=== PATIENT | female | born 1950 | race American Indian/Alaskan Native ===

== ENCOUNTER → 2016-12-03 | Outpatient (CLI) | payer OTHER ==
[~2016-12-03] MED LIST: ADVIN25/60 INH; ASPI81TA28 PO; ATOR-22 PO; ATR25 PO; DIVA250T PO; MELO15TA4 PO; MONT1TAB3 PO; NTRGSL/4 UT; PRED20TA PO; VNTHFA/IN INH
[2016-12-03 17:36] LABS: LYME DISEASE AB IGM NEG (NEG)
[2016-12-03 17:40] LABS: LYME DISEASE AB IGG NEG (NEG)
[2016-12-03 19:45] LABS: MAGNESIUM 2.1 mg/dl (1.8-2.4); THYROID STIMULATING HORMONE 2.53 uIu/ml (0.300-4.500)
== END | disposition home or self-care (01) ==
LOC: C.LABPBG 15:40
PROVIDERS: ATTEND Nurse Practitioner Family
DX: R25.1 Tremor, unspecified (principal)

== ENCOUNTER → 2017-03-21 | Outpatient (CLI) | payer OTHER | END | disposition home or self-care (01) | LOC: C.PAPS 08:01 | PROVIDERS: ATTEND Physician Assistant | DX: Z12.4 Encounter for screening for malignant neoplasm of cervix (principal) ==

== ENCOUNTER → 2017-03-21 | Outpatient (CLI) | payer OTHER ==
[2017-03-21 18:48] LABS: URINE APPEARANCE CLEAR (CLEAR); URINE BILIRUBIN NEG (NEG); URINE COLOR YELLOW; URINE EPITHELIAL CELL AUTO >30 /lpf (0-5); URINE NITRITE NEG (NEG); URINE PH 6.5 (4.5-7.5); URINE SPECIFIC GRAVITY 1.024 (1.000-1.030); UROBILINOGEN NEG (NEG)
[2017-03-21 18:50] LABS: MANUAL MICROSCOPIC REQUIRED? NO; REVIEW REQ? NO
== END | disposition home or self-care (01) ==
LOC: C.LABSPEC 17:35
PROVIDERS: ATTEND Physician Assistant
DX: R39.9 Unspecified symptoms and signs involving the genitourinary system (principal); N89.8 Other specified noninflammatory disorders of vagina

== ENCOUNTER → 2017-03-23 | Outpatient (CLI) | payer OTHER ==
[2017-03-31 15:39] LABS: O&P SOURCE OTHER-STOOL
== END | disposition home or self-care (01) ==
LOC: C.LABSPEC 11:09
PROVIDERS: ATTEND Family Medicine
DX: M54.5 Low back pain (principal); R19.7 Diarrhea, unspecified

== ENCOUNTER → 2017-04-11 | Outpatient (CLI) | payer OTHER ==
[2017-04-14 12:29] LABS: GLIADIN DEAMIDATED IgA AB 4 UNITS (<20); GLIADIN DEAMIDATED IgG AB 4 UNITS (<20); RETICULIN IgA AB Negative (Negative)
== END | disposition home or self-care (01) ==
LOC: C.LABPBG 14:28
PROVIDERS: ATTEND Family Medicine
DX: R19.7 Diarrhea, unspecified (principal)

== ENCOUNTER → 2017-05-23 | Outpatient (CLI) | payer OTHER ==
[2017-05-23 17:40] LABS: URINE APPEARANCE CLEAR (CLEAR); URINE BILIRUBIN NEG (NEG); URINE COLOR YELLOW; URINE EPITHELIAL CELL AUTO >30 /lpf (0-5); URINE NITRITE NEG (NEG); URINE PH 6.5 (4.5-7.5); URINE SPECIFIC GRAVITY 1.024 (1.000-1.030); UROBILINOGEN NEG (NEG)
[2017-05-23 18:00] LABS: MANUAL MICROSCOPIC REQUIRED? NO; REVIEW REQ? NO
== END | disposition home or self-care (01) ==
LOC: C.LABSPEC 12:08
PROVIDERS: ATTEND Family Medicine
DX: R39.9 Unspecified symptoms and signs involving the genitourinary system (principal)

== ENCOUNTER → 2017-06-27 | Outpatient (CLI) | payer OTHER ==
[2017-06-27 17:53] LABS: ALT/SGPT 20 U/L (12-78); BLOOD UREA NITROGEN 21 mg/dl (7-18); BUN/CREATININE RATIO 26.8 (10-20); CARBON DIOXIDE 26 mmol/L (21-32); CHLORIDE 109 mmol/L (98-107); CHOLESTEROL 195 mg/dl (0-200); CREATININE 0.79 mg/dl (0.60-1.20); GLUCOSE 99 mg/dl (70-99); POTASSIUM 4.2 mmol/L (3.5-5.1); SODIUM 141 mmol/L (136-145)
[2017-06-27 17:56] LABS: ALB/GLOB RATIO 0.9 (0.9-2); ALKALINE PHOSPHATASE 86 U/L (45-117); AST/SGOT 11 U/L (15-37); CHOLESTEROL/HDL RATIO 2.8; HDL CHOLESTEROL 70 mg/dl; LDL CHOLESTEROL CALCULATED 110 mg/dl; TRIGLYCERIDES 76 mg/dl (0-150); VERY LOW DENSITY LIPOPROT CALC 15 mg/dl
== END | disposition home or self-care (01) ==
LOC: C.LABPBG 12:16
PROVIDERS: ATTEND Family Medicine
DX: E78.5 Hyperlipidemia, unspecified (principal)

== ENCOUNTER → 2017-09-22 | Outpatient (CLI) | payer OTHER ==
[~2017-09-22] MED LIST changes: +MELO-83 PO; -MELO15TA4 PO
== END | disposition home or self-care (01) ==
LOC: C.LABSPEC 14:41
PROVIDERS: ATTEND Family Medicine
DX: R30.0 Dysuria (principal)

== ENCOUNTER → 2017-10-28 | Outpatient (CLI) | payer OTHER ==
[2017-10-28 17:28] LABS: BLOOD UREA NITROGEN 17 mg/dl (7-18); CARBON DIOXIDE 27 mmol/L (21-32); GLUCOSE 128 mg/dl (70-99); SODIUM 139 mmol/L (136-145)
[2017-10-29 08:04] LABS: HEMOGLOBIN A1C 6.3 % (4.5-5.6)
== END | disposition home or self-care (01) ==
LOC: C.LABPBG 13:46
PROVIDERS: ATTEND Family Medicine
DX: R73.9 Hyperglycemia, unspecified (principal)

== ENCOUNTER 2020-12-07 07:43 | Observation (INO) ==
--- NOTE | 2020-12-07 07:59 | Emergency Department Note ---
History of Present Illness General Chief complaint: Chest Pain Stated complaint: CHEST PAIN Time Seen by Provider: 12/07/20 07:48 Source: patient and EMS Mode of arrival: EMS Limitations: no limitations History of Present Illness This patient comes in complaining of chest pain that woke her up around 630. It feels like chest pressure 10 out of 10 it does radiate to her left arm she feels mildly short of breath and nauseated. She does have a cardiac history as well as a history of COPD. She is not had the Covid vaccine. No fever chills or cough. EMS did give her aspirin prior to arrival as well as sublingual nitro x2 which did not help her pain she tells me she also took 3 nitroglycerin at home prior to the arrival so she has had 5 nitroglycerin without any relief at this point. They did transmit her EKG prior to arrival and it did not show any ischemic changes to suggest acute STEMI. Given the fact that they did not have an IV in the ambulance and she had already had 5 nitroglycerin without relief I told him to hold off on further nitro. Home Medications Medication Instructions Recorded Confirmed Type blood sugar diagnostic #360 ea 01/04/19 11/04/20 Rx albuterol sulfate 2.5 mg INH Q4H PRN #90 ml 12/06/19 12/07/20 Rx albuterol sulfate 90 mcg/actuation 2 - 4 puff INHALATION Q6H PRN #18 12/06/19 12/07/20 Rx aerosol inhaler gm aspirin 81 mg tablet,delayed 81 mg PO QAM #30 tab 12/06/19 12/07/20 Rx release insulin lispro 100 unit/mL See Rx Instructions SUBCUT DAILY 12/06/19 12/07/20 Rx subcutaneous pen #15 ml [id number] 1 puffs INHALATION QDL 12/18/19 12/07/20 History [Trelegy Ellipta] ipratropium bromide 1.25 ml INH UD PRN 12/18/19 12/07/20 History meloxicam 15 mg PO QAM 12/18/19 12/07/20 History montelukast 10 mg PO QAM 12/18/19 12/07/20 History blood-glucose meter #1 ea 12/25/19 11/04/20 Rx Wheeled Walker #1 ea 01/11/20 11/04/20 Rx hydroxyzine pamoate 25 mg capsule 25 mg PO TID PRN #30 cap 01/30/20 12/07/20 Rx nebulizer accessories #1 ea 02/13/20 11/04/20 Rx blood sugar diagnostic #200 ea 03/10/20 11/04/20 Rx pen needle, diabetic 31 gauge x #100 ea 03/10/20 11/04/20 Rx 3/16" lancets 33 gauge #200 ea 03/11/20 11/04/20 Rx metformin 500 mg tablet 500 mg PO BID #180 tab 03/27/20 12/07/20 Rx epinephrine 0.3 mg/0.3 mL See Rx Instructions .ROUTE 11/04/20 12/07/20 Rx injection, auto-injector .COMPLEX PRN #2 ea Wheeled Walker 1 ea .ROUTE .COMPLEX #1 ea 11/07/20 Rx nitroglycerin 0.4 mg sublingual 0.4 mg SUBLINGUAL Q5M PRN #25 tab 12/04/2011/22 Rx tablet fluticasone propionate 1 spray INTRANASAL QAM 12/07/20 12/07/20 History rosuvastatin [Crestor] 10 mg PO QAM 12/07/20 12/07/20 History sertraline 100 mg PO QAM 12/07/20 12/07/20 History Allergies Allergy/AdvReac Type Severity Reaction Status Date / Time ibuprofen Allergy Unknown unknown Verified 12/07/20 08:21 Penicillins Allergy Unknown unknown Verified 12/07/20 08:21 phenytoin Allergy Unknown unknown Verified 12/07/20 08:21 aspirin Allergy Unknown Verified 12/07/20 08:21 bee venom protein (honey bee) Allergy Unknown Verified 12/07/20 08:21 Iodinated Contrast Media AdvReac Mild Vomiting Verified 12/07/20 08:21 [Iodinated Contrast- Oral and IV Dye] Past Med/Surg History Medical History (Updated 12/07/20 @ 13:29 by Abdulkadir Howe MD) Allergic rhinitis Anxiety and depression Asthma Atypical chest pain Cervical radiculopathy COPD (chronic obstructive pulmonary disease) History of recurrent UTI (urinary tract infection) Histrionic personality disorder Hyperlipidemia Impulse control disorder Irritable bowel syndrome Learning disability Lumbar disc disease Lumbar spinal stenosis Nonobstructive atherosclerosis of coronary artery Orthostatic tremor Seizure disorder Type 2 diabetes mellitus Urge incontinence of urine Vitamin D deficiency Surgical History Status post cardiac catheterization Status post cholecystectomy Status post dilation and curettage Status post tonsillectomy Status post tubal ligation Family History Father Myocardial infarction Cerebral aneurysm Coronary heart disease Diabetes Mother Lung cancer Brother H/O heart artery stent Other Family history non-contributory Denies family history of Ovarian cancer Prostate cancer Breast cancer Colorectal cancer Social History Smoking Status: Former smoker Tobacco Type: Cigarettes Age Started Using Tobacco: 18; Age Quit Using Tobacco: 20; packs per day: 2; Years Smoked: 1; Second Hand Exposure: Yes; Hx Alcohol Use: No Hx Substance Use: No Preferred Language: Portuguese Communication Ability: Effective Visual Impairment: Limited Hearing Ability: Normal Beef Killer Required: No Beliefs That Will Affect Care: None marital status: Current Living Situation: Alone Current Living Situation Comment: Live in apartment current occupational status: disabled How many Children do You have: 2 Feels Safe at Home: Yes Childhood Exposure to Second-Hand Smoke: No caffeine: No during the past year weight has: remained stable Dental Care, Regularly: No Physical Activity Frequency: Does not Exercise Seatbelt Use: always Sunscreen Use: No Review of Systems A total of 10 systems reviewed and were otherwise negative Physical Exam Vital Signs Vital Signs - 24 hr 12/07/20 07:49 12/07/20 08:09 12/07/20 08:39 Temperature 36.9 C Temperature Source Oral Pulse Rate 85 Pulse Rate [Right Finger] 95 H Respiratory Rate 20 20 Respiratory Effort / Characteristics Non-Labored Spontaneous Non-Labored Spontaneous Respiratory Depth Normal Normal Blood Pressure 140/87 Blood Pressure [Right Arm] 145/78 H Blood Pressure Mean 104 Blood Pressure Mean [Right Arm] 100 Blood Pressure Position Sitting Blood Pressure Position [Right Arm] Lying Pulse Oximetry 97 97 97 Oxygen Delivery Method Room Air Room Air Room Air Sepsis Recent Fever Within 48 Hours No Sepsis New/Unexplained Change in Mental Status N/A Sepsis Action Taken by Nursing No Action Required 12/07/20 10:00 Temperature Temperature Source Pulse Rate Pulse Rate [Right Finger] 80 Respiratory Rate 18 Respiratory Effort / Characteristics Non-Labored Respiratory Depth Normal Blood Pressure Blood Pressure [Right Arm] 153/88 H Blood Pressure Mean Blood Pressure Mean [Right Arm] 109 Blood Pressure Position Blood Pressure Position [Right Arm] Lying Pulse Oximetry 97 Oxygen Delivery Method Room Air Sepsis Recent Fever Within 48 Hours Sepsis New/Unexplained Change in Mental Status Sepsis Action Taken by Nursing General: Well developed well nourished not ill-appearing older female who appears in no acute distress, breathing comfortably on room air. Normal speech HEENT: Normal cephalic atraumatic. Pupils are equal round and reactive to light. Extraocular movements are intact. Oropharynx is pink with moist mucous membranes. No swelling of the mouth lips or tongue. Neck: Supple with a midline trachea. No meningeal signs or stiffness, no JVD or bruits. No Stridor. Chest: Clear to auscultation bilaterally. No wheezes or rhonchi. No increased work of breathing. Heart: Regular rate and rhythm without murmurs or gallops. Abdomen: Soft nontender, nondistended without rebound guarding or rigidity. Extremities: No cyanosis clubbing or edema. No calf tenderness or assymetry Spine/Back. Non tender to palpation. No CVA tenderness Skin: Good turgor without rashes. Neurologic exam: Cranial nerves two through 12 are intact. Motor and sensation are intact and symmetrical throughout. Course Administered Medications Discontinued Medications Morphine Sulfate (Morphine Sulfate 4 Mg/Ml 1 Ml Carp\\Vial) 4 mg IV NOW STA Stop: 12/07/20 08:33 Last Admin: 12/07/20 08:35 Dose: 4 mg Documented by: [id number] Morphine Sulfate (Morphine Sulfate 4 Mg/Ml 1 Ml Carp\\Vial) 4 mg IV NOW STA Stop: 12/07/20 09:09 Last Admin: 12/07/20 09:10 Dose: 4 mg Documented by: [id number] Ondansetron HCl (Ondansetron Inj 2 Mg/Ml 2 Ml Vial) 4 mg IV NOW STA Stop: 12/07/20 08:33 Last Admin: 12/07/20 08:35 Dose: 4 mg Documented by: [id number] Medical Decision Making Differential Diagnosis Acute coronary syndrome, arrhythmia, CHF, pneumothorax, COPD exacerbation, anxie ty, GERD, musculoskeletal, Covid, aortic pathology Medical Records Attestation: I reviewed the patient's medical records. Home Medications Current Medication List: was personally reviewed by me Laboratory Data Attestation: I reviewed the patient's lab results. Result diagrams: 12/07/20 08:15 12/07/20 08:15 Lab Results 12/07/20 12/07/20 12/07/20 Range/Units 08:15 08:15 08:15 WBC 11.20 H (4.8-10.8) K/uL RBC 4.44 (4.2-5.4) M/uL Hgb 12.7 (12.0-16.0) g/dL Hct 38.7 (37-47) % MCV 87.2 (80-100) fL MCH 28.6 (25-34) pg MCHC 32.8 (32-36) g/dL RDW Std Deviation 44.0 (36.4-46.3) fL RDW Coeff of Maegan 13.8 (11.5-14.5) % Plt Count 242 (130-400) K/uL MPV 10.3 (7.4-10.4) fL Immature Gran % (Auto) 0.2 % Neut % (Auto) 69.2 % Lymph % (Auto) 22.5 % [place] % (Auto) 7.0 % Eos % (Auto) 0.9 % Baso % (Auto) 0.2 % Neut # (Auto) 7.76 H (1.4-6.5) K/uL Lymph # (Auto) 2.52 (1.2-3.4) K/uL [place] # (Auto) 0.78 H (0.11-0.59) K/uL Eos # (Auto) 0.10 (0-0.5) K/uL Baso # (Auto) 0.02 (0-0.2) K/uL Immature Gran # (Auto) 0.02 (0.00-0.02) K/uL PT 9.6 (9.0-12.0) Seconds INR 0.9 (0.9-1.1) APTT 23.3 (21.0-31.0) Seconds PTT Ratio 0.9 Sodium 142 (136-145) mmol/L Potassium 4.1 (3.5-5.1) mmol/L Chloride 112 H (98-107) mmol/L Carbon Dioxide 26 (21-32) mmol/L Anion Gap 4.0 (3-11) BUN 20 H (7-18) mg/dl Creatinine 0.66 (0.6-1.2) mg/dl Est Cr Clr Drug Dosing 75.0 ml/min Est GFR ( Amer) 105.2 ml/min Est GFR (Non-Af Amer) 90.8 ml/min BUN/Creatinine Ratio 30.0 H (10-20) Glucose 99 (70-99) mg/dl Calcium 8.7 (8.5-10.1) mg/dl Total Bilirubin 0.3 (0.2-1) mg/dl AST 17 (15-37) U/L ALT 23 (12-78) U/L Alkaline Phosphatase 104 (45-117) U/L Troponin I < 0.015 (0-0.045) ng/ml C-Reactive Protein (0-0.29) mg/dl Total Protein 6.8 (6.4-8.2) gm/dl Albumin 3.0 L (3.4-5.0) gm/dl Globulin 3.8 (2.5-4.0) gm/dl Albumin/Globulin Ratio 0.8 L (0.9-2) Lipase 98 (73-393) U/L Procalcitonin (0-0.5) ng/ml COVID-19 Eval Order SARS-CoV-2 (PCR) (Negative) 12/07/20 12/07/20 12/07/20 Range/Units 08:15 08:15 08:40 WBC (4.8-10.8) K/uL RBC (4.2-5.4) M/uL Hgb (12.0-16.0) g/dL Hct (37-47) % MCV (80-100) fL MCH (25-34) pg MCHC (32-36) g/dL RDW Std Deviation (36.4-46.3) fL RDW Coeff of Maegan (11.5-14.5) % Plt Count (130-400) K/uL MPV (7.4-10.4) fL Immature Gran % (Auto) % Neut % (Auto) % Lymph % (Auto) % [place] % (Auto) % Eos % (Auto) % Baso % (Auto) % Neut # (Auto) (1.4-6.5) K/uL Lymph # (Auto) (1.2-3.4) K/uL [place] # (Auto) (0.11-0.59) K/uL Eos # (Auto) (0-0.5) K/uL Baso # (Auto) (0-0.2) K/uL Immature Gran # (Auto) (0.00-0.02) K/uL PT (9.0-12.0) Seconds INR (0.9-1.1) APTT (21.0-31.0) Seconds PTT Ratio Sodium (136-145) mmol/L Potassium (3.5-5.1) mmol/L Chloride (98-107) mmol/L Carbon Dioxide (21-32) mmol/L Anion Gap (3-11) BUN (7-18) mg/dl Creatinine (0.6-1.2) mg/dl Est Cr Clr Drug Dosing ml/min Est GFR ( Amer) ml/min Est GFR (Non-Af Amer) ml/min BUN/Creatinine Ratio (10-20) Glucose (70-99) mg/dl Calcium (8.5-10.1) mg/dl Total Bilirubin (0.2-1) mg/dl AST (15-37) U/L ALT (12-78) U/L Alkaline Phosphatase (45-117) U/L Troponin I (0-0.045) ng/ml C-Reactive Protein 0.38 H (0-0.29) mg/dl Total Protein (6.4-8.2) gm/dl Albumin (3.4-5.0) gm/dl Globulin (2.5-4.0) gm/dl Albumin/Globulin Ratio (0.9-2) Lipase (73-393) U/L Procalcitonin < 0.05 (0-0.5) ng/ml COVID-19 Eval Order Covid19 at [facility] SARS-CoV-2 (PCR) (Negative) 12/07/20 Range/Units 08:40 WBC (4.8-10.8) K/uL RBC (4.2-5.4) M/uL Hgb (12.0-16.0) g/dL Hct (37-47) % MCV (80-100) fL MCH (25-34) pg MCHC (32-36) g/dL RDW Std Deviation (36.4-46.3) fL RDW Coeff of Maegan (11.5-14.5) % Plt Count (130-400) K/uL MPV (7.4-10.4) fL Immature Gran % (Auto) % Neut % (Auto) % Lymph % (Auto) % [place] % (Auto) % Eos % (Auto) % Baso % (Auto) % Neut # (Auto) (1.4-6.5) K/uL Lymph # (Auto) (1.2-3.4) K/uL [place] # (Auto) (0.11-0.59) K/uL Eos # (Auto) (0-0.5) K/uL Baso # (Auto) (0-0.2) K/uL Immature Gran # (Auto) (0.00-0.02) K/uL PT (9.0-12.0) Seconds INR (0.9-1.1) APTT (21.0-31.0) Seconds PTT Ratio Sodium (136-145) mmol/L Potassium (3.5-5.1) mmol/L Chloride (98-107) mmol/L Carbon Dioxide (21-32) mmol/L Anion Gap (3-11) BUN (7-18) mg/dl Creatinine (0.6-1.2) mg/dl Est Cr Clr Drug Dosing ml/min Est GFR ( Amer) ml/min Est GFR (Non-Af Amer) ml/min BUN/Creatinine Ratio (10-20) Glucose (70-99) mg/dl Calcium (8.5-10.1) mg/dl Total Bilirubin (0.2-1) mg/dl AST (15-37) U/L ALT (12-78) U/L Alkaline Phosphatase (45-117) U/L Troponin I (0-0.045) ng/ml C-Reactive Protein (0-0.29) mg/dl Total Protein (6.4-8.2) gm/dl Albumin (3.4-5.0) gm/dl Globulin (2.5-4.0) gm/dl Albumin/Globulin Ratio (0.9-2) Lipase (73-393) U/L Procalcitonin (0-0.5) ng/ml COVID-19 Eval Order SARS-CoV-2 (PCR) NEGATIVE (Negative) Imaging Data Attestation: I personally reviewed and interpreted this imaging study as follows: My Impression: Chest x-rayno acute infiltrate, failure, pneumothorax. Questionable atelectasis versus infiltrate in the right base. Radiologist's Impression: Chest X-Ray 12/07/20 07:48 XR chest 1V portable CLINICAL HISTORY: Atypical chest pain COMPARISON STUDY: 12/18/2019 FINDINGS: The heart is normal in size. There is no failure. There are subtle right basilar opacities, atelectatic versus infectious/inflammatory. There are no septal pleural effusions.[ IMPRESSION: Subtle right basilar opacities, atelectatic versus infectious/inflammatory. Clinical and radiographic follow-up are recommended. ACT 112: Negative or not required by law. Electronically signed by: Mike Monzon M.D. 12/07/2020 8:03 AM ECG Data Attestation: I personally reviewed and interpreted this ECG as follows: Indication: + chest pain and + SOB/dyspnea Rate (beats per minute): 82 Rhythm: + normal sinus ECG Intervals/blocks: + Left anterior fascicular block, + Normal QRS, + Normal QT and + Normal [place] ECG [place]: + Normal ECG ST segments: + Nonspecific ST abnormalities ECG Findings: + Other (Poor baseline. Low voltage); no PACs and no PVCs Comparison ECG Date: from (12/18/19) Change: no significant change (Also there is no significant change compared to the EKG done on route by EMS) MDM Narrative This patient comes in as described above. EMS called and I did give ALS medical command prior to arrival. We were expecting her she was placed in room B9. I did review the prehospital EKG and there is nothing to suggest a STEMI. Upon arrival she was still having chest pain despite getting 5 nitroglycerin. Her EKG here was unchanged from prehospital. Her lungs were clear. IV access was established and blood work was obtained. She was placed on a cardiac nurse specialist in room B9. She does have a history of COPD however her lungs are clear. Given the likelihood that she will be admitted I did also order Covid testing. She did did receive morphine 4 mg IV and Zofran 4 mg IV. Her chest x-ray does not show any definite infiltrates there is likely some atelectasis in the right base she has no cough or shortness of breath to suggest pneumonia. White count is minimally elevated at 11. She has no significant anemia. EKG does not suggest ischemia. She has no significant electrolyte or metabolic abnormalities. She has nothing to suggest liver gallbladder or pancreas disease. Her troponin was not elevated. She did receive an additional 4 mg of morphine as she says the pain has not gotten much better. She does not appear to be in any distress however she does have significant cardiac risk factors and I do think needs to be admitted/observed for further inpatient treatment and evaluation. I did consult Dr. Whitten who will see in the ER for these measures. Covid testing was negative Continuous cardiac monitoring: Order was placed in the EMR for continuous cardiac nurse specialist, given her chief complaint of chest pain. She was noted to be in normal sinus rhythm with a pulse of 80. Impression & Plan Chest pain, COPD (chronic obstructive pulmonary disease), Type 2 diabetes mellitus, Hx of coronary artery disease, Lab test negative for COVID-19 virus Discharge Plan Visit Data Chief Complaint: Chest Pain Stated Complaint: CHEST PAIN ED Provider: Abdulkadir Howe Discharge Problem: Chest pain, COPD (chronic obstructive pulmonary disease), Type 2 diabetes mellitus, Hx of coronary artery disease, Lab test negative for COVID-19 virus Forms Stand Alone Forms: My [facility] Prescriptions Prescriptions: No Action (DME) OneTouch Ultra Blue Test Strip strip See Dose Instructions .ROUTE .MEDSUPPLY Qty: 360 RF: 1 (DME) blood-glucose meter [OneTouch Ultra2 Meter] Kit See Rx Instructions .ROUTE .MEDSUPPLY Qty: 1 RF: 0 (DME) Wheeled Walker Misc See Rx Instructions .ROUTE .MEDSUPPLY Qty: 1 RF: 0 hydroxyzine pamoate [Vistaril] 25 mg capsule 25 mg PO TID PRN (Reason: anxiety) Qty: 30 RF: 0 (DME) nebulizer accessories Misc See Rx Instructions .ROUTE .MEDSUPPLY Qty: 1 RF: 0 (DME) OneTouch Ultra Blue Test Strip Strip See Dose Instructions .ROUTE .MEDSUPPLY Qty: 200 RF: 1 (DME) pen needle, diabetic [BD Ultra-Fine Mini Pen Needle] 31 gauge x 3/16" needle See Dose Instructions .ROUTE .MEDSUPPLY Qty: 100 RF: 3 (DME) lancets [OneTouch Delica Plus Lancet] 33 gauge misc See Rx Instructions .ROUTE .MEDSUPPLY Qty: 200 RF: 0 metformin 500 mg tablet 500 mg PO BID Qty: 180 RF: 1 Wheeled Walker Misc 1 ea .ROUTE .COMPLEX Qty: 1 RF: 0 albuterol sulfate [Ventolin HFA] 90 mcg/actuation HFA aerosol inhaler 2 - 4 puff INHALATION Q6H PRN (Reason: Shortness Of Breath Or Wheezing) Qty: 18 RF: 0 albuterol sulfate 2.5 mg /3 mL (0.083 %) solution for nebulization 2.5 mg INH Q4H PRN (Reason: shortness of breath or wheezing) Qty: 90 RF: 2 aspirin 81 mg tablet,delayed release (DR/EC) 81 mg PO QAM Qty: 30 RF: 0 insulin lispro [Humalog KwikPen Insulin] 100 unit/mL insulin pen See Rx Instructions subcut DAILY Qty: 15 RF: 5 epinephrine 0.3 mg/0.3 mL auto-injector See Rx Instructions .ROUTE .COMPLEX PRN (Reason: anaphylaxis) Qty: 2 RF: 0 nitroglycerin 0.4 mg tablet, sublingual 0.4 mg sublingual Q5M PRN (Reason: Chest Pain) Qty: 25 RF: 3 meloxicam 15 mg tablet 15 mg PO QAM RF: 0 montelukast 10 mg tablet 10 mg PO QAM RF: 0 ipratropium bromide 0.02 % solution 1.25 ml INH UD PRN (Reason: shortness of breath or wheezing) RF: 0 Trelegy Ellipta 100-62.5-25 mcg blister with device 1 puffs inhalation QDL RF: 0 sertraline 100 mg tablet 100 mg PO QAM RF: 0 fluticasone propionate 50 mcg/actuation spray,suspension 1 spray intranasal QAM RF: 0 rosuvastatin [Crestor] 10 mg tablet 10 mg PO QAM RF: 0 Referrals Referrals: Gianna Dempsey DO [Primary Care Provider] - Discharge Problem: Chest pain Qualifiers: Chest pain type: precordial pain Qualified Code(s): R07.2 - Precordial pain COPD (chronic obstructive pulmonary disease) Qualifiers: COPD type: unspecified COPD Qualified Code(s): J44.9 - Chronic obstructive pulmonary disease, unspecified Type 2 diabetes mellitus Qualifiers: Diabetes mellitus group home insulin use: with emt intermediate use Diabetes mellitus complication status: without complication Qualified Code(s): E11.9 - Type 2 di abetes mellitus without complications
--- NOTE | 2020-12-07 08:05 | XRay Report ---
XR chest 1V portable CLINICAL HISTORY: Atypical chest pain COMPARISON STUDY: 12/18/2019 FINDINGS: The heart is normal in size. There is no failure. There are subtle right basilar opacities, atelectatic versus infectious/inflammatory. There are no septal pleural effusions.[ IMPRESSION: Subtle right basilar opacities, atelectatic versus infectious/inflammatory. Clinical and radiographic follow-up are recommended. ACT 112: Negative or not required by law. Electronically signed by: Mike Monzon M.D. 12/07/2020 8:03 AM
[2020-12-07 08:25] LABS: Basophils # (auto) 0.02 K/uL (0-0.2); Basophils % (auto) 0.2 %; Eosinophils % (auto) 0.9 %; Hematocrit (blood only) 38.7 % (37-47); Hemoglobin 12.7 g/dL (12.0-16.0); Immature Granulocytes # (auto) 0.02 K/uL (0.00-0.02); Immature Granulocytes % (auto) 0.2 %; Lymphocytes # (auto) 2.52 K/uL (1.2-3.4); Lymphocytes % (auto) 22.5 %; Mean Corpuscular Hemoglobin 28.6 pg (25-34); Mean Corpuscular Hgb Conc 32.8 g/dL (32-36); Mean Corpuscular Volume 87.2 fL (80-100); Mean Platelet Volume 10.3 fL (7.4-10.4); Monocytes # (auto) 0.78 K/uL (0.11-0.59); Neutrophils # (auto) 7.76 K/uL (1.4-6.5); Neutrophils % (auto) 69.2 %; Platelet Count 242 K/uL (130-400); RDW Coefficient of Variation 13.8 % (11.5-14.5); Red Blood Count 4.44 M/uL (4.2-5.4)
[2020-12-07] MEDS ORDERED: ONDANSETRON INJ 2 MG/ML 2 ML VIAL IV STA (08:32)
[2020-12-07] MEDS ORDERED: MoRPHine SULFATE 4 MG/ML 1 ML CARP\\VIAL IV STA ×2 (08:32→09:08)
[2020-12-07 08:35] LABS: INR 0.9 (0.9-1.1); Partial Thromboplastin Ratio 0.9; Partial Thromboplastin Time 23.3 Seconds (21.0-31.0); Prothrombin Time 9.6 Seconds (9.0-12.0)
[2020-12-07 08:40] LABS: Alanine Aminotransferase 23 U/L (12-78); Aspartate Aminotransferase 17 U/L (15-37); Blood Urea Nitrogen 20 mg/dl (7-18); Calcium 8.7 mg/dl (8.5-10.1); Carbon Dioxide 26 mmol/L (21-32); Chloride 112 mmol/L (98-107); Est GFR (African American) 105.2 ml/min; Est GFR (Non-African American) 90.8 ml/min; Glucose 99 mg/dl (70-99); Lipase 98 U/L (73-393); Potassium 4.1 mmol/L (3.5-5.1); Sodium 142 mmol/L (136-145)
[2020-12-07 08:45] LABS: Albumin Globulin Ratio 0.8 (0.9-2); Alkaline Phosphatase 104 U/L (45-117); Bilirubin,Total 0.3 mg/dl (0.2-1); Globulin 3.8 gm/dl (2.5-4.0); Total Protein 6.8 gm/dl (6.4-8.2); Troponin I < 0.015 ng/ml (0-0.045)
--- NOTE | 2020-12-07 10:07 | History & Physical Report ---
Date of Service December 07, 2020 Assessment & Plan (1) Atypical chest pain: 70 y/o F w/ hx of DM2, CAD, chronic atypical chest pain, MS, COPD who presents w/ constant sharp L chest pain w/ radiation to shoulder blade and down L arm since 5AM, w/ no relief from 5 nitros and ASA. - atypical features. sharp, constant, chestwall and L upper back TTP - follows cardiology regularly, most recently on 12/04/20. per cardiology note, has atypical chest pain syndrome, chronic chest pains not from her CAD - mild CAD in 2013 per cardiology note. full report unavailable - neg CTA chest, [facility] abd[facility] consider msk etiology - consult cardio - toradol prn and tylenol prn for pain. voltaren gel - BMP in AM (2) Dyspnea: - states SOB/MURPHY worse than normal - considered copd exac, but overall does not fit infectious picture - home COPD meds. albuterol as needed - deferred steroids, azithro at this time - no echo records in our system. hx of 10 lb weight gain noted. - patient does not seem clinically fluid overloaded on admission exam. can consider echo if suspecting CHF exacerbation at a later time (3) History of recurrent UTI (urinary tract infection): - 2 wks of dysuria, mild suprapubic discomfort, urinary frequency - check UA/culture - UA noted. will start empiric PO nitrofurantoin for uncomplicated UTI. BID x 5 days. (4) Type 2 diabetes mellitus: - on SSI at home - will provide SSI while hospitalized - check A1C - check BSGs ACHS (5) COPD (chronic obstructive pulmonary disease): - continue home meds (6) Hypertension: - not on antihypertensives at home - slightly elevated here (7) MVP (mitral valve prolapse): (8) Anxiety and depression: - states she takes a different medication than the SSRI listed in her chart - will need to obtain outside records as our records (primary care visit 10/2020) show sertraline - sertraline held FEN/GI: diabetic code: full, confirmed with patient ppx: lovenox 40 daily med surg/ w/ tele. History of Present Illness Primary Care Provider: DO Gail Ordonez Soraya is a 70 y/o woman w/ PMHx of Hx of CAD, COPD (no home O2), DM2, multiple sclerosis, MR, asthma, emphysema, copd, stroke (w/ mild residual L hemiparesis), seizure disorder (distant) who presents w/ constant sharp midchest pain that radiates to her left shoulder blade and down her left arm. 10/10 intensity. The symptoms woke her up from sleep at 5AM. Nothing makes better or worse. + pleuritic. +orthopneic. + mild jaw numbness. + numbness/tingling down L arm to fingers. + diaphoresis, since resolved. + SOB and MURPHY. + orthopneic. +pleuritic. + palpitations. Patient has had years of similar chest pains. She states that she had a bad episode 2 days ago that was worse than normal. Today's episode was also quite severe. She was evaluated at the end of September 2020 at [place] [facility] for similar complaints and had a negative CTA at the time. Her credit review officer is Dr. Cartagena, last saw in the office on 12/04. Per cardiology note, patient has atypical chest pain syndrome and minimal coronary artery disease (April 2014). She was thought to be stable from a cardiovascular standpoint. Patient separately has had urinary frequency and dysuria x 2 wks. + hx of UTIs. Patient took 3 nitros at home and received 2 additional nitros en-route + one full dose ASA w/o improvement of symptoms. S/p two doses of 4 mg IV morphine in ED w/o much relief. Vitals were stable in the field, satting well on room air and normotensive. Allergies Allergy/AdvReac Type Severity Reaction Status Date / Time ibuprofen Allergy Unknown unknown Verified 12/07/20 08:21 Penicillins Allergy Unknown unknown Verified 12/07/20 08:21 phenytoin Allergy Unknown unknown Verified 12/07/20 08:21 bee venom protein (honey bee) Allergy Unknown Verified 12/07/20 08:21 Iodinated Contrast Media AdvReac Mild Vomiting Verified 12/07/20 08:21 [Iodinated Contrast- Oral and IV Dye] Home Medications Medication Instructions Recorded Confirmed Type blood sugar diagnostic #360 ea 01/04/19 11/04/20 Rx albuterol sulfate 2.5 mg INH Q4H PRN #90 ml 12/06/19 12/07/20 Rx albuterol sulfate 90 mcg/actuation 2 - 4 puff INHALATION Q6H PRN #18 12/06/19 12/07/20 Rx aerosol inhaler gm aspirin 81 mg tablet,delayed 81 mg PO QAM #30 tab 12/06/19 12/07/20 Rx release insulin lispro 100 unit/mL See Rx Instructions SUBCUT DAILY 12/06/19 12/07/20 Rx subcutaneous pen #15 ml [id number] 1 puffs INHALATION QDL 12/18/19 12/07/20 History [Trelegy Ellipta] ipratropium bromide 1.25 ml INH UD PRN 12/18/19 12/07/20 History meloxicam 15 mg PO QAM 12/18/19 12/07/20 History montelukast 10 mg PO QAM 12/18/19 12/07/20 History blood-glucose meter #1 ea 12/25/19 11/04/20 Rx Joanne Sanches #1 ea 01/11/20 11/04/20 Rx hydroxyzine pamoate 25 mg capsule 25 mg PO TID PRN #30 cap 01/30/20 12/07/20 Rx nebulizer accessories #1 ea 02/13/20 11/04/20 Rx blood sugar diagnostic #200 ea 03/10/20 11/04/20 Rx pen needle, diabetic 31 gauge x #100 ea 03/10/20 11/04/20 Rx 3/16" lancets 33 gauge #200 ea 03/11/20 11/04/20 Rx metformin 500 mg tablet 500 mg PO BID #180 tab 03/27/20 12/07/20 Rx epinephrine 0.3 mg/0.3 mL See Rx Instructions .ROUTE 11/04/20 12/07/20 Rx injection, auto-injector .COMPLEX PRN #2 kieran Sanches 1 ea .ROUTE .COMPLEX #1 ea 11/07/20 Rx nitroglycerin 0.4 mg sublingual 0.4 mg SUBLINGUAL Q5M PRN #25 tab 12/04/20 12/07/20 Rx tablet fluticasone propionate 1 spray INTRANASAL QAM 12/07/20 12/07/20 History rosuvastatin [Crestor] 10 mg PO QAM 12/07/20 12/07/20 History sertraline 100 mg PO QAM 12/07/20 12/07/20 History Past Med/Surg History Medical History (Updated 12/07/20 @ 13:29 by Abdulkadir Howe MD) Allergic rhinitis Anxiety and depression Asthma Atypical chest pain Cervical radiculopathy COPD (chronic obstructive pulmonary disease) History of recurrent UTI (urinary tract infection) Histrionic personality disorder Hyperlipidemia Impulse control disorder Irritable bowel syndrome Learning disability Lumbar disc disease Lumbar spinal stenosis Nonobstructive atherosclerosis of coronary artery Orthostatic tremor Seizure disorder Type 2 diabetes mellitus Urge incontinence of urine Vitamin D deficiency Surgical History Status post cardiac catheterization Status post cholecystectomy Status post dilation and curettage Status post tonsillectomy Status post tubal ligation Family History Father Myocardial infarction Cerebral aneurysm Coronary heart disease Diabetes Mother Lung cancer Brother H/O heart artery stent Other Family history non-contributory Denies family history of Ovarian cancer Prostate cancer Breast cancer Colorectal cancer Social History Smoking Status: Former smoker Tobacco Type: Cigarettes Age Started Using Tobacco: 18; Age Quit Using Tobacco: 20; packs per day: 2; Years Smoked: 1; Second Hand Exposure: No; Do You Dip or Chew Tobacco: No; Tobacco Cessation Education Requested by Patient: No Hx Alcohol Use: No Hx Substance Use: No Preferred Language: Belgian Communication Ability: Effective Visual Impairment: Limited Hearing Ability: Normal Lifestyle Consultant Required: No Beliefs That Will Affect Care: None marital status: Current Living Situation: Alone Current Living Situation Comment: Live in apartment current occupational status: disabled How many Children do You have: 2 Feels Safe at Home: Yes Safety Concerns: Feels Safe At This Time Childhood Exposure to Second-Hand Smoke: No caffeine: No during the past year weight has: remained stable Dental Care, Regularly: No Physical Activity Frequency: Does not Exercise Seatbelt Use: always Sunscreen Use: No Assistive Devices: Walker Review of Systems Review of Systems: All systems reviewed & are unremarkable except as noted in HPI & below Gastrointestinal: no abdominal pain, no nausea and no vomiting + 10 lb wt gain in 1 month Integumentary: no rash Physical Exam Physical Exam: General: A&Ox4. Cooperative. Appears slightly uncomfortable HEENT: Atraumatic, normocephalic. EOMI. PERRL. Neck supple, no LAD. Lips appear moist. Pulm: Insp high pitched wheeze L lower. Otherwise CTAB w/ decreased air movement. No respiratory distress. Cardiac: RRR, -mrg. Radial pulses intact and symmetrical. 2+ bilat radial and DP pulses. No LE edema. Abdominal: Nontender, nondistended, soft. Musculoskeletal: Chest wall ttp mid chest and L chest (worse). TTP at L upper back, including spine and shoulder blade. Full ROM of shoulder. Neuro: Strength appears symmetrical bilateral, 4-5/5. Results & Data Results & Data ([facility]) Vital Signs (Past 12 Hours) Vital Signs Temp Pulse Pulse Resp BP BP Pulse Ox 12/07/20 08:39 95 H 20 145/78 H 97 12/07/20 08:09 97 12/07/20 07:49 36.9 C 85 20 140/87 97 Code Status & VTE Plan VTE Prophylaxis Plan VTE Prophylaxis will be ordered: Yes Supervising Physician Co-Signing Physician Notes I personally examined the patient and verified all barrera points of history and exam, discussed case, and agree with decision making with Dr Banda. Ongoing pain. Is asleep whenever I walk in the room, wakes up and then quickly frustratedly states that she asked for a pain shot and the nursing never came back. I asked her the status of her pain, she notes that it still ongoing and intense. Left side and radiates around to her back. Has not been 0 since it woke her at 5:00 this morning. When asked about how long it was going on before that, she goes back to the 1980s and tells me a story of when she apparently had a cardiac arrest, but it is not clear exactly how long her current symptom complex is been going on. Vitals noted, in general she is asleep on her stomach with her arms up by her head whenever I first walk in the room, she awakens easily and appears in no distress. HEENT normocephalic atraumatic mucous membranes moist. Breathing unlabored no accessory muscle use good effort. Musculoskeletal/osteopathic shows her left upper ribs probably 3-5 very tender at the costochondral margin, and somewhat tender going around to the thoracic articulation. Attempted balanced ligamentous tension with some improvement in tissue texture, patient tolerated well although it was very tender. Labs and diagnostics noted, troponins now negative x2 Chest paingiven her negative troponins despite hours, and hours of pain (possibly longer) and the sharp stabbing quality of it as well as its reproducible nature, I am highly suspicious that this is musculoskeletal, and it seems highly unlikely to be cardiac. We have asked cardiology to see her given her questionable but seemingly serious heart history. That said attempted trial of OMT, start lidocaine patches to treat what appears to be an element of costochondritis with this, Voltaren gel at the thoracic articulation of the ribs posteriorly, Toradol as needed. otherwise as above Resident Activity Tracking Resident Involvement: Resident Care Provided Care Provided: Adult Hospital Medicine
[2020-12-07] MEDS ORDERED: ACETAMINOPHEN 325 MG TAB PO PRN (14:12)
[2020-12-07] MEDS ORDERED: IPRATROPIUM BROMIDE NEB SOLN 0.02% 2.5 ML VIAL INH PRN (14:12)
[2020-12-07] MEDS ORDERED: ALBUTEROL HFA 8 GM INHALER INH PRN (14:12)
[2020-12-07] MEDS ORDERED: ALUMINUM/MAGNESIUM SUSP 30 ML UDC PO PRN (14:12)
[2020-12-07] MEDS ORDERED: ONDANSETRON INJ 2 MG/ML 2 ML VIAL IV PRN (14:12)
[2020-12-07] MEDS ORDERED: MAGNESIUM HYDROXIDE SUSP 30 ML UDC PO PRN (14:12)
[2020-12-07] MEDS ORDERED: ALBUTEROL 0.083% NEBU SOLN 3 ML VIAL INH PRN (14:12)
[2020-12-07] MEDS ORDERED: NITROGLYCERIN SL 0.4 MG/TAB TAB SL PRN (14:12)
[2020-12-07] MEDS ORDERED: hydrOXYzine HCl 25 MG TAB PO PRN (14:12)
[2020-12-07] MEDS ORDERED: MELOXICAM 7.5 MG TAB PO SCH (14:30)
[2020-12-07] MEDS ORDERED: CARBOHYDRATES FOR HYPOGLYCEMIA PO PRN (14:45)
[2020-12-07] MEDS ORDERED: GLUCOSE 10 TABS/TUBE PO PRN (14:45)
[2020-12-07] MEDS ORDERED: GLUCOSE 40% GEL 15 GM TUBE PO PRN (14:45)
[2020-12-07] MEDS ORDERED: DEXTROSE 50% 50 ML SYRINGE IV PRN (14:45)
[2020-12-07] MEDS ORDERED: GLUCAGON FOR INJ 1 MG VIAL IM PRN (14:45)
[2020-12-07] MEDS: FLUTICASONE PROPIONATE NA SPR 16 GM BTL NAE SCH (15:05)
[2020-12-07] MEDS: MONTELUKAST SODIUM 10 MG TABLET PO SCH (15:07)
[2020-12-07] MEDS: ROSUVASTATIN CALCIUM 10 MG TAB PO SCH (15:07)
[2020-12-07] MEDS: ENOXAPARIN INJ 40 MG/0.4 ML SYR SQ SCH (15:08)
[2020-12-07 15:42] LABS: Appearance Urine Cloudy (Clear); Bacteria Urine Automated Negative (Negative); Bilirubin Urine Negative (Negative); Blood Urine Negative (Negative); Color Urine Yellow; Epithelial Cell Urine Auto >30 /lpf (0-5); Glucose Urine UA Negative (Negative); Ketones Urine Negative (Negative); Leukocyte Esterase Urine 2+ (Negative); Nitrite Urine Negative (Negative); Protein Urine Negative (Negative); Specific Gravity Urine 1.028 (1.000-1.030); Urobilinogen Urine Negative (Negative); WBC Urine Automated >30 /hpf (0-5); pH Urine 5.5 (4.5-7.5)
[2020-12-07 16:06] LABS: Calcium Oxalate Crystals Urine Present (None Prsent); RBC Urine Automated 0-4 /hpf (0-4)
[2020-12-07] MEDS ORDERED: SODIUM CHLORIDE 0.9% 1000ML 500 ML IV ONE (16:21)
[2020-12-07] MEDS ORDERED: KETOROLAC TROMETHAMINE 15 MG/ML VIAL IV ONE (16:21)
[2020-12-07] MEDS: UMECLIDINIUM/VILANTEROL 62.5/25MCG 7 PUFFS/INHALER INH SCH (16:49)
[2020-12-07] MEDS: INSULIN ASPART 100 UNITS/ML 3 ML PEN SC SCH ×2 (16:50→20:27)
[2020-12-07] MEDS: FLUTICASONE FUROATE 100MCG 14 PUFFS/INHALER INH SCH (16:50)
[2020-12-07] MEDS: LIDOCAINE 5% 1 PATCH TD SCH (16:51)
[2020-12-07] MEDS: DICLOFENAC SOD 1% GEL 100 GM TUBE EXT SCH ×2 (16:52→20:44)
[2020-12-07] MEDS: metFORMIN HCL 500 MG TAB PO SCH (17:00)
--- NOTE | 2020-12-07 17:10 | Billing Data ---
Date of Service December 07, 2020 Coding Level of Care Code 11210 OBS Care - Level 3
--- NOTE | 2020-12-07 18:30 | Cardiology Consultation ---
Date of Consultation December 07, 2020 Assessment & Plan (1) Dyspnea: She reported an element of dyspnea at times. She is not appear to be short of breath currently. Her x-ray was normal in her lung examination is also normal. I do not believe this is reflective of any pulmonary vascular conge stion or heart failure. I do not believe she requires an echocardiogram currently. (2) Hx of coronary artery disease: She has reported history of cardiac disease although this is not well supported in her record. I suspect she has had some additional studies of which I am not aware. She should continue her rosuvastatin and daily aspirin (3) Atypical chest pain: I think we can confidently say that her current symptoms are not related to coronary insufficiency or cardiac ischemia. She said prolonged and severe symptoms without elevation in her biomarkers. Despite telling me that her symptoms are quite severe she was actually eating dinner in appeared quite comfortable at the time of my evaluation. There is some reproducible component to her symptoms. I would agree with the primary service and their attempts to provide symptomatic relief with topical analgesics, nonsteroidal medications and narcotics. I would not pursue any additional ischemic evaluation at this point. History of Present Illness Reason for Consultation: Chest pain Requesting Physician: Solo Attending Physician: Ray Kerns DO History of Present Illness The patient is a 70-year-old woman with a reported history of mild coronary disease who has been experiencing symptoms of chest and arm discomfort. According to the patient she has had 3 heart attacks 1 of which occurred within the past few years at our facility. He states that she generally does not have symptoms of chest discomfort but early this morning she developed severe substernal chest discomfort and left arm discomfort. The symptoms did not appear to be worse with deep inspiration or movement. He was associated with some mild breathing difficulty. It apparently was quite severe in nature. The patient presented to the emergency room for evaluation where she was administered nitroglycerin and narcotics as well as aspirin. None of these appeared to improve her symptoms. At the time of my interview she appears to have had symptoms for several hours unchanged by administration of medication. Normally she is ambulatory with a wheeled walker. She reports having difficulty with her legs due to multiple sclerosis and this limits her activity. He does have occasional dizziness and lightheadedness that sometimes is positional in nature. She occasionally describes this as vertigo. She has not been aware of palpitations recently. She occasionally has some radicular pain involving her neck and left arm. Allergies Allergy/AdvReac Type Severity Reaction Status Date / Time ibuprofen Allergy Unknown unknown Verified 12/07/20 08:21 Penicillins Allergy Unknown unknown Verified 12/07/20 08:21 phenytoin Allergy Unknown unknown Verified 12/07/20 08:21 bee venom protein (honey bee) Allergy Unknown Verified 12/07/20 08:21 Iodinated Contrast Media AdvReac Mild Vomiting Verified 12/07/20 08:21 [Iodinated Contrast- Oral and IV Dye] Home Medications Medication Instructions Recorded Confirmed Type blood sugar diagnostic #360 ea 01/04/19 11/04/20 Rx albuterol sulfate 2.5 mg INH Q4H PRN #90 ml 12/06/19 12/07/20 Rx albuterol sulfate 90 mcg/actuation 2 - 4 puff INHALATION Q6H PRN #18 12/06/19 12/07/20 Rx aerosol inhaler gm aspirin 81 mg tablet,delayed 81 mg PO QAM #30 tab 12/06/19 12/07/20 Rx release insulin lispro 100 unit/mL See Rx Instructions SUBCUT DAILY 12/06/19 12/07/20 Rx subcutaneous pen #15 ml [id number] 1 puffs INHALATION QDL 12/18/19 12/07/20 History [Trelegy Ellipta] ipratropium bromide 1.25 ml INH UD PRN 12/18/19 12/07/20 History meloxicam 15 mg PO QAM 12/18/19 12/07/20 History montelukast 10 mg PO QAM 12/18/19 12/07/20 History blood-glucose meter #1 ea 12/25/19 11/04/20 Rx Wheeled Walker #1 ea 01/11/20 11/04/20 Rx hydroxyzine pamoate 25 mg capsule 25 mg PO TID PRN #30 cap 01/30/20 12/07/20 Rx nebulizer accessories #1 ea 02/13/20 11/04/20 Rx blood sugar diagnostic #200 ea 03/10/20 11/04/20 Rx pen needle, diabetic 31 gauge x #100 ea 03/10/20 11/04/20 Rx 3/16" lancets 33 gauge #200 ea 03/11/20 11/04/20 Rx metformin 500 mg tablet 500 mg PO BID #180 tab 03/27/20 12/07/20 Rx epinephrine 0.3 mg/0.3 mL See Rx Instructions .ROUTE 11/04/20 12/07/20 Rx injection, auto-injector .COMPLEX PRN #2 ea Wheeled Walker 1 ea .ROUTE .COMPLEX #1 ea 11/07/20 Rx nitroglycerin 0.4 mg sublingual 0.4 mg SUBLINGUAL Q5M PRN #25 tab 12/04/20 12/07/20 Rx tablet fluticasone propionate 1 spray INTRANASAL QAM 12/07/20 12/07/20 History rosuvastatin [Crestor] 10 mg PO QAM 12/07/20 12/07/20 History sertraline 100 mg PO QAM 12/07/20 12/07/20 History Patient History Medical History Allergic rhinitis Anxiety and depression Asthma Atypical chest pain Cervical radiculopathy COPD (chronic obstructive pulmonary disease) History of recurrent UTI (urinary tract infection) Histrionic personality disorder Hyperlipidemia Impulse control disorder Irritable bowel syndrome Learning disability Lumbar disc disease Lumbar spinal stenosis Nonobstructive atherosclerosis of coronary artery Orthostatic tremor Seizure disorder Type 2 diabetes mellitus Urge incontinence of urine Vitamin D deficiency Surgical History Status post cardiac catheterization Status post cholecystectomy Status post dilation and curettage Status post tonsillectomy Status post tubal ligation Family History Father Myocardial infarction Cerebral aneurysm Coronary heart disease Diabetes Mother Lung cancer Brother H/O heart artery stent Other Family history non-contributory Denies family history of Ovarian cancer Prostate cancer Breast cancer Colorectal cancer Social History Smoking Status: Former smoker Tobacco Type: Cigarettes Age Started Using Tobacco: 18; Age Quit Using Tobacco: 20; packs per day: 2; Years Smoked: 1; Second Hand Exposure: No; Do You Dip or Chew Tobacco: No; Tobacco Cessation Education Requested by Patient: No Hx Alcohol Use: No Hx Substance Use: No Preferred Language: Grenadian Communication Ability: Effective Visual Impairment: Limited Hearing Ability: Normal Can Runner Required: No Beliefs That Will Affect Care: None marital status: Current Living Situation: Alone Current Living Situation Comment: Live in apartment current occupational status: disabled How many Children do You have: 2 Feels Safe at Home: Yes Safety Concerns: Feels Safe At This Time Childhood Exposure to Second-Hand Smoke: No caffeine: No during the past year weight has: remained stable Dental Care, Regularly: No Physical Activity Frequency: Does not Exercise Seatbelt Use: always Sunscreen Use: No Assistive Devices: Walker Review of Systems Review of Systems: Per HPI. Physical Exam Physical Exam: She is alert and oriented x3. Mood affect appear normal. She answered all questions appropriately. HEENT: Sclerae are anicteric. Pupils are equal and reactive to light and accommodation. Extraocular movements were intact. Neuro: Cranial nerves intact Neck: Examination of the submandibular region did not reveal any significant lymphadenopathy. Carotids are palpable bilaterally and free of bruits on auscultation. There was no evidence of jugular venous distention. The thyroid was not enlarged. Lungs: Lungs are clear to auscultation bilaterally. There are no rales wheezes or rhonchi. She has normal respiratory effort without use of accessory muscles. There is normal pulmonary excursion. Cardiac: The rhythm was regular. S1 and S2 were normal. There are no murmurs on examination. The PMI was not markedly displaced on palpation. Abdomen: The abdomen was soft and nontender. Chest: Tender to palpation in the precordium. Extremities: Patient has bilateral radial pulses that are equal in intensity. There is no evidence cyanosis or clubbing. There was no evidence of significant peripheral edema bilaterally. Skin: There are no rashes noted on examination today. Results & Data ([facility]) Vital Signs (Past 12 Hours) Vital Signs Temp Pulse Pulse Resp BP BP BP 12/07/20 14:10 36.7 C 87 18 160/93 H 12/07/20 13:28 77 20 135/88 12/07/20 10:00 80 18 153/88 H 12/07/20 08:39 95 H 20 145/78 H 12/07/20 08:09 12/07/20 07:49 36.9 C 85 20 140/87 Pulse Ox 12/07/20 14:10 97 12/07/20 13:28 97 12/07/20 10:00 97 12/07/20 08:39 97 12/07/20 08:09 97 12/07/20 07:49 97 Laboratory Results Abnormal Lab Results 12/07/20 12/07/20 12/07/20 08:15 08:15 08:15 WBC 11.20 H RBC 4.44 Hgb 12.7 Hct 38.7 MCV 87.2 MCH 28.6 MCHC 32.8 RDW Std Deviation 44.0 RDW Coeff of Maegan 13.8 Plt Count 242 MPV 10.3 Immature Gran % (Auto) 0.2 Neut % (Auto) 69.2 Lymph % (Auto) 22.5 [place] % (Auto) 7.0 Eos % (Auto) 0.9 Baso % (Auto) 0.2 Neut # (Auto) 7.76 H Lymph # (Auto) 2.52 [place] # (Auto) 0.78 H Eos # (Auto) 0.10 Baso # (Auto) 0.02 Immature Gran # (Auto) 0.02 PT 9.6 INR 0.9 APTT 23.3 PTT Ratio 0.9 Sodium 142 Potassium 4.1 Chloride 112 H Carbon Dioxide 26 Anion Gap 4.0 BUN 20 H Creatinine 0.66 Est Cr Clr Drug Dosing 75.0 Est GFR ( Amer) 105.2 Est GFR (Non-Af Amer) 90.8 BUN/Creatinine Ratio 30.0 H Glucose 99 POC Glucose Calcium 8.7 Total Bilirubin 0.3 AST 17 ALT 23 Alkaline Phosphatase 104 Troponin I < 0.015 C-Reactive Protein Total Protein 6.8 Albumin 3.0 L Globulin 3.8 Albumin/Globulin Ratio 0.8 L Lipase 98 Procalcitonin Urine Color Urine Appearance Urine pH Ur Specific [place] Urine Protein Urine Glucose (UA) Urine Ketones Urine Blood Urine Nitrite Urine Bilirubin Urine Urobilinogen Ur Leukocyte Esterase Urine WBC (Auto) Urine RBC (Auto) U Hyaline Cast (Auto) U Epithel Cells (Auto) Urine Bacteria (Auto) Urine Crystals Calcium Oxalate Crystal COVID-19 Eval Order SARS-CoV-2 (PCR) 12/07/20 12/07/20 12/07/20 08:15 08:15 08:15 WBC RBC Hgb Hct MCV MCH MCHC RDW Std Deviation RDW Coeff of Maegan Plt Count MPV Immature Gran % (Auto) Neut % (Auto) Lymph % (Auto) [place] % (Auto) Eos % (Auto) Baso % (Auto) Neut # (Auto) Lymph # (Auto) [place] # (Auto) Eos # (Auto) Baso # (Auto) Immature Gran # (Auto) PT INR APTT PTT Ratio Sodium Potassium Chloride Carbon Dioxide Anion Gap BUN Creatinine Est Cr Clr Drug Dosing Est GFR ( Amer) Est GFR (Non-Af Amer) BUN/Creatinine Ratio Glucose POC Glucose Calcium Total Bilirubin AST ALT Alkaline Phosphatase Troponin I C-Reactive Protein 0.38 H Total Protein Albumin Globulin Albumin/Globulin Ratio Lipase Procalcitonin < 0.05 Urine Color Yellow Urine Appearance Cloudy A Urine pH 5.5 Ur Specific [place] 1.028 Urine Protein Negative Urine Glucose (UA) Negative Urine Ketones Negative Urine Blood Negative Urine Nitrite Negative Urine Bilirubin Negative Urine Urobilinogen Negative Ur Leukocyte Esterase 2+ H Urine WBC (Auto) >30 H Urine RBC (Auto) 0-4 U Hyaline Cast (Auto) 1-5 U Epithel Cells (Auto) >30 H Urine Bacteria (Auto) Negative Urine Crystals Calcium Oxalate A Calcium Oxalate Crystal Present A COVID-19 Eval Order SARS-CoV-2 (PCR) 12/07/20 12/07/20 12/07/20 08:40 08:40 14:37 WBC RBC Hgb Hct MCV MCH MCHC RDW Std Deviation RDW Coeff of Maegan Plt Count MPV Immature Gran % (Auto) Neut % (Auto) Lymph % (Auto) [place] % (Auto) Eos % (Auto) Baso % (Auto) Neut # (Auto) Lymph # (Auto) [place] # (Auto) Eos # (Auto) Baso # (Auto) Immature Gran # (Auto) PT INR APTT PTT Ratio Sodium Potassium Chloride Carbon Dioxide Anion Gap BUN Creatinine Est Cr Clr Drug Dosing Est GFR ( Amer) Est GFR (Non-Af Amer) BUN/Creatinine Ratio Glucose POC Glucose Calcium Total Bilirubin AST ALT Alkaline Phosphatase Troponin I < 0.015 C-Reactive Protein Total Protein Albumin Globulin Albumin/Globulin Ratio Lipase Procalcitonin Urine Color Urine Appearance Urine pH Ur Specific [place] Urine Protein Urine Glucose (UA) Urine Ketones Urine Blood Urine Nitrite Urine Bilirubin Urine Urobilinogen Ur Leukocyte Esterase Urine WBC (Auto) Urine RBC (Auto) U Hyaline Cast (Auto) U Epithel Cells (Auto) Urine Bacteria (Auto) Urine Crystals Calcium Oxalate Crystal COVID-19 Eval Order Covid19 at [facility] SARS-CoV-2 (PCR) NEGATIVE 12/07/20 16:50 WBC RBC Hgb Hct MCV MCH MCHC RDW Std Deviation RDW Coeff of Maegan Plt Count MPV Immature Gran % (Auto) Neut % (Auto) Lymph % (Auto) [place] % (Auto) Eos % (Auto) Baso % (Auto) Neut # (Auto) Lymph # (Auto) [place] # (Auto) Eos # (Auto) Baso # (Auto) Immature Gran # (Auto) PT INR APTT PTT Ratio Sodium Potassium Chloride Carbon Dioxide Anion Gap BUN Creatinine Est Cr Clr Drug Dosing Est GFR ( Amer) Est GFR (Non-Af Amer) BUN/Creatinine Ratio Glucose POC Glucose 104 H Calcium Total Bilirubin AST ALT Alkaline Phosphatase Troponin I C-Reactive Protein Total Protein Albumin Globulin Albumin/Globulin Ratio Lipase Procalcitonin Urine Color Urine Appearance Urine pH Ur Specific [place] Urine Protein Urine Glucose (UA) Urine Ketones Urine Blood Urine Nitrite Urine Bilirubin Urine Urobilinogen Ur Leukocyte Esterase Urine WBC (Auto) Urine RBC (Auto) U Hyaline Cast (Auto) U Epithel Cells (Auto) Urine Bacteria (Auto) Urine Crystals Calcium Oxalate Crystal COVID-19 Eval Order SARS-CoV-2 (PCR) Diagnostic Findings Time admission not reveal any acute cardiopulmonary disease. Performed at [facility] 2018 preserved LV systolic function without significant valvular heart disease Nuclear perfusion study performed in 2010 did not reveal any evidence of ischemia. EKG obtained the time admission revealed normal sinus rhythm with incomplete right bundle branch block and left axis PG Care Time/CCT Total # of Minutes Spent Total Time Spent with Patient: Total time spent is greater than 50% in coordination of care (as documented) at patient's floor/unit and/or counseling patient: Coding Level of Care Code 83921 Initial Inpt Care Lvl 3 Diagnoses Dyspnea R06.00 Hx of coronary artery disease Z86.79 Atypical chest pain R07.89
--- NOTE | 2020-12-07 18:51 | Electrocardiogram Report ---
Test Reason : Blood Pressure : / mmHG Vent. Rate : 082 BPM Atrial Rate : 082 BPM P-R Int : 138 ms QRS Dur : 080 ms QT Int : 382 ms P-R-T Axes : 074 -50 067 degrees QTc Int : 446 ms Normal sinus rhythm Low voltage QRS Left anterior fascicular block Nonspecific ST and T wave abnormality Abnormal ECG When compared with ECG of 18-DEC-2019 12:21, No significant change was found Confirmed by Thong Chau ([id number]) on 12/07/2020 6:51:20 PM Referred By: REFERRED SELF Confirmed By:Jared Chau
[2020-12-07] MEDS: NITROFURANTOIN MONOHYDRATE 100 MG CAP PO SCH (20:46)
[2020-12-08] MEDS: KETOROLAC TROMETHAMINE 15 MG/ML VIAL IV PRN ×2 (00:49→07:42)
[2020-12-08 07:04] LABS: Estimated Average Glucose 123 mg/dl; Hemoglobin A1C 5.9 % (4.5-5.6)
--- NOTE | 2020-12-08 08:09 | Medical Student Progress Note ---
Date of Service December 08, 2020 Assessment & Plan (1) Atypical chest pain: Pt's EKG was unremarkable in the ER, CXR was negatrive for acute findings, and troponins were negative x2. Pain is not likely due to ACS and is could be pleuritic in nature. Pt's sternum is very tender to palpation along with some tenderness in the shoulder. Pain is only relieved with Pain medication. atypical features. sharp, constant, chestwall and L upper back TTP Cardio was consulted. Did not feel it was ACS or ischemic in nature. - consider msk etiology - toradol prn and tylenol prn for pain. voltaren gel -BMP today (2) Left shoulder pain: Pt has significant pain in the L shoulder that she says radiates from the the chest pain. She is very tender to palpation around AC joint and has limited passive ROM due to pain. 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 Due to the severity of the pain, it would be worth to order a 3 view radiograph of the L shoulder. It is possible that a shoulder pathology could be contributing to her presentation -Order 3 view XR of L shoulder (3) Dyspnea: Pt's O2 sat has been above 97% but the pt states she still feels dyspneic. Pt should continue home COPD regime. Derring steroids or Abx at this time, not likely a COPD execerbation. (4) Type 2 diabetes mellitus: on SSI at home. In the hospital, glucose runs between 86-99, with a prior goal being set between 140-180. - will provide SSI while hospitalized - A1C is 5.9 in the hospital. - check BSGs ACHS -Hold Metformin Diabetes mellitus complication status: without complication Diabetes mellitus fdc insulin use: with fdc use Qualified Code(s): E11.9 - Type 2 diabetes mellitus without complications; Z79.4 - MCFP (current) use of insulin (5) Anxiety and depression: states she takes a different medication than the SSRI listed in her chart - will need to obtain outside records as our records (primary care visit 10/2020) show sertraline - sertraline held (6) History of recurrent UTI (urinary tract infection): 2 wks of dysuria, mild suprapubic discomfort, urinary frequency. -Urine Cx showed Gram Negative bacilli 50k cfu/mL, sensitivites pending - UA noted. started on PO nitrofurantoin for uncomplicated UTI. BID x 5 days on 12/07 Admission and Anticipated Discharge Date Admission Date: December 07, 2020 Supervising Attestation Patient seen and examined with MS Rodrigo Barrera and PGY-1 Dr. Ferguson. Agree with history, exam findings, assessment and plan of care as outlined. 70 y/o F w/ hx of DM2, CAD, chronic atypical chest pain, MS, COPD who presents w/ constant sharp L chest pain w/ radiation to shoulder blade and down L arm since 5AM, w/ no relief from 5 nitros and ASA. Admitted for chest pain. Continues to have reproducible chest pain at the upper costochondral junctions. Left shoulder pain with movement located in the lateral and posterior shoulder. Dyspnea is improved with albuterol. Tender Ribs 2, 3 bilateral costochondral junctions. Tender over the anterior shoulder, superior trapezius border, posterior shoulder joint, subacromial area and just medial to the scapula. Shoulder exam is limited by pain and guarding. She is able to passively get to 90 abduction and forward flexion before she has too much pain to continue. Pain with empty can, but no weakness. Negative belly press. Unable to do lift off test. 1. Atypical chest pain. Likely MSKcostochondritis. Trops are negative. 2. Dyspnea. Euvolemic. Continue home inhalers. No steroids, but started azithromycin. 3. Left shoulder pain. Clearly MSK etiology. Exam is challenging due to pain with nearly all motion and touch. Radiographs with mild degenerative process of the GH joint. Suspect there is also some degree of tendinopathy. Lower suspicion for adhesive capsulitis. Ok for lidocaine patch, topical voltaren getl, Tylenol. 4. Cystitis in the setting of recurrent UTI. Started nitrofurantoin. Culture with 50k gram negative bacilli. 5. DM2. Sliding scale insulin. No home oral glycemic medications. 6. Elevated blood pressure. No history of hypertension. 7. Anxiety depression. Awaiting outpatient records to verify SSRI. Dispo: discharge home today. Follow up with PCP in 1-2 weeks. I personally spent 40 minutes discharge planning for this patient. Subjective Pt is a 70 yo F w/ Hx of COPD, CAD, DM2, and CVA with residual weakness that came into the ER with chest pain that radiates into L shoulder rated 10/10. The pain was not relieved with nitro. ER did EKG which was unchanged from previous and CXR which was negative for acute findings. Today, pt is still feeling a lot of pain in her chest and left shoulder. She rates it 9/10 and describes it as sharp and worse with inspiration. Pt states she still feels short of breath and would like to continue her home COPD medications. Pt denies any fever, chills, night sweats, cough. She only feels lightheaded when she sits ups. It takes her a minute to get up but can ambulate with her walker. Pt still noted increased frequency and urgency with urination. Review of Systems Constitutional: as per Subjective / HPI Eyes: + photophobia Ear, Nose, Mouth, Throat: + dizziness Respiratory: as per Subjective / HPI Cardiovascular: + chest pain, + chest pain at rest and + dyspnea; no orthopnea Gastrointestinal: no problem reported Genitourinary: as per Subjective / HPI Musculoskeletal: as per Subjective / HPI Physical Exam Constitutional: WD/WN, vitals as above Eyes: PERRL, conjunctivae normal, anicteric sclerae Neck: trachea midline, no thyromegaly Respiratory: normal respiratory effort; no cough Auscultation: + diminished lung sounds and + wheezes; no crackles and no rales Pain with deep inspiration. Cardiovascular: RRR, no murmur, no edema TTP along sternal border Gastrointestinal (Abdomen): normal bowel sounds, soft, nontender, no hepatosplenomegaly Musculoskeletal: Head/Neck/Chest: neck supple Strength 5/5 on RUE L Shoulder No bony deformities noted. TTP in rotator cuff, biceps tendon, or acromioclavicular joint. Limited Passive ROM due to pain and decreased strength 4/5 in shoulder upon ADD, ABD, IR, ER. Pain with resisted Abd, IR, ER, and empty cans Neurologic: patellar DTR's 2+ bilat, sensation intact CN's II-XI intact bilaterally Results & Data ([facility]) Vital Signs (Past 12 Hours) Vital Signs Temp Pulse Pulse Resp BP Pulse Ox 12/08/20 07:37 36.6 C 79 18 144/77 H 98 12/08/20 07:00 79 12/08/20 04:02 36.7 C 84 18 118/72 97 12/08/20 00:00 36.7 C 78 88 18 125/64 97 Laboratory Results 12/07 CBC normal with slightly elevated WBC at 11.2 12/07 CMP unremarkable, glucose was 99. 12/07 UA + for LE and WBC 12/07 Troponin negative x2 12/07 CRP slightly elevated 0.38 and Lipase negative 12/08 Spot glucose in AM was 86 12/08/20 12/08/20 12/07/20 Range/Units 07:46 07:29 20:12 WBC (4.8-10.8) K/uL RBC (4.2-5.4) M/uL Hgb (12.0-16.0) g/dL Hct (37-47) % MCV (80-100) fL MCH (25-34) pg MCHC (32-36) g/dL RDW Std Deviation (36.4-46.3) fL RDW Coeff of Maegan (11.5-14.5) % Plt Count (130-400) K/uL MPV (7.4-10.4) fL Immature Gran % (Auto) % Neut % (Auto) % Lymph % (Auto) % [place] % (Auto) % Eos % (Auto) % Baso % (Auto) % Neut # (Auto) (1.4-6.5) K/uL Lymph # (Auto) (1.2-3.4) K/uL [place] # (Auto) (0.11-0.59) K/uL Eos # (Auto) (0-0.5) K/uL Baso # (Auto) (0-0.2) K/uL Immature Gran # (Auto) (0.00-0.02) K/uL PT (9.0-12.0) Seconds INR (0.9-1.1) APTT (21.0-31.0) Seconds PTT Ratio Sodium 141 (136-145) mmol/L Potassium 4.5 (3.5-5.1) mmol/L Chloride 108 H (98-107) mmol/L Carbon Dioxide 30 (21-32) mmol/L Anion Gap 3.0 (3-11) BUN 12 (7-18) mg/dl Creatinine 0.68 (0.6-1.2) mg/dl Est Cr Clr Drug Dosing 70.6 ml/min Est GFR ( Amer) 104.2 ml/min Est GFR (Non-Af Amer) 89.9 ml/min BUN/Creatinine Ratio 18.2 (10-20) Glucose 85 (70-99) mg/dl POC Glucose 86 92 (70-99) mg/dl Estimat Average Glucose mg/dl Hemoglobin A1c (4.5-5.6) % Calcium 9.3 (8.5-10.1) mg/dl Total Bilirubin (0.2-1) mg/dl AST (15-37) U/L ALT (12-78) U/L Alkaline Phosphatase (45-117) U/L Troponin I (0-0.045) ng/ml C-Reactive Protein (0-0.29) mg/dl Total Protein (6.4-8.2) gm/dl Albumin (3.4-5.0) gm/dl Globulin (2.5-4.0) gm/dl Albumin/Globulin Ratio (0.9-2) Lipase (73-393) U/L Procalcitonin (0-0.5) ng/ml Urine Color Urine Appearance (Clear) Urine pH (4.5-7.5) Ur Specific [place] (1.000-1.030) Urine Protein (Negative) Urine Glucose (UA) (Negative) Urine Ketones (Negative) Urine Blood (Negative) Urine Nitrite (Negative) Urine Bilirubin (Negative) Urine Urobilinogen (Negative) Ur Leukocyte Esterase (Negative) Urine WBC (Auto) (0-5) /hpf Urine RBC (Auto) (0-4) /hpf U Hyaline Cast (Auto) (0-5) /lpf U Epithel Cells (Auto) (0-5) /lpf Urine Bacteria (Auto) (Negative) Urine Crystals (None Prsent) Calcium Oxalate Crystal (None Prsent) COVID-19 Eval Order SARS-CoV-2 (PCR) (Negative) 12/07/20 12/07/20 12/07/20 Range/Units 16:50 14:37 14:37 WBC (4.8-10.8) K/uL RBC (4.2-5.4) M/uL Hgb (12.0-16.0) g/dL Hct (37-47) % MCV (80-100) fL MCH (25-34) pg MCHC (32-36) g/dL RDW Std Deviation (36.4-46.3) fL RDW Coeff of Maegan (11.5-14.5) % Plt Count (130-400) K/uL MPV (7.4-10.4) fL Immature Gran % (Auto) % Neut % (Auto) % Lymph % (Auto) % [place] % (Auto) % Eos % (Auto) % Baso % (Auto) % Neut # (Auto) (1.4-6.5) K/uL Lymph # (Auto) (1.2-3.4) K/uL [place] # (Auto) (0.11-0.59) K/uL Eos # (Auto) (0-0.5) K/uL Baso # (Auto) (0-0.2) K/uL Immature Gran # (Auto) (0.00-0.02) K/uL PT (9.0-12.0) Seconds INR (0.9-1.1) APTT (21.0-31.0) Seconds PTT Ratio Sodium (136-145) mmol/L Potassium (3.5-5.1) mmol/L Chloride (98-107) mmol/L Carbon Dioxide (21-32) mmol/L Anion Gap (3-11) BUN (7-18) mg/dl Creatinine (0.6-1.2) mg/dl Est Cr Clr Drug Dosing ml/min Est GFR ( Amer) ml/min Est GFR (Non-Af Amer) ml/min BUN/Creatinine Ratio (10-20) Glucose (70-99) mg/dl POC Glucose 104 H (70-99) mg/dl Estimat Average Glucose 123 mg/dl Hemoglobin A1c 5.9 H (4.5-5.6) % Calcium (8.5-10.1) mg/dl Total Bilirubin (0.2-1) mg/dl AST (15-37) U/L ALT (12-78) U/L Alkaline Phosphatase (45-117) U/L Troponin I < 0.015 (0-0.045) ng/ml C-Reactive Protein (0-0.29) mg/dl Total Protein (6.4-8.2) gm/dl Albumin (3.4-5.0) gm/dl Globulin (2.5-4.0) gm/dl Albumin/Globulin Ratio (0.9-2) Lipase (73-393) U/L Procalcitonin (0-0.5) ng/ml Urine Color Urine Appearance (Clear) Urine pH (4.5-7.5) Ur Specific [place] (1.000-1.030) Urine Protein (Negative) Urine Glucose (UA) (Negative) Urine Ketones (Negative) Urine Blood (Negative) Urine Nitrite (Negative) Urine Bilirubin (Negative) Urine Urobilinogen (Negative) Ur Leukocyte Esterase (Negative) Urine WBC (Auto) (0-5) /hpf Urine RBC (Auto) (0-4) /hpf U Hyaline Cast (Auto) (0-5) /lpf U Epithel Cells (Auto) (0-5) /lpf Urine Bacteria (Auto) (Negative) Urine Crystals (None Prsent) Calcium Oxalate Crystal (None Prsent) COVID-19 Eval Order SARS-CoV-2 (PCR) (Negative) 12/07/20 12/07/20 12/07/20 Range/Units 08:40 08:40 08:15 WBC (4.8-10.8) K/uL RBC (4.2-5.4) M/uL Hgb (12.0-16.0) g/dL Hct (37-47) % MCV (80-100) fL MCH (25-34) pg MCHC (32-36) g/dL RDW Std Deviation (36.4-46.3) fL RDW Coeff of Maegan (11.5-14.5) % Plt Count (130-400) K/uL MPV (7.4-10.4) fL Immature Gran % (Auto) % Neut % (Auto) % Lymph % (Auto) % [place] % (Auto) % Eos % (Auto) % Baso % (Auto) % Neut # (Auto) (1.4-6.5) K/uL Lymph # (Auto) (1.2-3.4) K/uL [place] # (Auto) (0.11-0.59) K/uL Eos # (Auto) (0-0.5) K/uL Baso # (Auto) (0-0.2) K/uL Immature Gran # (Auto) (0.00-0.02) K/uL PT (9.0-12.0) Seconds INR (0.9-1.1) APTT (21.0-31.0) Seconds PTT Ratio Sodium (136-145) mmol/L Potassium (3.5-5.1) mmol/L Chloride (98-107) mmol/L Carbon Dioxide (21-32) mmol/L Anion Gap (3-11) BUN (7-18) mg/dl Creatinine (0.6-1.2) mg/dl Est Cr Clr Drug Dosing ml/min Est GFR ( Amer) ml/min Est GFR (Non-Af Amer) ml/min BUN/Creatinine Ratio (10-20) Glucose (70-99) mg/dl POC Glucose (70-99) mg/dl Estimat Average Glucose mg/dl Hemoglobin A1c (4.5-5.6) % Calcium (8.5-10.1) mg/dl Total Bilirubin (0.2-1) mg/dl AST (15-37) U/L ALT (12-78) U/L Alkaline Phosphatase (45-117) U/L Troponin I (0-0.045) ng/ml C-Reactive Protein (0-0.29) mg/dl Total Protein (6.4-8.2) gm/dl Albumin (3.4-5.0) gm/dl Globulin (2.5-4.0) gm/dl Albumin/Globulin Ratio (0.9-2) Lipase (73-393) U/L Procalcitonin (0-0.5) ng/ml Urine Color Yellow Urine Appearance Cloudy A (Clear) Urine pH 5.5 (4.5-7.5) Ur Specific [place] 1.028 (1.000-1.030) Urine Protein Negative (Negative) Urine Glucose (UA) Negative (Negative) Urine Ketones Negative (Negative) Urine Blood Negative (Negative) Urine Nitrite Negative (Negative) Urine Bilirubin Negative (Negative) Urine Urobilinogen Negative (Negative) Ur Leukocyte Esterase 2+ H (Negative) Urine WBC (Auto) >30 H (0-5) /hpf Urine RBC (Auto) 0-4 (0-4) /hpf U Hyaline Cast (Auto) 1-5 (0-5) /lpf U Epithel Cells (Auto) >30 H (0-5) /lpf Urine Bacteria (Auto) Negative (Negative) Urine Crystals Calcium Oxalate A (None Prsent) Calcium Oxalate Crystal Present A (None Prsent) COVID-19 Eval Order Covid19 at [facility] SARS-CoV-2 (PCR) NEGATIVE (Negative) 12/07/20 12/07/20 12/07/20 Range/Units 08:15 08:15 08:15 WBC (4.8-10.8) K/uL RBC (4.2-5.4) M/uL Hgb (12.0-16.0) g/dL Hct (37-47) % MCV (80-100) fL MCH (25-34) pg MCHC (32-36) g/dL RDW Std Deviation (36.4-46.3) fL RDW Coeff of Maegan (11.5-14.5) % Plt Count (130-400) K/uL MPV (7.4-10.4) fL Immature Gran % (Auto) % Neut % (Auto) % Lymph % (Auto) % [place] % (Auto) % Eos % (Auto) % Baso % (Auto) % Neut # (Auto) (1.4-6.5) K/uL Lymph # (Auto) (1.2-3.4) K/uL [place] # (Auto) (0.11-0.59) K/uL Eos # (Auto) (0-0.5) K/uL Baso # (Auto) (0-0.2) K/uL Immature Gran # (Auto) (0.00-0.02) K/uL PT (9.0-12.0) Seconds INR (0.9-1.1) APTT (21.0-31.0) Seconds PTT Ratio Sodium 142 (136-145) mmol/L Potassium 4.1 (3.5-5.1) mmol/L Chloride 112 H (98-107) mmol/L Carbon Dioxide 26 (21-32) mmol/L Anion Gap 4.0 (3-11) BUN 20 H (7-18) mg/dl Creatinine 0.66 (0.6-1.2) mg/dl Est Cr Clr Drug Dosing 75.0 ml/min Est GFR ( Amer) 105.2 ml/min Est GFR (Non-Af Amer) 90.8 ml/min BUN/Creatinine Ratio 30.0 H (10-20) Glucose 99 (70-99) mg/dl POC Glucose (70-99) mg/dl Estimat Average Glucose mg/dl Hemoglobin A1c (4.5-5.6) % Calcium 8.7 (8.5-10.1) mg/dl Total Bilirubin 0.3 (0.2-1) mg/dl AST 17 (15-37) U/L ALT 23 (12-78) U/L Alkaline Phosphatase 104 (45-117) U/L Troponin I < 0.015 (0-0.045) ng/ml C-Reactive Protein 0.38 H (0-0.29) mg/dl Total Protein 6.8 (6.4-8.2) gm/dl Albumin 3.0 L (3.4-5.0) gm/dl Globulin 3.8 (2.5-4.0) gm/dl Albumin/Globulin Ratio 0.8 L (0.9-2) Lipase 98 (73-393) U/L Procalcitonin < 0.05 (0-0.5) ng/ml Urine Color Urine Appearance (Clear) Urine pH (4.5-7.5) Ur Specific [place] (1.000-1.030) Urine Protein (Negative) Urine Glucose (UA) (Negative) Urine Ketones (Negative) Urine Blood (Negative) Urine Nitrite (Negative) Urine Bilirubin (Negative) Urine Urobilinogen (Negative) Ur Leukocyte Esterase (Negative) Urine WBC (Auto) (0-5) /hpf Urine RBC (Auto) (0-4) /hpf U Hyaline Cast (Auto) (0-5) /lpf U Epithel Cells (Auto) (0-5) /lpf Urine Bacteria (Auto) (Negative) Urine Crystals (None Prsent) Calcium Oxalate Crystal (None Prsent) COVID-19 Eval Order SARS-CoV-2 (PCR) (Negative) 12/07/20 12/07/20 Range/Units 08:15 08:15 WBC 11.20 H (4.8-10.8) K/uL RBC 4.44 (4.2-5.4) M/uL Hgb 12.7 (12.0-16.0) g/dL Hct 38.7 (37-47) % MCV 87.2 (80-100) fL MCH 28.6 (25-34) pg MCHC 32.8 (32-36) g/dL RDW Std Deviation 44.0 (36.4-46.3) fL RDW Coeff of Maegan 13.8 (11.5-14.5) % Plt Count 242 (130-400) K/uL MPV 10.3 (7.4-10.4) fL Immature Gran % (Auto) 0.2 % Neut % (Auto) 69.2 % Lymph % (Auto) 22.5 % [place] % (Auto) 7.0 % Eos % (Auto) 0.9 % Baso % (Auto) 0.2 % Neut # (Auto) 7.76 H (1.4-6.5) K/uL Lymph # (Auto) 2.52 (1.2-3.4) K/uL [place] # (Auto) 0.78 H (0.11-0.59) K/uL Eos # (Auto) 0.10 (0-0.5) K/uL Baso # (Auto) 0.02 (0-0.2) K/uL Immature Gran # (Auto) 0.02 (0.00-0.02) K/uL PT 9.6 (9.0-12.0) Seconds INR 0.9 (0.9-1.1) APTT 23.3 (21.0-31.0) Seconds PTT Ratio 0.9 Sodium (136-145) mmol/L Potassium (3.5-5.1) mmol/L Chloride (98-107) mmol/L Carbon Dioxide (21-32) mmol/L Anion Gap (3-11) BUN (7-18) mg/dl Creatinine (0.6-1.2) mg/dl Est Cr Clr Drug Dosing ml/min Est GFR ( Amer) ml/min Est GFR (Non-Af Amer) ml/min BUN/Creatinine Ratio (10-20) Glucose (70-99) mg/dl POC Glucose (70-99) mg/dl Estimat Average Glucose mg/dl Hemoglobin A1c (4.5-5.6) % Calcium (8.5-10.1) mg/dl Total Bilirubin (0.2-1) mg/dl AST (15-37) U/L ALT (12-78) U/L Alkaline Phosphatase (45-117) U/L Troponin I (0-0.045) ng/ml C-Reactive Protein (0-0.29) mg/dl Total Protein (6.4-8.2) gm/dl Albumin (3.4-5.0) gm/dl Globulin (2.5-4.0) gm/dl Albumin/Globulin Ratio (0.9-2) Lipase (73-393) U/L Procalcitonin (0-0.5) ng/ml Urine Color Urine Appearance (Clear) Urine pH (4.5-7.5) Ur Specific [place] (1.000-1.030) Urine Protein (Negative) Urine Glucose (UA) (Negative) Urine Ketones (Negative) Urine Blood (Negative) Urine Nitrite (Negative) Urine Bilirubin (Negative) Urine Urobilinogen (Negative) Ur Leukocyte Esterase (Negative) Urine WBC (Auto) (0-5) /hpf Urine RBC (Auto) (0-4) /hpf U Hyaline Cast (Auto) (0-5) /lpf U Epithel Cells (Auto) (0-5) /lpf Urine Bacteria (Auto) (Negative) Urine Crystals (None Prsent) Calcium Oxalate Crystal (None Prsent) COVID-19 Eval Order SARS-CoV-2 (PCR) (Negative) Laboratory Results WBC 11.20 K/uL (4.8-10.8) H 12/07/20 08:15 RBC 4.44 M/uL (4.2-5.4) 12/07/20 08:15 Hgb 12.7 g/dL (12.0-16.0) 12/07/20 08:15 Hct 38.7 % (37-47) 12/07/20 08:15 MCV 87.2 fL (80-100) 12/07/20 08:15 MCH 28.6 pg (25-34) 12/07/20 08:15 MCHC 32.8 g/dL (32-36) 12/07/20 08:15 RDW Std Deviation 44.0 fL (36.4-46.3) 12/07/20 08:15 RDW Coeff of Maegan 13.8 % (11.5-14.5) 12/07/20 08:15 Plt Count 242 K/uL (130-400) 12/07/20 08:15 MPV 10.3 fL (7.4-10.4) 12/07/20 08:15 Immature Gran % (Auto) 0.2 % 12/07/20 08:15 Neut % (Auto) 69.2 % 12/07/20 08:15 Lymph % (Auto) 22.5 % 12/07/20 08:15 [place] % (Auto) 7.0 % 12/07/20 08:15 Eos % (Auto) 0.9 % 12/07/20 08:15 Baso % (Auto) 0.2 % 12/07/20 08:15 Neut # (Auto) 7.76 K/uL (1.4-6.5) H 12/07/20 08:15 Lymph # (Auto) 2.52 K/uL (1.2-3.4) 12/07/20 08:15 [place] # (Auto) 0.78 K/uL (0.11-0.59) H 12/07/20 08:15 Eos # (Auto) 0.10 K/uL (0-0.5) 12/07/20 08:15 Baso # (Auto) 0.02 K/uL (0-0.2) 12/07/20 08:15 Immature Gran # (Auto) 0.02 K/uL (0.00-0.02) 12/07/20 08:15 PT 9.6 Seconds (9.0-12.0) 12/07/20 08:15 INR 0.9 (0.9-1.1) 12/07/20 08:15 APTT 23.3 Seconds (21.0-31.0) 12/07/20 08:15 PTT Ratio 0.9 12/07/20 08:15 Sodium 141 mmol/L (136-145) 12/08/20 07:29 Potassium 4.5 mmol/L (3.5-5.1) 12/08/20 07:29 Chloride 108 mmol/L (98-107) H 12/08/20 07:29 Carbon Dioxide 30 mmol/L (21-32) 12/08/20 07:29 Anion Gap 3.0 (3-11) 12/08/20 07:29 BUN 12 mg/dl (7-18) 12/08/20 07:29 Creatinine 0.68 mg/dl (0.6-1.2) 12/08/20 07:29 Est Cr Clr Drug Dosing 70.6 ml/min 12/08/20 07:29 Est GFR ( Amer) 104.2 ml/min 12/08/20 07:29 Est GFR (Non-Af Amer) 89.9 ml/min 12/08/20 07:29 BUN/Creatinine Ratio 18.2 (10-20) 12/08/20 07:29 Glucose 85 mg/dl (70-99) 12/08/20 07:29 POC Glucose 86 mg/dl (70-99) 12/08/20 07:46 Estimat Average Glucose 123 mg/dl 12/07/20 14:37 Hemoglobin A1c 5.9 % (4.5-5.6) H 12/07/20 14:37 Calcium 9.3 mg/dl (8.5-10.1) 12/08/20 07:29 Total Bilirubin 0.3 mg/dl (0.2-1) 12/07/20 08:15 AST 17 U/L (15-37) 12/07/20 08:15 ALT 23 U/L (12-78) 12/07/20 08:15 Alkaline Phosphatase 104 U/L (45-117) 12/07/20 08:15 Troponin I < 0.015 ng/ml (0-0.045) 12/07/20 14:37 C-Reactive Protein 0.38 mg/dl (0-0.29) H 12/07/20 08:15 Total Protein 6.8 gm/dl (6.4-8.2) 12/07/20 08:15 Albumin 3.0 gm/dl (3.4-5.0) L 12/07/20 08:15 Globulin 3.8 gm/dl (2.5-4.0) 12/07/20 08:15 Albumin/Globulin Ratio 0.8 (0.9-2) L 12/07/20 08:15 Lipase 98 U/L (73-393) 12/07/20 08:15 Procalcitonin < 0.05 ng/ml (0-0.5) 12/07/20 08:15 Urine Color Yellow 12/07/20 08:15 Urine Appearance Cloudy (Clear) A 12/07/20 08:15 Urine pH 5.5 (4.5-7.5) 12/07/20 08:15 Ur Specific [place] 1.028 (1.000-1.030) 12/07/20 08:15 Urine Protein Negative (Negative) 12/07/20 08:15 Urine Glucose (UA) Negative (Negative) 12/07/20 08:15 Urine Ketones Negative (Negative) 12/07/20 08:15 Urine Blood Negative (Negative) 12/07/20 08:15 Urine Nitrite Negative (Negative) 12/07/20 08:15 Urine Bilirubin Negative (Negative) 12/07/20 08:15 Urine Urobilinogen Negative (Negative) 12/07/20 08:15 Ur Leukocyte Esterase 2+ (Negative) H 12/07/20 08:15 Urine WBC (Auto) >30 /hpf (0-5) H 12/07/20 08:15 Urine RBC (Auto) 0-4 /hpf (0-4) 12/07/20 08:15 U Hyaline Cast (Auto) 1-5 /lpf (0-5) 12/07/20 08:15 U Epithel Cells (Auto) >30 /lpf (0-5) H 12/07/20 08:15 Urine Bacteria (Auto) Negative (Negative) 12/07/20 08:15 Urine Crystals Calcium Oxalate (None Prsent) A 12/07/20 08:15 Calcium Oxalate Crystal Present (None Prsent) A 12/07/20 08:15 COVID-19 Eval Order Covid19 at [facility] 12/07/20 08:40 SARS-CoV-2 (PCR) NEGATIVE (Negative) 12/07/20 08:40 Impressions Chest X-Ray 12/07/20 07:48 XR chest 1V portable CLINICAL HISTORY: Atypical chest pain COMPARISON STUDY: 12/18/2019 FINDINGS: The heart is normal in size. There is no failure. There are subtle right basilar opacities, atelectatic versus infectious/inflammatory. There are no septal pleural effusions.[ IMPRESSION: Subtle right basilar opacities, atelectatic versus infectious/inflammatory. Clinical and radiographic follow-up are recommended. ACT 112: Negative or not required by law. Electronically signed by: Mike Monzon M.D. 12/07/2020 8:03 AM
[2020-12-08 08:19] LABS: BUN Creatinine Ratio 18.2 (10-20); Calcium 9.3 mg/dl (8.5-10.1); Creatinine Clr Calc Pharmacy 70.6 ml/min; Est GFR (African American) 104.2 ml/min; Est GFR (Non-African American) 89.9 ml/min; Potassium 4.5 mmol/L (3.5-5.1)
[2020-12-08] MEDS: NITROFURANTOIN MONOHYDRATE 100 MG CAP PO SCH (08:28)
[2020-12-08] MEDS: metFORMIN HCL 500 MG TAB PO SCH (08:28)
[2020-12-08] MEDS: MONTELUKAST SODIUM 10 MG TABLET PO SCH (08:30)
[2020-12-08] MEDS: FLUTICASONE PROPIONATE NA SPR 16 GM BTL NAE SCH (08:30)
[2020-12-08] MEDS: ROSUVASTATIN CALCIUM 10 MG TAB PO SCH (08:30)
[2020-12-08] MEDS: DICLOFENAC SOD 1% GEL 100 GM TUBE EXT SCH ×3 (08:31→17:45)
[2020-12-08] MEDS: INSULIN ASPART 100 UNITS/ML 3 ML PEN SC SCH ×3 (08:31→17:45)
[2020-12-08] MEDS: LIDOCAINE 5% 1 PATCH TD SCH (08:32)
[2020-12-08] MEDS ORDERED: ASPIRIN 81 MG ECTAB PO SCH (09:00)
--- NOTE | 2020-12-08 13:13 | XRay Report ---
LEFT SHOULDER 3 VIEWS HISTORY: left shoulder pain, limited ROM COMPARISON: None. FINDINGS: There is no fracture or dislocation. Soft tissues are unremarkable. The left clavicle is in tact. The AC joint is well aligned. Small marginal osteophytes at the glenohumeral joint consistent w ith mild degenerative change. IMPRESSION: 1. No fracture or dislocation of the left shoulder. 2. Mild osteoarthritis at the glenohumeral joint. ACT 112: Negative or not required by law. Electronically signed by: Oswaldo Escobar M.D. 12/08/2020 1:12 PM
[2020-12-08] MEDS: UMECLIDINIUM/VILANTEROL 62.5/25MCG 7 PUFFS/INHALER INH SCH (13:41)
[2020-12-08] MEDS: FLUTICASONE FUROATE 100MCG 14 PUFFS/INHALER INH SCH (13:43)
[2020-12-08] MEDS: ENOXAPARIN INJ 40 MG/0.4 ML SYR SQ SCH (13:44)
[2020-12-08] MEDS ORDERED: KETOROLAC TROMETHAMINE 15 MG/ML VIAL IV ONE (14:44)
--- NOTE | 2020-12-08 16:37 | Discharge Summary ---
Date of Service December 08, 2020 Admission HPI Per Admitting Provider Gail Lira is a 70 y/o woman w/ PMHx of Hx of CAD, COPD (no home O2), DM2, multiple sclerosis, MR, asthma, emphysema, copd, stroke (w/ mild residual L hemiparesis), seizure disorder (distant) who presents w/ constant sharp midchest pain that radiates to her left shoulder blade and down her left arm. 10/10 intensity. The symptoms woke her up from sleep at 5AM. Nothing makes better or worse. + pleuritic. +orthopneic. + mild jaw numbness. + numbness/tingling down L arm to fingers. + diaphoresis, since resolved. + SOB and MURPHY. + orthopneic. +pleuritic. + palpitations. Patient has had years of similar chest pains. She states that she had a bad episode 2 days ago that was worse than normal. Today's episode was also quite severe. She was evaluated at the end of September 2020 at [facility] for similar complaints and had a negative CTA at the time. Her couples therapist is Dr. Cartagena, last saw in the office on 12/04. Per cardiology note, patient has atypical chest pain syndrome and minimal coronary artery disease (April 2014). She was thought to be stable from a cardiovascular standpoint. Patient separately has had urinary frequency and dysuria x 2 wks. + hx of UTIs. Patient took 3 nitros at home and received 2 additional nitros en-route + one full dose ASA w/o improvement of symptoms. S/p two doses of 4 mg IV morphine in ED w/o much relief. Vitals were stable in the field, satting well on room air an d normotensive. Admission Exam Per Admitting Provider General: A&Ox4. Cooperative. Appears slightly uncomfortable HEENT: Atraumatic, normocephalic. EOMI. PERRL. Neck supple, no LAD. Lips appear moist. Pulm: Insp high pitched wheeze L lower. Otherwise CTAB w/ decreased air movement. No respiratory distress. Cardiac: RRR, -mrg. Radial pulses intact and symmetrical. 2+ bilat radial and DP pulses. No LE edema. Abdominal: Nontender, nondistended, soft. Musculoskeletal: Chest wall ttp mid chest and L chest (worse). TTP at L upper back, including spine and shoulder blade. Full ROM of shoulder. Neuro: Strength appears symmetrical bilateral, 4-5/5. Principal Diagnosis atypical chest pain -- suspect costochondritis shortness of breath Discharge Exam General: Tired but well appearing 70yoF who is lying back in her hospital bed, relaxed, upon my arrival. Upon conversing, she notes that she is having significant pain all over her chest and arm - 10/10. She is freely conversive throughout our conversation. Intermittently makes eye contact. No acute distress during discussion. Cardiac: Normal rate and regular rhythm; S1 and S2 present with no murmurs, rubs, or gallops. Pulmonary: Good respiratory effort with symmetric expansion of the chest. No use of accessory muscles. Lungs were clear to auscultation bilaterally with no crackles or wheezes. Abdominal: Normoactive bowel sounds. Abdomen was soft, nondistended, and non- tender to palpation. MSK: No appreciable chest wall deformity. No rashes over the shoulder. There is significant TTP at the sternocostal joints at the L border. This extends globally over the L pec major distribution (superior portion), extending into her subscapular, supraspinatus, and infraspinatus regions (+TTP). She is able to accomplish ~90 degree of active flexion and abduction before stopping due to pain. Passive ROM feels full, but is also terminated early due to pain. Resisted infraspinatus and teres minor testing do demonstrate decreased strength on the left. Belly lift off and supraspinatus testing were with mild strength deficits on L, but less-so than the previously mentioned tests. Mccoy elicits quite significant pain. Discharge Data Allergies Allergy/AdvReac Type Severity Reaction Status Date / Time ibuprofen Allergy Unknown unknown Verified 12/07/20 08:21 Penicillins Allergy Unknown unknown Verified 12/07/20 08:21 phenytoin Allergy Unknown unknown Verified 12/07/20 08:21 bee venom protein (honey bee) Allergy Unknown Verified 12/07/20 08:21 Iodinated Contrast Media AdvReac Mild Vomiting Verified 12/07/20 08:21 [Iodinated Contrast- Oral and IV Dye] Consultations 12/07/20 09:07 ED Decision to Admit Stat 12/07/20 14:12 Consult Cardiology Routine Hospital Course (1) Atypical chest pain: 70 y/o F w/ hx of DM2, CAD, chronic atypical chest pain, MS, COPD who presented with constant and significant atypical L chest pain with radiation to the shoulder and down the L arm (not relieved by nitroglycerin or ASA) since 5AM day of admission, subsequently found to have negative troponin x 3 and no significant conduction or repolarization abnormalities on ECG. Exam significant for appreciable TTP over the left chest and shoulder. Based on her work-up, it does seem that her pain is likely MSK in nature. She is hemodynamically stable. Atypical Chest Pain -- Suspect Costochondritis - presented with atypical features for this CP: sharp, constant, extending to L shoulder, unrelieved by nitroglycerin, reproducible on exam (TTP) - follows cardiology regularly -- per recent visit, patient does have h/o atypical chest pain syndrome (chronic chest pains not from her CAD) - mild CAD in 2013 per cardiology note. full report unavailable - Work-up as follows: - neg CTA chest, CTA abd, cxr at [facility] 10/22/20 - CXR without acute abnormalities - ECG without new repolarization or conduction abnormalities - troponin negative x 3 - unrelieved by nitroglycerin, ASA - physical exam, atypical features as above - Cardiology consulted while here: - Does not appear to be coronary insufficiency or cardiac ischemia. - strongly suspect that this chest pain represents costochondritis / MSK etiology - Tylenol, Toradol, Voltarin utilized here with moderate success - Recommend contiuation of the above, alongside heating pads, lidocaine patches, trial of capsaicin cream - Patient would be good candidate for OMT -- recommend arranging as outpatient (2) Dyspnea: - patient with notable history of COPD - stated SOB/MURPHY worse than normal on admission - based on CXR, clinical appearance, SpO2 req -- does not appear to be COPD exacerbation at this time; no signs or symptoms of overload - continued home COPD medications - deferred steroids, azithromycin during admission - no echo records in our system. hx of 10 lb weight gain noted. - if +signs and symptoms of fluid overload as transitioning to outpatient, can consider echocardiography (3) History of recurrent UTI (urinary tract infection): - 2 wks of dysuria, mild suprapubic discomfort, urinary frequency - UA demonstrating +LEs in setting of epithelial cells - UCX demonstrating GNB (upon discharge - characterization, sensitivities pending) - Macrobid 100 b.i.d. x 5 days (end 12/12) (4) Type 2 diabetes mellitus: - A1c 5.9% on this admission (12/07) - on SSI at home, metformin - did become hypoglycemic here once, requiring adjustment of SSI (goal 140-180, CC changed from 1:25 --> 1:50) - A1c near goal range -- can consider optimization / reduction of antidiabetic meds p.r.n. as outpatient (5) COPD (chronic obstructive pulmonary disease): - home medications were continued while here (6) Hypertension: - not on antihypertensives at home - slightly elevated here (7) MVP (mitral valve prolapse): (8) Anxiety and depression: - states she takes a different medication than the SSRI listed in her chart (sertraline), however records do not indicate this - held sertraline during this admission (9) Left shoulder pain: - Patient demonstrating decreased active ROM and significant pain on shoulder exam -- some radiation to chest during this exam - XR of the L shoulder during this admission demonstrated mild OA, but no significant structural abnormalities otherwise - given the severity of the pain, can consider further imaging (US vs. MR) as outpatient - antiinflammatory therapy as above, consider OMT, PT Total Time Total Time Spent Total Time Spent (In Minutes): 30 Discharge Plan Discharge Items Patient Disposition: Home - Self-Care Reason For Visit: CHEST PAIN Discharge Diagnosis: atypical chest pain - suspect costochronditis shortness of breath Activity: Per Instructions section Non-emergency contact: Primary Care Provider Call non-emergency contact if: you have any medication questions, your symptoms worsen, your pain is worsening and your temperature is above 101 Follow-up/Referrals: Gianna Dempsey DO [Primary Care Provider] - 12/15/20 9:20 am (If you have any questions or need to change this appointment, please call [phone].) Diet: Carb Consistent or DM2 and Heart Healthy Addtl Attending Provider Instructions: You were seen at [facility] for evaluation of chest pain as well as shortness of breath. During your stay here, you underwent extensive evaluation to determine the cause and nature of this pain, as well as aid in the symptoms as able. Thankfully, there was no evidence through laboratory or electrical assessment that this was cardiac in nature. Further, there is no evidence of infection or findings in the lungs that might have been suggestive of an intrapulmonary process. One of the things we did realize, however, was that your chest pain was reproducible at very specific points on exammeaning that if we pressed on an area, it produced the pain. This is often suggestive that the process/pain is musculoskeletal in nature, and likely has to do with inflammation of the spaces between your joints and at their connection sites with your breastbone. The x-ray of your shoulder did reveal some arthritis; however, further work-up will be required in the outpatient setting to determine whether or not this may also be contributory. Upon discharge, we do recommend that you continue applying Voltaren gel, utilizing Tylenol, and resuming your meloxicamthese can help reduce inflammation, and hopefully the pain you are experiencing. You may also consider utilizing heating pads, lidocaine patches, and/or capsaicin cream. Please also continue utilizing your COPD inhalers and following with your primary care p taliaan regularly and management of this. Please follow-up with your PCP within 1 week to review this visit. In the interim, if you begin experiencing any new symptoms associated with your pain, including lightheadedness, feeling like you are going to pass out, nausea, vomiting, or persistent shortness of breath that does not resolve with your breathing treatments, we do recommend seeking medical attention; if your symptoms are severe, you should call 911 or report to the nearest emergency room for evaluation. It is been a pleasure caring for you here [facility]. We wish you all the best in your recovery. Pending Studies at Discharge: No Stand-Alone Forms: My [facility], Smoking Cessation Medications and DC Order Prescriptions: New diclofenac sodium [Arthritis Pain (diclofenac)] 1 % gel 2 g topical QID Qty: 50 RF: 0 nitrofurantoin monohyd/m-cryst [Macrobid] 100 mg capsule 100 mg PO BID 4 Days Qty: 8 RF: 0 Continued (DME) OneTouch Ultra Blue Test Strip strip See Dose Instructions .ROUTE .MEDSUPPLY Qty: 360 RF: 1 (DME) blood-glucose meter [OneTouch Ultra2 Meter] Kit See Rx Instructions .ROUTE .MEDSUPPLY Qty: 1 RF: 0 (DME) Joanne Sanches [facility] See Rx Instructions .ROUTE .MEDSUPPLY Qty: 1 RF: 0 hydroxyzine pamoate [Vistaril] 25 mg capsule 25 mg PO TID PRN (Reason: anxiety) Qty: 30 RF: 0 (DME) nebulizer accessories Misc See Rx Instructions .ROUTE .MEDSUPPLY Qty: 1 RF: 0 (DME) OneTouch Ultra Blue Test Strip Strip See Dose Instructions .ROUTE .MEDSUPPLY Qty: 200 RF: 1 (DME) pen needle, diabetic [BD Ultra-Fine Mini Pen Needle] 31 gauge x 3/16" needle See Dose Instructions .ROUTE .MEDSUPPLY Qty: 100 RF: 3 (DME) lancets [OneTouch Delica Plus Lancet] 33 gauge misc See Rx Instructions .ROUTE .MEDSUPPLY Qty: 200 RF: 0 metformin 500 mg tablet 500 mg PO BID Qty: 180 RF: 1 Wheeled Walker Misc 1 ea .ROUTE .COMPLEX Qty: 1 RF: 0 albuterol sulfate [Ventolin HFA] 90 mcg/actuation HFA aerosol inhaler 2 - 4 puff INHALATION Q6H PRN (Reason: Shortness Of Breath Or Wheezing) Qty: 18 RF: 0 albuterol sulfate 2.5 mg /3 mL (0.083 %) solution for nebulization 2.5 mg INH Q4H PRN (Reason: shortness of breath or wheezing) Qty: 90 RF: 2 aspirin 81 mg tablet,delayed release (DR/EC) 81 mg PO QAM Qty: 30 RF: 0 insulin lispro [Humalog KwikPen Insulin] 100 unit/mL insulin pen See Rx Instructions subcut DAILY Qty: 15 RF: 5 epinephrine 0.3 mg/0.3 mL auto-injector See Rx Instructions .ROUTE .COMPLEX PRN (Reason: anaphylaxis) Qty: 2 RF: 0 nitroglycerin 0.4 mg tablet, sublingual 0.4 mg sublingual Q5M PRN (Reason: Chest Pain) Qty: 25 RF: 3 meloxicam 15 mg tablet 15 mg PO QAM RF: 0 montelukast 10 mg tablet 10 mg PO QAM RF: 0 ipratropium bromide 0.02 % solution 1.25 ml INH UD PRN (Reason: shortness of breath or wheezing) RF: 0 Trelegy Ellipta 100-62.5-25 mcg blister with device 1 puffs inhalation QDL RF: 0 sertraline 100 mg tablet 100 mg PO QAM RF: 0 fluticasone propionate 50 mcg/actuation spray,suspension 1 spray intranasal QAM RF: 0 rosuvastatin [Crestor] 10 mg tablet 10 mg PO QAM RF: 0 Discharge Orders: Discharge Order (Routine); Ordered 12/08/20 Ordered By: Ray Ferguson Admission Data Admit Date/Time: 12/07/20 11:46 Attending Provider: Chelsey Groves Admit Provider: Ray Kerns Primary Care Provider: Gianna Dempsey Other Providers: Aaron Whitten Christophe W. Other Interventions: Discharge Summary Assessment (RN) Last Done: 12/08/20 17:09 Supervising Physician Co-Signing Physician Notes Patient seen and examined with MS Rodrigo Barrera and PGY-1 Dr. Ferguson. Agree with history, exam findings, assessment and plan of care as outlined. 70 y/o F w/ hx of DM2, CAD, chronic atypical chest pain, MS, COPD who presents w/ constant sharp L chest pain w/ radiation to shoulder blade and down L arm since 5AM, w/ no relief from 5 nitros and ASA. Admitted for chest pain. Continues to have reproducible chest pain at the upper costochondral junctions. Left shoulder pain with movement located in the lateral and posterior shoulder. Dyspnea is improved with albuterol. Tender Ribs 2, 3 bilateral costochondral junctions. Tender over the anterior shoulder, superior trapezius border, posterior shoulder joint, subacromial area and just medial to the scapula. Shoulder exam is limited by pain and guarding. She is able to passively get to 90 abduction and forward flexion before she has too much pain to continue. Pain with empty can, but no weakness. Negative belly press. Unable to do lift off test. 1. Atypical chest pain. Likely MSKcostochondritis. Trops are negative. 2. Dyspnea. Euvolemic. Continue home inhalers. No steroids, but started azithromycin. 3. Left shoulder pain. Clearly MSK etiology. Exam is challenging due to pain with nearly all motion and touch. Radiographs with mild degenerative process of the GH joint. Suspect there is also some degree of tendinopathy. Lower suspicion for adhesive capsulitis. Ok for lidocaine patch, topical voltaren getl, Tylenol. 4. Cystitis in the setting of recurrent UTI. Started nitrofurantoin. Culture with 50k gram negative bacilli. 5. DM2. Sliding scale insulin. No home oral glycemic medications. 6. Elevated blood pressure. No history of hypertension. 7. Anxiety depression. Awaiting outpatient records to verify SSRI. Dispo: discharge home today. Follow up with PCP in 1-2 weeks. I personally spent 40 minutes discharge planning for this patient. Resident Activity Tracking Resident Involvement: Resident Care Provided Care Provided: Adult [facility]
== END 2020-12-08 18:25 | disposition home or self-care (01) ==
LOC: 2N 07:43 → ED 07:43 → SUATTDRO 11:46 → 2N 13:28
DX: G35 Multiple sclerosis; I25.10 Atherosclerotic heart disease of native coronary artery without angina pectoris; Z79.51 Long term (current) use of inhaled steroids; R06.00 Dyspnea, unspecified; E11.9 Type 2 diabetes mellitus without complications; I10 Essential (primary) hypertension; Z88.0 Allergy status to penicillin; Z79.82 Long term (current) use of aspirin; M25.512 Pain in left shoulder; Z79.4 Long term (current) use of insulin; Z91.030 Bee allergy status; Z91.041 Radiographic dye allergy status; J44.9 Chronic obstructive pulmonary disease, unspecified; R07.89 Other chest pain; J45.909 Unspecified asthma, uncomplicated; Z79.899 Other long term (current) drug therapy; R06.02 Shortness of breath; E78.5 Hyperlipidemia, unspecified; I34.1 Nonrheumatic mitral (valve) prolapse

== ENCOUNTER 2021-03-23 10:35 | Observation (INO) ==
[2021-03-23] MEDS ORDERED: NITROGLYCERIN 2% OINTMENT 30GM TUBE EXT STA (10:55)
[2021-03-23] MEDS ORDERED: MoRPHine SULFATE 2 MG/ML CARP IV STA (10:55)
[2021-03-23] MEDS ORDERED: ONDANSETRON INJ 2 MG/ML 2 ML VIAL IV STA (10:55)
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
[2021-03-23 11:30] LABS: Basophils # (auto) 0.02 K/uL (0-0.2); Basophils % (auto) 0.3 %; Eosinophils # (auto) 0.08 K/uL (0-0.5); Eosinophils % (auto) 1.3 %; Hematocrit (blood only) 40.2 % (37-47); Hemoglobin 12.8 g/dL (12.0-16.0); Immature Granulocytes # (auto) 0.01 K/uL (0.00-0.02); Immature Granulocytes % (auto) 0.2 %; Lymphocytes # (auto) 2.02 K/uL (1.2-3.4); Lymphocytes % (auto) 32.1 %; Mean Corpuscular Hemoglobin 27.9 pg (25-34); Mean Corpuscular Hgb Conc 31.8 g/dL (32-36); Mean Corpuscular Volume 87.8 fL (80-100); Mean Platelet Volume 10.6 fL (7.4-10.4); Monocytes # (auto) 0.44 K/uL (0.11-0.59); Neutrophils # (auto) 3.72 K/uL (1.4-6.5); Neutrophils % (auto) 59.1 %; Platelet Count 283 K/uL (130-400); RDW Coefficient of Variation 14.3 % (11.5-14.5); RDW Standard Deviation 46.3 fL (36.4-46.3); Red Blood Count 4.58 M/uL (4.2-5.4); White Blood Count 6.29 K/uL (4.8-10.8)
[2021-03-23] MEDS: SODIUM CHLORIDE 0.9% 1000ML 1,000 ML IV SCH ×2 (11:31→21:08)
--- NOTE | 2021-03-23 11:37 | XRay Report ---
XR chest 1V portable CLINICAL HISTORY: CHEST PAIN COMPARISON STUDY: December 28, 2020 FINDINGS: No pneumothorax. No pleural effusion. Previously seen hazy opacity at the right cardiophrenic angle is increased in density. Interval development of hazy opacity at the left lower lung partially silhouetting left cardiac borde r and could represent atelectasis or infiltrate. Cardiomediastinal silhouette is within normal limits in size. No significant pulmonary vascular congestion.. Osseous structures: Wall degenerative changes of the spine. IMPRESSION: 1. Interval prominence of previously seen opacity at the right cardiophrenic angle which could repre sent atelectasis, infiltrate or other etiology. Follow-up evaluation with CT of the chest, preferabl y on nonemergency basis is recommended. 2. Interval development of hazy opacity at the left lower lung which could represent atelectasis or infiltrate. ACT 112: Negative or not required by law. The above report was generated using voice recognition software. It may contain grammatical, syntax o r spelling errors. Electronically signed by: Cata Ba DO 03/23/2021 11:36 AM
[2021-03-23 11:47] LABS: Albumin Level 3.3 gm/dl (3.4-5.0); BUN Creatinine Ratio 27.1 (10-20); Blood Urea Nitrogen 17 mg/dl (7-18); Calcium 8.8 mg/dl (8.5-10.1); Carbon Dioxide 25 mmol/L (21-32); Chloride 111 mmol/L (98-107); Creatinine Clr Calc Pharmacy 78.9 ml/min; Est GFR (African American) 106.8 ml/min; Est GFR (Non-African American) 92.2 ml/min; Glucose 88 mg/dl (70-99); Lipase 75 U/L (73-393); Magnesium 2.3 mg/dl (1.8-2.4); Potassium 4.5 mmol/L (3.5-5.1); Sodium 140 mmol/L (136-145)
[2021-03-23 11:52] LABS: Alanine Aminotransferase 32 U/L (12-78); Albumin Globulin Ratio 0.9 (0.9-2); Alkaline Phosphatase 103 U/L (45-117); Aspartate Aminotransferase 20 U/L (15-37); Bilirubin,Total 0.4 mg/dl (0.2-1); Globulin 3.7 gm/dl (2.5-4.0); Troponin I < 0.015 ng/ml (0-0.045)
[2021-03-23] MEDS ORDERED: ALBUT/IPRATROP 3MG/0.5MG NEB 3 ML VIAL NEB STA (12:23)
[2021-03-23] MEDS ORDERED: MoRPHine SULFATE 4 MG/ML 1 ML CARP\\VIAL IV STA (13:19)
--- NOTE | 2021-03-23 14:17 | History & Physical Report ---
Date of Service March 23, 2021 Assessment & Plan (1) Chest pain: Plan: Unclear if this represents unstable angina, patient has negative biomarkers and EKG so far but is describing 10 out of 10 substern[address] We will place in monitored observation Will defer stress testing for now, ask cardiology to eval. As patient is significantly high risk, may be indication for cardiac catheterization but may depend on their previous records I will continue outpatient medications including low-dose aspirin, and rosuvastatin 10mg We will add a low-dose oral beta-drew Nitro and low-dose morphine for pain (2) Hypertension: Plan: Blood pressure heart rate are stable, addition of beta-drew as noted above (3) Coronary artery disease: Plan: Medications as noted above (4) Asthma: Plan: Patient is on Trelegy and Ventolin as an outpatient, okay to continue O2 sat is currently under percent on 2 L (5) Type 2 diabetes mellitus: Plan: Continue outpatient insulin, I will start sliding scale Diabetic diet Will hold Metformin 500 mg p.o. twice daily until seen by cardiology (6) Tobacco dependence: Plan: Will order nicotine patch for patient (7) Abnormal CXR: Plan: Questionable finding in the right lower lobe, unclear from chest x-ray. Will order CT of the chest without contrast. History of Present Illness Chief Complaint: Chest pain Primary Care Provider: Gianna Dempsey DO This is a 70-year-old female with past medical history of coronary artery disease, previous [place], COPD, active tobacco use that presents today complaining of chest pain. Patient is a decent historian. When asked, patient tells me she has " 10 out of 10 chest pain in the substernal chest with radiation to the left arm". She is very clear that this is 10 out of 10 pain despite appearing to not be in much distress. She does tell me this is similar to her previous WA which is concerning. She tells me that she woke up with this pain at approximately 8:30 in the morning and that has been constant since. It is not radiating to her neck. She is not more short of breath than usual. She has no fever, chills, or diaphoresis. The pain is nonpleuritic and not positional. She has no pain or tenderness in her left shoulder joint. She asked me for pain medication. Of note, the patient follows with but not recently. She does tell me she has an appointment next month. I do see that she has a cardiac consultation from 12/12 where she describes a similar sort of pain with a negative work-up. Allergies Allergy/AdvReac Type Severity Reaction Status Date / Time ibuprofen Allergy Unknown unknown Verified 01/07/21 15:59 Penicillins Allergy Unknown unknown Verified 01/07/21 15:59 phenytoin Allergy Unknown unknown Verified 01/07/21 15:59 bee venom protein (honey bee) Allergy Unknown Verified 01/07/21 15:59 Iodinated Contrast Media AdvReac Mild Vomiting Verified 01/07/21 15:59 [Iodinated Contrast- Oral and IV Dye] fiberglass Allergy Intermediate Rash and Uncoded 03/23/21 12:00 Difficulty Breathing Home Medications Medication Instructions Recorded Confirmed Type blood sugar diagnostic (OneTouch #360 ea 01/04/19 01/07/21 Rx Ultra Blue Test Strip) aspirin 81 mg tablet,delayed 81 mg PO QAM #30 tab 12/06/19 03/23/21 Rx release fluticasone fur. 100 mcg-umeclid 1 puffs INHALATION QDL 12/18/19 03/23/21 History 62.5 mcg-vilant 25 mcg inhalat.powder (Trelegy Ellipta) meloxicam 15 mg tablet 15 mg PO QAM 12/18/19 03/23/21 History montelukast 10 mg tablet 10 mg PO QAM 12/18/19 03/23/21 History blood-glucose meter (OneTouch #1 ea 12/25/19 01/07/21 Rx Ultra2 Meter) blood sugar diagnostic (OneTouch #200 ea 03/10/20 01/07/21 Rx Ultra Blue Test Strip) pen needle, diabetic 31 gauge x #100 ea 03/10/20 01/07/21 Rx 3/16" (BD Ultra-Fine Mini Pen Needle) lancets 33 gauge (OneTouch Delica #200 ea 03/11/20 01/07/21 Rx Plus Lancet) metformin 500 mg tablet 500 mg PO BID #180 tab 03/27/20 03/23/21 Rx nitroglycerin 0.4 mg sublingual 0.4 mg SUBLINGUAL Q5M PRN #25 tab 12/04/20 03/23/21 Rx tablet fluticasone propionate 50 1 spray INTRANASAL QAM PRN 12/07/20 03/23/21 History mcg/actuation nasal spray,suspension rosuvastatin 10 mg tablet (Crestor) 10 mg PO QAM 12/07/20 03/23/21 History hydroxyzine pamoate 25 mg capsule 25 mg PO TID PRN #30 cap 12/09/20 03/23/21 Rx (Vistaril) epinephrine 0.3 mg/0.3 mL 0.3 mg IM DIRECTED PRN 12/28/20 03/23/21 History injection, auto-injector insulin lispro 100 unit/mL 40 unit SUBCUT DAILY 12/28/20 03/23/21 History subcutaneous pen (Humalog KwikPen (U-100) Insulin) ipratropium bromide 0.02 % 1.25 ml INH UD PRN #2.5 ml 02/03/21 03/23/21 Rx solution for inhalation Miscellaneous Pulmonary Supply 2 ea .ROUTE .COMPLEX #2 ea 02/11/21 Rx nebulizer accessories #2 ea 02/11/21 Rx albuterol sulfate 2.5 mg INH Q4H PRN #90 ml 03/10/21 03/23/21 Rx albuterol sulfate 90 mcg/actuation 2 puff INHALATION Q6H PRN 03/23/21 03/23/21 History aerosol inhaler (Ventolin HFA) Past Med/Surg History Medical History Allergic rhinitis Anxiety and depression Asthma Atypical chest pain Cervical radiculopathy COPD (chronic obstructive pulmonary disease) History of recurrent UTI (urinary tract infection) Histrionic personality disorder Hyperlipidemia Impulse control disorder Irritable bowel syndrome Lab test negative for COVID-19 virus Learning disability Left shoulder pain Lumbar disc disease Lumbar spinal stenosis Nonobstructive atherosclerosis of coronary artery Orthostatic tremor Seizure disorder Type 2 diabetes mellitus Urge incontinence of urine Vitamin D deficiency Surgical History Status post cardiac catheterization Status post cholecystectomy Status post dilation and curettage Status post tonsillectomy Status post tubal ligation Family History Father Myocardial infarction Cerebral aneurysm Coronary heart disease Diabetes Mother Lung cancer Brother H/O heart artery stent Other Family history non-contributory Denies family history of Ovarian cancer Prostate cancer Breast cancer Colorectal cancer Social History Smoking Status: Former smoker Tobacco Type: Cigarettes Age Started Using Tobacco: 18; Age Quit Using Tobacco: 20; packs per day: 2; Years Smoked: 1; Second Hand Exposure: No; Hx Alcohol Use: No Hx Substance Use: No Preferred Language: German Communication Ability: Effective Visual Impairment: Limited Hearing Ability: Normal Professional Nursing Tutor Required: No Beliefs That Will Affect Care: None marital status: Current Living Situation: Alone Current Living Situation Comment: Live in apartment current occupational status: disabled How many Children do You have: 2 Feels Safe at Home: Yes Childhood Exposure to Second-Hand Smoke: No caffeine: No during the past year weight has: remained stable Dental Care, Regularly: No Physical Activity Frequency: Does not Exercise Seatbelt Use: always Sunscreen Use: No Assistive Devices: Glasses and Walker Review of Systems Constitutional: no fever, no chills, no weakness, no weight loss and no weight gain Eyes: as per Subjective / HPI Respiratory: + cough (chronic) and + dyspnea (chronic); no chest congestion, no dyspnea on exertion, no hemoptysis and no pain on inspiration Cardiovascular: + chest pain, + chest pain at rest and + radiating jaw, neck or arm pain; no dyspnea, no dyspnea on exertion, no orthopnea, no palpitations, no lightheadedness and no edema Gastrointestinal: no abdominal pain, no nausea, no vomiting, no constipation and no diarrhea/loose stools Genitourinary: no dysuria, no difficulty urinating, no urinary frequency, no urinary hesitancy, no urinary urgency and no flank pain Musculoskeletal: no back pain, no neck pain, no joint pain, no stiffness and no myalgia Integumentary: no rash Neurologic: no gait abnormality, no unsteadiness, no falls and no generalized weakness Physical Exam Constitutional: cooperative; no acute distress Neck: trachea midline, no thyromegaly Respiratory: normal respiratory effort Auscultation: + diminished lung sounds and + rhonchi (fine); no crackles, no rales and no wheezes Cardiovascular: Rate/Rhythm: regular rate and regular rhythm Heart Sounds: normal S1 and normal S2; no murmur no chest wall tenderness Gastrointestinal (Abdomen): Inspection/Auscultation: abdomen normal to inspection Percussion/Palpation: abdomen soft; abdomen nontender, no guarding, abdomen not rigid and no hepatosplenomegaly Skin: no rashes, warm and dry Results & Data Results & Data ([facility]) Vital Signs (Past 12 Hours) Vital Signs Temp Pulse Pulse Resp BP Pulse Ox 03/23/21 13:07 77 16 100 03/23/21 12:30 77 18 129/80 99 03/23/21 12:12 96 03/23/21 12:00 75 16 129/66 94 03/23/21 11:30 83 18 150/91 H 96 03/23/21 11:00 37 C 78 14 146/81 H 94 03/23/21 10:48 78 20 146/81 H 95 Laboratory Results Laboratory Results WBC 6.29 K/uL (4.8-10.8) 03/23/21 11:14 RBC 4.58 M/uL (4.2-5.4) 03/23/21 11:14 Hgb 12.8 g/dL (12.0-16.0) 03/23/21 11:14 Hct 40.2 % (37-47) 03/23/21 11:14 MCV 87.8 fL (80-100) 03/23/21 11:14 MCH 27.9 pg (25-34) 03/23/21 11:14 MCHC 31.8 g/dL (32-36) L 03/23/21 11:14 RDW Std Deviation 46.3 fL (36.4-46.3) 03/23/21 11:14 RDW Coeff of Maegan 14.3 % (11.5-14.5) 03/23/21 11:14 Plt Count 283 K/uL (130-400) 03/23/21 11:14 MPV 10.6 fL (7.4-10.4) H 03/23/21 11:14 Immature Gran % (Auto) 0.2 % 03/23/21 11:14 Neut % (Auto) 59.1 % 03/23/21 11:14 Lymph % (Auto) 32.1 % 03/23/21 11:14 [place] % (Auto) 7.0 % 03/23/21 11:14 Eos % (Auto) 1.3 % 03/23/21 11:14 Baso % (Auto) 0.3 % 03/23/21 11:14 Neut # (Auto) 3.72 K/uL (1.4-6.5) 03/23/21 11:14 Lymph # (Auto) 2.02 K/uL (1.2-3.4) 03/23/21 11:14 [place] # (Auto) 0.44 K/uL (0.11-0.59) 03/23/21 11:14 Eos # (Auto) 0.08 K/uL (0-0.5) 03/23/21 11:14 Baso # (Auto) 0.02 K/uL (0-0.2) 03/23/21 11:14 Immature Gran # (Auto) 0.01 K/uL (0.00-0.02) 03/23/21 11:14 Sodium 140 mmol/L (136-145) 03/23/21 11:14 Potassium 4.5 mmol/L (3.5-5.1) 03/23/21 11:14 Chloride 111 mmol/L (98-107) H 03/23/21 11:14 Carbon Dioxide 25 mmol/L (21-32) 03/23/21 11:14 Anion Gap 5.0 (3-11) 03/23/21 11:14 BUN 17 mg/dl (7-18) 03/23/21 11:14 Creatinine 0.63 mg/dl (0.6-1.2) 03/23/21 11:14 Est Cr Clr Drug Dosing 78.9 ml/min 03/23/21 11:14 Est GFR ( Amer) 106.8 ml/min 03/23/21 11:14 Est GFR (Non-Af Amer) 92.2 ml/min 03/23/21 11:14 BUN/Creatinine Ratio 27.1 (10-20) H 03/23/21 11:14 Glucose 88 mg/dl (70-99) 03/23/21 11:14 Calcium 8.8 mg/dl (8.5-10.1) 03/23/21 11:14 Magnesium 2.3 mg/dl (1.8-2.4) 03/23/21 11:14 Total Bilirubin 0.4 mg/dl (0.2-1) 03/23/21 11:14 AST 20 U/L (15-37) 03/23/21 11:14 ALT 32 U/L (12-78) 03/23/21 11:14 Alkaline Phosphatase 103 U/L (45-117) 03/23/21 11:14 Troponin I < 0.015 ng/ml (0-0.045) 03/23/21 11:14 Total Protein 7.0 gm/dl (6.4-8.2) 03/23/21 11:14 Albumin 3.3 gm/dl (3.4-5.0) L 03/23/21 11:14 Globulin 3.7 gm/dl (2.5-4.0) 03/23/21 11:14 Albumin/Globulin Ratio 0.9 (0.9-2) 03/23/21 11:14 Lipase 75 U/L (73-393) 03/23/21 11:14 COVID-19 Eval Order Covid19 at [facility] 03/23/21 11:38 SARS-CoV-2 (PCR) NEGATIVE (Negative) 03/23/21 11:38 PG Care Time/CCT Total # of Minutes Spent Total Time Spent with Patient: Total time spent is greater than 50% in coordination of care (as documented) at patient's floor/unit and/or counseling patient: Coding Level of Care Code INT OBSERVATION CARE 70M LVL 3 Diagnoses Chest pain R07.9 Chest pain type: unspecified Hypertension I10 Coronary artery disease I25.10 Asthma J45.909 Type 2 diabetes mellitus E11.9; Z79.4 Diabetes mellitus complication status: without complication Diabetes mellitus assisted insulin use: with assisted use Tobacco dependence F17.200 Abnormal CXR R93.89 (1) Chest pain Chest pain type: unspecified Qualified Code(s): R07.9 - Chest pain, unspecified (2) Type 2 diabetes mellitus Diabetes mellitus complication status: without complication Diabetes mellitus assisted insulin use: with assisted use Qualified Code(s): E11.9 - Type 2 diabetes mellitus without complications; Z79.4 - shelter (current) use of insulin
--- NOTE | 2021-03-23 14:44 | Electrocardiogram Report ---
Test Reason : Blood Pressure : / mmHG Vent. Rate : 078 BPM Atrial Rate : 078 BPM P-R Int : 128 ms QRS Dur : 080 ms QT Int : 384 ms P-R-T Axes : 070 -66 074 degrees QTc Int : 437 ms Normal sinus rhythm Left anterior fascicular block Abnormal ECG When compared with ECG of 28-DEC-2020 10:59, No significant change was found Confirmed by Heber Sanders ([id number]) on 03/23/2021 2:43:47 PM Referred By: SELF Confirmed By:Heber Sanders
[2021-03-23] MEDS ORDERED: DEXTROSE 50% 50 ML SYRINGE IV PRN (16:37)
[2021-03-23] MEDS ORDERED: IPRATROPIUM BROMIDE NEB SOLN 0.02% 2.5 ML VIAL INH PRN (16:37)
[2021-03-23] MEDS ORDERED: CARBOHYDRATES FOR HYPOGLYCEMIA PO PRN (16:37)
[2021-03-23] MEDS ORDERED: hydrOXYzine HCl 25 MG TAB PO PRN (16:37)
[2021-03-23] MEDS ORDERED: ALBUTEROL HFA 8 GM INHALER INH PRN (16:37)
[2021-03-23] MEDS ORDERED: FLUTICASONE PROPIONATE NA SPR 16 GM BTL PRN (16:37)
[2021-03-23] MEDS ORDERED: GLUCOSE 40% GEL 15 GM TUBE PO PRN (16:37)
[2021-03-23] MEDS ORDERED: GLUCAGON FOR INJ 1 MG VIAL SQ PRN (16:37)
[2021-03-23] MEDS ORDERED: NITROGLYCERIN SL 0.4 MG/TAB TAB SL PRN (16:37)
[2021-03-23] MEDS ORDERED: MoRPHine SULFATE 2 MG/ML CARP IV PRN (16:37)
[2021-03-23] MEDS ORDERED: GLUCOSE 10 TABS/TUBE PO PRN (16:37)
[2021-03-23] MEDS: INSULIN ASPART 100 UNITS/ML 3 ML PEN SC SCH ×2 (18:12→21:11)
--- NOTE | 2021-03-23 18:22 | CT Scan Report ---
CT OF THE CHEST WITHOUT IV CONTRAST CLINICAL HISTORY: abnormal CXR COMPARISON STUDY: Chest CT September 30, 2019. Chest radiograph March 23, 2021. CT DOSE: 346.75 mGy.cm TECHNIQUE: Axial images of the chest were obtained without IV contrast. Images were reviewed in the axial, sagittal, and coronal planes. IV contrast was not administered for this examination. Automat ed exposure control was utilized for the study. A dose lowering technique was utilized adhering to t he principles of ALARA. FINDINGS: No enlarged axillary, mediastinal or hilar lymph nodes are present. The size of the heart is at the upper limits of normal. There is no pericardial effusion. The abnormality on chest radiogra ph performed earlier today is due to atelectasis. There is no consolidation to suggest pneumonia. A 4 mm groundglass left lower lobe nodule on image 141 of [address] of November 22, 2018. A fe w smaller pulmonary nodules are also unchanged. There are no new nodules. There is no pneumothorax or pleural effusion. Central airways are patent. Gallbladder is surgically absent. IMPRESSION: 1. No acute process within the chest. 2. Subsegmental right middle lobe atelectasis which accounts for the finding on chest radiograph perf ormed earlier today. 3. No change in a 4 mm groundglass left lower lobe nodule since CT of November 22, 2018. This is likely rosana ign given stability. A follow up chest CT in one year is recommended. ACT 112: Negative or not required by law. Electronically signed by: Oskar Buck M.D. 03/23/2021 6:20 PM
[2021-03-23] MEDS: ACETAMINOPHEN 325 MG TAB PO PRN (19:59)
[2021-03-23] MEDS ORDERED: traMADol HCL 50 MG TABLET PO PRN (20:12)
[2021-03-23] MEDS: NITROGLYCERIN 2% OINTMENT 30GM TUBE EXT SCH (21:10)
[2021-03-24] MEDS: NITROGLYCERIN 2% OINTMENT 30GM TUBE EXT SCH ×3 (02:32→14:06)
[2021-03-24] MEDS: SODIUM CHLORIDE 0.9% 1000ML 1,000 ML IV SCH ×2 (05:04→14:06)
[2021-03-24] MEDS: ACETAMINOPHEN 325 MG TAB PO PRN (05:10)
[2021-03-24] MEDS: ALBUTEROL 0.083% NEBU SOLN 3 ML VIAL INH PRN ×2 (05:29→11:29)
[2021-03-24 05:36] LABS: Basophils # (auto) 0.02 K/uL (0-0.2); Basophils % (auto) 0.3 %; Eosinophils # (auto) 0.08 K/uL (0-0.5); Eosinophils % (auto) 1.4 %; Hematocrit (blood only) 36.8 % (37-47); Immature Granulocytes # (auto) 0.01 K/uL (0.00-0.02); Immature Granulocytes % (auto) 0.2 %; Lymphocytes # (auto) 2.09 K/uL (1.2-3.4); Lymphocytes % (auto) 36.4 %; Mean Corpuscular Hemoglobin 28.2 pg (25-34); Mean Corpuscular Hgb Conc 32.6 g/dL (32-36); Mean Corpuscular Volume 86.4 fL (80-100); Mean Platelet Volume 10.3 fL (7.4-10.4); Monocytes # (auto) 0.36 K/uL (0.11-0.59); Monocytes % (auto) 6.3 %; Neutrophils # (auto) 3.18 K/uL (1.4-6.5); Neutrophils % (auto) 55.4 %; Platelet Count 246 K/uL (130-400); RDW Standard Deviation 44.2 fL (36.4-46.3); Red Blood Count 4.26 M/uL (4.2-5.4); White Blood Count 5.74 K/uL (4.8-10.8)
[2021-03-24 06:03] LABS: BUN Creatinine Ratio 21.6 (10-20); Blood Urea Nitrogen 14 mg/dl (7-18); Calcium 8.1 mg/dl (8.5-10.1); Carbon Dioxide 25 mmol/L (21-32); Chloride 113 mmol/L (98-107); Creatinine Clr Calc Pharmacy 76.2 ml/min; Est GFR (African American) 105.7 ml/min; Est GFR (Non-African American) 91.2 ml/min; Glucose 86 mg/dl (70-99); Sodium 139 mmol/L (136-145)
[2021-03-24 06:08] LABS: Chol HDL Ratio 4; Cholesterol 255 mg/dl (0-200); HDL Cholesterol 62 mg/dl; LDL Cholesterol Calculated 173 mg/dl; Triglycerides 102 mg/dl (0-150); Troponin I < 0.015 ng/ml (0-0.045); VLDL Cholesterol 20 mg/dl
--- NOTE | 2021-03-24 07:18 | Hospitalist Progress Note ---
Date of Service March 24, 2021 Assessment & Plan (1) Chest pain: Plan: Chest pain Unclear if this represents unstable angina, patient has negative biomarkers and EKG so far but is describing 10 out of 10 substernal pain We will place in monitored observation Will defer stress testing for now, ask cardiology to eval. As patient is significantly high risk, may be indication for cardiac catheterization but may depend on their previous records I will continue outpatient medications including low-dose aspirin, and rosuvastatin 10mg We will add a low-dose oral beta-drew Nitro and low-dose morphine for pain Hypertension Blood pressure heart rate are stable, addition of beta-drew as noted above Coronary artery disease Medications as noted above Asthma Patient is on Trelegy and Ventolin as an outpatient, okay to continue O2 sat is currently under percent on 2L Type 2 diabetes mellitus Continue outpatient insulin, I will start sliding scale Diabetic diet Will hold Metformin 500 mg p.o. twice daily until seen by cardiology Tobacco dependence Will order nicotine patch for patient Abnormal CXR Questionable finding in the right lower lobe, unclear from chest x-ray. Will order CT of the chest without contrast. Admission and Anticipated Discharge Date Admission Date: March 23, 2021 Results & Data Results & Data ([facility]) Vital Signs (Past 12 Hours) Vital Signs Temp Pulse Pulse Resp BP Pulse Ox 03/24/21 07:06 36.4 C L 78 19 133/72 93 03/24/21 05:30 73 15 95 03/24/21 03:10 36.5 C 73 18 122/63 95 03/24/21 00:09 73 03/23/21 23:35 76 14 93 03/23/21 23:02 36.5 C 76 16 111/62 93 03/23/21 19:55 36.7 C 81 17 132/68 95 (1) Chest pain Chest pain type: unspecified Qualified Code(s): R07.9 - Chest pain, un specified
[2021-03-24 08:24] LABS: Estimated Average Glucose 128 mg/dl; Hemoglobin A1C 6.1 % (4.5-5.6)
[2021-03-24] MEDS ORDERED: NON-FORMULARY MEDICATION (Insulin Lispro [Humalog Kwikpen Insulin] 100 unit/mL insulin pen subcut SCH (09:00)
[2021-03-24] MEDS ORDERED: ASPIRIN 81 MG ECTAB PO SCH (09:00)
[2021-03-24] MEDS ORDERED: MONTELUKAST SODIUM 10 MG TABLET PO SCH (09:00)
[2021-03-24] MEDS ORDERED: MELOXICAM 7.5 MG TAB PO SCH (09:00)
[2021-03-24] MEDS ORDERED: ROSUVASTATIN CALCIUM 10 MG TAB PO SCH (09:00)
[2021-03-24] MEDS: INSULIN ASPART 100 UNITS/ML 3 ML PEN SC SCH ×2 (09:06→11:47)
[2021-03-24] MEDS ORDERED: LIDOCAINE 5% 1 PATCH TD SCH (10:45)
[2021-03-24 10:56] LABS: D Dimer 460 ug/L FEU (0-500)
[2021-03-24] MEDS ORDERED: UMECLIDINIUM/VILANTEROL 62.5/25MCG 7 PUFFS/INHALER INH SCH (11:30)
[2021-03-24] MEDS ORDERED: FLUTICASONE FUROATE 200MCG 14 PUFFS/INHALER INH SCH (11:30)
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
[2021-03-24] MEDS ORDERED: DICLOFENAC SOD 1% GEL 100 GM TUBE EXT SCH (14:00)
--- NOTE | 2021-03-24 15:25 | Discharge Summary ---
Date of Service March 24, 2021 Admission HPI Per Admitting Provider This is a 70-year-old female with past medical history of coronary artery disease, previous IL, COPD, active tobacco use that presents today complaining of chest pain. Patient is a decent historian. When asked, patient tells me she has " 10 out of 10 chest pain in the substernal chest with radiation to the left arm". She is very clear that this is 10 out of 10 pain despite appearing to not be in much distress. She does tell me this is similar to her previous IL which is concerning. She tells me that she woke up with this pain at approximately 8:30 in the morning and that has been constant since. It is not radiating to her neck. She is not more short of breath than usual. She has no fever, chills, or diaphoresis. The pain is nonpleuritic and not positional. She has no pain or tenderness in her left shoulder joint. She asked me for pain medication. Of note, the patient follows with but not recently. She does tell me she has an appointment next month. I do see that she has a cardiac consultation from 12/12 where she describes a similar sort of pain with a negative work-up. Admission Exam Per Admitting Provider Constitutional: cooperative; no acute distress Neck: trachea midline, no thyromegaly Respiratory: normal respiratory effort Auscultation: + diminished lung sounds and + rhonchi (fine); no crackles, no rales and no wheezes Cardiovascular: Rate/Rhythm: regular rate and regular rhythm Heart Sounds: normal S1 and normal S2; no murmur no chest wall tenderness Gastrointestinal (Abdomen): Inspection/Auscultation: abdomen normal to inspection Percussion/Palpation: abdomen soft; abdomen nontender, no guarding, abdomen not rigid and no hepatosplenomegaly Skin: no rashes, warm and dry Principal Diagnosis Musculoskeletal chest pain Discharge Exam Constitutional: well-appearing, no acute distress Cardiac: RRR, no murmur appreciated, extremities well-perfused Resp: CTABL, no wheezes or crackles appreciated, no increased WOB MSK: moderate chest wall tenderness about the sternum and left chest wall Skin: no rash appreciated Neuro: AOx4, no focal deficit appreciated Discharge Data Allergies Allergy/AdvReac Type Severity Reaction Status Date / Time ibuprofen Allergy Unknown unknown Verified 01/07/21 15:59 Penicillins Allergy Unknown unknown Verified 01/07/21 15:59 phenytoin Allergy Unknown unknown Verified 01/07/21 15:59 bee venom protein (honey bee) Allergy Unknown Verified 01/07/21 15:59 Iodinated Contrast Media AdvReac Mild Vomiting Verified 01/07/21 15:59 [Iodinated Contrast- Oral and IV Dye] fiberglass Allergy Intermediate Rash and Uncoded 03/23/21 12:00 Difficulty Breathing Consultations 03/23/21 13:32 ED Decision to Admit Stat 03/23/21 16:37 Consult Cardiology Routine Ordered Studies 03/23/21 14:21 CT chest diagnostic wo con Routine Hospital Course (1) Atypical chest pain: Chest pain EKG performed in the ED was without obvious ischemic change, and serial troponins were negative. Echo was performed and was unremarkable. Cardiology was consulted and felt that patient's chest pain was likely musculoskeletal in origin given reassuring EKG, negative troponins, and significant tenderness with palpation of patient's chest wall. Patient was discharged on hospital day two in stable condition. Patient was educated on exercises and stretches to treat musculoskeletal causes of chest pain. Patient was also encouraged to try voltaren gel on the affected areas. Patient was educated about OMT and encouraged to make an appointment. Close PCP follow-up was also encouraged. CAD, HLD As above, cardiology was consulted and felt patient's symptoms were not cardiac in origin, and did not feel that catheterization was indicated. However, patient's lipid panel on admission was notable for an LDL of 173 and a total cholesterol of 255, which raised concerns of patient adherence to her statin regimen. Continued follow-up with Dr. Cartagena ([facility]) was encouraged, as well as PCP consideration of escalation of statin therapy. DM2 Patient's home DM2 regimen was held on admission. BSG was monitored and controlled with sliding-scale insulin. HbA1c was 6.1%. Patient's home regimen was restarted upon discharge. PCP reevaluation of patient's DM2 regimen was encouraged given her A1c. COPD Patient was not dyspneic during this admission, and patient's home COPD regimen was continued during this hospitalization. Total Time Total Time Spent Total Time Spent (In Minutes): >30 Discharge Plan Discharge Items Patient Disposition: Home - Self-Care Reason For Visit: CHEST PAIN Discharge Diagnosis: rib related chest pain (see below) Activity: Resume your previous activity Non-emergency contact: Primary Care Provider Call non-emergency contact if: you have any medication questions and your sympt oms worsen Follow-up/Referrals: Gianna Dempsey, [Primary Care Provider] - Diet: Carb Consistent or DM2 and Low Fat Addtl Attending Provider Instructions: rib pain -Fortunately, it appears that the chest pain got your attention was rib related. Looking at you from a perspective of cardiac disease, this did not appear at all consistent with a heart attack, we did not see any findings concerning for blood clots/pneumonia/other pulmonary disease, and everything about your symptoms and your physical exam confirms that this was rib related pain. -Anatomically, it looks that what is going on probably does relate back to your chronic shoulder injury from years ago. Probably this is starting to flareup now just either because of time, or more likely because of how you are levering your arms/body on your walker, putting more strain across the muscles that stabilize your shoulder and chest wall. -Most directly, your pectoralis minor muscle appears to be the main muscle that is causing you problems. It attaches from the top front of your shoulder blade down to ribs 3-5. The area where I was pushing it was tremendously tender was pectoralis minor. Additionally, it does seem likely that you have some strain of muscles surrounding your shoulder blade as wellthe pain down on your side seems to be in the area of a muscle group called serratus anterior. -While it may take a decent amount of work to settle this down, if we look at it like any other chronic injury, we should hopefully be able to improve the pain a good deal. Typically this is best done with a multimodal approach as outlined below: stretches -Pectoralis minor is a fairly easy muscle to stretch, when it contracts, it lis almonte brings her arm down to her side almost like a "throwing motion" -To stretch it, standing doorway with your left arm held in a door frame, with your arm up as though you are going to throw a ball. Take a step forward, and you should start to feel a stretch across the area of pectoralis minor/across the upper area of your rib cage where the pain is. -Muscles tend to stretch better whenever they are stretched dynamically, sit to do this, start to push her arm forward like you are trying to throw a ball/push her arm down. Because you are standing in the door frame, the door frame and your body weight will keep the arm from moving, but hold this contraction for about 5 seconds. -Once you have pushed for 5 seconds, let your arm relax, and take a small step forward in the door frame stretching your arm further. -Repeat this 3-5 times, and do the stretching routine at least twice a day. follow up for OMT -In addition to the stretching, having someone else work on your chest wall muscles and shoulder stabilizing muscles, can help improve the situation a lot. As we discussed, typically this is better done with OMT (manipulative medicine performed by osteopathic physician) than physical therapy, because most OMT is geared towards loosening tight muscles, whereas most physical therapy is geared towards balancing out strengthening. Because your problem is much more strained and tight muscles surrounding her left shoulder, it is likely that something like OMT will do better to improve your pain. -As we discussed, as a DO, Dr. Dempsey has OMT training in her background, and so if she still does OMT, she can take control of the situation and work on your shoulder muscles with you. But oftentimes in a private practice situation, things get busy enough where even a good physician does not always have enough time, where they do not continue to do OMT, in which case she would get you set up with someone else. If she does not have someone that she commonly uses, and given that [place] is quite a ways for you to travel to, Dr. Coronado is also a DO family physician who does OMT. As we discussed, if you would be seeing him, it would not be for him to assume your regular medical care, it would simply be for him to be "an OMT integration consultant" working on your rib cage and shoulder muscles to help improve this problem. (As an example of this, as a family physician myself, when I used to be in the office, approximately 90% of my patients were "my regular patients" and about 10% worsened by colleagues for me to work on for different biomechanical problems. You would still continue to see Dr. Dempsey for all of your medical issues, it is just that Dr. Moralez would be our expert in OMT if Dr. Dempsey no longer does this type of treatment). Voltaren gel (diclofenac gel) -When used to write, I have found that about 80% of people get pretty significant relief from using topical diclofenac for problems like you have. Most of the time, I see "treatment failures" not because the medicine does not work, but because we did not really teach you how to use it right. As a topical anti-inflammatory, it is sort of like putting 800 mg of ibuprofen right in the area that hurts, she get the benefit of a strong anti-inflammatory, but without the stomach ulcers or kidney failure as a side effect. The problem is, unlike 800 mg of ibuprofen, you do not notice the topical diclofenac "kicking in" with each dose. Instead, the annoyance of it, is that it usually needs to be used 3- 4 times a day for at least 2 to 3 days before you start to see improvement. With that in mind, we would have you rub the diclofenac gel right into the area that hurts, 4 times a day, and then wait until about Tuesday to start to decide if it is helping or not. Usually when done that way, people start to notice benefit, but if you give it several days of a trial and it truly does not help, then stop it. concern for heart disease -With your family history, cholesterols, and prior cardiac arrest, it is understandable that you have significant concern about having heart disease. However, most of what we know about you does not look like you have severe coronary disease. Most notably, your echocardiogram from today shows normal heart function. also, your heart cath from 2013 did not show very high-grade blockages. While your cardiac arrest in 1986 was attributed to a heart attack and then, I suspect you may have just been terribly unlucky with a bad arrhythmia that fortunately you survived, but it does not appear that a heart attack provoked that arrhythmia. -I mention this mostly to help alleviate some of the weight you might feel over your head anytime you have any pain in your chest/etc. That is not to say that if something is of concern to you that you should ignore it (I always tell people I would rather have you here at 100 times to ensure that it is not serious, then have you sit at home with "the real thing" once), but it is to say that if the pain feels identical to what you are feeling now, if you are able to push on your rib cage and reproduce it, you do not necessarily have to have as much a level of concern for this identical symptom complex. -As Dr. Cartagena continues to get to know you better, he will probably be able to shed more light on this, but right now, things look more like you are someone "at risk" for clogging arteries as it relates to cholesterol and sugar, rather than someone who has suffered significant fallout from having already clogged arteries. cholesterols -When someone gets admitted for chest pain that initially has cardiac concern, we frequently check cholesterol levels. Your numbers were quite high. When doing the math it seems reasonably likely you might be forgetting your Crestor (rosuvastatin) more often than you realize. When we are looking at ways to help prevent developing worse heart disease, certainly managing cholesterols is a longstanding method to protect you. If you are running into trouble with the Crestor (rosuvastatin) please talk to Dr. Dempsey about this. Pending Studies at Discharge: No Stand-Alone Forms: My [facility], Smoking Cessation Medications and DC Order Prescriptions: Continued (DME) OneTouch Ultra Blue Test Strip strip See Dose Instructions .ROUTE .MEDSUPPLY Qty: 360 RF: 1 (DME) blood-glucose meter [OneTouch Ultra2 Meter] Kit See Rx Instructions .ROUTE .MEDSUPPLY Qty: 1 RF: 0 (DME) OneTouch Ultra Blue Test Strip Strip See Dose Instructions .ROUTE .MEDSUPPLY Qty: 200 RF: 1 (DME) pen needle, diabetic [BD Ultra-Fine Mini Pen Needle] 31 gauge x 3/16" needle See Dose Instructions .ROUTE .MEDSUPPLY Qty: 100 RF: 3 (DME) lancets [OneTouch Delica Plus Lancet] 33 gauge misc See Rx Instructions .ROUTE .MEDSUPPLY Qty: 200 RF: 0 metformin 500 mg tablet 500 mg PO BID Qty: 180 RF: 1 hydroxyzine pamoate [Vistaril] 25 mg capsule 25 mg PO TID PRN (Reason: anxiety) Qty: 30 RF: 0 ipratropium bromide 0.02 % solution 1.25 ml INH UD PRN (Reason: shortness of breath or wheezing) Qty: 2.5 RF: 1 (DME) nebulizer accessories Kit See Rx Instructions .Route Qty: 2 RF: 12 Miscellaneous Pulmonary Supply Misc 2 ea .ROUTE .COMPLEX Qty: 2 RF: 12 albuterol sulfate 2.5 mg /3 mL (0.083 %) solution for nebulization 2.5 mg INH Q4H PRN (Reason: shortness of breath or wheezing) Qty: 90 RF: 2 aspirin 81 mg tablet,delayed release (DR/EC) 81 mg PO QAM Qty: 30 RF: 0 nitroglycerin 0.4 mg tablet, sublingual 0.4 mg sublingual Q5M PRN (Reason: Chest Pain) Qty: 25 RF: 3 meloxicam 15 mg tablet 15 mg PO QAM RF: 0 montelukast 10 mg tablet 10 mg PO QAM RF: 0 Trelegy Ellipta 100-62.5-25 mcg blister with device 1 puffs inhalation QDL RF: 0 fluticasone propionate 50 mcg/actuation spray,suspension 1 spray intranasal QAM PRN (Reason: Allergy Symptoms) RF: 0 rosuvastatin [Crestor] 10 mg tablet 10 mg PO QAM RF: 0 epinephrine 0.3 mg/0.3 mL auto-injector 0.3 mg IM DIRECTED PRN (Reason: anaphylaxis) RF: 0 insulin lispro [Humalog KwikPen Insulin] 100 unit/mL insulin pen 40 unit subcut DAILY RF: 0 albuterol sulfate [Ventolin HFA] 90 mcg/actuation HFA aerosol inhaler 2 puff INHALATION Q6H PRN (Reason: Shortness Of Breath Or Wheezing) RF: 0 Discharge Orders: Discharge Order (Routine); Ordered 03/24/21 Ordered By: Ray Rader/Other Patient Handouts: A1C, Managing Type 2 Diabetes, Special Foot Care for Diabetes Admission Data Admit Date/Time: 03/23/21 14:21 Attending Provider: Ray Kerns Admit Provider: Mike Lundberg Primary Care Provider: Gianna Dempsey Other Providers: Mike Lundberg ; Cyrus Cartagena Other Interventions: Discharge Summary Assessment (RN) Last Done: 03/24/21 13:33 Supervising Physician Co-Signing Physician Notes I personally examined the patient and verified all barrera points of history and exam, discussed case, and agree with decision making with Helen Abreu, Dr Magaña Much improved left-sided chest painworse with different movements. Feels almost identical to what brought her into the hospital in November. In discussing her prior "heart attacks" she does not recall a heart cath other than the one in 2014at least during our discussion, and notes the first time she was told she had a heart attack was in 1986 whenever she apparently had a cardiac arrest that was resuscitated. At that time she does not recall a heart cath being performed, and obviously she had no interventions. She also relates a remote shoulder injury whenever she was sledding with her children when she was young. Vitals noted, in general she is awake and alert pleasant no distress. HEENT n ormocephalic atraumatic mucous membranes moist. Breathing unlabored no accessory muscle use good effort. Musculoskeletal/osteopathicleft-sided upper ribs stuck in inhalation, very tender in the region of pectoralis minorLAS and post isometric relaxation muscle energy done with some improvement in range of motion. Patient tolerated well. Stretches taught. Chest painhistory and exam extremely consistent with biomechanical painI suspect her chronic shoulder injury is now flaring up given that she is using a walker much more, and therefore leveraging with her shoulder girdle muscles more. Discussed this, discussed stretches, discussed good use of topical diclofenac. OMT done as above, discussed ongoing OMT as an outpatient. I am not certain if her PCP still does OMTif so this would be ideal, if not, gave names in her areas that she may use as a "OMT integration consultant". Does not appear consistent with cardiacboth with the quality and duration of the symptoms in the face of negative cardiac biomarkers and no wall motion on echo. I suspect that her prior history of being told she had 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 heart attacks weighs heavy on her, as does her family history. Try to reassure her that nonobstructive coronary disease on cath not too long ago, and a normal echo now, would be quite reassuring in this respect. (Of note the echo was still pending whenever we talked about this, so I was able to reassure her about the echo in writing, but it did not been read when we were still talking [id number]). Certainly remarked that if she had any new/worrisome/changed symptoms that cer tainly would rather see her under times to rule out any serious etiology then to have her stay at home once, but that if her symptoms are unchanged she could really likely feel reassured that this was rib related. Somatic dysfunction rib cageOMT as above. Stable from, otherwise as above. Resident Activity Tracking Resident Involvement: Resident Care Provided Care Provided: Adult Hospital Medicine
--- NOTE | 2021-03-24 15:58 | XCELERA ---
[id number]
--- NOTE | 2021-03-24 18:39 | Hospitalist Progress Note ---
Date of Service March 24, 2021 Assessment & Plan Admission and Anticipated Discharge Date Admission Date: March 23, 2021 Results & Data Results & Data ([facility]) Vital Signs (Past 12 Hours) Vital Signs Temp Pulse Pulse Resp BP BP Pulse Ox 03/24/21 16:00 90 03/24/21 15:38 97.9 F 79 19 148/85 H 96 03/24/21 13:33 97.5 F L 75 19 137/79 133/72 95 03/24/21 11:48 97.5 F L 75 19 137/79 95 03/24/21 11:29 66 16 95 03/24/21 08:00 68 03/24/21 07:06 97.5 F L 78 19 133/72 93 PG Care Time/CCT Total # of Minutes Spent Total Time Spent with Patient: Total time spent is greater than 50% in coordination of care (as documented) at patient's floor/unit and/or counseling patient: Coding Level of Care Code None CPT Codes Musculoskeletal - Musculoskeletal: [address] 1-2 Body regions ([id number])
--- NOTE | 2021-03-24 18:39 | Billing Data ---
Date of Service March 24, 2021 Coding Level of Care Code 56999 OBS Care - Discharge
--- NOTE | 2021-03-25 05:34 | Electrocardiogram Report ---
Test Reason : Blood Pressure : / mmHG Vent. Rate : 070 BPM Atrial Rate : 070 BPM P-R Int : 136 ms QRS Dur : 080 ms QT Int : 414 ms P-R-T Axes : 066 -34 057 degrees QTc Int : 447 ms Normal sinus rhythm Left axis deviation Low voltage QRS Abnormal ECG When compared with ECG of 23-MAR-2021 10:47, No significant change was found Confirmed by Heber Sanders ([id number]) on 03/25/2021 5:34:21 AM Referred By: REFERRED SELF Confirmed By:Heber Sanders
== END 2021-03-24 17:18 | disposition home or self-care (01) ==
LOC: ED 10:35 → 2S 10:35 → SUATTDRO 14:21 → 2S 15:48

== ENCOUNTER 2021-05-13 12:42 | Observation (INO) ==
[2021-05-13] MEDS ORDERED: MoRPHine SULFATE 4 MG/ML 1 ML CARP\\VIAL IV STA ×2 (13:47→15:24)
--- NOTE | 2021-05-13 13:49 | Emergency Department Note ---
Impression & Plan Chest pain, Breath shortness ED Provider Note NAME: MIKEL DORMAN AGE: 71 SEX: F : 1950 ARRIVES VIA: Ambulance INFORMANT: Patient ED PROVIDER(S): Ray Smart DO CHIEF COMPLAINT: Chest pain and shortness of breath HPI: Patient is a 71-year-old female who presents the ER for chest pain and shortness of breath which started prior to arrival. Patient with a past medical history of COPD, CAD, diabetes, asthma, and hypertension with a previous MD in ER per her report. Last cath was in 2013 with mild CAD. Patient was brought in by EMS. Patient was given aspirin and nitro. She still has the pain in her chest which is slightly worse with breathing. Denies any recent swelling of the calves. No nausea or vomiting. She does have some diarrhea. Pain was sharp and pressure. Her previous MD was similar in nature. That time she did have some arm pain which she did not have this time. She has pain when she pushes on her chest but this is different than the pain that she is feeling and is there fairly frequently. ROS: See above HPI for pertinent positives & negatives. A total of 10 systems reviewed and were otherwise negative. PAST MEDICAL HISTORY:See Below PAST SURGICAL HISTORY:See Below FAMILY HISTORY:See Below SOCIAL HISTORY:See Below HOME MEDICATIONS:See Below ALLERGIES:See Below VITALS:See Below PHYSICAL EXAMINATION: GENERAL: Sitting up in bed, alert, chronically ill-appearing, disheveled EYE EXAM: normal conjunctiva. OROPHARYNX: no exudate, no erythema, lips, buccal mucosa, and tongue normal and mucous membranes are moist NECK: supple, no nuchal rigidity, no adenopathy, non-tender CHEST: Reproducible anterior chest wall pain LUNGS: Clear to auscultation. Normal chest wall mechanics HEART: no murmurs, S1 normal and S2 normal ABDOMEN: abdomen soft, non-tender, normo-active bowel sounds, no masses, no rebound or guarding. BACK: Back is symmetrical on inspection and there is no deformity, no midline tenderness, no CVA tenderness. SKIN: no rashes and no bruising UPPER EXTREMITIES: upper extremities are grossly normal. LOWER EXTREMITIES: No pitting edema. NEURO EXAM: Normal sensorium, cranial nerves II-XII grossly intact, normal speech, no gross weakness of arms, no gross weakness of legs. MEDICAL DECISION MAKING: Patient is a 71-year-old female with a past medical history of COPD, asthma, CAD, diabetes, asthma, hypertension and previous MD in [place] per her report who presents the ER for midsternal chest pain as well as chest wall pain. Chest wall pain is different to the midsternal pain that she was feeling which she was associated with shortness of breath. IV was established blood was obtained. Labs showed no significant leukocytosis or anemia. BMP with slightly elevated chloride. LFTs bilirubin was unremarkable. Lipase was normal. Troponin was negative. Covid was negative. Chest x-ray was unremarkable. Pain is slightly pleuritic in nature as well and duplex of lower extremities was performed as patient is allergic to IV contrast and CT angio could not be performed. These were negative. She was updated bedside. She given 2 doses of morphine. She given aspirin prior to arrival. Nitro prior to arrival did not help. She was discussed with hospitalist for observation due to high risk from heart score standpoint. Triage Nursing notes reviewed. Limited review of prior medical records performed Vital Signs: reviewed and remarkable for HTN Differential diagnosis: Differential diagnoses includes but is not limited to acute coronary syndrome, myocardial infarction, pericarditis, pulmonary embolus, aortic dissection, pneumonia, pneumothorax, musculoskeletal, shingles, esophageal. ER treatment provided: See below Diagnostics interpreted by me: ECG: Sinus rhythm rate 67 Left axis No PVCs QTC 426 Cardiac Monitoring: An order was placed for continuous cardiac monitoring. The monitor shows a rate of 72 with sinus rhythm. Laboratory studies: As stated above and show below. Imaging studies: Duplex lower extremities was negative Portable AP upright 1 view of the chest was unremarkable Consultation(s): Discussed with Dr. Turner for further evaluation Procedures: none Critical Care: None Past Med/Surg History Medical History Allergic rhinitis Anxiety and depression Asthma Atypical chest pain Cervical radiculopathy COPD (chronic obstructive pulmonary disease) History of recurrent UTI (urinary tract infection) Histrionic personality disorder Hyperlipidemia Impulse control disorder Irritable bowel syndrome Lab test negative for COVID-19 virus Learning disability Left shoulder pain Lumbar disc disease Lumbar spinal stenosis Nonobstructive atherosclerosis of coronary artery Orthostatic tremor Seizure disorder Type 2 diabetes mellitus Urge incontinence of urine Vitamin D deficiency Surgical History Status post cardiac catheterization Status post cholecystectomy Status post dilation and curettage Status post tonsillectomy Status post tubal ligation Family History Father Myocardial infarction Cerebral aneurysm Coronary heart disease Diabetes Mother Lung cancer Brother H/O heart artery stent Denies family history of Ovarian cancer Prostate cancer Breast cancer Colorectal cancer Social History Smoking Status: Former smoker Tobacco Type: Cigarettes Age Started Using Tobacco: 18; Age Quit Using Tobacco: 20; packs per day: 2; Years Smoked: 1; Second Hand Exposure: No; Hx Alcohol Use: No Hx Substance Use: No Preferred Language: Czech Communication Ability: Effective Visual Impairment: Limited Hearing Ability: Normal Business Instructor Required: No Beliefs That Will Affect Care: None marital status: Current Living Situation: Alone Current Living Situation Comment: Live in apartment current occupational status: disabled How many Children do You have: 2 Feels Safe at Home: Yes Childhood Exposure to Second-Hand Smoke: No caffeine: No during the past year weight has: remained stable Dental Care, Regularly: No Physical Activity Frequency: Does not Exercise Seatbelt Use: always Sunscreen Use: No Assistive Devices: Nebulizer and Walker Allergies Allergies Allergy/AdvReac Type Severity Reaction Status Date / Time bee venom protein (honey bee) Allergy Severe Anaphylaxis Verified 05/13/21 15:02 ibuprofen Allergy Unknown unknown Verified 05/13/21 15:02 Penicillins Allergy Unknown unknown Verified 05/13/21 15:02 phenytoin Allergy Unknown unknown Verified 05/13/21 15:02 Iodinated Contrast Media AdvReac Mild Vomiting Verified 05/13/21 15:02 [Iodinated Contrast- Oral and IV Dye] fiberglass Allergy Severe Rash and Uncoded 05/13/21 15:02 Difficulty Breathing Home Meds Home Medications Medication Instructions Recorded Confirmed fluticasone fur. 100 mcg-umeclid 1 puffs INHALATION QDL 12/18/19 05/13/21 62.5 mcg-vilant 25 mcg inhalat.powder (Trelegy Ellipta) meloxicam 15 mg tablet 15 mg PO QAM 12/18/19 05/13/21 montelukast 10 mg tablet 10 mg PO QAM 12/18/19 05/13/21 fluticasone propionate 50 1 spray INTRANASAL QAM PRN 12/07/20 05/13/21 mcg/actuation nasal spray,suspension epinephrine 0.3 mg/0.3 mL 0.3 mg IM DIRECTED PRN 12/28/20 05/13/21 injection, auto-injector albuterol sulfate 90 mcg/actuation 2 puff INHALATION Q6H PRN 03/23/21 05/13/21 aerosol inhaler (Ventolin HFA) gabapentin 100 mg capsule 100 mg PO TID 05/13/21 05/13/21 insulin lispro 100 unit/mL 0 unit SUBCUT DAILY 05/13/21 05/13/21 subcutaneous pen (Humalog KwikPen (U-100) Insulin) Previous Rx's Medication Instructions Recorded blood sugar diagnostic (Elli HealthTouch #360 ea 01/04/19 Ultra Blue Test Strip) aspirin 81 mg tablet,delayed 81 mg PO QAM #30 tab 12/06/19 release blood-glucose meter (Elli HealthTouch #1 ea 12/25/19 Ultra2 Meter) blood sugar diagnostic (Elli HealthTouch #200 ea 03/10/20 Ultra Blue Test Strip) pen needle, diabetic 31 gauge x #100 ea 03/10/2010/07" (BD Ultra-Fine Mini Pen Needle) lancets 33 gauge (OneTouch Delica #200 ea 03/11/20 Plus Lancet) metformin 500 mg tablet 500 mg PO BID #180 tab 03/27/20 nitroglycerin 0.4 mg sublingual 0.4 mg SUBLINGUAL Q5M PRN #25 tab 12/04/20 tablet nebulizer accessories #2 ea 02/11/21 albuterol sulfate 2.5 mg INH Q4H PRN #90 ml 03/10/21 ipratropium bromide 0.02 % 1.25 ml INH UD PRN #2.5 ml 03/31/21 solution for inhalation rosuvastatin 10 mg tablet (Crestor) 10 mg PO QAM #90 tab 04/09/21 hydroxyzine pamoate 25 mg capsule 25 mg PO TID PRN #30 cap 05/01/21 (Vistaril) Results & Data (ED) Vital Signs Vital Signs - 24 hr 05/13/21 12:49 05/13/21 12:51 05/13/21 12:53 Temperature 37.3 C Temperature Source Oral Pulse Rate 72 73 Pulse Rate from SpO2 Sensor 73 Respiratory Rate 22 20 Respiratory Effort / Characteristics Non-Labored Spontaneous Respiratory Depth Normal Respiratory Pattern Regular Blood Pressure 142/95 H Blood Pressure Mean 110 Blood Pressure Position Sitting Pulse Oximetry 99 99 98 Oxygen Delivery Method Room Air Room Air Room Air Sepsis Recent Fever Within 48 Hours No Sepsis New/Unexplained Change in Mental Status No Sepsis Action Taken by Nursing No Action Required 05/13/21 12:54 05/13/21 13:00 05/13/21 13:10 Temperature Temperature Source Pulse Rate 71 66 Pulse Rate from SpO2 Sensor 70 66 Respiratory Rate 24 19 Respiratory Effort / Characteristics Non-Labored Spontaneous Respiratory Depth Normal Respiratory Pattern Regular Blood Pressure Blood Pressure Mean Blood Pressure Position Pulse Oximetry 97 94 Oxygen Delivery Method Room Air Room Air Sepsis Recent Fever Within 48 Hours Sepsis New/Unexplained Change in Mental Status Sepsis Action Taken by Nursing 05/13/21 13:23 05/13/21 13:30 05/13/21 13:40 Temperature Temperature Source Pulse Rate 109 H 69 66 Pulse Rate from SpO2 Sensor 70 66 Respiratory Rate 20 17 18 Respiratory Effort / Characteristics Respiratory Depth Respiratory Pattern Blood Pressure 127/80 Blood Pressure Mean 95 Blood Pressure Position Pulse Oximetry 99 99 Oxygen Delivery Method Sepsis Recent Fever Within 48 Hours Sepsis New/Unexplained Change in Mental Status Sepsis Action Taken by Nursing 05/13/21 13:50 05/13/21 13:53 05/13/21 14:00 Temperature Temperature Source Pulse Rate 68 68 Pulse Rate from SpO2 Sensor 67 67 Respiratory Rate 21 19 Respiratory Effort / Characteristics Respiratory Depth Respiratory Pattern Blood Pressure Blood Pressure Mean Blood Pressure Position Pulse Oximetry 97 99 Oxygen Delivery Method Room Air Sepsis Recent Fever Within 48 Hours Sepsis New/Unexplained Change in Mental Status Sepsis Action Taken by Nursing 05/13/21 14:10 05/13/21 14:20 05/13/21 14:30 Temperature Temperature Source Pulse Rate 69 70 73 Pulse Rate from SpO2 Sensor 68 70 74 Respiratory Rate 22 16 24 Respiratory Effort / Characteristics Respiratory Depth Respiratory Pattern Blood Pressure Blood Pressure Mean Blood Pressure Position Pulse Oximetry 96 97 98 Oxygen Delivery Method Sepsis Recent Fever Within 48 Hours Sepsis New/Unexplained Change in Mental Status Sepsis Action Taken by Nursing 05/13/21 14:40 05/13/21 14:50 05/13/21 15:00 Temperature Temperature Source Pulse Rate 68 68 68 Pulse Rate from SpO2 Sensor 67 69 68 Respiratory Rate 21 23 16 Respiratory Effort / Characteristics Respiratory Depth Respiratory Pattern Blood Pressure Blood Pressure Mean Blood Pressure Position Pulse Oximetry 99 98 98 Oxygen Delivery Method Sepsis Recent Fever Within 48 Hours Sepsis New/Unexplained Change in Mental Status Sepsis Action Taken by Nursing Laboratory Data Result diagrams: 05/13/21 13:53 05/13/21 13:53 Lab Results 05/13/21 05/13/21 05/13/21 Range/Units 13:53 13:53 13:53 WBC 6.49 (4.8-10.8) K/uL RBC 4.62 (4.2-5.4) M/uL Hgb 13.0 (12.0-16.0) g/dL Hct 39.8 (37-47) % MCV 86.1 (80-100) fL MCH 28.1 (25-34) pg MCHC 32.7 (32-36) g/dL RDW Std Deviation 43.9 (36.4-46.3) fL RDW Coeff of Maegan 14.0 (11.5-14.5) % Plt Count 258 (130-400) K/uL MPV 10.4 (7.4-10.4) fL Immature Gran % (Auto) 0.2 % Neut % (Auto) 59.9 % Lymph % (Auto) 30.8 % [place] % (Auto) 7.6 % Eos % (Auto) 1.2 % Baso % (Auto) 0.3 % Neut # (Auto) 3.89 (1.4-6.5) K/uL Lymph # (Auto) 2.00 (1.2-3.4) K/uL [place] # (Auto) 0.49 (0.11-0.59) K/uL Eos # (Auto) 0.08 (0-0.5) K/uL Baso # (Auto) 0.02 (0-0.2) K/uL Immature Gran # (Auto) 0.01 (0.00-0.02) K/uL APTT 25.4 (21.0-31.0) Seconds PTT Ratio 1.0 Sodium 139 (136-145) mmol/L Potassium 3.8 (3.5-5.1) mmol/L Chloride 109 H (98-107) mmol/L Carbon Dioxide 26 (21-32) mmol/L Anion Gap 4.0 (3-11) BUN 11 (7-18) mg/dl Creatinine 0.71 (0.6-1.2) mg/dl Est Cr Clr Drug Dosing 70.3 ml/min Est GFR ( Amer) 100.7 ml/min Est GFR (Non-Af Amer) 86.9 ml/min BUN/Creatinine Ratio 15.1 (10-20) Glucose 84 (70-99) mg/dl Calcium 8.9 (8.5-10.1) mg/dl Total Bilirubin 0.4 (0.2-1) mg/dl AST 19 (15-37) U/L ALT 26 (12-78) U/L Alkaline Phosphatase 99 (45-117) U/L Troponin I < 0.015 (0-0.045) ng/ml Total Protein 7.2 (6.4-8.2) gm/dl Albumin 3.3 L (3.4-5.0) gm/dl Globulin 3.9 (2.5-4.0) gm/dl Albumin/Globulin Ratio 0.8 L (0.9-2) Lipase 93 (73-393) U/L COVID-19 Eval Order SARS-CoV-2 (PCR) (Negative) 05/13/21 05/13/21 Range/Units 14:11 14:11 WBC (4.8-10.8) K/uL RBC (4.2-5.4) M/uL Hgb (12.0-16.0) g/dL Hct (37-47) % MCV (80-100) fL MCH (25-34) pg MCHC (32-36) g/dL RDW Std Deviation (36.4-46.3) fL RDW Coeff of Maegan (11.5-14.5) % Plt Count (130-400) K/uL MPV (7.4-10.4) fL Immature Gran % (Auto) % Neut % (Auto) % Lymph % (Auto) % [place] % (Auto) % Eos % (Auto) % Baso % (Auto) % Neut # (Auto) (1.4-6.5) K/uL Lymph # (Auto) (1.2-3.4) K/uL [place] # (Auto) (0.11-0.59) K/uL Eos # (Auto) (0-0.5) K/uL Baso # (Auto) (0-0.2) K/uL Immature Gran # (Auto) (0.00-0.02) K/uL APTT (21.0-31.0) Seconds PTT Ratio Sodium (136-145) mmol/L Potassium (3.5-5.1) mmol/L Chloride (98-107) mmol/L Carbon Dioxide (21-32) mmol/L Anion Gap (3-11) BUN (7-18) mg/dl Creatinine (0.6-1.2) mg/dl Est Cr Clr Drug Dosing ml/min Est GFR ( Amer) ml/min Est GFR (Non-Af Amer) ml/min BUN/Creatinine Ratio (10-20) Glucose (70-99) mg/dl Calcium (8.5-10.1) mg/dl Total Bilirubin (0.2-1) mg/dl AST (15-37) U/L ALT (12-78) U/L Alkaline Phosphatase (45-117) U/L Troponin I (0-0.045) ng/ml Total Protein (6.4-8.2) gm/dl Albumin (3.4-5.0) gm/dl Globulin (2.5-4.0) gm/dl Albumin/Globulin Ratio (0.9-2) Lipase (73-393) U/L COVID-19 Eval Order Covid19 at [facility] SARS-CoV-2 (PCR) NEGATIVE (Negative) Administered Medications Discontinued Medications Morphine Sulfate (Morphine Sulfate 4 Mg/Ml 1 Ml Carp\\Vial) 4 mg IV NOW STA Stop: 05/13/21 13:48 Last Admin: 05/13/21 13:59 Dose: 4 mg Documented by: [id number] Imaging Data Radiologist's Impression: Chest X-Ray 05/13/21 13:38 XR chest 1V portable CLINICAL HISTORY: Atypical chest pain TECHNIQUE: Single frontal radiograph of the chest was obtained. Comparison: Comparison is made to chest one view 03/23/2021 FINDINGS: No lines and tubes are seen. The cardiomediastinal silhouette is normal. The callie ngs are clear. No evidence of pleural effusion or pneumothorax. IMPRESSION: No acute chest disease. ACT 112: Negative or not required by law. Electronically signed by: Clemente Domínguez M.D. 05/13/2021 2:13 PM Venous Doppler Study 05/13/21 15:07 BILATERAL LOWER EXTREMITY VENOUS DOPPLER HISTORY: Atypical chest pain. Assess for DVT. COMPARISON STUDY: None. FINDINGS: There is normal compressibility, flow, and augmentation within the bilateral lower extremity deep venous systems. IMPRESSION: No DVT within the right or left lower extremity. ACT 112: Negative or not required by law. Electronically signed by: Oswaldo Escobar M.D. 05/13/2021 4:11 PM Discharge Plan Visit Data Chief Complaint: Shortness of Breath/Dyspnea Stated Complaint: SOB Chest Pain ED Provider: Ray Smart Discharge Problem: Chest pain, Breath shortness Forms Stand Alone Forms: [employer] Prescriptions Prescriptions: No Action (DME) OneTouch Ultra Blue Test Strip strip See Dose Instructions .ROUTE .MEDSUPPLY Qty: 360 RF: 1 (DME) blood-glucose meter [OneTouch Ultra2 Meter] Kit See Rx Instructions .ROUTE .MEDSUPPLY Qty: 1 RF: 0 (DME) OneTouch Ultra Blue Test Strip Strip See Dose Instructions .ROUTE .MEDSUPPLY Qty: 200 RF: 1 (DME) pen needle, diabetic [BD Ultra-Fine Mini Pen Needle] 31 gauge x 3/16" needle See Dose Instructions .ROUTE .MEDSUPPLY Qty: 100 RF: 3 (DME) lancets [Elli HealthTouch Delica Plus Lancet] 33 gauge misc See Rx Instructions .ROUTE .MEDSUPPLY Qty: 200 RF: 0 metformin 500 mg tablet 500 mg PO BID Qty: 180 RF: 1 (DME) nebulizer accessories Kit See Rx Instructions .Route Qty: 2 RF: 12 albuterol sulfate 2.5 mg /3 mL (0.083 %) solution for nebulization 2.5 mg INH Q4H PRN (Reason: shortness of breath or wheezing) Qty: 90 RF: 2 ipratropium bromide 0.02 % solution 1.25 ml INH UD PRN (Reason: shortness of breath or wheezing) Qty: 2.5 RF: 1 hydroxyzine pamoate [Vistaril] 25 mg capsule 25 mg PO TID PRN (Reason: anxiety) Qty: 30 RF: 0 aspirin 81 mg tablet,delayed release (DR/EC) 81 mg PO QAM Qty: 30 RF: 0 nitroglycerin 0.4 mg tablet, sublingual 0.4 mg sublingual Q5M PRN (Reason: Chest Pain) Qty: 25 RF: 3 rosuvastatin [Crestor] 10 mg tablet 10 mg PO QAM Qty: 90 RF: 1 meloxicam 15 mg tablet 15 mg PO QAM RF: 0 montelukast 10 mg tablet 10 mg PO QAM RF: 0 Trelegy Ellipta 100-62.5-25 mcg blister with device 1 puffs inhalation QDL RF: 0 fluticasone propionate 50 mcg/actuation spray,suspension 1 spray intranasal QAM PRN (Reason: Allergy Symptoms) RF: 0 epinephrine 0.3 mg/0.3 mL auto-injector 0.3 mg IM DIRECTED PRN (Reason: anaphylaxis) RF: 0 albuterol sulfate [Ventolin HFA] 90 mcg/actuation HFA aerosol inhaler 2 puff INHALATION Q6H PRN (Reason: Shortness Of Breath Or Wheezing) RF: 0 gabapentin 100 mg Capsule 100 mg PO TID RF: 0 insulin lispro [Humalog KwikPen Insulin] 100 unit/mL insulin pen 0 unit subcut DAILY RF: 0 Referrals Referrals: Gianna Dempsey DO [Primary Care Provider] - Discharge Problem: Chest pain Qualifiers: Chest pain type: unspecified Qualified Code(s): R07.9 - Chest pain, unspecified
[2021-05-13 14:05] LABS: Basophils # (auto) 0.02 K/uL (0-0.2); Basophils % (auto) 0.3 %; Eosinophils # (auto) 0.08 K/uL (0-0.5); Eosinophils % (auto) 1.2 %; Hematocrit (blood only) 39.8 % (37-47); Immature Granulocytes # (auto) 0.01 K/uL (0.00-0.02); Immature Granulocytes % (auto) 0.2 %; Lymphocytes % (auto) 30.8 %; Mean Corpuscular Hemoglobin 28.1 pg (25-34); Mean Corpuscular Hgb Conc 32.7 g/dL (32-36); Mean Corpuscular Volume 86.1 fL (80-100); Mean Platelet Volume 10.4 fL (7.4-10.4); Monocytes # (auto) 0.49 K/uL (0.11-0.59); Monocytes % (auto) 7.6 %; Neutrophils # (auto) 3.89 K/uL (1.4-6.5); Neutrophils % (auto) 59.9 %; Platelet Count 258 K/uL (130-400); RDW Standard Deviation 43.9 fL (36.4-46.3); Red Blood Count 4.62 M/uL (4.2-5.4); White Blood Count 6.49 K/uL (4.8-10.8)
--- NOTE | 2021-05-13 14:14 | XRay Report ---
XR chest 1V portable CLINICAL HISTORY: Atypical chest pain TECHNIQUE: Single frontal radiograph of the chest was obtained. Comparison: Comparison is made to chest one view 03/23/2021 FINDINGS: No lines and tubes are seen. The cardiomediastinal silhouette is normal. The lungs are clear. No evid ence of pleural effusion or pneumothorax. IMPRESSION: No acute chest disease. ACT 112: Negative or not required by law. Electronically signed by: Clemente Domínguez M.D. 05/13/2021 2:13 PM
[2021-05-13 14:24] LABS: Alanine Aminotransferase 26 U/L (12-78); Albumin Level 3.3 gm/dl (3.4-5.0); Aspartate Aminotransferase 19 U/L (15-37); BUN Creatinine Ratio 15.1 (10-20); Blood Urea Nitrogen 11 mg/dl (7-18); Calcium 8.9 mg/dl (8.5-10.1); Carbon Dioxide 26 mmol/L (21-32); Chloride 109 mmol/L (98-107); Creatinine Clr Calc Pharmacy 70.3 ml/min; Est GFR (African American) 100.7 ml/min; Est GFR (Non-African American) 86.9 ml/min; Glucose 84 mg/dl (70-99); Lipase 93 U/L (73-393); Partial Thromboplastin Time 25.4 Seconds (21.0-31.0); Potassium 3.8 mmol/L (3.5-5.1); Sodium 139 mmol/L (136-145)
[2021-05-13 14:30] LABS: Albumin Globulin Ratio 0.8 (0.9-2); Alkaline Phosphatase 99 U/L (45-117); Bilirubin,Total 0.4 mg/dl (0.2-1); Globulin 3.9 gm/dl (2.5-4.0); Total Protein 7.2 gm/dl (6.4-8.2); Troponin I < 0.015 ng/ml (0-0.045)
--- NOTE | 2021-05-13 16:13 | Ultrasound Report ---
BILATERAL LOWER EXTREMITY VENOUS DOPPLER HISTORY: Atypical chest pain. Assess for DVT. COMPARISON STUDY: None. FINDINGS: There is normal compressibility, flow, and augmentation within the bilateral lower extremit y deep venous systems. IMPRESSION: No DVT within the right or left lower extremity. ACT 112: Negative or not required by law. Electronically signed by: Oswaldo Escobar M.D. 05/13/2021 4:11 PM
--- NOTE | 2021-05-13 16:45 | History & Physical Report ---
Date of Service May 13, 2021 Assessment & Plan (1) Chest pain: Plan: Patient has 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 admissions at different hospitals for chest pain. Pulmonary embolism appears less likley as no signs of clots in lower extremity and has had negative CT scan. We will place in monitored observation Will defer stress testing for now, ask cardiology to eval. As patient is significantly high risk, may be indication for cardiac catheterization but may depend on their previous records Given ,ultiple admissions, may benefit from a repeat cardiac cath as it has been over 7 years, and patient did have "minimal" CAD. continue outpatient medications including low-dose aspirin, and rosuvastatin 10mg (2) COPD (chronic obstructive pulmonary disease): Plan: Patient is on Trelegy and Ventolin as an outpatient, okay to continue on room air (3) Hyperlipidemia: Plan: continue statin (4) Type 2 diabetes mellitus: Plan: consulted glycemic control History of Present Illness Chief Complaint: chest pain Primary Care Provider: Gianna Dempsey, 71 yo female comes in with complaints of chest pain this AM. Patient reports having a pressure like midsternum chest pain however she also sharp chest pain on her left breast. This was accompanied by SOB. She states she took some nitro x 3 and it did not help. She reports she has a long history of chest pain and was here about 50 days ago with chest pain that resolved with OMT. Allergies Allergy/AdvReac Type Severity Reaction Status Date / Time bee venom protein (honey bee) Allergy Severe Anaphylaxis Verified 05/13/21 15:02 ibuprofen Allergy Unknown unknown Verified 05/13/21 15:02 Penicillins Allergy Unknown unknown Verified 05/13/21 15:02 phenytoin Allergy Unknown unknown Verified 05/13/21 15:02 Iodinated Contrast Media AdvReac Mild Vomiting Verified 05/13/21 15:02 [Iodinated Contrast- Oral and IV Dye] fiberglass Allergy Severe Rash and Uncoded 05/13/21 15:02 Difficulty Breathing Home Medications Medication Instructions Recorded Confirmed Type blood sugar diagnostic (OneTouch #360 ea 01/04/19 04/09/21 Rx Ultra Blue Test Strip) aspirin 81 mg tablet,delayed 81 mg PO QAM #30 tab 12/06/19 05/13/21 Rx release fluticasone fur. 100 mcg-umeclid 1 puffs INHALATION QDL 12/18/19 05/13/21 History 62.5 mcg-vilant 25 mcg inhalat.powder (Trelegy Ellipta) meloxicam 15 mg tablet 15 mg PO QAM 12/18/19 05/13/21 History montelukast 10 mg tablet 10 mg PO QAM 12/18/19 05/13/21 History blood-glucose meter (OneTouch #1 ea 12/25/19 04/09/21 Rx Ultra2 Meter) blood sugar diagnostic (OneTouch #200 ea 03/10/20 04/09/21 Rx Ultra Blue Test Strip) pen needle, diabetic 31 gauge x #100 ea 03/10/20 04/09/21 Rx 3/16" (BD Ultra-Fine Mini Pen Needle) lancets 33 gauge (OneTouch Delica #200 ea 03/11/20 04/09/21 Rx Plus Lancet) metformin 500 mg tablet 500 mg PO BID #180 tab 03/27/20 05/13/21 Rx nitroglycerin 0.4 mg sublingual 0.4 mg SUBLINGUAL Q5M PRN #25 tab 12/04/20 05/13/21 Rx tablet fluticasone propionate 50 1 spray INTRANASAL QAM PRN 12/07/20 05/13/21 History mcg/actuation nasal spray,suspension epinephrine 0.3 mg/0.3 mL 0.3 mg IM DIRECTED PRN 12/28/20 05/13/21 History injection, auto-injector nebulizer accessories #2 ea 02/11/21 04/09/21 Rx albuterol sulfate 2.5 mg INH Q4H PRN #90 ml 03/10/21 05/13/21 Rx albuterol sulfate 90 mcg/actuation 2 puff INHALATION Q6H PRN 03/23/21 05/13/21 History aerosol inhaler (Ventolin HFA) ipratropium bromide 0.02 % 1.25 ml INH UD PRN #2.5 ml 03/31/21 05/13/21 Rx solution for inhalation rosuvastatin 10 mg tablet (Crestor) 10 mg PO QAM #90 tab 04/09/21 05/13/21 Rx hydroxyzine pamoate 25 mg capsule 25 mg PO TID PRN #30 cap 05/01/21 05/13/21 Rx (Vistaril) gabapentin 100 mg capsule 100 mg PO TID 05/13/21 05/13/21 History insulin lispro 100 unit/mL 0 unit SUBCUT DAILY 05/13/21 05/13/21 History subcutaneous pen (Humalog KwikPen (U-100) Insulin) Past Med/Surg History Medical History Allergic rhinitis Anxiety and depression Asthma Atypical chest pain Cervical radiculopathy COPD (chronic obstructive pulmonary disease) History of recurrent UTI (urinary tract infection) Histrionic personality disorder Hyperlipidemia Impulse control disorder Irritable bowel syndrome Lab test negative for COVID-19 virus Learning disability Left shoulder pain Lumbar disc disease Lumbar spinal stenosis Nonobstructive atherosclerosis of coronary artery Orthostatic tremor Seizure disorder Type 2 diabetes mellitus Urge incontinence of urine Vitamin D deficiency Surgical History Status post cardiac catheterization Status post cholecystectomy Status post dilation and curettage Status post tonsillectomy Status post tubal ligation Family History Father Myocardial infarction Cerebral aneurysm Coronary heart disease Diabetes Mother Lung cancer Brother H/O heart artery stent Denies family history of Ovarian cancer Prostate cancer Breast cancer Colorectal cancer Social History Smoking Status: Former smoker Tobacco Type: Cigarettes Age Started Using Tobacco: 18; Age Quit Using Tobacco: 20; packs per day: 2; Years Smoked: 1; Second Hand Exposure: No; Hx Alcohol Use: No Hx Substance Use: No Preferred Language: Kinyarwanda Communication Ability: Effective Visual Impairment: Limited Hearing Ability: Normal Route Delivery Driver Required: No Beliefs That Will Affect Care: None marital status: Current Living Situation: Alone Current Living Situation Comment: Live in apartment current occupational status: disabled How many Children do You have: 2 Feels Safe at Home: Yes Childhood Exposure to Second-Hand Smoke: No caffeine: No during the past year weight has: remained stable Dental Care, Regularly: No Physical Activity Frequency: Does not Exercise Seatbelt Use: always Sunscreen Use: No Assistive Devices: Nebulizer and Walker Review of Systems Review of Systems: Constitutional: no fever, no chills, no weakness, no weight loss and no weight gain Eyes: as per Subjective / HPI Respiratory: + cough (chronic) and + dyspnea (chronic); no chest congestion, no dyspnea on exertion, no hemoptysis and no pain on inspiration Cardiovascular: + chest pain, + chest pain at rest and + radiating jaw, neck or arm pain; no dyspnea, no dyspnea on exertion, no orthopnea, no palpitations, no lightheadedness and no edema Gastrointestinal: no abdominal pain, no nausea, no vomiting, no constipation and no diarrhea/loose stools Genitourinary: no dysuria, no difficulty urinating, no urinary frequency, no urinary hesitancy, no urinary urgency and no flank pain Musculoskeletal: no back pain, no neck pain, no joint pain, no stiffness and no myalgia Integumentary: no rash Neurologic: no gait abnormality, no unsteadiness, no falls and no generalized weakness Physical Exam Constitutional: WD/WN, vitals as above Eyes: PERRL, conjunctivae normal, anicteric sclerae ENMT: external ear and nose normal, oropharynx normal Neck: trachea midline, no thyromegaly Respiratory: normal respiratory effort, lungs clear to auscultation Cardiovascular: RRR, no murmur, no edema (tenderness to palpation to left la teral border of midsternum) Gastrointestinal (Abdomen): normal bowel sounds, soft, nontender, no hepatosplenomegaly Musculoskeletal: no cyanosis or clubbing, extremities motor strength 5/5 Skin: no rashes, warm and dry Neurologic: PERRL, EOMI, accommodation nl, no face palsy, no dysarthria Psychiatric: A+Ox3, euthymic affect Lymphatic: no cervical or axillary lymphadenopathy Results & Data Results & Data ([facility]) Vital Signs (Past 12 Hours) Vital Signs Temp Pulse Resp BP Pulse Ox 05/13/21 15:00 68 16 98 05/13/21 14:50 68 23 98 05/13/21 14:40 68 21 99 05/13/21 14:30 73 24 98 05/13/21 14:20 70 16 97 05/13/21 14:10 69 22 96 05/13/21 14:00 68 19 99 05/13/21 13:50 68 21 97 05/13/21 13:40 66 18 99 05/13/21 13:30 69 17 127/80 99 10/20/21 13:23 109 H 20 05/13/21 13:10 66 19 94 05/13/21 13:00 71 24 97 05/13/21 12:53 98 05/13/21 12:51 73 20 99 05/13/21 12:49 37.3 C 72 22 142/95 H 99 PG Care Time/CCT Total # of Minutes Spent Total Time Spent with Patient: Total time spent is greater than 50% in coordination of care (as documented) at patient's floor/unit and/or counseling patient: Coding Level of Care Code INT OBSERVATION CARE 70M LVL 3 Diagnoses Chest pain R07.9 Chest pain type: unspecified COPD (chronic obstructive pulmonary disease) J44.9 COPD type: unspecified COPD Hyperlipidemia E78.5 Type 2 diabetes mellitus E11.9; Z79.4 Diabetes mellitus complication status: without complication Diabetes mellitus mcfp insulin use: with long term acute care registered nurse use (1) Chest pain Chest pain type: unspecified Qualified Code(s): R07.9 - Chest pain, unspecified (2) COPD (chronic obstructive pulmonary disease) COPD type: unspecified COPD Qualified Code(s): J44.9 - Chronic obstructive pulmonary disease, unspecified (3) Type 2 diabetes mellitus Diabetes mellitus complication status: without complication Diabetes mellitus long term acute care registered nurse insulin use: with long term acute care registered nurse use Qualified Code(s): E11.9 - Type 2 di abetes mellitus without complications; Z79.4 - skilled nursing (current) use of insulin
[2021-05-13] MEDS ORDERED: hydrOXYzine HCl 25 MG TAB PO PRN (17:13)
[2021-05-13] MEDS ORDERED: ACETAMINOPHEN 325 MG TAB PO PRN (17:16)
[2021-05-13] MEDS ORDERED: MoRPHine SULFATE 4 MG/ML 1 ML CARP\\VIAL ONE (17:54)
[2021-05-13] MEDS ORDERED: metFORMIN HCL 500 MG TAB PO SCH (21:00)
[2021-05-13] MEDS ORDERED: GLUCOSE 40% GEL 15 GM TUBE PO PRN (21:06)
[2021-05-13] MEDS ORDERED: CARBOHYDRATES FOR HYPOGLYCEMIA PO PRN (21:06)
[2021-05-13] MEDS ORDERED: GLUCOSE 10 TABS/TUBE PO PRN (21:06)
[2021-05-13] MEDS ORDERED: DEXTROSE 50% 50 ML SYRINGE IV PRN (21:06)
[2021-05-13] MEDS ORDERED: GLUCAGON FOR INJ 1 MG VIAL SQ PRN (21:06)
[2021-05-13] MEDS: GABAPENTIN 100 MG CAP PO SCH (22:01)
[2021-05-13] MEDS: ALBUT/IPRATROP 3MG/0.5MG NEB 3 ML VIAL NEB PRN (23:00)
[2021-05-14] MEDS: ALBUT/IPRATROP 3MG/0.5MG NEB 3 ML VIAL NEB PRN ×2 (05:47→12:50)
[2021-05-14 06:19] LABS: Basophils # (auto) 0.02 K/uL (0-0.2); Basophils % (auto) 0.4 %; Eosinophils # (auto) 0.11 K/uL (0-0.5); Eosinophils % (auto) 2.1 %; Hematocrit (blood only) 38.6 % (37-47); Hemoglobin 12.7 g/dL (12.0-16.0); Immature Granulocytes # (auto) 0.01 K/uL (0.00-0.02); Immature Granulocytes % (auto) 0.2 %; Lymphocytes % (auto) 40.4 %; Mean Corpuscular Hgb Conc 32.9 g/dL (32-36); Mean Platelet Volume 10.8 fL (7.4-10.4); Monocytes # (auto) 0.41 K/uL (0.11-0.59); Monocytes % (auto) 7.9 %; Neutrophils # (auto) 2.55 K/uL (1.4-6.5); Platelet Count 269 K/uL (130-400); RDW Coefficient of Variation 14.2 % (11.5-14.5); RDW Standard Deviation 44.3 fL (36.4-46.3); Red Blood Count 4.54 M/uL (4.2-5.4)
[2021-05-14 06:49] LABS: Alanine Aminotransferase 25 U/L (12-78); Albumin Level 3.3 gm/dl (3.4-5.0); Aspartate Aminotransferase 18 U/L (15-37); BUN Creatinine Ratio 23.4 (10-20); Bilirubin Direct < 0.1 mg/dl (0-0.2); Blood Urea Nitrogen 19 mg/dl (7-18); Calcium 8.7 mg/dl (8.5-10.1); Carbon Dioxide 26 mmol/L (21-32); Chloride 108 mmol/L (98-107); Cholesterol 180 mg/dl (0-200); Creatinine Clr Calc Pharmacy 61.7 ml/min; Est GFR (African American) 85.9 ml/min; Est GFR (Non-African American) 74.1 ml/min; Glucose 101 mg/dl (70-99); Potassium 3.9 mmol/L (3.5-5.1); Sodium 139 mmol/L (136-145); Triglycerides 116 mg/dl (0-150); VLDL Cholesterol 23 mg/dl
[2021-05-14 06:53] LABS: Alkaline Phosphatase 96 U/L (45-117); Bilirubin,Total 0.4 mg/dl (0.2-1); Chol HDL Ratio 3; Globulin 3.4 gm/dl (2.5-4.0); HDL Cholesterol 62 mg/dl; LDL Cholesterol Calculated 95 mg/dl; Total Protein 6.7 gm/dl (6.4-8.2); Troponin I < 0.015 ng/ml (0-0.045)
[2021-05-14] MEDS: GABAPENTIN 100 MG CAP PO SCH ×2 (07:48→14:49)
[2021-05-14 07:52] LABS: Estimated Average Glucose 128 mg/dl; Hemoglobin A1C 6.1 % (4.5-5.6)
[2021-05-14] MEDS: INSULIN ASPART 100 UNITS/ML 3 ML PEN SC SCH ×2 (08:43→12:31)
[2021-05-14] MEDS ORDERED: FLUTICASONE FUROATE 100MCG 14 PUFFS/INHALER INH SCH (09:00)
[2021-05-14] MEDS ORDERED: ASPIRIN 81 MG ECTAB PO SCH (09:00)
[2021-05-14] MEDS ORDERED: MONTELUKAST SODIUM 10 MG TABLET PO SCH (09:00)
[2021-05-14] MEDS ORDERED: ROSUVASTATIN CALCIUM 10 MG TAB PO SCH (09:00)
[2021-05-14] MEDS ORDERED: UMECLIDINIUM/VILANTEROL 62.5/25MCG 7 PUFFS/INHALER INH SCH (09:00)
--- NOTE | 2021-05-14 09:53 | Cardiology Consultation ---
Date of Consultation May 14, 2021 Assessment & Plan (1) Atypical chest pain: -her symptoms are not cardiac in origin. -physical examination suggests musculoskeletal chest discomfort. -could use a topical nonsteroidal agent. -stress testing not indicated. -cardiac catheterization clearly not indicated. (2) Coronary artery disease: -minimal disease at cardiac catheterization in April 2014. -continue medical management. (3) Hypertension: -adequate control on current regimen. (4) Hyperlipidemia: -continue rosuvastatin. History of Present Illness Attending Physician: Teresa Agarwal MD History of Present Illness Mrs. Lira 71-year-old female admitted yesterday with a chest pain syndrome. This consultation was ordered to assist in her cardiac management. Of note, patient is well known to me from a recent hospitalization. The patient was in her usual state of health until approximately 1:00 p.m. yesterday when she developed left-sided chest discomfort. There were no other associated symptoms such as shortness of breath, nausea, vomiting, or diaphoresis. There is no change in her discomfort with physical activity. Patient explains that her discomfort was constant in nature, and therefore, she presented to the emergency room for further care. On arrival here, the patient had an undetectable troponin I level. Her EKG showed no acute changes. She was admitted for observation. On evaluation today, the patient continues to complain of left-sided chest discomfort. She admits to tenderness in the area described. This duplicates her presenting complaints completely. The patient was admitted here on March 23 with the exact same complaints. An echocardiogram performed during the hospitalization noted normal left ventricular systolic function without wall motion abnormalities. There was mild mitral regurgitation. The patient does carry history of minimal coronary artery disease found at the time of a cardiac catheterization in April 2014. She does carry history of chronic atypical chest discomfort. Past medical and surgical history 1. Coronary artery disease-minimal, April 2014 2. Hypertension 3. Hypercholesterolemia 4. Mild mitral regurgitation 5. Chronic atypical chest pain syndrome 6. Diabetes mellitus 7. COPD 8. Seizure disorder 9. Histrionic personality 10. Impulse disorder 11. Anxiety/depression 12. Irritable bowel syndrome 13. Vitamin-D deficiency 14. Cervical spine radiculopathy 15. Cholecystectomy 16. D&C 17. Tonsillectomy 18. Tubal ligation Social history Single, lives alone Currently on disability Quit tobacco use at age 20 No alcohol Family history No early coronary artery disease Review of systems A 10 point review systems was negative except that described above. Allergies Allergy/AdvReac Type Severity Reaction Status Date / Time bee venom protein (honey bee) Allergy Severe Anaphylaxis Verified 05/13/21 15:02 ibuprofen Allergy Unknown unknown Verified 05/13/21 15:02 Penicillins Allergy Unknown unknown Verified 05/13/21 15:02 phenytoin Allergy Unknown unknown Verified 05/13/21 15:02 Iodinated Contrast Media AdvReac Mild Vomiting Verified 05/13/21 15:02 [Iodinated Contrast- Oral and IV Dye] fiberglass Allergy Severe Rash and Uncoded 05/13/21 15:02 Difficulty Breathing Home Medications Medication Instructions Recorded Confirmed Type blood sugar diagnostic (OneTouch #360 ea 01/04/19 04/09/21 Rx Ultra Blue Test Strip) aspirin 81 mg tablet,delayed 81 mg PO QAM #30 tab 12/06/19 05/13/21 Rx release fluticasone fur. 100 mcg-umeclid 1 puffs INHALATION QDL 12/18/19 05/13/21 History 62.5 mcg-vilant 25 mcg inhalat.powder (Trelegy Ellipta) meloxicam 15 mg tablet 15 mg PO QAM 12/18/19 05/13/21 History montelukast 10 mg tablet 10 mg PO QAM 12/18/19 05/13/21 History blood-glucose meter (OneTouch #1 ea 12/25/19 04/09/21 Rx Ultra2 Meter) blood sugar diagnostic (OneTouch #200 ea 03/10/20 04/09/21 Rx Ultra Blue Test Strip) pen needle, diabetic 31 gauge x #100 ea 03/10/20 04/09/21 Rx 3/16" (BD Ultra-Fine Mini Pen Needle) lancets 33 gauge (OneTouch Delica #200 ea 03/11/20 04/09/21 Rx Plus Lancet) metformin 500 mg tablet 500 mg PO BID #180 tab 03/27/20 05/13/21 Rx nitroglycerin 0.4 mg sublingual 0.4 mg SUBLINGUAL Q5M PRN #25 tab 12/04/20 05/13/21 Rx tablet fluticasone propionate 50 1 spray INTRANASAL QAM PRN 12/07/20 05/13/21 History mcg/actuation nasal spray,suspension epinephrine 0.3 mg/0.3 mL 0.3 mg IM DIRECTED PRN 12/28/20 05/13/21 History injection, auto-injector nebulizer accessories #2 ea 02/11/21 04/09/21 Rx albuterol sulfate 2.5 mg INH Q4H PRN #90 ml 03/10/21 05/13/21 Rx albuterol sulfate 90 mcg/actuation 2 puff INHALATION Q6H PRN 03/23/21 05/13/21 History aerosol inhaler (Ventolin HFA) rosuvastatin 10 mg tablet (Crestor) 10 mg PO QAM #90 tab 04/09/21 05/13/21 Rx hydroxyzine pamoate 25 mg capsule 25 mg PO TID PRN #30 cap 05/01/21 05/13/21 Rx (Vistaril) gabapentin 100 mg capsule 100 mg PO TID 05/13/21 05/13/21 History insulin lispro 100 unit/mL 0 unit SUBCUT DAILY 05/13/21 05/13/21 History subcutaneous pen (Humalog KwikPen (U-100) Insulin) ipratropium bromide 0.02 % 1.25 ml INH UD PRN #2.5 ml 05/14/21 Rx solution for inhalation Patient History Medical History Allergic rhinitis Anxiety and depression Asthma Atypical chest pain Cervical radiculopathy COPD (chronic obstructive pulmonary disease) History of recurrent UTI (urinary tract infection) Histrionic personality disorder Hyperlipidemia Impulse control disorder Irritable bowel syndrome Lab test negative for COVID-19 virus Learning disability Left shoulder pain Lumbar disc disease Lumbar spinal stenosis Nonobstructive atherosclerosis of coronary artery Orthostatic tremor Seizure disorder Type 2 diabetes mellitus Urge incontinence of urine Vitamin D deficiency Surgical History Status post cardiac catheterization Status post cholecystectomy Status post dilation and curettage Status post tonsillectomy Status post tubal ligation Family History Father Myocardial infarction Cerebral aneurysm Coronary heart disease Diabetes Mother Lung cancer Brother H/O heart artery stent Denies family history of Ovarian cancer Prostate cancer Breast cancer Colorectal cancer Social History Smoking Status: Former smoker Tobacco Type: Cigarettes Age Started Using Tobacco: 18; Age Quit Using Tobacco: 20; packs per day: 2; Years Smoked: 1; Second Hand Exposure: No; Do You Dip or Chew Tobacco: No; Hx Alcohol Use: No Hx Substance Use: No Preferred Language: Kenyan Communication Ability: Effective Visual Impairment: Limited Hearing Ability: Normal Broke Handler Required: No Beliefs That Will Affect Care: None marital status: Current Living Situation: Alone Current Living Situation Comment: Live in apartment current occupational status: disabled How many Children do You have: 2 Other Information That Helps Us Care for You: No Feels Safe at Home: Yes Safety Concerns: Feels Safe At This Time Childhood Exposure to Second-Hand Smoke: No caffeine: No during the past year weight has: remained stable Dental Care, Regularly: No Physical Activity Frequency: Does not Exercise Seatbelt Use: always Sunscreen Use: No Assistive Devices: Walker Physical Exam Physical Exam: In general this is a well-developed well-nourished white female in no acute distress. HEENT exam is negative. Neck is supple with full carotid upstrokes. There are no carotid bruits. No JVD. There is no thyromegaly. Cardiovascular exam reveals a regular rhythm with a normal S1 and S2. No S3, S4, or murmurs are noted. Lungs are clear without rales, rhonchi, or wheezes. Chest notes tenderness to palpation in the left parasternal region completely duplicating her presenting complaints. Abdomen is soft and nontender without bruits. Extremities reveal intact radial artery bilaterally. There is no peripheral edema. Results & Data ([facility]) Vital Signs (Past 12 Hours) Vital Signs Temp Pulse Pulse Resp BP Pulse Ox 05/14/21 07:20 36.5 C 69 20 104/65 93 05/14/21 05:47 71 16 96 05/14/21 04:00 36.4 C L 75 20 119/73 93 05/13/21 23:00 92 H 20 160/91 H 95 05/13/21 22:22 80 Laboratory Results CBC notes hemoglobin 12.7, crit 30.6, white count 5.2, platelet count [id number]. Electrolytes note a sodium of 139, potassium 3.9, chloride 108, bicarb 26, BUN 19, creatinine 0.81, and glucose of 101. Troponin I level is undetectable at less than 0.015 x 3. LDL cholesterol is 95 with an HDL of 62. Diagnostic Findings EKG notes normal sinus rhythm with left axis deviation. This is unchanged from a tracing done March 24, 2021. Chest x-ray shows no acute disease. Left lower extremity ultrasound shows no DVT. CT scan of the chest shows no pulmonary emboli. PG Care Time/CCT Total # of Minutes Spent Total Time Spent with Patient: Total time spent is greater than 50% in coordination of care (as documented) at patient's floor/unit and/or counseling patient: Coding Level of Care Code INT OBSERVATION CARE 70M LVL 3 Diagnoses Atypical chest pain R07.89 Coronary artery disease I25.10 Hypertension I10 Hyperlipidemia E78.5
--- NOTE | 2021-05-14 10:17 | Nuclear Medicine Report ---
NM pul perfusion CLINICAL HISTORY: Chest pain. Evaluate for evidence of pulmonary embolus. COMPARISON STUDY: Chest radiograph May 13, 2021. TECHNIQUE: Ventilation imaging could not be performed due to Covid restrictions. 5.5 mCi of technetiu m 99m MAA was injected IV at 10:02 AM on May 14, 2021. Following injection, imaging of the chest was performed in multiple projections. FINDINGS: No segmental defects are identified on this examination. Exam is compromised given lack of ventilation imaging. No areas of abnormal radiotracer deposition are noted. Study is considered low p robability for pulmonary embolus. IMPRESSION: Technically compromised exam, as described above. However, low probability for pulmonary embolus. ACT 112: Negative or not required by law. Electronically signed by: Oskar Buck M.D. 05/14/2021 10:16 AM
[2021-05-14] MEDS ORDERED: DOBUTamine HCL 12.5 MG/ML 20 ML VIAL IV ONE (10:27)
[2021-05-14] MEDS ORDERED: METOPROLOL TARTRATE 1 MG/ML VIAL IV ONE (10:27)
[2021-05-14] MEDS ORDERED: ATROPINE SULFATE 0.1 MG/ML 10ML SYR IV ONE (10:27)
[2021-05-14] MEDS ORDERED: ESMOLOL HCL INJ 10 MG/ML 10ML VIAL IV ONE (10:39)
[2021-05-14] MEDS ORDERED: PERFLUTREN LIPID MICROSPHERE (DEFINITY) IV ONE (10:59)
[2021-05-14] MEDS ORDERED: MoRPHine SULFATE 2 MG/ML CARP ONE (11:01)
[2021-05-14] MEDS ORDERED: NON-FORMULARY MEDICATION (Fluticasone-Umeclidin-Vilanter [Trelegy Ellipta] 100-62.5-25 mcg INH SCH (11:30)
--- NOTE | 2021-05-14 12:56 | XCELERA ---
[id number]
--- NOTE | 2021-05-14 13:07 | Electrocardiogram Report ---
Test Reason : Blood Pressure : / mmHG Vent. Rate : 067 BPM Atrial Rate : 067 BPM P-R Int : 134 ms QRS Dur : 078 ms QT Int : 404 ms P-R-T Axes : 068 -43 055 degrees QTc Int : 426 ms Normal sinus rhythm Left axis deviation Poor R wave progression, consider anterior [place] vs. lead placement vs. LVH Abnormal ECG When compared with ECG of 24-MAR-2021 06:10, Poor R wave progression is now present Confirmed by Jarrell Blanchard ([id number]) on 05/14/2021 1:07:15 PM Referred By: Gianna Dempsey Confirmed By:Jarrell Blanchard
--- NOTE | 2021-05-14 16:01 | Discharge Summary ---
Date of Service May 14, 2021 Admission HPI Per Admitting Provider 71 yo female comes in with complaints of chest pain this AM. Patient reports having a pressure like midsternum chest pain however she also sharp chest pain on her left breast. This was accompanied by SOB. She states she took some nitro x 3 and it did not help. She reports she has a long history of chest pain and was here about 50 days ago with chest pain that resolved with OMT. Principal Diagnosis Atypical chest pain-noncardiac Discharge Exam Constitutional WD/WN, vitals as above Eyes PERRL, conjunctivae normal, anicteric sclerae ENMT external ear and nose normal, oropharynx normal Neck trachea midline, no thyromegaly Respiratory normal respiratory effort, lungs clear to auscultation Cardiovascular RRR, no murmur, no edema Positive tenderness to palpation over left sternal border that exactly reproduces the pain Chest (Breasts) Chest: normal inspection of chest Gastrointestinal (Abdomen) normal bowel sounds, soft, nontender, no hepatosplenomegaly Musculoskeletal Extremities: extremities normal to inspection; no cyanosis and no clubbing Skin no rashes, warm and dry Neurologic moves all extremities and awake; no focal motor deficits Psychiatric A+Ox3, euthymic affect Lymphatic no lymphedema Discharge Data Allergies Allergy/AdvReac Type Severity Reaction Status Date / Time bee venom protein (honey bee) Allergy Severe Anaphylaxis Verified 05/28/21 09:19 ibuprofen Allergy Unknown unknown Verified 05/28/21 09:19 Penicillins Allergy Unknown unknown Verified 05/28/21 09:19 phenytoin Allergy Unknown unknown Verified 05/28/21 09:19 Iodinated Contrast Media AdvReac Mild Vomiting Verified 05/28/21 09:19 [Iodinated Contrast- Oral and IV Dye] fiberglass Allergy Severe Rash and Uncoded 05/28/21 09:19 Difficulty Breathing Consultations 05/13/21 15:42 ED Decision to Admit Stat 05/13/21 17:07 Consult Cardiology Routine Ordered Studies 05/13/21 15:07 US venous doppler LE Stat Hospital Course (1) Chest pain: Patient has 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 admissions at different hospitals for chest pain. Pulmonary embolism appears less likley as no signs of clots in lower extremity and has had negative CT scan in the past along with negative VQ scan here negative lower extremity Dopplers Again seen by cardiology and does not need cardiac catheterization Stress test performed and is normal Serial troponin negative x3 Covid test negative Chest x-ray negative She is directly tender to palpation over the left chest wall-this is clearly costochondritis-she cannot use topical Voltaren gel due to an allergy to NSAIDs. Recommended rest from heavy lifting and perhaps chiropractor or OMT (2) COPD (chronic obstructive pulmonary disease): Patient is on Trelegy and Ventolin as an outpatient, okay to continue on room air (3) Hyperlipidemia: continue statin (4) Type 2 diabetes mellitus: consulted glycemic control Disposition-stable for discharged home Total Time Total Time Spent Total Time Spent (In Minutes): 35 minutes Discharge Plan Discharge Items Patient Disposition: Home - Self-Care Reason For Visit: CHEST PAIN Discharge Diagnosis: Musculoskeletal chest pain Condition on Discharge: Good Activity: Resume your previous activity Non-emergency contact: Primary Care Provider Call non-emergency contact if: you have any medication questions, your symptoms worsen, your pain is not controlled and your pain is worsening Follow-up/Referrals: Gianna Dempsey DO [Primary Care Provider] - 06/01/21 10:20 am (You will be seeing Yang SHARMA) Diet: Heart Healthy Addtl Attending Provider Instructions: You had chest pain that is caused by a strain in your muscles of your chest wall and is NOT from your heart or lungs. Your cardiac stress test was negative/normal. Please follow up with Dr. Dempsey for further treatment. Pending Studies at Discharge: No Stand-Alone Forms: My [facility], Smoking Cessation Medications and DC Order Prescriptions: Continued (DME) OneTouch Ultra Blue Test Strip strip See Dose Instructions .ROUTE .MEDSUPPLY Qty: 360 RF: 1 (DME) blood-glucose meter [OneTouch Ultra2 Meter] Kit See Rx Instructions .ROUTE .MEDSUPPLY Qty: 1 RF: 0 (DME) OneTouch Ultra Blue Test Strip Strip See Dose Instructions .ROUTE .MEDSUPPLY Qty: 200 RF: 1 (DME) pen needle, diabetic [BD Ultra-Fine Mini Pen Needle] 31 gauge x 3/16" needle See Dose Instructions .ROUTE .MEDSUPPLY Qty: 100 RF: 3 (DME) lancets [OneTouch Delica Plus Lancet] 33 gauge misc See Rx Instructions .ROUTE .MEDSUPPLY Qty: 200 RF: 0 metformin 500 mg tablet 500 mg PO BID Qty: 180 RF: 1 (DME) nebulizer accessories Kit See Rx Instructions .Route Qty: 2 RF: 12 albuterol sulfate 2.5 mg /3 mL (0.083 %) solution for nebulization 2.5 mg INH Q4H PRN (Reason: shortness of breath or wheezing) Qty: 90 RF: 2 hydroxyzine pamoate [Vistaril] 25 mg capsule 25 mg PO TID PRN (Reason: anxiety) Qty: 30 RF: 0 ipratropium bromide 0.02 % solution 1.25 ml INH UD PRN (Reason: shortness of breath or wheezing) Qty: 2.5 RF: 1 aspirin 81 mg tablet,delayed release (DR/EC) 81 mg PO QAM Qty: 30 RF: 0 nitroglycerin 0.4 mg tablet, sublingual 0.4 mg sublingual Q5M PRN (Reason: Chest Pain) Qty: 25 RF: 3 rosuvastatin [Crestor] 10 mg tablet 10 mg PO QAM Qty: 90 RF: 1 meloxicam 15 mg tablet 15 mg PO QAM RF: 0 montelukast 10 mg tablet 10 mg PO QAM RF: 0 Trelegy Ellipta 100-62.5-25 mcg blister with device 1 puffs inhalation QDL RF: 0 fluticasone propionate 50 mcg/actuation spray,suspension 1 spray intranasal QAM PRN (Reason: Allergy Symptoms) RF: 0 epinephrine 0.3 mg/0.3 mL auto-injector 0.3 mg IM DIRECTED PRN (Reason: anaphylaxis) RF: 0 albuterol sulfate [Ventolin HFA] 90 mcg/actuation HFA aerosol inhaler 2 puff INHALATION Q6H PRN (Reason: Shortness Of Breath Or Wheezing) RF: 0 gabapentin 100 mg Capsule 100 mg PO TID RF: 0 insulin lispro [Humalog KwikPen Insulin] 100 unit/mL insulin pen 0 unit subcut DAILY RF: 0 Discharge Orders: Discharge Order (Routine); Ordered 05/14/21 Ordered By: Teresa Rader/Other Patient Handouts: A1C, Managing Type 2 Diabetes Admission Data Admit Date/Time: 05/13/21 17:07 Attending Provider: Teresa Agarwal Admit Provider: Beck Bland Primary Care Provider: Gianna Dempsey Other Providers: Beck Bland ; Jarrell Blanchard Other Interventions: Discharge Summary Assessment (RN) Last Done: 05/14/21 16:21 Coding Level of Care Code 53557 OBS Care - Discharge Diagnoses Chest pain R07.9 Chest pain type: unspecified COPD (chronic obstructive pulmonary disease) J44.9 COPD type: unspecified COPD Hyperlipidemia E78.5 Type 2 diabetes mellitus E11.9; Z79.4 Diabetes mellitus complication status: without complication Diabetes mellitus 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
== END 2021-05-14 17:42 | disposition home or self-care (01) ==
LOC: 2N 12:42 → ED 12:42 → SUATTDRO 17:07 → 2N 19:53

== ENCOUNTER 2021-10-07 12:58 | Observation (INO) ==
--- NOTE | 2021-10-07 13:35 | XRay Report ---
XR chest 1V portable HISTORY: 71 years-old Female Chest Pain acute atypical chest pain COMPARISON: Chest radiograph 06/12/2021 TECHNIQUE: Portable AP view of the chest FINDINGS: Mild linear scarring within the medial segment right middle lobe is unchanged. Cardiomediastinal and hilar silhouettes are within normal limits. No pneumothorax, pleural effusion, airspace consolidation or overt pulmonary edema. Degenerative changes of the shoulders and spine. Cholecystectomy. IMPRESSION: No acute process. ACT 112: Negative or not required by law. The above report was generated using voice recognition software. It may contain grammatical, syntax o r spelling errors. Electronically signed by: Mehul Wiggins M.D. 10/07/2021 1:34 PM
--- NOTE | 2021-10-07 14:01 | Emergency Department Note ---
Impression & Plan Dizziness, Retrosternal chest pain, Fall ED Provider Note INFORMANT: Patient ED PROVIDER(S): Pancho Pizarro MD CHIEF COMPLAINT: Hypoglycemia PLAN: Disposition: Admitted Condition: Good Outpatient prescription management: none Referral: None MEDICAL DECISION MAKING: Patient presented complaining like feeling dizzy and had low blood sugar. EMS checks it was 129 at home. The patient arrived and started complaining of chest pain. ECG was unremarkable. She also complained of headache, neck pain, back pain and extremity pain from her falls. No significant traumatic injury was fo und on physical examination. She was given a dose of Zofran and morphine. The patient had an unremarkable chest x-ray. Head CT and cervical spine CT did not reveal any evidence of traumatic pathology. ECG and blood work was unremarkable. Patient's symptoms prompted performing a D-dimer to evaluate for possible PE given the chest pain. This was mildly abnormal. The patient was premedicated for CT imaging due to history of vomiting with IV dye. Chest CT was performed uneventfully. Radiology read is pending. Due to the chest pain complaints and frequent falls the patient will need further management in the hospital. Consultation was made with Dr. Dr. Jake Valle of the [facility] service. Patient was evaluated in the ER for further management. Triage Nursing notes reviewed and agree them. Vital Signs: reviewed and remarkable for no significant abnormalities Differential diagnosis: Trauma, cardiac sources, infection, dehydration, metabolic abnormality, hypo/hyperglycemia, electrolyte disturbance, anemia, hypoxia,intracerebral event, toxicologic, neurologic, as well as other pathologies. Diagnostics interpreted by me: EC Lead ECG performed and revealed Normal sinus rhythym at 75, normal [place], QRS normal. No elevation or depression. No PACs or PVCs Cardiac Monitoring: Cardiac monitoring ordered by me: The patient was placed on continuous cardiac monitoring and observed. It revealed a normal sinus rhythm at 71 beats per minute without ectopy or evidence of dysrhythmia. Imaging studies: Chest x-ray. Findings: A chest x-ray was performed and revealed no pneumothorax, effusion, infiltrate, pulmonary edema, free air under the diaphragm, or wide mediastinum. Impression: No acute disease. Head CT: A noncontrast CT scan of the head was performed and was negative for tumor, fracture, intracranial hemorrhage, or other acute pathology. CT C-spine is negative for traumatic pathology. I refer you to the EMR for further details. HPI: The patient is a 71 year old female who presents to the Emergency Room with complaints of dizziness and chest pain. This started today. Patient noted falling and striking her head 3-4 weeks ago. Fell again injuring her left ribs, arm and leg. Had a cough and seen 2 weeks ago at Urgent care and told that her COPD is getting worse. Burns dizziness and weakness today, did not eat and called EMS due to symptoms and fear of falling again. Upon arrival patient began experiencing retrosternal chest pain. The patient also notes the following associated symptoms, low back pain, neck pain, urinary urgency.. The patient has found no relieving factors. Current pain is rated as 10/10. Pt denies LOC, fevers, chills, diaphoresis, visual changes, nausea, vomiting, abdominal pain, back pain, melena, hematochezia, numbness, lymphadenopathy, rash, or other complaints. ROS: See above HPI for pertinent positives & negatives. A total of 10 systems reviewed and were otherwise negative. PAST MEDICAL HISTORY:See Below , COPD, MS PAST SURGICAL HISTORY:See Below, FAMILY HISTORY:See Below SOCIAL HISTORY:See Below, quit smoking HOME MEDICATIONS:See Below ALLERGIES:See Below VITALS:See Below PHYSICAL EXAMINATION: GENERAL: Awake, alert, anxious-appearing, in no distress HENT: Normocephalic, atraumatic. Oropharynx unremarkable. EYES: Normal conjunctiva. Sclera non-icteric. NECK: Inspection normal. Non-tender. Supple. No nuchal rigidity. FROM. No masses. RESPIRATORY: Clear to auscultation. No wheezes. No rales. Normal respiratory effort. CARDIAC: Normal rate. Normal rhythm. No murmurs. No rubs. Extremities warm and well perfused. Pulses equal. No JVD. GI: Soft, non-distended. No tenderness to palpation. No rebound or guarding. No masses. RECTAL: Deferred. MUSCULOSKELETAL: Atraumatic. Chest examination reveals no tenderness. The back is symmetrical on inspection without obvious abnormality. There is no CVA tenderness to palpation. No joint edema. LOWER EXTREMITIES: Calves are equal size bilaterally and non-tender. No edema. No discoloration. NEURO: Normal sensorium. No sensory or motor deficits noted. SKIN: No rash or jaundice noted. Pancho Pizarro MD Past Med/Surg History Medical History Allergic rhinitis Anxiety and depression Asthma Atypical chest pain Cervical radiculopathy COPD (chronic obstructive pulmonary disease) Fatigue History of recurrent UTI (urinary tract infection) Histrionic personality disorder Hyperlipidemia Impulse control disorder Irritable bowel syndrome Learning disability Left shoulder pain Lumbar disc disease Lumbar spinal stenosis Nonobstructive atherosclerosis of coronary artery Orthostatic tremor Seizure disorder Type 2 diabetes mellitus Urge incontinence of urine Urinary incontinence Vitamin D deficiency Surgical History Status post cardiac catheterization Status post cholecystectomy Status post dilation and curettage Status post tonsillectomy Status post tubal ligation Family History Father Myocardial infarction Cerebral aneurysm Coronary heart disease Diabetes Mother Lung cancer Brother H/O heart artery stent Denies family history of Ovarian cancer Prostate cancer Breast cancer Colorectal cancer Social History Smoking Status: Former smoker Tobacco Type: Cigarettes Age Started Using Tobacco: 18; Age Quit Using Tobacco: 20; packs per day: 2; Years Smoked: 1; Second Hand Exposure: No; Hx Alcohol Use: No Hx Substance Use: No Preferred Language: Mongolian Communication Ability: Effective Visual Impairment: Limited Hearing Ability: Normal Lumber Scaler Required: No Beliefs That Will Affect Care: None marital status: Current Living Situation: Alone Current Living Situation Comment: Live in apartment current occupational status: disabled How many Children do You have: 2 Feels Safe at Home: Yes Childhood Exposure to Second-Hand Smoke: No caffeine: No during the past year weight has: remained stable Dental Care, Regularly: No Physical Activity Frequency: Does not Exercise Seatbelt Use: always Sunscreen Use: No Assistive Devices: Nebulizer and Walker Allergies Allergies Allergy/AdvReac Type Severity Reaction Status Date / Time bee venom protein (honey bee) Allergy Severe Anaphylaxis Verified 09/29/21 14:22 ibuprofen Allergy Unknown unknown Verified 09/29/21 14:22 Penicillins Allergy Unknown unknown Verified 09/29/21 14:22 phenytoin Allergy Unknown unknown Verified 09/29/21 14:22 Iodinated Contrast Media AdvReac Mild Vomiting Verified 09/29/21 14:22 [Iodinated Contrast- Oral and IV Dye] fiberglass Allergy Severe Rash and Uncoded 09/29/21 14:22 Difficulty Breathing Home Meds Home Medications Medication Instructions Recorded Confirmed meloxicam 15 mg tablet 15 mg PO QAM 12/18/19 10/07/21 Previous Rx's Medication Instructions Recorded aspirin 81 mg tablet,delayed 81 mg PO QAM #30 tab 12/06/19 release nitroglycerin 0.4 mg sublingual 0.4 mg SUBLINGUAL Q5M PRN #25 tab 12/04/20 tablet guaifenesin 600 mg tablet, 600 mg PO BID PRN #30 tab 07/29/21 extended release 12 hr albuterol sulfate 90 mcg/actuation 2 puff INHALATION Q6H PRN #8.5 g 08/11/21 aerosol inhaler (Ventolin HFA) epinephrine 0.3 mg/0.3 mL 0.3 mg IM DIRECTED PRN #2 ea 08/11/21 injection, auto-injector estradiol 10 mcg vaginal tablet 10 mcg VAGINAL .COMPLEX #8 tab 08/11/21 (Vagifem) fluticasone fur. 100 mcg-umeclid 1 inh INHALATION QDL #180 ea 08/11/21 62.5 mcg-vilant 25 mcg inhalat.powder (Trelegy Ellipta) fluticasone propionate 50 1 spray INTRANASAL QAM PRN #16 g 08/11/21 mcg/actuation nasal spray,suspension insulin lispro 100 unit/mL See Rx Instructions SUBCUT DAILY 08/11/21 subcutaneous pen (Humalog KwikPen #45 ml (U-100) Insulin) metformin 500 mg tablet 500 mg PO BID #180 tab 08/11/21 montelukast 10 mg tablet 10 mg PO QAM #90 tab 08/11/21 rosuvastatin 10 mg tablet (Crestor) 10 mg PO QAM #90 tab 08/11/21 albuterol sulfate 2.5 mg INH Q4H PRN #180 ml 09/29/21 gabapentin 100 mg capsule 100 mg PO BID #180 cap 09/29/21 hydroxyzine HCl 10 mg tablet 10 mg PO TID PRN #60 tab 09/29/21 ipratropium bromide 0.02 % 1.25 ml INH UD PRN #300 ml 09/29/21 solution for inhalation Results & Data (ED) Vital Signs Vital Signs - 24 hr 10/07/21 13:04 10/07/21 13:20 10/07/21 13:30 Temperature 36.5 C Temperature Source Oral Pulse Rate 76 77 Pulse Rate [Finger] Pulse Rate from SpO2 Sensor Respiratory Rate 22 18 Blood Pressure 141/70 H 151/81 H Blood Pressure [Left Arm] Blood Pressure Mean 93 104 Blood Pressure Mean [Left Arm] Pulse Oximetry 96 98 98 Oxygen Delivery Method Room Air Room Air Sepsis New/Unexplained Change in Mental Status No Sepsis Action Taken by Nursing No Action Required Oxygen Flow Rate - Titration Pulse Oximetry Post Tiitration 10/07/21 14:00 10/07/21 14:31 10/07/21 15:00 Temperature Temperature Source Pulse Rate 81 78 Pulse Rate [Finger] Pulse Rate from SpO2 Sensor Respiratory Rate 14 18 Blood Pressure 145/90 H 164/109 H 161/86 H Blood Pressure [Left Arm] Blood Pressure Mean 108 127 111 Blood Pressure Mean [Left Arm] Pulse Oximetry 98 Oxygen Delivery Method Sepsis New/Unexplained Change in Mental Status Sepsis Action Taken by Nursing Oxygen Flow Rate - Titration Pulse Oximetry Post Tiitration 10/07/21 15:30 10/07/21 15:42 10/07/21 16:01 Temperature Temperature Source Pulse Rate 77 78 Pulse Rate [Finger] Pulse Rate from SpO2 Sensor Respiratory Rate 16 26 H Blood Pressure 118/83 153/78 H Blood Pressure [Left Arm] Blood Pressure Mean 94 103 Blood Pressure Mean [Left Arm] Pulse Oximetry 98 84 L Oxygen Delivery Method Room Air Sepsis New/Unexplained Change in Mental Status Sepsis Action Taken by Nursing Oxygen Flow Rate - Titration 2 Pulse Oximetry Post Tiitration 99 10/07/21 17:00 10/07/21 17:02 10/07/21 17:30 Temperature Temperature Source Pulse Rate 77 85 Pulse Rate [Finger] 78 Pulse Rate from SpO2 Sensor 81 Respiratory Rate 21 16 20 Blood Pressure 124/61 152/72 H Blood Pressure [Left Arm] 124/61 Blood Pressure Mean 82 98 Blood Pressure Mean [Left Arm] 82 Pulse Oximetry 100 98 96 Oxygen Delivery Method Room Air Sepsis New/Unexplained Change in Mental Status Sepsis Action Taken by Nursing Oxygen Flow Rate - Titration Pulse Oximetry Post Tiitration 10/07/21 18:00 10/07/21 18:30 10/07/21 19:22 Temperature Temperature Source Pulse Rate 81 84 78 Pulse Rate [Finger] Pulse Rate from SpO2 Sensor 87 Respiratory Rate 19 28 H 23 Blood Pressure 115/78 101/62 139/56 L Blood Pressure [Left Arm] Blood Pressure Mean 90 75 83 Blood Pressure Mean [Left Arm] Pulse Oximetry 94 Oxygen Delivery Method Sepsis New/Unexplained Change in Mental Status Sepsis Action Taken by Nursing Oxygen Flow Rate - Titration Pulse Oximetry Post Tiitration 10/07/21 19:49 Temperature Temperature Source Pulse Rate 71 Pulse Rate [Finger] Pulse Rate from SpO2 Sensor 71 Respiratory Rate 14 Blood Pressure Blood Pressure [Left Arm] Blood Pressure Mean Blood Pressure Mean [Left Arm] Pulse Oximetry 95 Oxygen Delivery Method Sepsis New/Unexplained Change in Mental Status Sepsis Action Taken by Nursing Oxygen Flow Rate - Titration Pulse Oximetry Post Tiitration Laboratory Data Result diagrams: 10/07/21 14:21 10/07/21 14:21 Lab Results 10/07/21 10/07/21 10/07/21 Range/Units 13:32 14:21 14:21 WBC 5.49 (4.8-10.8) K/uL RBC 4.38 (4.2-5.4) M/uL Hgb 12.3 (12.0-16.0) g/dL Hct 37.9 (37-47) % MCV 86.5 (80-100) fL MCH 28.1 (25-34) pg MCHC 32.5 (32-36) g/dL RDW Std Deviation 46.8 H (36.4-46.3) fL RDW Coeff of Maegan 14.7 H (11.5-14.5) % Plt Count 224 (130-400) K/uL MPV 10.9 H (7.4-10.4) fL Immature Gran % (Auto) 0.0 % Neut % (Auto) 58.8 % Lymph % (Auto) 31.1 % Elmore % (Auto) 8.4 % Eos % (Auto) 1.3 % Baso % (Auto) 0.4 % Neut # (Auto) 3.23 (1.4-6.5) K/uL Lymph # (Auto) 1.71 (1.2-3.4) K/uL Elmore # (Auto) 0.46 (0.11-0.59) K/uL Eos # (Auto) 0.07 (0-0.5) K/uL Baso # (Auto) 0.02 (0-0.2) K/uL Immature Gran # (Auto) 0.00 (0.00-0.02) K/uL D-Dimer (0-500) ug/L FEU Sodium 140 (136-145) mmol/L Potassium 4.0 (3.5-5.1) mmol/L Chloride 108 H (98-107) mmol/L Carbon Dioxide 27 (21-32) mmol/L Anion Gap 5 (3-11) BUN 9 (6-23) mg/dl Creatinine 0.61 (0.6-1.2) mg/dl Est Cr Clr Drug Dosing 68.8 ml/min Est GFR ( Amer) 107.2 ml/min Est GFR (Non-Af Amer) 92.5 ml/min BUN/Creatinine Ratio 14.8 (10-20) Glucose 99 (70-99(Fasting)) mg/dl POC Glucose 87 (70-99) mg/dl Calcium 9.2 (8.5-10.1) mg/dl Total Bilirubin 0.5 (0.2-1.0) mg/dl AST 18 (13-39) U/L ALT 16 (7-52) U/L Alkaline Phosphatase 81 (34-104) U/L Troponin I < 0.03 (0-0.04) ng/ml Total Protein 6.3 (6.0-8.3) gm/dl Albumin 4.0 (3.4-5.0) gm/dl Globulin 2.3 L (2.5-4.0) gm/dl Albumin/Globulin Ratio 1.7 (0.9-2) Lipase 12 (11-82) U/L Urine Color Urine Appearance (Clear) Urine pH (4.5-7.5) Ur Specific [place]ul[place] (1.000-1.030) Urine Protein (Negative) Urine Glucose (UA) (Negative) Urine Ketones (Negative) Urine Blood (Negative) Urine Nitrite (Negative) Urine Bilirubin (Negative) Urine Urobilinogen (Negative) Ur Leukocyte Esterase (Negative) Urine WBC (Auto) (0-5) /hpf Urine RBC (Auto) (0-4) /hpf U Hyaline Cast (Auto) (0-5) /lpf U Epithel Cells (Auto) (0-5) /lpf Urine Bacteria (Auto) (Negative) SARS-CoV-2, RNA, NAAT (NEGATIVE) 10/07/21 10/07/21 10/07/21 Range/Units 17:21 17:30 18:46 WBC (4.8-10.8) K/uL RBC (4.2-5.4) M/uL Hgb (12.0-16.0) g/dL Hct (37-47) % MCV (80-100) fL MCH (25-34) pg MCHC (32-36) g/dL RDW Std Deviation (36.4-46.3) fL RDW Coeff of Maegan (11.5-14.5) % Plt Count (130-400) K/uL MPV (7.4-10.4) fL Immature Gran % (Auto) % Neut % (Auto) % Lymph % (Auto) % Elmore % (Auto) % Eos % (Auto) % Baso % (Auto) % Neut # (Auto) (1.4-6.5) K/uL Lymph # (Auto) (1.2-3.4) K/uL Elmore # (Auto) (0.11-0.59) K/uL Eos # (Auto) (0-0.5) K/uL Baso # (Auto) (0-0.2) K/uL Immature Gran # (Auto) (0.00-0.02) K/uL D-Dimer 510 H* (0-500) ug/L FEU Sodium (136-145) mmol/L Potassium (3.5-5.1) mmol/L Chloride (98-107) mmol/L Carbon Dioxide (21-32) mmol/L Anion Gap (3-11) BUN (6-23) mg/dl Creatinine (0.6-1.2) mg/dl Est Cr Clr Drug Dosing ml/min Est GFR ( Amer) ml/min Est GFR (Non-Af Amer) ml/min BUN/Creatinine Ratio (10-20) Glucose (70-99(Fasting)) mg/dl POC Glucose (70-99) mg/dl Calcium (8.5-10.1) mg/dl Total Bilirubin (0.2-1.0) mg/dl AST (13-39) U/L ALT (7-52) U/L Alkaline Phosphatase (34-104) U/L Troponin I (0-0.04) ng/ml Total Protein (6.0-8.3) gm/dl Albumin (3.4-5.0) gm/dl Globulin (2.5-4.0) gm/dl Albumin/Globulin Ratio (0.9-2) Lipase (11-82) U/L Urine Color Yellow Urine Appearance Clear (Clear) Urine pH 8.5 H (4.5-7.5) Ur Specific [place] 1.006 (1.000-1.030) Urine Protein Negative (Negative) Urine Glucose (UA) Negative (Negative) Urine Ketones Negative (Negative) Urine Blood Negative (Negative) Urine Nitrite Negative (Negative) Urine Bilirubin Negative (Negative) Urine Urobilinogen Negative (Negative) Ur Leukocyte Esterase 1+ H (Negative) Urine WBC (Auto) 1-5 (0-5) /hpf Urine RBC (Auto) 0-4 (0-4) /hpf U Hyaline Cast (Auto) 0 (0-5) /lpf U Epithel Cells (Auto) 10-20 H (0-5) /lpf Urine Bacteria (Auto) Negative (Negative) SARS-CoV-2, RNA, NAAT NEGATIVE (NEGATIVE) Administered Medications Discontinued Medications Diphenhydramine HCl (Diphenhydramine 50 Mg/Ml Vial) 25 mg IV NOW STA Stop: 10/07/21 18:37 Last Admin: 10/07/21 19:08 Dose: 25 mg Documented by: [id number] Ioversol (Optiray 320 125ml) 120 ml IV ONCE ONE Stop: 10/07/21 19:36 Last Admin: 10/07/21 19:39 Dose: 120 ml Documented by: [id number] Methylprednisolone (Methylprednisolone 125 Mg/2 Ml Vial) 125 mg IV NOW STA Stop: 10/07/21 18:37 Last Admin: 10/07/21 19:09 Dose: 125 mg Documented by: [id number] Morphine Sulfate (Morphine Sulfate 4 Mg/Ml 1 Ml Carp\Vial) 4 mg IV NOW STA Stop: 10/07/21 14:49 Last Admin: 10/07/21 15:05 Dose: 4 mg Documented by: [id number] Ondansetron HCl (Ondansetron Inj 2 Mg/Ml 2 Ml Vial) 4 mg IV NOW STA Stop: 10/07/21 14:49 Last Admin: 10/07/21 14:59 Dose: 4 mg Documented by: [id number] Ondansetron HCl (Ondansetron Inj 2 Mg/Ml 2 Ml Vial) 4 mg IV NOW STA Stop: 10/07/21 18:37 Last Admin: 10/07/21 19:08 Dose: 4 mg Documented by: [id number] Imaging Data Radiologist's Impression: Chest X-Ray 10/07/21 13:20 XR chest 1V portable HISTORY: 71 years-old Female Chest Pain acute atypical chest pain COMPARISON: Chest radiograph 06/12/2021 TECHNIQUE: Portable AP view of the chest FINDINGS: Mild linear scarring within the medial segment right middle lobe is unchanged. Cardiomediastinal and hilar silhouettes are within normal limits. No pneumothorax, pleural effusion, airspace consolidation or overt pulmonary edema. Degenerative changes of the shoulders and spine. Cholecystectomy. IMPRESSION: No acute process. ACT 112: Negative or not required by law. The above report was generated using voice recognition software. It may contain grammatical, syntax or spelling errors. Electronically signed by: Mehul Wiggins M.D. 10/07/2021 1:[address] 10/07/21 14:48 CT cervical spine wo con CLINICAL HISTORY: fall TECHNIQUE: Multidetector row helical CT of the cervical spine was performed without administration of intravenous contrast. Coronal and sagittal reformations were obtained. Automated dose lowering techniques and/or adjustment according to patient size were utilized for this exam. Comparison: None available at the time of this dictation. FINDINGS: No acute fractures or subluxations are identified. Degenerative changes are seen in the visualized spine. The alignment is normal. Soft tissues are unremarkable. IMPRESSION: Degenerative changes without evidence of acute bony injury. ACT 112: Negative or not required by law. Electronically signed by: Clemente Domínguez M.D. 10/07/2021 3:[address] 10/07/21 14:48 CT SCAN OF THE BRAIN WITHOUT IV CONTRAST CLINICAL HISTORY: Fall. COMPARISON STUDY: CT of the brain dated 11/12/2019. TECHNIQUE: Unenhanced axial CT scan of the brain is performed from the vertex to the skull base. A dose lowering technique was utilized adhering to the principles of ALARA. FINDINGS: Brain parenchyma: There are age-related involutional changes noting mild subcortical and periventricular microangiopathic change. There is no hemorrhage, mass effect, or evidence of acute territorial ischemia by CT criteria. Rothman- white matter differentiation is preserved. No extra-axial fluid collection is seen. Ventricles, sulci, cisterns: Prominent secondary to involutional change. Intracranial vasculature: There is atherosclerotic calcification of the cavernous carotid arteries. Calvarium: The skeletal structures are osteopenic. There is no depressed calvarial fracture. Sinuses and mastoids: The visualized paranasal sinuses are clear. The mastoid air cells are well pneumatized. Orbits: The bony orbits are grossly intact. IMPRESSION: There is no hemorrhage, mass effect, or evidence of acute territorial ischemia by CT criteria. ACT 112: Negative or not required by law. Electronically signed by: Edgar Rogers M.D. 10/07/2021 3:27 PM Discharge Plan Visit Data Chief Complaint: Hypoglycemia ED Provider: Pancho Pizarro Discharge Problem: Dizziness, Retrosternal chest pain, Fall Forms Stand Alone Forms: [facility] [employer] Prescriptions Prescriptions: No Action insulin lispro [Humalog KwikPen Insulin] 100 unit/mL insulin pen See Rx Instructions subcut DAILY Qty: 45 RF: 1 albuterol sulfate [Ventolin HFA] 90 mcg/actuation HFA aerosol inhaler 2 puff INHALATION Q6H PRN (Reason: Shortness Of Breath Or Wheezing) Qty: 8.5 RF: 5 epinephrine 0.3 mg/0.3 mL auto-injector 0.3 mg IM DIRECTED PRN (Reason: anaphylaxis) Qty: 2 RF: 1 estradiol [Vagifem] 10 mcg tablet 10 mcg vaginal .COMPLEX Qty: 8 RF: 5 fluticasone propionate 50 mcg/actuation spray,suspension 1 spray intranasal QAM PRN (Reason: Allergy Symptoms) Qty: 16 RF: 5 Trelegy Ellipta 100-62.5-25 mcg blister with device 1 inh inhalation QDL Qty: 180 RF: 1 metformin 500 mg tablet 500 mg PO BID Qty: 180 RF: 1 montelukast 10 mg tablet 10 mg PO QAM Qty: 90 RF: 1 rosuvastatin [Crestor] 10 mg tablet 10 mg PO QAM Qty: 90 RF: 1 aspirin 81 mg tablet,delayed release (DR/EC) 81 mg PO QAM Qty: 30 RF: 0 nitroglycerin 0.4 mg tablet, sublingual 0.4 mg sublingual Q5M PRN (Reason: Chest Pain) Qty: 25 RF: 3 guaifenesin 600 mg tablet extended release 12hr 600 mg PO BID PRN (Reason: cough) Qty: 30 RF: 0 hydroxyzine HCl 10 mg tablet 10 mg PO TID PRN (Reason: anxiety) Qty: 60 RF: 1 gabapentin 100 mg capsule 100 mg PO BID Qty: 180 RF: 1 ipratropium bromide 0.02 % solution 1.25 ml INH UD PRN (Reason: shortness of breath or wheezing) Qty: 300 RF: 5 albuterol sulfate 2.5 mg /3 mL (0.083 %) solution for nebulization 2.5 mg INH Q4H PRN (Reason: shortness of breath or wheezing) Qty: 180 RF: 2 meloxicam 15 mg tablet 15 mg PO QAM RF: 0 Referrals Referrals: Gianna Dempsey DO [Primary Care Provider] -
[2021-10-07 14:37] LABS: Basophils # (auto) 0.02 K/uL (0-0.2); Basophils % (auto) 0.4 %; Eosinophils # (auto) 0.07 K/uL (0-0.5); Eosinophils % (auto) 1.3 %; Hematocrit (blood only) 37.9 % (37-47); Hemoglobin 12.3 g/dL (12.0-16.0); Lymphocytes # (auto) 1.71 K/uL (1.2-3.4); Lymphocytes % (auto) 31.1 %; Mean Corpuscular Hemoglobin 28.1 pg (25-34); Mean Corpuscular Hgb Conc 32.5 g/dL (32-36); Mean Corpuscular Volume 86.5 fL (80-100); Mean Platelet Volume 10.9 fL (7.4-10.4); Monocytes # (auto) 0.46 K/uL (0.11-0.59); Monocytes % (auto) 8.4 %; Neutrophils # (auto) 3.23 K/uL (1.4-6.5); Neutrophils % (auto) 58.8 %; Platelet Count 224 K/uL (130-400); RDW Coefficient of Variation 14.7 % (11.5-14.5); RDW Standard Deviation 46.8 fL (36.4-46.3); Red Blood Count 4.38 M/uL (4.2-5.4); White Blood Count 5.49 K/uL (4.8-10.8)
[2021-10-07] MEDS ORDERED: ONDANSETRON INJ 2 MG/ML 2 ML VIAL IV STA ×2 (14:48→18:36)
[2021-10-07] MEDS ORDERED: MoRPHine SULFATE 4 MG/ML 1 ML CARP\\VIAL IV STA (14:48)
[2021-10-07 15:02] LABS: Troponin I < 0.03 ng/ml (0-0.04)
[2021-10-07 15:03] LABS: Alanine Aminotransferase 16 U/L (7-52); Albumin Globulin Ratio 1.7 (0.9-2); Alkaline Phosphatase 81 U/L (34-104); Anion Gap 5 (3-11); Aspartate Aminotransferase 18 U/L (13-39); BUN Creatinine Ratio 14.8 (10-20); Bilirubin,Total 0.5 mg/dl (0.2-1.0); Blood Urea Nitrogen 9 mg/dl (6-23); Calcium 9.2 mg/dl (8.5-10.1); Carbon Dioxide 27 mmol/L (21-32); Chloride 108 mmol/L (98-107); Creatinine Clr Calc Pharmacy 68.8 ml/min; Est GFR (African American) 107.2 ml/min; Est GFR (Non-African American) 92.5 ml/min; Globulin 2.3 gm/dl (2.5-4.0); Glucose 99 mg/dl (70-99(Fasting)); Lipase 12 U/L (11-82); Sodium 140 mmol/L (136-145); Total Protein 6.3 gm/dl (6.0-8.3)
--- NOTE | 2021-10-07 15:28 | CT Scan Report ---
CT SCAN OF THE BRAIN WITHOUT IV CONTRAST CLINICAL HISTORY: Fall. COMPARISON STUDY: CT of the brain dated 11/12/2019. TECHNIQUE: Unenhanced axial CT scan of the brain is performed from the vertex to the skull base. A do se lowering technique was utilized adhering to the principles of ALARA. FINDINGS: Brain parenchyma: There are age-related involutional changes noting mild subcortical and periventric ular microangiopathic change. There is no hemorrhage, mass effect, or evidence of acute territorial i schemia by CT criteria. Rothman-white matter differentiation is preserved. No extra-axial fluid collecti on is seen. Ventricles, sulci, cisterns: Prominent secondary to involutional change. Intracranial vasculature: There is atherosclerotic calcification of the cavernous carotid arteries. Calvarium: The skeletal structures are osteopenic. There is no depressed calvarial fracture. Sinuses and mastoids: The visualized paranasal sinuses are clear. The mastoid air cells are well pneu matized. Orbits: The bony orbits are grossly intact. IMPRESSION: There is no hemorrhage, mass effect, or evidence of acute territorial ischemia by CT awilda casillas. ACT 112: Negative or not required by law. Electronically signed by: Edgar Rogers M.D. 10/07/2021 3:27 PM
--- NOTE | 2021-10-07 15:38 | CT Scan Report ---
CT cervical spine wo con CLINICAL HISTORY: fall TECHNIQUE: Multidetector row helical CT of the cervical spine was performed without administration of intravenous contrast. Coronal and sagittal reformations were obtained. Automated dose lowering techn iques and/or adjustment according to patient size were utilized for this exam. Comparison: None available at the time of this dictation. FINDINGS: No acute fractures or subluxations are identified. Degenerative changes are seen in the visualized sp ine. The alignment is normal. Soft tissues are unremarkable. IMPRESSION: Degenerative changes without evidence of acute bony injury. ACT 112: Negative or not required by law. Electronically signed by: Clemente Domínguez M.D. 10/07/2021 3:37 PM
[2021-10-07 17:59] LABS: Appearance Urine Clear (Clear); Bacteria Urine Automated Negative (Negative); Bilirubin Urine Negative (Negative); Blood Urine Negative (Negative); Cast Urine Automated 0 /lpf (0-5); Color Urine Yellow; Glucose Urine UA Negative (Negative); Ketones Urine Negative (Negative); Leukocyte Esterase Urine 1+ (Negative); Nitrite Urine Negative (Negative); Protein Urine Negative (Negative); RBC Urine Automated 0-4 /hpf (0-4); Specific Gravity Urine 1.006 (1.000-1.030); Urobilinogen Urine Negative (Negative); pH Urine 8.5 (4.5-7.5)
[2021-10-07 18:18] LABS: D Dimer 510 ug/L FEU (0-500)
--- NOTE | 2021-10-07 18:21 | History & Physical Report ---
Date of Service October 07, 2021 Assessment & Plan (1) Retrosternal chest pain: (2) Fall: (3) COPD (chronic obstructive pulmonary disease): (4) Asthma: (5) Anxiety and depression: (6) Type 2 diabetes mellitus: (7) Hypertension: (8) Coronary artery disease: Plan: Acute chest pain Last seen for chest pain 04/2021 At that time serial troponin negative. Did have eval for PE, negative Dopplers, negative CT in the past, negative V/Q. Was noted to have left chest wall tenderness costochondritis Echo 04/2021: Normal dobutamine stress echo without inducible ischemia No leukocytosis Hemoglobin normal on admission Creatinine normal, 0.61 No transaminitis Troponin negative on admission CThead: No acute findings, CT C-spine, no acute findings Chest x-ray: No acute findings. No pneumothorax, pleural effusion, consolidation, or pulmonary edema EKG: Normal sinus rhythm, no territorial ST changes D-dimer 500, discussed with ER. Patient with nausea but no mucous membrane/systemic reaction to in the past. Pending CTPE eval with pretreatment for contrast and lower extremity Dopplers. - TTP of chest, ?costochondritis. If above eval negative +voltarin/lido COPD Gold stage II Last pulmonary visit 08/18/2021 COPD stage II with severe persistent asthma Continue Trelegy for formulary equivalent Tobacco cessation recommended Albuterol every 6 hours as needed neb Continue Singulair 10 mg daily Received methylprednisolone 125 mg onPFTs as noted above Diabetes Close checks AC/at bedtime Goal BSG [id number] Uses lispro 40 units/day total daily dose via sliding scale, has not used recently Hold home Metformin while inpatient Hyperlipidemia Continue statin MS Patient reports she has a distant history of multiple sclerosis, not on treatment, no recent symptoms of this DVT prophylaxis: Lovenox Diet: Heart healthy Disposition: Telemetry for cardiac eval CODE STATUS: Full code History of Present Illness Primary Care Provider: Gianna Dempsey DO Gail is a 71-year-old female with past medical history of COPD, seizure disorder, histrionic personality disorder, recurrent UTI, type 2 diabetes mellitus, asthma, CAD, hypertension who presents to the ER with concerns of dizziness and chest pain of 1 day. She did have a fall and head injury 3 weeks ago and injuring her left ribs/arm/. Fully she had a COPD exacerbation 2 weeks ago. [place] weak and dizzy, called EMS today due to fear of falling. Reported retrosternal chest pain on arrival to the ER. Denies relieving factors. Rates pain as 10 out of 10 to ER provider. Denied loss of consciousness, fever, chills, diaphoresis. In room endoreses chronic hip, back pain. Pain in ribs. 13/05 pain in my shoulder on down. ACute care for COPD/emphsema seen at acute care 2 weeks ago. Still taking ventolin and trelegy. Albuterol q4h. -Fever, - chills. +wheezing non at bedside. PFT: FEV1/FVC ratio reduced, 30% increase in FEB1 follow BD. DOesn't use oxygen at home No recent trips. +L leg tenderness afte rhitting it 'on something'. Able to bear weight. Medical History: Reviewed Medications: Reviewed Surgical History: Reviewed Allergies: Reviewed Social History: Does not use tobacco, denies alcohol use. Code Status: [place] house in [facility]. Surrogate DM would be Fortino [place]. Full Code. Allergies Allergy/AdvReac Type Severity Reaction Status Date / Time bee venom protein (honey bee) Allergy Severe Anaphylaxis Verified 09/29/21 14:22 ibuprofen Allergy Unknown unknown Verified 09/29/21 14:22 Penicillins Allergy Unknown unknown Verified 09/29/21 14:22 phenytoin Allergy Unknown unknown Verified 09/29/21 14:22 Iodinated Contrast Media AdvReac Mild Vomiting Verified 09/29/21 14:22 [Iodinated Contrast- Oral and IV Dye] fiberglass Allergy Severe Rash and Uncoded 09/29/21 14:22 Difficulty Breathing Home Medications Medication Instructions Recorded Confirmed Type aspirin 81 mg tablet,delayed 81 mg PO QAM #30 tab 12/06/19 10/07/21 Rx release meloxicam 15 mg tablet 15 mg PO QAM 12/18/19 10/07/21 History nitroglycerin 0.4 mg sublingual 0.4 mg SUBLINGUAL Q5M PRN #25 tab 12/04/20 10/07/21 Rx tablet guaifenesin 600 mg tablet, 600 mg PO BID PRN #30 tab 07/29/21 10/07/21 Rx extended release 12 hr albuterol sulfate 90 mcg/actuation 2 puff INHALATION Q6H PRN #8.5 g 08/11/21 10/07/21 Rx aerosol inhaler (Ventolin HFA) epinephrine 0.3 mg/0.3 mL 0.3 mg IM DIRECTED PRN #2 ea 08/11/21 10/07/21 Rx injection, auto-injector estradiol 10 mcg vaginal tablet 10 mcg VAGINAL .COMPLEX #8 tab 08/11/21 10/07/21 Rx (Vagifem) fluticasone fur. 100 mcg-umeclid 1 inh INHALATION QDL #180 ea 08/11/21 10/07/21 Rx 62.5 mcg-vilant 25 mcg inhalat.powder (Trelegy Ellipta) fluticasone propionate 50 1 spray INTRANASAL QAM PRN #16 g 08/11/21 10/07/21 Rx mcg/actuation nasal spray,suspension insulin lispro 100 unit/mL See Rx Instructions SUBCUT DAILY 08/11/21 10/07/21 Rx subcutaneous pen (Humalog KwikPen #45 ml (U-100) Insulin) metformin 500 mg tablet 500 mg PO BID #180 tab 08/11/21 10/07/21 Rx montelukast 10 mg tablet 10 mg PO QAM #90 tab 08/11/21 10/07/21 Rx rosuvastatin 10 mg tablet (Crestor) 10 mg PO QAM #90 tab 08/11/21 10/07/21 Rx albuterol sulfate 2.5 mg INH Q4H PRN #180 ml 09/29/21 10/07/21 Rx gabapentin 100 mg capsule 100 mg PO BID #180 cap 09/29/21 10/07/21 Rx hydroxyzine HCl 10 mg tablet 10 mg PO TID PRN #60 tab 09/29/21 10/07/21 Rx ipratropium bromide 0.02 % 1.25 ml INH UD PRN #300 ml 09/29/21 10/07/21 Rx solution for inhalation Past Med/Surg History Medical History Allergic rhinitis Anxiety and depression Asthma Atypical chest pain Cervical radiculopathy COPD (chronic obstructive pulmonary disease) Fatigue History of recurrent UTI (urinary tract infection) Histrionic personality disorder Hyperlipidemia Impulse control disorder Irritable bowel syndrome Learning disability Left shoulder pain Lumbar disc disease Lumbar spinal stenosis Nonobstructive atherosclerosis of coronary artery Orthostatic tremor Seizure disorder Type 2 diabetes mellitus Urge incontinence of urine Urinary incontinence Vitamin D deficiency Surgical History Status post cardiac catheterization Status post cholecystectomy Status post dilation and curettage Status post tonsillectomy Status post tubal ligation Family History Father Myocardial infarction Cerebral aneurysm Coronary heart disease Diabetes Mother Lung cancer Brother H/O heart artery stent Denies family history of Ovarian cancer Prostate cancer Breast cancer Colorectal cancer Social History Smoking Status: Former smoker Tobacco Type: Cigarettes Age Started Using Tobacco: 18; Age Quit Using Tobacco: 20; packs per day: 2; Years Smoked: 1; Second Hand Exposure: No; Hx Alcohol Use: No Hx Substance Use: No Preferred Language: Bengali Communication Ability: Effective Visual Impairment: Limited Hearing Ability: Normal 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 Required: No Beliefs That Will Affect Care: None marital status: Current Living Situation: Alone Current Living Situation Comment: Live in apartment current occupational status: disabled How many Children do You have: 2 Feels Safe at Home: Yes Childhood Exposure to Second-Hand Smoke: No caffeine: No during the past year weight has: remained stable Dental Care, Regularly: No Physical Activity Frequency: Does not Exercise Seatbelt Use: always Sunscreen Use: No Assistive Devices: Nebulizer and Walker Review of Systems Review of Systems: All systems reviewed & are unremarkable except as noted in Subjective Physical Exam Physical Exam: General: A&Ox3. NAD. Cooperative. HEENT: Atraumatic, normocephalic. Visual acuity and hearing grossly intact. Pupils equal and reactive to light. Pulm: Moderate air movement, no overt wheezes/rales on exam, no crackles. Schest rise. No increase in work of breathing. No respiratory distress. Cardiac: RRR, -mrg. Radial pulses intact and symmetrical. Mild TTP at L parasternal, L rib flank, L shoulderblade. Abdominal: Nontender, nondistended, soft. BS present. Skin/extremities: Endorses tenderness to palpation overlying left shoulder blade, left ankle, left calf. No swelling appreciated. No pitting edema of the lower extremities. No calf asymmetry. 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 Results & Data Results & Data ([facility]) Vital Signs (Past 12 Hours) Vital Signs Temp Pulse Pulse Resp BP BP Pulse Ox 10/07/21 17:02 78 16 124/61 98 10/07/21 17:00 77 21 124/61 100 10/07/21 16:01 78 26 H 153/78 H 10/07/21 15:42 84 L 10/07/21 15:30 77 16 118/83 98 10/07/21 15:00 78 18 161/86 H 98 10/07/21 14:31 81 14 164/109 H 10/07/21 14:00 145/90 H 10/07/21 13:30 77 18 151/81 H 98 10/07/21 13:20 98 10/07/21 13:04 36.5 C 76 22 141/70 H 96 PG Care Time/CCT Total # of Minutes Spent Total Time Spent with Patient: Total time spent is greater than 50% in coordination of care (as documented) at patient's floor/unit and/or counseling patient: Coding Level of Care Code INT OBSERVATION CARE 50M LVL 2 Diagnoses Retrosternal chest pain R07.2 Fall W19.XXXA COPD (chronic obstructive pulmonary disease) J44.9 COPD type: unspecified COPD Asthma J45.909 Anxiety and depression F41.9; F32.9 Type 2 diabetes mellitus E11.9; Z79.4 Diabetes mellitus complication status: without complication 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
[2021-10-07] MEDS ORDERED: methylPREDNISolone 125 MG/2 ML VIAL IV STA (18:36)
[2021-10-07] MEDS ORDERED: diphenhydrAMINE 50 MG/ML VIAL IV STA (18:36)
[2021-10-07] MEDS ORDERED: OPTIRAY 320 125ml IV ONE (19:35)
--- NOTE | 2021-10-07 19:57 | CT Scan Report ---
CT angio chest PE protocol CT DOSE: 393.44 mGy.cm HISTORY: 71 years-old Female with left chest pain, +dimer. pretreated in ED. Acute left-sided chest pain with elevated d-dimer TECHNIQUE: Multiple CTA images of the chest were obtained after the intravenous administration of 120 ml Optiray. Coronal and sagittal MIPS were obtained from the axial data set and were submitted for review. All measurements were obtained according to NASCET criteria. A dose lowering technique was u tilized adhering to the principles of ALARA. COMPARISON: Chest radiograph of same day, chest CT 03/23/2021, November 22, 2018 FINDINGS: CTA: The heart is normal in size. No pericardial effusion. No thoracic aortic aneurysm or dissection. Lehman ncy of the imaged great vessels. Unremarkable pulmonary artery. No filling defects identified to sugg est thromboembolic disease. CT CHEST: No thyroid nodule or adenopathy. The inferior lung bases are only partially imaged. No pneumothorax, pleural effusion or overt pulmonary edema. Mild bronchial wall thickening. No airspace consolidation typical for pneumonia. Stable 4 mm solid nodule left lower lobe on image 101. Small calcified granulo ma of the subpleural right lung apex. There are a few new subpleural solid pulmonary nodules of the l ateral segment right middle lobe measuring up to 4 mm. The central airways are patent. No acute process of the imaged upper abdomen. Unremarkable soft tissues. No acute fracture. IMPRESSION: 1. No pulmonary emboli. 2. No pleural effusion or airspace consolidation to suggest pneumonia. 3. There are a few benign-appearing subpleural solid nodule of the right middle lobe measuring up to 4 mm which are new from the prior study and are likely infectious or inflammatory. 4. Stable 4 mm groundglass nodule of the left lower lobe, likely benign. ACT 112: Negative or not required by law. The above report was generated using voice recognition software. It may contain grammatical, syntax o r spelling errors. Electronically signed by: Mehul Wiggins M.D. 10/07/2021 7:55 PM
[2021-10-07] MEDS ORDERED: ALBUTEROL 0.083% NEBU SOLN 3 ML VIAL INH PRN (21:19)
[2021-10-07] MEDS ORDERED: GLUCOSE 40% GEL 15 GM TUBE PO PRN (21:19)
[2021-10-07] MEDS ORDERED: CARBOHYDRATES FOR HYPOGLYCEMIA PO PRN (21:19)
[2021-10-07] MEDS ORDERED: POLYETHYLENE (MIRALAX) 17 GM PACK PO PRN (21:19)
[2021-10-07] MEDS ORDERED: DEXTROSE 50% 50 ML SYRINGE IV PRN (21:19)
[2021-10-07] MEDS ORDERED: FLUTICASONE PROPIONATE NA SPR 16 GM BTL NAE PRN (21:19)
[2021-10-07] MEDS ORDERED: GLUCAGON FOR INJ 1 MG VIAL SQ PRN (21:19)
[2021-10-07] MEDS ORDERED: ACETAMINOPHEN 325 MG TAB PO PRN (21:19)
[2021-10-07] MEDS ORDERED: hydrOXYzine HCl 10 MG TAB PO PRN (21:19)
[2021-10-07] MEDS ORDERED: GLUCOSE 10 TABS/TUBE PO PRN (21:19)
[2021-10-07] MEDS: INSULIN GLARGINE SOLOSTAR 100 UNITS/ML 3 ML PEN SC SCH (21:56)
[2021-10-07] MEDS: ENOXAPARIN INJ 40 MG/0.4 ML SYR SQ SCH (21:56)
[2021-10-07] MEDS: INSULIN ASPART PER UNIT SC SCH (21:58)
[2021-10-07] MEDS: GABAPENTIN 100 MG CAP PO SCH (21:59)
[2021-10-08 06:47] LABS: Estimated Average Glucose 131 mg/dl; Hemoglobin A1C 6.2 % (4.5-5.6)
--- NOTE | 2021-10-08 07:31 | Ultrasound Report ---
US venous doppler LE BI CLINICAL HISTORY: calf swelling +pain, +DD TECHNIQUE: Bilateral lower extremity real-time compression venous ultrasound with Color Doppler imagi ng. Utilizing real-time ultrasonic imaging multiple real time high-resolution ultrasonic images with compression and noncompression maneuvers of the deep venous system in addition to color doppler imagi ng were performed from the common femoral vein through the proximal calf veins. COMPARISON: None available at the time of this dictation. FINDINGS: Currently there is normal compressibility of the deep venous system from the common femoral vein thro ugh the proximal calf veins. No current evidence of acute thrombosis is identified. Impression: No evidence of deep venous thrombus. ACT 112: Negative or not required by law. Electronically signed by: Clemente Domínguez M.D. 10/08/2021 7:30 AM
[2021-10-08] MEDS: ROSUVASTATIN CALCIUM 10 MG TAB PO SCH (08:46)
[2021-10-08] MEDS: GABAPENTIN 100 MG CAP PO SCH ×2 (08:46→21:27)
[2021-10-08] MEDS: ASPIRIN 81 MG ECTAB PO SCH (08:46)
[2021-10-08 08:48] LABS: Hematocrit (blood only) 41.4 % (37-47); Hemoglobin 13.6 g/dL (12.0-16.0); Immature Granulocytes # (auto) 0.01 K/uL (0.00-0.02); Immature Granulocytes % (auto) 0.1 %; Lymphocytes # (auto) 1.07 K/uL (1.2-3.4); Lymphocytes % (auto) 14.5 %; Mean Corpuscular Hgb Conc 32.9 g/dL (32-36); Mean Corpuscular Volume 85.2 fL (80-100); Mean Platelet Volume 11.6 fL (7.4-10.4); Monocytes # (auto) 0.01 K/uL (0.11-0.59); Monocytes % (auto) 0.1 %; Neutrophils # (auto) 6.31 K/uL (1.4-6.5); Neutrophils % (auto) 85.3 %; Platelet Count 242 K/uL (130-400); RDW Coefficient of Variation 14.5 % (11.5-14.5); RDW Standard Deviation 45.3 fL (36.4-46.3); Red Blood Count 4.86 M/uL (4.2-5.4)
[2021-10-08] MEDS: INSULIN GLARGINE SOLOSTAR 100 UNITS/ML 3 ML PEN SC SCH ×2 (08:48→21:28)
[2021-10-08] MEDS: INSULIN ASPART PER UNIT SC SCH ×4 (08:48→21:28)
[2021-10-08 09:12] LABS: BUN Creatinine Ratio 18.8 (10-20); Calcium 9.5 mg/dl (8.5-10.1); Creatinine Clr Calc Pharmacy 68.5 ml/min; Est GFR (African American) 102.9 ml/min; Est GFR (Non-African American) 88.8 ml/min; Potassium 4.2 mmol/L (3.5-5.1)
[2021-10-08] MEDS: FLUTICASONE FUROATE 100MCG 14 PUFFS/INHALER INH SCH (11:07)
[2021-10-08] MEDS: UMECLIDINIUM/VILANTEROL 62.5/25MCG 7 PUFFS/INHALER INH SCH (11:07)
[2021-10-08] MEDS ORDERED: NON-FORMULARY MEDICATION (Fluticasone-Umeclidin-Vilanter [Trelegy Ellipta] 100-62.5-25 mcg INH SCH (11:30)
[2021-10-08] MEDS ORDERED: LORazepam 0.5 MG TAB PO ONE (12:56)
--- NOTE | 2021-10-08 14:54 | Hospitalist Progress Note ---
Date of Service October 08, 2021 Assessment & Plan (1) Retrosternal chest pain: Plan: Acute chest pain, suspect noncardiac Last seen for chest pain 04/2021 At that time serial troponin negative. Did have eval for PE, negative Dopplers, negative CT in the past, negative V/Q. Was noted to have left chest wall tenderness costochondritis Echo 04/2021: Normal dobutamine stress echo without inducible ischemia No leukocytosis Hemoglobin normal on admission Creatinine normal, 0.61 No transaminitis Troponin negative on admission CThead: No acute findings, CT C-spine, no acute findings Chest x-ray: No acute findings. No pneumothorax, pleural effusion, consol idation, or pulmonary edema EKG: Normal sinus rhythm, no territorial ST changes D-dimer 500, discussed with ER. Patient with nausea but no mucous membrane/systemic reaction to in the past. CTPE with no evidence of PE, Dopplers negative for DVT Some chest wall tenderness consistent with costochondritis, pain not currently worsened with exertion. No chest pain at time of visit 10/08 morning (2) Fall: Plan: Cardiac assessment negative CT head negative as above Patient continues with weakness worsened in her legs, pending MRI with history of MS as noted below Doing well from a cardiac and pulmonary standpoint If MRI above is normal suspect 2/2 deconditioning, patient has required rehab for PT/OT, may require placement for deconditioning. Reports she has to step in and out of a high bathtub at home which is difficult for her with her current level of strength. Is working on handicapped accommodations with her PCP as outpatient. (3) COPD (chronic obstructive pulmonary disease): Plan: COPD Gold stage II Last pulmonary visit 08/18/2021 COPD stage II with severe persistent asthma Continue Trelegy for formulary equivalent Tobacco cessation recommended Albuterol every 6 hours as needed neb Continue Singulair 10 mg daily Received methylprednisolone 125 mg on admission for contrast allergy PFTs as noted above No wheezing on exam today, appears at baseline without acute exacerbation (4) Asthma: Plan: See above (5) Anxiety and depression: Plan: No acute management Patient would like to meet with a counselor as outpatient to discuss anger and mood issues Can facilitate through PCP (6) Type 2 diabetes mellitus: Plan: Diabetes Close checks AC/at bedtime Goal BSG [id number] Uses lispro 40 units/day total daily dose via sliding scale, has not used recently Hold home Metformin while inpatient (7) Hypertension: Plan: Hyperlipidemia Continue statin (8) Coronary artery disease: Plan: As above (9) Weakness: Plan: As above (10) Multiple sclerosis: Plan: - Pt reports past history of this on steroids in the past, no recent flares - No current vision changes - Endorses worsened weakness - MRI pending Plan: DVT prophylaxis: Lovenox Diet: Heart healthy Disposition: PT/OT pending, MRI pending for strength eval, may require placement for strength CODE STATUS: Full code Admission and Anticipated Discharge Date Admission Date: October 07, 2021 Subjective Patient was seen at the bedside this morning. She feels her wheezing is back to normal and she is not wheezing at time of bedside assessment. She continues to endorse global weakness worsened in her legs with fatigue, denies chest pain at rest but does endorse chest wall tenderness to palpation. No shortness of breath at time of visit. Does endorse anxiety. Reports she has anger issues in the past and would like to connect with a counselor for this, discussed that do not have counselors in the hospital but can help facilitate outpatient follow-up for her to which she is agreeable. Patient is very worried her weakness could be reported to an MS flare, reports she has had a history of MS with MRI findings but no recent flares. No visual changes, no other focal neurologic deficits per patient. Is also required general rehab for deconditioning in the past, [facility]. Review of Systems Review of Systems: All systems reviewed & are unremarkable except as noted in Subjective Physical Exam Physical Exam: General: A&Ox3. NAD. Cooperative. HEENT: Atraumatic, normocephalic. Pupils equal and reactive to light. No visual field cuts. Vision and hearing grossly intact. Pulm: CTAB A&P. -wheezes, -rales, -rhonchi. Symmetrical chest rise. No increase in work of breathing. No respiratory distress. Cardiac: RRR, -mrg. Radial pulses intact and symmetrical. Abdominal: Nontender, nondistended, soft. BS present. 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 No sensory deficits to soft touch in hands or feet. Results & Data Results & Data ([facility]) Vital Signs (Past 12 Hours) Vital Signs Temp Pulse Pulse Resp BP Pulse Ox 10/08/21 11:34 36.6 C 96 H 20 130/70 94 10/08/21 08:05 36.3 C L 77 20 137/70 97 10/08/21 07:34 63 10/08/21 03:33 36.7 C 66 18 111/55 L 94 PG Care Time/CCT Total # of Minutes Spent Total Time Spent with Patient: Total time spent is greater than 50% in coordination of care (as documented) at patient's floor/unit and/or counseling patient: Coding Level of Care Code 22137 Subseq Obs Care Lvl 3 Diagnoses Retrosternal chest pain R07.2 Fall W19.XXXA COPD (chronic obstructive pulmonary disease) J44.9 COPD type: unspecified COPD Asthma J45.909 Anxiety and depression F41.9; F32.9 Type 2 diabetes mellitus E11.9; Z79.4 Diabetes mellitus complication status: without complication Diabetes mellitus exterminator insulin use: with residential use Hypertension I10 Coronary artery disease I25.10 Weakness R53.1 Multiple sclerosis G35 (1) COPD (chronic obstructive pulmonary disease) COPD type: unspecified COPD Qualified Code(s): J44.9 - Chronic obstructive pulmonary disease, unspecified (2) Type 2 diabetes mellitus Diabetes mellitus complication status: without complication Diabetes mellitus exterminator insulin use: with residential use Qualified Code(s): E11.9 - Type 2 diabetes mellitus without complications; Z79.4 - director long term care (current) use of insulin
[2021-10-08] MEDS ORDERED: LORazepam 2 MG/1 ML VIAL IV PRN (18:45)
--- NOTE | 2021-10-08 20:30 | Magnetic Resonance Report ---
MRI OF THE BRAIN WITHOUT CONTRAST CLINICAL HISTORY: hx of MS, worsened LE weakness COMPARISON STUDY: Head CT October 07, 2021 and November 12, 2019. TECHNIQUE: Utilizing a 1.5 [place] magnet and dedicated coil, multiplanar, multiecho imaging of the bra in was performed without IV contrast. Thin cut FLAIR imaging was performed. FINDINGS: There are no foci of restricted diffusion to suggest acute infarct. No acute intracranial h emorrhage, midline shift or mass effect is present. Ventricular system is unremarkable. Basal cistern s are patent. There are no extra-axial collections. Flow-voids for the major intracranial vessels are present. No intracranial masses are identified on this unenhanced exam. There are numerous periventr icular and subcortical white matter T2 hyperintense foci. Sensitivity for detection of active [place] is diminished on this unenhanced examination. Calvarial signal is within normal limits. Orbits are unremarkable. There is no evidence for sinusitis. There is no mastoid fluid. IMPRESSION: 1. No acute intracranial findings. 2. Numerous small white matter T2 hyperintense foci. These are nonspecific and could reflect foci of demyelination or small vessel disease. Decreased sensitivity for detection of active demyelination on this unenhanced exam. ACT 112: Negative or not required by law. Electronically signed by: Oskar Buck M.D. 10/08/2021 8:27 PM
[2021-10-08] MEDS: ENOXAPARIN INJ 40 MG/0.4 ML SYR SQ SCH (21:29)
--- NOTE | 2021-10-09 05:54 | Electrocardiogram Report ---
Test Reason : Blood Pressure : / mmHG Vent. Rate : 075 BPM Atrial Rate : 075 BPM P-R Int : 134 ms QRS Dur : 082 ms QT Int : 406 ms P-R-T Axes : 077 -10 059 degrees QTc Int : 453 ms Normal sinus rhythm Low voltage QRS Borderline ECG When compared with ECG of 12-JUN-2021 12:49, No significant change was found Confirmed by Heber Sanders ([id number]) on 10/09/2021 5:54:23 AM Referred By: Confirmed By:Heber Sanders
[2021-10-09 08:10] LABS: Hematocrit (blood only) 38.3 % (37-47); Hemoglobin 12.6 g/dL (12.0-16.0); Immature Granulocytes # (auto) 0.01 K/uL (0.00-0.02); Immature Granulocytes % (auto) 0.1 %; Lymphocytes # (auto) 2.27 K/uL (1.2-3.4); Mean Corpuscular Hemoglobin 28.3 pg (25-34); Mean Corpuscular Hgb Conc 32.9 g/dL (32-36); Mean Corpuscular Volume 85.9 fL (80-100); Mean Platelet Volume 11.5 fL (7.4-10.4); Monocytes % (auto) 8.7 %; Neutrophils # (auto) 7.15 K/uL (1.4-6.5); Neutrophils % (auto) 69.2 %; Platelet Count 254 K/uL (130-400); RDW Coefficient of Variation 14.9 % (11.5-14.5); RDW Standard Deviation 46.5 fL (36.4-46.3); Red Blood Count 4.46 M/uL (4.2-5.4); White Blood Count 10.33 K/uL (4.8-10.8)
[2021-10-09] MEDS: GABAPENTIN 100 MG CAP PO SCH (08:21)
[2021-10-09] MEDS: ROSUVASTATIN CALCIUM 10 MG TAB PO SCH (08:21)
[2021-10-09] MEDS: ASPIRIN 81 MG ECTAB PO SCH (08:22)
[2021-10-09] MEDS: INSULIN GLARGINE SOLOSTAR 100 UNITS/ML 3 ML PEN SC SCH (08:27)
[2021-10-09] MEDS: INSULIN ASPART PER UNIT SC SCH ×2 (08:28→12:49)
[2021-10-09 08:44] LABS: BUN Creatinine Ratio 21.3 (10-20); Calcium 9.2 mg/dl (8.5-10.1); Creatinine Clr Calc Pharmacy 63.3 ml/min; Est GFR (African American) 94.3 ml/min; Est GFR (Non-African American) 81.3 ml/min; Potassium 3.8 mmol/L (3.5-5.1)
--- NOTE | 2021-10-09 10:28 | Neurology Consultation ---
Date of Consultation October 09, 2021 Assessment & Plan (1) Weakness: (2) Orthostatic tremor: (3) Seizure disorder: (4) Multiple sclerosis: (5) Chronic arthralgias of knees and hips: this patient was very difficult to evaluate and assess neurologically because of her multiple, diffuse complaints and variable exam. Patient has a main complaint of weakness particularly in her legs. I suspect that she has some lumbosacral radicular origin to her weakness particularly in the left leg but also secondary to pain from arthralgias ( lumbar spine, hips, and knees ). I did not detect any weakness consistent with a myopathy and there was no upper motor neuron weakness noted. Essentially her neurologic examination was unremarkable with no focal findings. She may have an early polyneuropathy from diabetes. Patient has no neurologic or pathologic tremor. The tremor is variable and will disappear when she is distracted. Patient has a history of single seizure in 2010 and has not been on significant anticonvulsant since 2019. She has had no seizures since. The patient has a diagnosis of multiple sclerosis many years ago. She was never treated for it and I see nothing on her exam, MRI of the brain, or by history that would suggest multiple sclerosis. The MRI of the brain shows small nonspecific white matter spots consistent with small vessel ischemic disease. She has risk factors for this including diabetes. An underlying inflammatory disease cannot be excluded. Recommendations: 1. laboratory studies to include ESR, CK, TSH, B12, Lyme antibody titer, AVRIL 12 profile. 2. Increase gabapentin to 300 milligrams 3 times a day , for pain 3. consider EMG nerve conduction studies in all 4 limbs as an outpatient. 4. consider psychiatric consultation 5. Could consider MRI of the cervical and lumbar spine as well. Overall, I spent a total of 120 minutes with this case including review of records, review of MRI films, direct evaluation the patient at bedside, and discussion of the case with the patient and RN at bedside, and Dr. Gates including differential diagnosis and treatment options. History of Present Illness Reason for Consultation: Patient is a 71-year-old, who I was asked to see by Dr. Gates, for neurologic consultation regarding weakness and other issues. Requesting Physician: Dr. Gates Attending Physician: Jake Gates MD History of Present Illness This patient's history is extremely complicated mostly in that she has a number of neurologic diagnoses that she has carried for many years and she is not a very accurate historian particularly with chronological order her symptoms and dates. Apparently, she was given a diagnosis of multiple sclerosis, many years ago, in [facility] ([facility]). this was because of leg symptoms at the time but we do not have any details, she cannot remember any further information, and she was never specifically treated for multiple sclerosis. In addition, the patient states that she had a "mini stroke" in 2006 with another "mini-stroke" prior to that. She states that the most recent event created permanent left-sided weakness ( leg and not face or arm). She walks with a limp. In addition, she has chronic low back pain and history of spondylosis and spondylolisthesis. She has radicular symptoms down the back of both legs left greater than right side. She describes weakness of her legs diffusely left greater than right side. She also feels weak in general. This has been particularly true since a head injury recently. She has 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 falls with multiple head injuries over the last year so, she claims. Last year she fell hitting the right side of her head and had a fall passing out from presumed low blood sugar. In August, she fell hitting the right side of her head, falling out of bed. on September 22 she was helping her daughter out of the car and fell hitting her head again. She has had "migraine headaches" ever since. These sound like significant chronic/constant throbbing pain bi occipitally up over the top of her head to bifrontally in a diffuse nature. She can get some phonophobia and photophobia with these a well. The patient has blurry vision and spots in her vision at times. She has chronic and significant cervical spine and lumbar spine pain. She has numbness in her feet from longstanding diabetes. She has osteoarthritis in her knees and hips. Patient has a history of a single seizure in 2009 after a fall. She was followed by Dr. Lyon in [place] and then Dr. Medel ( in [place]) from 2013 of through 2019. in 2019 the Depakote 250 milligrams twice a day has been stopped. She was given low-dose gabapentin for her chronic radicular pain but has had no seizures since 2009. The patient has had a tremor in her hands and legs for years, but it has been worse over the last year. Patient admits to having memory problems as well as anxiety, depression, and anger management issues. The patient was admitted for chest pain on the . She has no chest pain currently. Although she has a history of mitral valve prolapse and coronary artery disease with "3 MIs" in the past, she had no cardiac abnormalities. The patient had an MRI of the brain which showed multiple scattered small ischemic areas of a nonspecific nature. Allergies Allergy/AdvReac Type Severity Reaction Status Date / Time bee venom protein (honey bee) Allergy Severe Anaphylaxis Verified 09/29/21 14:22 ibuprofen Allergy Unknown unknown Verified 09/29/21 14:22 Penicillins Allergy Unknown unknown Verified 09/29/21 14:22 phenytoin Allergy Unknown unknown Verified 09/29/21 14:22 Iodinated Contrast Media AdvReac Mild Vomiting Verified 09/29/21 14:22 [Iodinated Contrast- Oral and IV Dye] fiberglass Allergy Severe Rash and Uncoded 09/29/21 14:22 Difficulty Breathing Home Medications Medication Instructions Recorded Confirmed Type aspirin 81 mg tablet,delayed 81 mg PO QAM #30 tab 12/06/19 10/07/21 Rx release meloxicam 15 mg tablet 15 mg PO QAM 12/18/19 10/07/21 History nitroglycerin 0.4 mg sublingual 0.4 mg SUBLINGUAL Q5M PRN #25 tab 12/04/20 10/07/21 Rx tablet guaifenesin 600 mg tablet, 600 mg PO BID PRN #30 tab 07/29/21 10/07/21 Rx extended release 12 hr albuterol sulfate 90 mcg/actuation 2 puff INHALATION Q6H PRN #8.5 g 08/11/21 10/07/21 Rx aerosol inhaler (Ventolin HFA) epinephrine 0.3 mg/0.3 mL 0.3 mg IM DIRECTED PRN #2 ea 08/11/21 10/07/21 Rx injection, auto-injector estradiol 10 mcg vaginal tablet 10 mcg VAGINAL .COMPLEX #8 tab 08/11/21 10/07/21 Rx (Vagifem) fluticasone fur. 100 mcg-umeclid 1 inh INHALATION QDL #180 ea 08/11/21 10/07/21 Rx 62.5 mcg-vilant 25 mcg inhalat.powder (Trelegy Ellipta) fluticasone propionate 50 1 spray INTRANASAL QAM PRN #16 g 08/11/21 10/07/21 Rx mcg/actuation nasal spray,suspension insulin lispro 100 unit/mL See Rx Instructions SUBCUT DAILY 08/11/21 10/07/21 Rx subcutaneous pen (Humalog KwikPen #45 ml (U-100) Insulin) metformin 500 mg tablet 500 mg PO BID #180 tab 08/11/21 10/07/21 Rx montelukast 10 mg tablet 10 mg PO QAM #90 tab 08/11/21 10/07/21 Rx rosuvastatin 10 mg tablet (Crestor) 10 mg PO QAM #90 tab 08/11/21 10/07/21 Rx albuterol sulfate 2.5 mg INH Q4H PRN #180 ml 09/29/21 10/07/21 Rx gabapentin 100 mg capsule 100 mg PO BID #180 cap 09/29/21 10/07/21 Rx hydroxyzine HCl 10 mg tablet 10 mg PO TID PRN #60 tab 09/29/21 10/07/21 Rx ipratropium bromide 0.02 % 1.25 ml INH UD PRN #300 ml 09/29/21 10/07/21 Rx solution for inhalation Patient History Medical History Allergic rhinitis Anxiety and depression Asthma Atypical chest pain Cervical radiculopathy COPD (chronic obstructive pulmonary disease) Fatigue History of recurrent UTI (urinary tract infection) Histrionic personality disorder Hyperlipidemia Impulse control disorder Irritable bowel syndrome Learning disability Left shoulder pain Lumbar disc disease Lumbar spinal stenosis Nonobstructive atherosclerosis of coronary artery Orthostatic tremor Seizure disorder Type 2 diabetes mellitus Urge incontinence of urine Urinary incontinence Vitamin D deficiency Surgical History Status post cardiac catheterization Status post cholecystectomy Status post dilation and curettage Status post tonsillectomy Status post tubal ligation Family History Father , age 91 an [place]. Myocardial infarction Cerebral aneurysm Coronary heart disease Diabetes Mother , age 68 of lung cancer Lung cancer Brother H/O heart artery stent Denies family history of Ovarian cancer Prostate cancer Breast cancer Colorectal cancer Social History (Updated 10/09/21 @ 10:38 by Kishore Sinha MD) Smoking Status: Former smoker Tobacco Type: Cigarettes Age Started Using Tobacco: 18; Age Quit Using Tobacco: 20; packs per day: 2; Years Smoked: 1; Second Hand Exposure: No; Do You Dip or Chew Tobacco: No; Tobacco Cessation Education Requested by Patient: No Hx Alcohol Use: No Hx Substance Use: No Preferred Language: Divehi Communication Ability: Impaired Visual Impairment: Limited Hearing Ability: Normal Pulmonologist/Intensivist Required: Yes Beliefs That Will Affect Care: None marital status: in a relationship Current Living Situation: Alone Current Living Situation Comment: Live in apartment current occupational status: disabled 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, 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, 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 How many Children do You have: 2 Other Information That Helps Us Care for You: No Feels Safe at Home: Yes Safety Concerns: Feels Safe At This Time Childhood Exposure to Second-Hand Smoke: No caffeine: No during the past year weight has: remained stable Dental Care, Regularly: No Physical Activity Frequency: Does not Exercise Seatbelt Use: always Sunscreen Use: No Assistive Devices: Glasses and Walker Assistive Devices Comment: rollator Review of Systems Constitutional: + fatigue and + weakness; no fever Eyes: + worsening vision; no diplopia and no eye pain Ear, Nose, Mouth, Throat: + dizziness; no ear pain, no tinnitus, no hearing loss, no snoring, no hoarseness and no dysphagia Respiratory: no cough and no dyspnea Cardiovascular: no chest pain, no palpitations and no lightheadedness Gastrointestinal: no abdominal pain, no nausea and no vomiting Genitourinary: no dysuria, no urinary frequency and no urinary incontinence Musculoskeletal: + back pain, + neck pain, + radicular pain, + joint pain and + myalgia Integumentary: no rash and no lesions Neurologic: + gait abnormality, + localized weakness, + generalized weakness, + numbness, + tremor(s), + headache(s) and + memory loss; no tingling, no abnormal movements, no abnormal speech and no confusion Psychiatric: + irritability; no depression, no anxiety, no difficulty concentrating, no confusion and no hallucinations Endocrine: no fatigue and no flushing Hematologic / Lymphatic: no easy bleeding and no easy bruising Allergy / Immunological: no urticaria and no problem reported Exam (Neuro) Physical Exam: The patient is right-handed. The patient is awake, alert, and attentive. Speech is normal without any aphasia or dysarthria. The patient can name objects, repeat phrases, and has normal spontaneous speech. Mentation and thought processes are intact, with orientation to person, place and time, and normal fund of knowledge , although, she has tangential, loquacious speech. Attention and concentration are normal. Mood and affect are normal and appropriate. General appearance and grooming are normal. Short and long-term memory are questionable for accuracy. Pupils are 4 mm bilaterally and reactive to light. Extraocular eye muscles are intact without nystagmus. Visual acuity and visual borrego seem normal grossly to confrontation. There are no deficits to sensation in the face in all 3 distributions of the fifth cranial nerve bilaterally. Corneal reflexes are positive bilaterally. Facial strength and symmetry was normal bilaterally. Hearing seems normal bilaterally. Palate moves well without asymmetry. There is normal sternocleidomastoid and trapezius (shoulder shrug) strength bilaterally. Tongue is midline with good strength bilaterally. Neck has a full range of motion without discomfort. There are no cervical bruits bilaterally. There are no cranial or ocular bruits. Cervical, thoracic, and lumbar spine are tender to palpation, sometimes, but other times she did not flinch or say anything when I palpated her spine. Gait is narrow based And she limps favoring her left leg. She is very slow and deliberate using the walker. With outstretched arms there is no drift. There are no Actual resting, postural, or action tremors. patient did have a variable course tremor at times but was easily distractible and at other time she had no tremor at all with activity. There is no ataxia with finger to nose testing. There is good facility in the hands. No other abnormal involuntary movements are noted. Motor strength is Somewhat difficult to assess but I believe she has 5/5 strength everywhere. At times when she knows we are testing her strength, she will have giveaway weakness with minimal contact stating or implying that it hurts. Therefore that would be a giveaway weakness secondary to pain. This was in all proximal muscles of the arms and legs and distal muscles of the lower extremities. However, when distracted and encouraged, I was convinced that her strength was symmetrical in the limbs and of essentially normal caliber. therefore she did not have giveaway weakness secondary to pain at that time (Which would imply the giveaway weakness originally was willful). The limbs have good tone without rigidity or spasticity. There is no atrophy noted in the muscles. Muscle bulk is normal, there is no tenderness to palpation, no myotonia to percussion, and no fasciculations seen. Sensory examination is intact to touch and pin throughout all 4 limbs diffusely. Reflexes are 2/4 in the biceps, triceps, brachioradialis, quadriceps, tendons bilaterally. Achilles tendon reflexes are trace bilaterally. There is no clonus bilaterally. Toes are downgoing with plantar stimulation bilaterally. Peripheral pulses are present and of normal quality distally in all 4 limbs. There is no peripheral edema noted in the limbs. Results & Data ([facility]) Vital Signs (Past 12 Hours) Vital Signs Temp Pulse Pulse Resp BP BP Pulse Ox 10/09/21 07:42 36.5 C 79 18 141/69 H 98 10/09/21 07:38 80 10/09/21 03:34 79 18 114/62 96 10/08/21 22:30 108 H PG Care Time/CCT Total # of Minutes Spent Total Time Spent with Patient: Total time spent is greater than 50% in coordination of care (as documented) at patient's floor/unit and/or counseling patient: Coding Level of Care Code 92936 Office/Outpt Visit, New Diagnoses Weakness R53.1 Orthostatic tremor G25.2 Seizure disorder G40.909 Multiple sclerosis G35 Chronic arthralgias of knees and hips M25.551; M25.552; M25.561; M25.562; G89.29 Time Spent (min) 120 Comment Add modifiers as able
[2021-10-09] MEDS: FLUTICASONE FUROATE 100MCG 14 PUFFS/INHALER INH SCH (11:08)
[2021-10-09] MEDS: UMECLIDINIUM/VILANTEROL 62.5/25MCG 7 PUFFS/INHALER INH SCH (11:09)
--- NOTE | 2021-10-09 14:47 | Discharge Summary ---
Date of Service October 09, 2021 Admission HPI Per Admitting Provider Gail is a 71-year-old female with past medical history of COPD, seizure disorder, histrionic personality disorder, recurrent UTI, type 2 diabetes mellitus, asthma, CAD, hypertension who presents to the ER with concerns of dizziness and chest pain of 1 day. She did have a fall and head injury 3 weeks ago and injuring her left ribs/arm/. Fully she had a COPD exacerbation 2 weeks ago. [place] weak and dizzy, called EMS today due to fear of falling. Reported retrosternal chest pain on arrival to the ER. Denies relieving factors. Rates pain as 10 out of 10 to ER provider. Denied loss of consciousness, fever, chills, diaphoresis. In room endoreses chronic hip, back pain. Pain in ribs. 20/10 pain in my shoulder on down. ACute care for COPD/emphsema seen at acute care 2 weeks ago. Still taking ventolin and trelegy. Albuterol q4h. -Fever, - chills. +wheezing non at bedside. PFT: FEV1/FVC ratio reduced, 30% increase in FEB1 follow BD. DOesn't use oxygen at home No recent trips. +L leg tenderness afte rhitting it 'on something'. Able to bear weight. Medical History: Reviewed Medications: Reviewed Surgical History: Reviewed Allergies: Reviewed Social History: Does not use tobacco, denies alcohol use. Code Status: DE house in [facility]. Surrogate DM would be [place]. Full Code. Principal Diagnosis Costochondritis, noncardiac chest pain Discharge Exam General: A&Ox3. NAD. Cooperative. HEENT: Atraumatic, normocephalic. Pupils equal and reactive to light. No visual field cuts. Vision and hearing grossly intact. Pulm: CTAB A&P. -wheezes, -rales, -rhonchi. Symmetrical chest rise. No increase in work of breathing. No respiratory distress. Cardiac: RRR, -mrg. Radial pulses intact and symmetrical. Abdominal: Nontender, nondistended, soft. BS present. Extremities: [employer] strength, ankle dorsiflexion/plantar flexion, hip flexion, knee extension grossly intact and symmetrical,.o sensory deficits to soft touch in hands or feet. Tremor on extension of hands bilaterally which is not present at rest. Discharge Data Allergies Allergy/AdvReac Type Severity Reaction Status Date / Time bee venom protein (honey bee) Allergy Severe Anaphylaxis Verified 09/29/21 14:22 ibuprofen Allergy Unknown unknown Verified 09/29/21 14:22 Penicillins Allergy Unknown unknown Verified 09/29/21 14:22 phenytoin Allergy Unknown unknown Verified 09/29/21 14:22 Iodinated Contrast Media AdvReac Mild Vomiting Verified 09/29/21 14:22 [Iodinated Contrast- Oral and IV Dye] fiberglass Allergy Severe Rash and Uncoded 09/29/21 14:22 Difficulty Breathing Consultations 10/07/21 18:23 ED Decision to Admit Stat 10/09/21 08:33 Consult Neurology Routine 10/09/21 14:17 Consult Behavioral Health Liaison Routine Ordered Studies 10/07/21 14:48 CT cervical spine wo con Stat CT head/brain wo con Stat 10/07/21 18:36 CT angio chest PE protocol Stat 10/07/21 21:19 US venous doppler LE BI Urgent 10/08/21 11:22 MR brain wo con Urgent Hospital Course (1) Retrosternal chest pain: Gail is a 71-year-old female with a history of lumbar stenosis, COPD, seizure disorder, hypertension, CAD, type 2 diabetes, histrionic personality disorder with anger outbursts who presented with chest pain for cardiac eval and who also expressed feelings of weakness in the previous days to weeks. Cardiac eval did not show evidence of ACS/ischemic disease as noted below. She did have an extended work-up for weakness given her history and reported MS, she functionally performed very well with physical therapy and was recommended for discharge home with follow-up outpatient physical therapy. Neurology was consulted during admission, she did not have any focal neuro deficits but was recommended for outpatient follow-up with nerve conduction studies to better qualify her ongoing weakness. To do as outpatient: 1. Routine follow-up to PCP within 2 weeks 2. Follow-up to neurology, being scheduled at time of discharge with nerve conduction studies per their office 3. Continue gabapentin increased to 200 mg twice daily per neurology, if patient experiences sedation can decrease this 4. Follow-up with podiatry on PCP referral for routine diabetic foot care 5. Follow-up with psychiatric counselor. Patient with histrionic personality disorder and history of anger outburst. Requested psych liaison visit during admission. Was seen, facilitating outpatient therapy appointment. No pharmacologic changes recommended at time of admission. Acute chest pain, suspect noncardiac Last seen for chest pain 04/2021 At that time serial troponin negative. Did have eval for PE, negative Dopplers, negative CT in the past, negative V/Q. Was noted to have left chest wall tenderness costochondritis Echo 04/2021: Normal dobutamine stress echo without inducible ischemia No leukocytosis Hemoglobin normal on admission Creatinine normal, 0.61 No transaminitis Troponin negative on admission CThead: No acute findings, CT C-spine, no acute findings Chest x-ray: No acute findings. No pneumothorax, pleural effusion, consolidation, or pulmonary edema EKG: Normal sinus rhythm, no territorial ST changes D-dimer 500, discussed with ER. Patient with nausea but no mucous memb gerry/systemic reaction to in the past. CTPE with no evidence of PE, Dopplers negative for DVT Some chest wall tenderness consistent with costochondritis, pain not currently worsened with exertion. No chest pain at time of visit 10/08 morning (2) Fall: Cardiac assessment negative CT head negative as above MRI: No acute intracranial findings. Numerous small white matter T2 hyperintense foci. These are nonspecific and could reflect foci of demyelination or small vessel disease. Decreased sensitivity for detection of active demyelination on this unenhanced exam. MRI as above was discussed with neurology, not consistent with MS and likely reflective of small vessel disease. Ongoing management of diabetes and continuation of her aspirin was recommended. Good strength and meeting ambulation goals per PT/OT, was not recommended for rehab. Discharged home with home therapy and home health being facilitated by case management Patient does report a history of neuropathy with her diabetes and feels like she has had worsening weakness. Will have outpatient nerve studies performed by neurology at follow-up. Lumbar MRI deferred pending completion of the studies. No radicular symptoms at time of admission. CAT scan of the C-spine showed chronic degenerative disease, no acute findings and no fracture (3) COPD (chronic obstructive pulmonary disease): COPD Gold stage II Last pulmonary visit 08/18/2021 COPD stage II with severe persistent asthma Continue Trelegy for formulary equivalent Tobacco cessation recommended Albuterol every 6 hours as needed neb Continue Singulair 10 mg daily Received methylprednisolone 125 mg on admission for contrast allergy PFTs as noted above No wheezing on exam today, appears at baseline without acute exacerbation (4) Asthma: See above (5) Anxiety and depression: No acute management Patient would like to meet with a counselor as outpatient to discuss anger and mood issues Can facilitate through PCP (6) Type 2 diabetes mellitus: Diabetes Close checks AC/at bedtime Goal BSG [id number] Uses lispro 40 units/day total daily dose via sliding scale, has not used recently Hold home Metformin while inpatient Continue routine diabetes management and follow-up with PCP, recommend referral to cable inspector for diabetic foot care (7) Hypertension: Hyperlipidemia Continue statin Continue aspirin Adequate glucose control during admission (8) Coronary artery disease: As above (9) Weakness: As above (10) Multiple sclerosis: - Pt reports past history of this on steroids in the past, no recent flares - No current vision changes -MRI without findings consistent with MS as noted above Total Time Total Time Spent Total Time Spent (In Minutes): Time spend day of discharge 70 minutes including direct patient care, documentation, review of labs and images, and coordination of care. Discharge Plan Discharge Items Patient Disposition: Home - Home Health Services Reason For Visit: CHEST PAIN Discharge Diagnosis: Chest pain Weakness Activity: Resume your previous activity Non-emergency contact: Primary Care Provider and Neurologist Call non-emergency contact if: you have any medication questions, your symptoms worsen and you have a fever Follow-up/Referrals: Kishore Sinha MD [Physician] - 10/12/21 11:00 am (Appointment is with Layla Gutierrez PA-C) Gianna Dempsey DO [Primary Care Provider] - 10/22/21 9:20 am (follow up with Dr Dempsey) Diet: Regular Addtl Attending Provider Instructions: You are seen in the hospital for chest pain and weakness. Underwent a cardiac evaluation. Your troponin, a heart marker of damage, was negative. Your chest x-ray did not show any acute or new findings. Your EKG showed a normal heart rhythm with no evidence of heart damage, ischemia, or heart attack. You did have a slightly elevated D-dimer which may be normal for age, but based on your chest pain a CAT scan of your chest was obtained. There was no evidence of pulmonary embolism or blood clot, and ultrasounds of your legs did not show any evidence of clots. You did have some chest tenderness which is consistent with costochondritis, irritation of the muscle/bone/cartilage which should improve over time and can be treated with [id number] pain medications. You have experienced chronic weakness and tremors. A CAT scan of your head on admission did not show any abnormalities. Due to concern for worsening weakness in your legs, and a history of MS a MRI of your brain was obtained. This did not show any evidence of a multiple sclerosis flare or strokes, you did have some evidence of chronic small vessel disease likely related to age and diabetes. In order to prevent this from worsening over time please continue to be diligent with your diabetes/blood sugar management and follow-up. Your CK levels, markers of muscle breakdown, were normal. Your thyroid test and vitamin B12 was pending at time of discharge, this can be followed up on by your PCP. That when elevated you were seen by neurology and a thorough examination was performed. It is recommended that you have nerve studies performed, this is not able to be performed in the hospital setting. A follow-up appointment with neurology is being scheduled for you and they will arrange nerve conduction studies. A CAT scan of your neck/C-spine did not show any acute findings, there was some evidence of chronic arthritis-like changes which can cause stiffness and pain. Your gabapentin dose has been increased to 200mg twice daily. You experience sedation had a 300 mg dose in the past, if you experience fatigue, sedation, or worsening symptoms please decrease this back to 100 mg and contact your PCP/neur ologist for additional recommendations. You were seen by physical therapy and Occupational Therapy. Referral to inpatient rehab or penitentiary was not recommended/indicated, you are recommended for discharge home with home physical therapy/home health services to follow-up. These were being arranged by case management for you. You are seen by the psychiatric liaison during admission. They are attempting to facilitate additional care and appointments for you for ongoing management of mood and anger. A follow-up appointment is being scheduled for you with Dr. Dempsey. You should be seen within 2 weeks. If you do not receive a call within 48 hours to confirm this appointment please call our office at the number above. If you develop any new or worsening symptoms including fever, chills, sweats, chest pain, chest pressure, difficulty breathing, uncontrolled nausea/vomiting, rash, wheezing, passing out or nearly passing out, bleeding, black/bloody bowel movements, or other new or concerning symptoms please call your primary care physician, or call 911 for re-evaluation in the emergency department if you are very concerned. Pending Studies at Discharge: No Stand-Alone Forms: My [facility], Smoking Cessation Medications and DC Order Prescriptions: Continued insulin lispro [Humalog KwikPen Insulin] 100 unit/mL insulin pen See Rx Instructions subcut DAILY Qty: 45 RF: 1 albuterol sulfate [Ventolin HFA] 90 mcg/actuation HFA aerosol inhaler 2 puff INHALATION Q6H PRN (Reason: Shortness Of Breath Or Wheezing) Qty: 8.5 RF: 5 epinephrine 0.3 mg/0.3 mL auto-injector 0.3 mg IM DIRECTED PRN (Reason: anaphylaxis) Qty: 2 RF: 1 estradiol [Vagifem] 10 mcg tablet 10 mcg vaginal .COMPLEX Qty: 8 RF: 5 fluticasone propionate 50 mcg/actuation spray,suspension 1 spray intranasal QAM PRN (Reason: Allergy Symptoms) Qty: 16 RF: 5 Trelegy Ellipta 100-62.5-25 mcg blister with device 1 inh inhalation QDL Qty: 180 RF: 1 metformin 500 mg tablet 500 mg PO BID Qty: 180 RF: 1 montelukast 10 mg tablet 10 mg PO QAM Qty: 90 RF: 1 rosuvastatin [Crestor] 10 mg tablet 10 mg PO QAM Qty: 90 RF: 1 aspirin 81 mg tablet,delayed release (DR/EC) 81 mg PO QAM Qty: 30 RF: 0 nitroglycerin 0.4 mg tablet, sublingual 0.4 mg sublingual Q5M PRN (Reason: Chest Pain) Qty: 25 RF: 3 guaifenesin 600 mg tablet extended release 12hr 600 mg PO BID PRN (Reason: cough) Qty: 30 RF: 0 hydroxyzine HCl 10 mg tablet 10 mg PO TID PRN (Reason: anxiety) Qty: 60 RF: 1 ipratropium bromide 0.02 % solution 1.25 ml INH UD PRN (Reason: shortness of breath or wheezing) Qty: 300 RF: 5 albuterol sulfate 2.5 mg /3 mL (0.083 %) solution for nebulization 2.5 mg INH Q4H PRN (Reason: shortness of breath or wheezing) Qty: 180 RF: 2 meloxicam 15 mg tablet 15 mg PO QAM RF: 0 Changed gabapentin 100 mg capsule 200 mg PO BID Qty: 180 RF: 1 Discharge Orders: Discharge Order (Routine); Ordered 10/09/21 Ordered By: Jake Gates Admission Data Admit Date/Time: 10/07/21 18:21 Attending Provider: Jake Gates Admit Provider: Jake Gates Primary Care Provider: Gianna Dempsey Other Providers: Jake Gates ; Kishore Sinha ; [facility] Other Interventions: Discharge Summary Assessment (RN) Last Done: 10/09/21 14:39 Coding Level of Care Code D/C DAY MANAGEMENT >30 MINS Diagnoses Retrosternal chest pain R07.2 Fall W19.XXXA COPD (chronic obstructive pulmonary disease) J44.9 COPD type: unspecified COPD Asthma J45.909 Anxiety and depression F41.9; F32.9 Type 2 diabetes mellitus E11.9; Z79.4 Diabetes mellitus complication status: without complication Diabetes mellitus [facility] insulin use: with [facility] use Hypertension I10 Coronary artery disease I25.10 Weakness R53.1 Multiple sclerosis G35
[2021-10-09 15:27] LABS: Thyroid Stimulating Hormone 6.157 uIu/ml (0.300-4.500)
[2021-10-09 16:09] LABS: T4 Free Thyroxine 0.69 ng/dl (0.61-1.60)
[2021-10-09 16:25] LABS: Lyme Ab IgG w/WB Rflx Negative (Negative); Lyme Ab IgM w/WB Rflx Negative (Negative)
[2021-10-12 14:11] LABS: Anti Nuclear Antibody Screen NEGATIVE (NEGATIVE)
== END 2021-10-09 17:30 | disposition home health service (06) ==
LOC: 2W 12:58 → ED 12:58 → 2W 20:32

== ENCOUNTER 2024-01-10 13:41 | Observation (INO) ==
--- NOTE | 2024-01-10 13:48 | ED Triage Note ---
Date of Service January 10, 2024 Provider in Triage Author: Alissa Gusman History of Present Illness This patient was briefly evaluated while in triage. An abbreviated physical exam was performed. This patient is a 73-year-old Female who presents to the ED for evaluation here via ambulance 2-3 days of URI symptoms cough, chest pain, weakness and SOB T100.3 hx of asthma/COPD using inhalers/nebulizers without relief called her physician and was sent here Physical Exam GENERAL: NAD, VSS CARDIOVASCULAR: RRR RESPIRATORY: BS tight and diminished throughout ABDOMEN: BS x 4. Nontender to palpation. Initial orders for labs and / or imaging were placed and patient was placed in the waiting area until a bed is available. Please see further documentation for the full ED course.
[2024-01-10 14:35] LABS: Basophils # (auto) 0.03 K/uL (0.00-0.20); Basophils % (auto) 0.4 %; Eosinophils # (auto) 0.03 K/uL (0.00-0.50); Eosinophils % (auto) 0.4 %; Hematocrit (blood only) 40.5 % (37.0-47.0); Hemoglobin 13.2 g/dl (12.0-16.0); Immature Granulocytes # (auto) 0.02 K/uL (0.01-0.20); Immature Granulocytes % (auto) 0.3 %; Lymphocytes # (auto) 1.02 K/uL (1.20-3.40); Mean Corpuscular Hemoglobin 27.4 pg (25.0-34.0); Mean Corpuscular Hgb Conc 32.6 g/dL (32.0-36.0); Mean Corpuscular Volume 84.2 fL (80.0-100.0); Mean Platelet Volume 11.8 fL (9.4-12.4); Monocytes # (auto) 0.48 K/uL (0.11-0.59); Monocytes % (auto) 6.6 %; Neutrophils # (auto) 5.69 K/uL (1.40-6.50); Neutrophils % (auto) 78.3 %; Platelet Count 242 K/uL (130-400); RDW Coefficient of Variation 14.1 % (11.5-14.5); RDW Standard Deviation 43.4 fL (36.4-46.3); Red Blood Count 4.81 M/uL (4.20-5.40); White Blood Count 7.27 K/ul (4.8-10.8)
[2024-01-10 15:07] LABS: Partial Thromboplastin Ratio 0.9; Partial Thromboplastin Time 25 Seconds (21-31); Prothrombin Time 10.6 Seconds (9.0-12.0)
--- NOTE | 2024-01-10 15:08 | XRay Report ---
XR chest 2V PA/lateral HISTORY: 73 years-old Female Dyspnea COMPARISON: 12/30/2023 TECHNIQUE: AP and lateral view of the chest FINDINGS: Cholecystectomy. Cardiomediastinal and hilar silhouettes are within normal limits. Patient is mildly rotated towards the left. No pneumothorax or pleural effusion. Lungs are clear. IMPRESSION: No acute process. ACT 112: Negative or not required by law. The above report was generated using voice recognition software. It may contain grammatical, syntax o r spelling errors. Electronically signed by: Mehul Wiggins M.D. 01/10/2024 3:07 PM
[2024-01-10 15:17] LABS: Adenovirus PCR Not Detected (NotDetected); Bordetella parapertussis PCR Not Detected (NotDetected); Bordetella pertussis PCR Not Detected (NotDetected); Chlamydia pneumoniae PCR Not Detected (NotDetected); Coronavirus 229E PCR Not Detected (NotDetected); Coronavirus CoV-2 (COVID19)PCR Not Detected (NotDetected); Coronavirus HKU1 PCR Not Detected (NotDetected); Coronavirus NL63 PCR Not Detected (NotDetected); Coronavirus OC43PCR Not Detected (NotDetected); Human Metapneumovirus PCR Not Detected (NotDetected); Influenza A PCR Not Detected (NotDetected); Influenza B PCR Not Detected (NotDetected); Mycoplasma pneumoniae PCR Not Detected (NotDetected); Parainfluenza Virus 1 PCR Not Detected (NotDetected); Parainfluenza Virus 2 PCR Not Detected (NotDetected); Parainfluenza Virus 3 PCR Not Detected (NotDetected); Parainfluenza Virus 4 PCR Not Detected (NotDetected); Respiratory Syncytial VirusPCR Not Detected (NotDetected); Rhinovirus/Enterovirus PCR DETECTED (NotDetected)
--- NOTE | 2024-01-10 15:46 | Electrocardiogram Report ---
Test Reason : Blood Pressure : / mmHG Vent. Rate : 109 BPM Atrial Rate : 109 BPM P-R Int : 136 ms QRS Dur : 076 ms QT Int : 336 ms P-R-T Axes : 075 -67 073 degrees QTc Int : 452 ms Sinus tachycardia Left anterior fascicular block Abnormal ECG When compared with ECG of 14-MAY-2023 05:02, No significant change was found Confirmed by Cyrus Cartagena ([id number]) on 01/10/2024 3:46:45 PM Referred By: REFERRED SELF Confirmed By:Cyrus Cartagena
[2024-01-10] MEDS: ALBUTEROL 0.5% NEB SOLN 2.5 MG/0.5 ML VIAL ONE (16:00)
[2024-01-10] MEDS: methylPREDNISolone 125 MG/2 ML VIAL IV STA (16:04)
[2024-01-10] MEDS: ALBUT/IPRATROP 3MG/0.5MG NEB 3 ML VIAL ONE (16:05)
[2024-01-10] MEDS: ALBUT/IPRATROP 3MG/0.5MG NEB 3 ML VIAL INH STA (16:05)
[2024-01-10] MEDS: ALBUT/IPRATROP 3MG/0.5MG NEB 3 ML VIAL NEB STA ×2 (16:05→18:08)
[2024-01-10 16:18] LABS: Base Excess VBG -0.9 mEq/L; HCO3 VBG 26 mmol/L; Oxygen Saturation VBG < 60.0 %; PCO2 VBG 50 mmHg (38-50); PO2 VBG 22 mmHg; pH VBG 7.32 (7.36-7.41)
[2024-01-10 16:39] LABS: Albumin Level 4.5 gm/dl (3.4-5.0); Anion Gap 8 (3-11); Bilirubin,Total 0.5 mg/dl (0.2-1.0); Calcium 9.2 mg/dl (8.6-10.3); Carbon Dioxide 22 mmol/L (21-32); Chloride 107 mmol/L (98-107); Potassium 3.9 mmol/L (3.5-5.1); Sodium 137 mmol/L (136-145)
[2024-01-10 16:45] LABS: Alanine Aminotransferase 18 U/L (7-52); Albumin Globulin Ratio 1.5 (0.9-2); Alkaline Phosphatase 106 U/L (34-104); Aspartate Aminotransferase 22 U/L (13-39); BUN Creatinine Ratio 11.5 (10-20); Blood Urea Nitrogen 9 mg/dl (6-23); Est GFR (African American) 88.6 ml/min; Est GFR (Non-African American) 76.5 ml/min; Globulin 3.1 gm/dl (2.5-4.0); Glucose 92 mg/dl (70-99(Fasting)); Total Protein 7.6 gm/dl (6.0-8.3)
[2024-01-10 16:46] LABS: Troponin I High Sensitivity < 2.3 pg/ml (0-14)
--- NOTE | 2024-01-10 17:36 | History & Physical Report ---
Date of Service January 10, 2024 Assessment & Plan (1) Acute UTI: Plan: Clinically, patient does endorse burning with urination and suprapubic tenderness/pain History of recurrent UTIs Review of prior urine cultures revealed pansensitive E. coli Ceftriaxone 2000 mg IV q24h Patient does have a listed PCN allergy; discussed with pharmacy, and she has tolerated Rocephin well in the past (with most recent being on 12/30/2023) Follow [facility] (2) Enterovirus infection: Plan: Rhino/Enterovirus (+) on arrival Supportive Care Droplet isolation precautions Acetaminophen as needed for pain/fever Continuous pulse oximetry Supplement oxygen as needed to maintain SpO2 >94% (3) Type 2 diabetes mellitus: Plan: Last A1c at 5.9% on 08/10/2023 Currently on home sliding scale insulin Will continue SSI; target BSG range 110-140mg/dL, CF 50, carb ratio 15 T2DM diet BSG ACHS Adjust regimen as needed Pharmacy glycemic consult given IV steroid use (4) Left-sided chest pain: Plan: Patient endorses 10/10 left-sided chest pain at time of admission Will defer chest CTA at this time, as patient is not hypoxic and pleuritic CP is likely secondary to #3 Recent chest CTA in the ED on 12/30/2023 (presenting with similar symptoms of pleuritic CP and chest pain reproducible on exam) Troponin WNL at 2.3, repeat pending EKG shows sinus tachycardia at 109 bpm Continuous telemetry monitoring (5) Atypical chest pain: (6) History of recurrent UTI (urinary tract infection): (7) Histrionic personality disorder: (8) Impulse control disorder: Plan Disposition: Obs- Admit to [facility] telemetry Full code T2DM Diet VTE PPx: Lovenox 40mg SQ q24h History of Present Illness Chief Complaint: SOB/dyspnea, generalized weakness Primary Care Provider: DO Gail Ordonez is a 73-year-old female with PMH of multiple sclerosis, HTN, HLD, MVP, allergic rhinitis, T2DM, orthostatic tremor, recurrent UTI, IBS, COPD, and seizure disorder. She presented for generalized weakness, SOB, and chest pain x 2 days. She endorses both SOB at rest and with exertion; worse when lying flat. She does not use supplemental oxygen at home, or CPAP at night. She did not take any other regular morning medications today, no recent change in medications. She has not been taking any additional medications at home for the chest pain or difficulty breathing. She does endorse 10/10 substernal chest pain at this time with radiation down the left shoulder and neck. No radiation to the back. She attributes it to her coughing fits, which have been ongoing for multiple days. She characterizes it as a sharp, stabbing pain. No PMH of DVT/PE. She is unsure if she has had a fever at home, she does not have a thermometer, but reports that she had a fever around 100 F in the ambulance. She denies smoking, tobacco use, and alcohol use. Patient is mildly hypertensive at 149/79 at time of admission; SpO2 96% on room air. ED course: DuoNeb 3 mL Solu-Medrol 125 mg IV ROS: Patient endorses chills, night-sweats, body aches (in the legs), dizziness/lightheadedness with walking, mild BROOKS, SOB both at rest and with exertion, orthopnea, productive cough (green phlegm), pleuritic CP, transverse upper abdominal pain, burning with urination, dysuria, suprapubic pain, diarrhea, and neuropathy in the feet. Patient denies fever, fainting, hemoptysis, blood in urine/stool, nausea/vomiting, redness/swelling in the legs, or numbness/tingling in arms. Allergies Allergy/AdvReac Type Severity Reaction Status Date / Time aspirin Allergy Severe Hives Unverified 01/10/24 17:09 bee venom protein (honey bee) Allergy Severe Anaphylaxis Verified 01/10/24 17:09 ibuprofen Allergy Unknown unknown Verified 01/10/24 17:09 Penicillins Allergy Unknown unknown Verified 01/10/24 17:09 phenytoin Allergy Unknown unknown Verified 01/10/24 17:09 Iodinated Contrast Media AdvReac Mild Vomiting Verified 01/10/24 17:09 [Iodinated Contrast- Oral and IV Dye] fiberglass Allergy Severe Rash and Uncoded 01/10/24 17:09 Difficulty Breathing Home Medications Medication Instructions Recorded Confirmed Type aspirin 81 mg tablet,delayed 81 mg PO QAM #30 tabs 12/06/19 01/10/24 Rx release fluticasone propionate 50 2 spray intranasal DAILY 03/23/23 01/10/24 History mcg/actuation nasal spray,suspension (Flonase Allergy Relief) albuterol sulfate 2.5 mg/3 mL 2.5 mg (3 mL) inhalation Q4H PRN 06/23/23 01/10/24 Rx (0.083 %) solution for nebulization shortness of breath or wheezing #180 mL blood sugar diagnostic (OneTouch #400 ea 07/05/23 01/04/24 Rx Verio test strips) lancets 30 gauge (Onetouch Delica #400 ea 07/05/23 01/04/24 Rx Safety Lancet) blood-glucose meter (OneTouch #1 ea 07/07/23 01/04/24 Rx Verio Flex Meter) nebulizer accessories #2 ea 08/22/23 01/04/24 Rx nebulizers #1 ea 08/22/23 01/04/24 Rx insulin lispro 100 unit/mL 1 sliding scale dose subcut 09/02/23 01/10/24 Rx subcutaneous pen (Humalog KwikPen USEASDIRECTD #15 mL (U-100) Insulin) nitroglycerin 0.4 mg sublingual 0.4 mg sublingual Q5M PRN Chest 09/19/23 01/10/24 Rx tablet Pain #20 tabs albuterol sulfate 90 mcg/actuation 2 puff inhalation Q6H PRN 12/26/23 01/10/24 Rx aerosol inhaler (Ventolin HFA) Shortness Of Breath Or Wheezing #8.5 grams epinephrine 0.3 mg/0.3 mL 0.3 mg (0.3 mL) IM DIRECTED PRN 12/26/23 01/10/24 Rx injection, auto-injector anaphylaxis #2 ea ipratropium bromide 0.02 % 2.5 ml inhalation Q4H PRN 01/10/24 01/10/24 History solution for inhalation shortness of breath or wheezing Past Med/Surg History Problem List (Updated 01/10/24 @ 17:38 by Oswaldo Linares PA-C) Enterovirus infection Constipation Abdominal bloating Dysphagia Acute UTI (Acute) Left-sided chest pain (Acute) Urinary incontinence Atypical chest pain COPD (chronic obstructive pulmonary disease) Vitamin D deficiency Seizure disorder Orthostatic tremor Nonobstructive atherosclerosis of coronary artery Mood disorder Lumbar spinal stenosis Lumbar disc disease Learning disability Irritable bowel syndrome Impulse control disorder Hyperlipidemia Histrionic personality disorder History of recurrent UTI (urinary tract infection) Type 2 diabetes mellitus Cervical radiculopathy Asthma Anxiety and depression Allergic rhinitis MVP (mitral valve prolapse) Hypertension Multiple sclerosis Chronic arthralgias of knees and hips Adjustment disorder with mixed anxiety and depressed mood Osteopenia Degenerative disc disease, cervical Tremor Vitamin B12 deficiency Medical History Neck pain Urgency of micturition Fatigue Tobacco dependence Surgical History (System 12/30/23 @ 15:08 by Keiry Logan) Status post cardiac catheterization Status post cholecystectomy Status post dilation and curettage Status post tonsillectomy Status post tubal ligation Family History Father Myocardial infarction Cerebral aneurysm Coronary heart disease Diabetes Mother Lung cancer Brother H/O heart artery stent Denies family history of Ovarian cancer Prostate cancer Breast cancer Colorectal cancer Social History Smoking Status: Former smoker Tobacco Type: Cigarettes Age Started Using Tobacco: 18; Age Quit Using Tobacco: 20; packs per day: 2; Second Hand Exposure: Yes; Do You Dip or Chew Tobacco: No; Hx Alcohol Use: No Hx Substance Use: No Preferred Language: Yakut Communication Ability: Impaired Visual Impairment: Limited Hearing Ability: Normal 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 Beliefs That Will Affect Care: None marital status: Single Current Living Situation: Alone Current Living Situation Comment: Live in apartment current occupational status: disabled 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, 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, 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 How many Children do You have: 2 Feels Safe at Home: Yes Childhood Exposure to Second-Hand Smoke: No Diet: regular caffeine: No during the past year weight has: remained stable Dental Care, Regularly: No Physical Activity Frequency: Does not Exercise Seatbelt Use: always Sunscreen Use: No Assistive Devices: Glasses and Walker Review of Systems Review of Systems: See HPI above Physical Exam Physical Exam: General: Mild respiratory distress; non-toxic appearing; frail appearing; SpO2 96% on RA HEENT: normocephalic, atraumatic; no scleral icterus; PERRLA; moist mucus membrane; vision and hearing grossly intact Neck: supple; no lymphadenopathy; trachea midline Skin: warm, dry without signs of tenting; no cyanosis; no rashes, bruising, lesions, or erythema noted CV: chest wall is TTP; pain somewhat reproducible to palpation; RRR; S1/S2 normal; no murmurs/rubs/gallops; pulses intact and symmetric at radial, DP, and PT Lungs: Mild respiratory distress; conversational dyspnea; symmetrical chest wall expansion; significant expiratory wheeze across all lung borrego bilaterally ABD: Soft; all 4 quadrants are TTP; BS present; no rebound/guarding; no distention; no signs of rashes or bruising on the abdomen or flanks MSK: no tics or fasciculations; no edema noted in the LEs b/l, nonerythematous Neuro: A&Ox3; fluent speech; no focal deficits; sensation grossly intact in the LEs b/l Results & Data Results & Data Vital Signs (Past 12 Hours) Vital Signs Pulse Pulse Resp BP BP Pulse Ox O2 Del Method 01/10/24 17:00 88 16 149/79 H 96 Room Air 01/10/24 16:17 88 01/10/24 16:10 88 16 95 Room Air 01/10/24 13:48 112 H 22 137/74 95 Room Air Laboratory Results Abnormal lab results 01/10/24 01/10/24 Range/Units 14:20 16:02 Lymph # (Auto) 1.02 L (1.20-3.40) K/uL VBG pH 7.32 L (7.36-7.41) Alkaline Phosphatase 106 H (34-104) U/L Entero/Rhino (PCR) DETECTED A (NotDetected) Diagnostic Findings Chest X-Ray 01/10/24 13:50 XR chest 2V PA/lateral HISTORY: 73 years-old Female Dyspnea COMPARISON: 12/30/2023 TECHNIQUE: AP and lateral view of the chest FINDINGS: Cholecystectomy. Cardiomediastinal and hilar silhouettes are within normal limits. Patient is mildly rotated towards the left. No pneumothorax or pleural effusion. Lungs are clear. IMPRESSION: No acute process. ACT 112: Negative or not required by law. The above report was generated using voice recognition software. It may contain grammatical, syntax or spelling errors. Electronically signed by: Mehul Wiggins M.D. 01/10/2024 3:07 PM ECG Additional Comments: ECG revealed sinus tachycardia at 109 bpm; QTc 452 Code Status & VTE Plan Code Status Full code VTE Prophylaxis Plan VTE Prophylaxis will be ordered: Yes Supervising Physician Co-Signing Physician Notes I have personally seen, evaluated and examined the patient. I have also personally discussed the management of the patient with the resident physician/GRACY and I agree with the exam findings documented in the history and physical examination and the documented assessment and plan unless otherwise stated below. Brief Exam: In general this is a 73-year-old female who is alert and oriented x 3 at the time of my exam. She appears to be in no acute distress. She is ambulating from the restroom at the time of my initial evaluation. She does not appear to be short of breath with ambulation. She denies any current chest pain at this time when I speak with her. The patient's largest concerns currently when she can needed when she will be moved upstairs to her room. We disorder the diet was ordered and her stay may be extended in the ER due to a lack of beds upstairs but short-term should be moved up as it is an appropriate room is available. HEENT: Normocephalic atraumatic. Heart: Regular rate and rhythm at this time I do not appreciate any murmur or ectopy or rub. Lungs: Are coarse bilaterally with scattered rhonchi. Occasional expiratory wheezing. Abdomen: Soft nontender with positive bowel sounds. Extremities: Intact with no significant edema. Neurologically: Alert and orient x 3 with no gross focal abnormalities. She does have generalized weakness and typically ambulates with a walker at home. Assessment/plan: As described above. Please refer to orders for further planning. PG Care Time/CCT Total # of Minutes Spent Total Time Spent with Patient: Total time spent is greater than 50% in coordination of care (as documented) at patient's floor/unit and/or counseling patient: C[place] [address] INT INP/OBS CARE 3/75MIN Patient Type Established Medical Decision Making High Complexity Diagnoses Acute UTI N39.0 Enterovirus infection B34.1 Type 2 diabetes mellitus E11.9; Z79.4 Diabetes mellitus complication status: without complication Diabetes mellitus care home insulin use: with terminal gauger supervisor use Left-sided chest pain R07.9 Atypical chest pain R07.89 History of recurrent UTI (urinary tract infection) Z87.440 Histrionic personality disorder F60.4 Impulse control disorder F63.9 (3) Type 2 diabetes mellitus Diabetes mellitus complication status: without complication Diabetes mellitus terminal gauger supervisor insulin use: with terminal gauger supervisor use Qualified Code(s): E11.9 - Type 2 diabetes mellitus without complications; 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
[2024-01-10 17:46] LABS: Appearance Urine Cloudy (Clear); Bacteria Urine Automated 4+ (None Seen); Bilirubin Urine Negative (Negative); Blood Urine Negative (Negative); Cast Urine Automated 0-2 /lpf (0-2); Color Urine Yellow; Epithelial Cell Urine Auto >20 /hpf (0-2); Glucose Urine UA Negative (Negative); Ketones Urine 1+ (Negative); Leukocyte Esterase Urine 3+ (Negative); Nitrite Urine Negative (Negative); Protein Urine Trace (Negative); RBC Urine Automated 0-2 /hpf (0-2); Specific Gravity Urine 1.024 (1.000-1.030); Urobilinogen Urine Negative (Negative); WBC Urine Automated >50 /hpf (0-5); pH Urine 5.5 (4.5-7.5)
[2024-01-10] MEDS: oxyCODONE/ACETAMINOPHEN 5mg/325mg TAB PO STA (18:07)
[2024-01-10] MEDS: AZITHROMYCIN 250 MG TAB PO ONE (18:08)
[2024-01-10] MEDS: cefTRIAXone SODIUM 2,000 MG/50 ML BAG IV STA (18:38)
--- NOTE | 2024-01-10 20:02 | Emergency Department Note ---
History of Present Illness General Chief Complaint: Illness Stated Complaint: ILLNESS, COUGH, WEAKNESS, SOB Time Seen by Provider: 01/10/24 15:49 History of Present Illness Provider Complaint: shortness of breath, cough and chest pain Onset (ago): day(s) (3) Severity: similar to previous episodes Consistency/Duration: + progressively worsening Relieved By: + nothing Exacerbated By: + exertion and + coughing Known history of: COPD and asthma Associated symptoms: + chest pain, + fever, + cough, + wheezing, + sputum production and + chest congestion; no orthopnea, no hemoptysis or no nausea/vomiting HPI Narrative: Patient reports inhalers are not helping Home Medications Medication Instructions Recorded Confirmed Type aspirin 81 mg tablet,delayed 81 mg PO QAM #30 tabs 12/06/19 01/10/24 Rx release fluticasone propionate 50 2 spray intranasal DAILY 03/23/23 01/10/24 History mcg/actuation nasal spray,suspension (Flonase Allergy Relief) albuterol sulfate 2.5 mg/3 mL 2.5 mg (3 mL) inhalation Q4H PRN 06/23/23 01/10/24 Rx (0.083 %) solution for nebulization shortness of breath or wheezing #180 mL blood sugar diagnostic (OneTouch #400 ea 07/05/23 01/04/24 Rx Verio test strips) lancets 30 gauge (Onetouch Delica #400 ea 07/05/23 01/04/24 Rx Safety Lancet) blood-glucose meter (OneTouch #1 ea 07/07/23 01/04/24 Rx Verio Flex Meter) nebulizer accessories #2 ea 08/22/23 01/04/24 Rx nebulizers #1 ea 08/22/23 01/04/24 Rx insulin lispro 100 unit/mL 1 sliding scale dose subcut 09/02/23 01/10/24 Rx subcutaneous pen (Humalog KwikPen USEASDIRECTD #15 mL (U-100) Insulin) nitroglycerin 0.4 mg sublingual 0.4 mg sublingual Q5M PRN Chest 09/19/23 01/10/24 Rx tablet Pain #20 tabs albuterol sulfate 90 mcg/actuation 2 puff inhalation Q6H PRN 12/26/23 01/10/24 Rx aerosol inhaler (Ventolin HFA) Shortness Of Breath Or Wheezing #8.5 grams epinephrine 0.3 mg/0.3 mL 0.3 mg (0.3 mL) IM DIRECTED PRN 12/26/23 01/10/24 Rx injection, auto-injector anaphylaxis #2 ea ipratropium bromide 0.02 % 2.5 ml inhalation Q4H PRN 01/10/24 01/10/24 History solution for inhalation shortness of breath or wheezing Allergies Allergy/AdvReac Type Severity Reaction Status Date / Time aspirin Allergy Severe Hives Unverified 01/10/24 17:09 bee venom protein (honey bee) Allergy Severe Anaphylaxis Verified 01/10/24 17:09 ibuprofen Allergy Unknown unknown Verified 01/10/24 17:09 Penicillins Allergy Unknown unknown Verified 01/10/24 17:09 phenytoin Allergy Unknown unknown Verified 01/10/24 17:09 Iodinated Contrast Media AdvReac Mild Vomiting Verified 01/10/24 17:09 [Iodinated Contrast- Oral and IV Dye] fiberglass Allergy Severe Rash and Uncoded 01/10/24 17:09 Difficulty Breathing Past Med/Surg History Problem List (Updated 01/10/24 @ 20:06 by Agus Townsend MD) Enterovirus infection Constipation Abdominal bloating Dysphagia Acute UTI (Acute) Left-sided chest pain (Acute) Urinary incontinence Atypical chest pain COPD (chronic obstructive pulmonary disease) (Acute) Vitamin D deficiency Seizure disorder Orthostatic tremor Nonobstructive atherosclerosis of coronary artery Mood disorder Lumbar spinal stenosis Lumbar disc disease Learning disability Irritable bowel syndrome Impulse control disorder Hyperlipidemia Histrionic personality disorder History of recurrent UTI (urinary tract infection) Type 2 diabetes mellitus Cervical radiculopathy Asthma Anxiety and depression Allergic rhinitis MVP (mitral valve prolapse) Hypertension Multiple sclerosis Chronic arthralgias of knees and hips Adjustment disorder with mixed anxiety and depressed mood Osteopenia Degenerative disc disease, cervical Tremor Vitamin B12 deficiency Medical History Neck pain Urgency of micturition Fatigue Tobacco dependence Surgical History Status post cardiac catheterization Status post cholecystectomy Status post dilation and curettage Status post tonsillectomy Status post tubal ligation Family History Father , age 91 an [place]. 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 Beliefs That Will Affect Care: None marital status: Single Current Living Situation: Alone Current Living Situation Comment: Live in apartment current occupational status: disabled 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, 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, 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 How many Children do You have: 2 Feels Safe at Home: Yes Childhood Exposure to Second-Hand Smoke: No Diet: regular caffeine: No during the past year weight has: remained stable Dental Care, Regularly: No Physical Activity Frequency: Does not Exercise Seatbelt Use: always Sunscreen Use: No Assistive Devices: Glasses and Walker Physical Exam 2 Vital Signs: Vital Signs - 24 hr 01/10/24 13:48 01/10/24 16:10 01/10/24 16:17 Temperature Temperature Source Pulse Rate 112 H 88 88 Pulse Rate [Apical ] Respiratory Rate 22 16 Respiratory Effort / Characteristics Non-Labored Sponta neous Respiratory Depth Normal Blood Pressure 137/74 Blood Pressure [Ri ght Arm] Blood Pressure Marina n 95 Blood Pressure Marina n [Right Arm] Pulse Oximetry 95 95 Oxygen Delivery Me thod Room Air Room Air Sepsis Recent Feve r Within 48 Hours Yes Sepsis New/Unexpla ined Change in Men rachel Status No Sepsis Action Take n by Nursing Adv Provider Notif ied 01/10/24 17:00 01/10/24 18:40 01/10/24 18:42 Temperature 37.3 C Temperature Source Oral Pulse Rate Pulse Rate [Apical ] 88 88 Respiratory Rate 16 18 Respiratory Effort / Characteristics Non-Labored Sponta neous Respiratory Depth Normal Blood Pressure Blood Pressure [Ri ght Arm] 149/79 H 143/79 H Blood Pressure Marina n Blood Pressure Marina n [Right Arm] 102 100 Pulse Oximetry 96 91 Oxygen Delivery Me thod Room Air Room Air Sepsis Recent Feve r Within 48 Hours Sepsis New/Unexpla ined Change in Men rachel Status Sepsis Action Take n by Nursing Physical Exam: Physical Exam GENERAL: oriented to person, place, and time. appears well-developed and well- nourished. HENT: Exam performed. - Head: Normocephalic and atraumatic. EYES: Conjunctivae and EOM are normal. Right eye exhibits no discharge. Left eye exhibits no discharge. No scleral icterus. NECK: Normal range of motion. Neck supple. No JVD present. CV: Normal rate, regular rhythm, normal heart sounds and intact distal pulses. There is no peripheral edema. Palpable radial pulses bue. PULM/CHEST: Expiratory wheezes bilaterally. ABD: The abdomen is soft. There is no tenderness. NEURO: Motor and sensation grossly intact. SKIN: Skin is warm and dry. He is not diaphoretic. PSYCH: normal mood and affect. Behavior is normal. Judgment and thought content normal. Course Course 1549: The patient was evaluated in room A11. A complete history and physical exam was performed Cardiac monitoring: An order was placed for continuous cardiac monitoring. The monitor shows a rate of 110 with sinus tachycardia rhythm interpreted by me 1724: Vital signs stable. Labs are unremarkable with exception of the patient tested positive for enterovirus rhinovirus. Chest x-ray negative for pneumonia. On reassessment status post steroids and repeat DuoNebs the patient is still wheezing. Patient states she does not feel well and feels like she needs to be admitted for COPD exacerbation. Azithromycin also given to the patient for COPD exacerbation not for bacterial pneumonia. Patient be admitted to the [facility] team Dr. David team will be notified. Administered Medications Discontinued Medications Albuterol (Albut/Ipratrop 3mg/0.5mg Neb 3 Ml Vial) 3 ml INH NOW STA Stop: 01/10/24 13:51 Last Admin: 01/10/24 16:05 Dose: Not Given Documented By: TARA Albuterol (Albuterol 0.5% Neb Soln 2.5 Mg/0.5 Ml Vial) Confirm Administered Dose 2.5 mg .ROUTE .STK-MED ONE Stop: 01/10/24 16:00 Last Admin: 01/10/24 16:00 Dose: Not Given Documented By: RAMOS Albuterol (Albut/Ipratrop 3mg/0.5mg Neb 3 Ml Vial) 3 ml NEB NOW STA; Protocol Stop: 01/10/24 16:00 Last Admin: 01/10/24 16:05 Dose: 3 ml Documented By: TARA Albuterol (Albut/Ipratrop 3mg/0.5mg Neb 3 Ml Vial) Confirm Administered Dose 3 ml .ROUTE .STK-MED ONE Stop: 01/10/24 16:02 Last Admin: 01/10/24 16:05 Dose: Not Given Documented By: TARA Albuterol (Albut/Ipratrop 3mg/0.5mg Neb 3 Ml Vial) 3 ml NEB NOW STA; Protocol Stop: 01/10/24 17:23 Last Admin: 01/10/24 18:08 Dose: 3 ml Documented By: RAMOS Azithromycin (Azithromycin 250 Mg Tab) 500 mg PO NOW ONE Stop: 01/10/24 17:23 Last Admin: 01/10/24 18:08 Dose: 500 mg Documented By: RAMOS Ceftriaxone Sodium (Rocephin) 2,000 mg in 50 mls @ 100 mls/hr IV NOW STA Stop: 01/10/24 18:39 Last Infusion: 01/10/24 19:10 Dose: Infused Documented By: Admin: 01/10/24 18:38 Dose: 100 mls/hr Documented By: RAMOS Methylprednisolone (Methylprednisolone 125 Mg/2 Ml Vial) 125 mg IV NOW STA Stop: 01/10/24 16:00 Last Admin: 01/10/24 16:04 Dose: 125 mg Documented By: TARA Oxycodone/Acetaminophen (Oxycodone/Acetaminophen 5mg/325mg Tab) 1 tab PO NOW STA Stop: 01/10/24 17:23 Last Admin: 01/10/24 18:07 Dose: 1 tab Documented By: RAMOS Medical Decision Making Laboratory Data Attestation: I reviewed the patient's lab results. 01/10/24 14:20 01/10/24 16:02 Lab Results 01/10/24 01/10/24 01/10/24 Range/Units 14:20 15:42 16:02 WBC 7.27 (4.8-10.8) K/ul RBC 4.81 (4.20-5.40) M/uL Hgb 13.2 (12.0-16.0) g/dl Hct 40.5 (37.0-47.0) % MCV 84.2 (80.0-100.0) fL MCH 27.4 (25.0-34.0) pg MCHC 32.6 (32.0-36.0) g/dL RDW Std Deviation 43.4 (36.4-46.3) fL RDW Coeff of Maegan 14.1 (11.5-14.5) % Plt Count 242 (130-400) K/uL MPV 11.8 (9.4-12.4) fL Immature Gran % (Auto) 0.3 % Neut % (Auto) 78.3 % Lymph % (Auto) 14.0 % Warrick % (Auto) 6.6 % Eos % (Auto) 0.4 % Baso % (Auto) 0.4 % Neut # (Auto) 5.69 (1.40-6.50) K/uL Lymph # (Auto) 1.02 L (1.20-3.40) K/uL Warrick # (Auto) 0.48 (0.11-0.59) K/uL Eos # (Auto) 0.03 (0.00-0.50) K/uL Baso # (Auto) 0.03 (0.00-0.20) K/uL Immature Gran # (Auto) 0.02 (0.01-0.20) K/uL PT 10.6 (9.0-12.0) Seconds INR 1.0 (0.9-1.1) APTT 25 (21-31) Seconds PTT Ratio 0.9 VBG pH 7.32 L (7.36-7.41) VBG pCO2 50 (38-50) mmHg VBG pO2 22 mmHg VBG HCO3 26 mmol/L VBG O2 Saturation < 60.0 % VBG Base Excess -0.9 mEq/L Sodium Cancelled 137 Potassium Cancelled 3.9 Chloride Cancelled 107 Carbon Dioxide Cancelled 22 Anion Gap Cancelled 8 BUN Cancelled 9 Creatinine Cancelled 0.78 Est Cr Clr Drug Dosing Cancelled Not Reportable Est GFR ( Amer) Cancelled 88.6 Est GFR (Non-Af Amer) Cancelled 76.5 BUN/Creatinine Ratio Cancelled 11.5 Glucose Cancelled 92 POC Glucose 82 (70-99) mg/dl Calcium Cancelled 9.2 Total Bilirubin Cancelled 0.5 AST Cancelled 22 ALT Cancelled 18 Alkaline Phosphatase Cancelled 106 H Troponin I High Sens Cancelled < 2.3 Total Protein Cancelled 7.6 Albumin Cancelled 4.5 Globulin Cancelled 3.1 Albumin/Globulin Ratio Cancelled 1.5 Urine Color Urine Appearance (Clear) Urine pH (4.5-7.5) Ur Specific [place] (1.000-1.030) Urine Protein (Negative) Urine Glucose (UA) (Negative) Urine Ketones (Negative) Urine Blood (Negative) Urine Nitrite (Negative) Urine Bilirubin (Negative) Urine Urobilinogen (Negative) Ur Leukocyte Esterase (Negative) Urine WBC (Auto) (0-5) /hpf Urine RBC (Auto) (0-2) /hpf U Hyaline Cast (Auto) (0-2) /lpf U Epithel Cells (Auto) (0-2) /hpf Urine Bacteria (Auto) (None Seen) Adenovirus (PCR) Not Detected (NotDetected) B. pertussis DNA (PCR) Not Detected (NotDetected) B.parapertussis DNA PCR Not Detected (NotDetected) C. pneumoniae DNA (PCR) Not Detected (NotDetected) Coronavirus OC43 (PCR) Not Detected (NotDetected) Coronavirus HKU1 (PCR) Not Detected (NotDetected) Coronavirus 229E (PCR) Not Detected (NotDetected) SARS-CoV-2 (PCR) Not Detected (NotDetected) Coronavirus NL63 (PCR) Not Detected (NotDetected) Human Metapneumovir PCR Not Detected (NotDetected) Influenza Type A (PCR) Not Detected (NotDetected) Influenza Type B (PCR) Not Detected (NotDetected) M. pneumoniae (PCR) Not Detected (NotDetected) Parainfluenza 1 (PCR) Not Detected (NotDetected) Parainfluenza 2 (PCR) Not Detected (NotDetected) Parainfluenza 3 (PCR) Not Detected (NotDetected) Parainfluenza 4 (PCR) Not Detected (NotDetected) RSV (PCR) Not Detected (NotDetected) Entero/Rhino (PCR) DETECTED A (NotDetected) 01/10/24 01/10/24 Range/Units 16:46 18:56 WBC (4.8-10.8) K/ul RBC (4.20-5.40) M/uL Hgb (12.0-16.0) g/dl Hct (37.0-47.0) % MCV (80.0-100.0) fL MCH (25.0-34.0) pg MCHC (32.0-36.0) g/dL RDW Std Deviation (36.4-46.3) fL RDW Coeff of Maegan (11.5-14.5) % Plt Count (130-400) K/uL MPV (9.4-12.4) fL Immature Gran % (Auto) % Neut % (Auto) % Lymph % (Auto) % Warrick % (Auto) % Eos % (Auto) % Baso % (Auto) % Neut # (Auto) (1.40-6.50) K/uL Lymph # (Auto) (1.20-3.40) K/uL Warrick # (Auto) (0.11-0.59) K/uL Eos # (Auto) (0.00-0.50) K/uL Baso # (Auto) (0.00-0.20) K/uL Immature Gran # (Auto) (0.01-0.20) K/uL PT (9.0-12.0) Seconds INR (0.9-1.1) APTT (21-31) Seconds PTT Ratio VBG pH (7.36-7.41) VBG pCO2 (38-50) mmHg VBG pO2 mmHg VBG HCO3 mmol/L VBG O2 Saturation % VBG Base Excess mEq/L Sodium Potassium Chloride Carbon Dioxide Anion Gap BUN Creatinine Est Cr Clr Drug Dosing Est GFR ( Amer) Est GFR (Non-Af Amer) BUN/Creatinine Ratio Glucose POC Glucose (70-99) mg/dl Calcium Total Bilirubin AST ALT Alkaline Phosphatase Troponin I High Sens 3.0 Total Protein Albumin Globulin Albumin/Globulin Ratio Urine Color Yellow Urine Appearance Cloudy A (Clear) Urine pH 5.5 (4.5-7.5) Ur Specific [place] 1.024 (1.000-1.030) Urine Protein Trace H (Negative) Urine Glucose (UA) Negative (Negative) Urine Ketones 1+ H (Negative) Urine Blood Negative (Negative) Urine Nitrite Negative (Negative) Urine Bilirubin Negative (Negative) Urine Urobilinogen Negative (Negative) Ur Leukocyte Esterase 3+ H (Negative) Urine WBC (Auto) >50 H (0-5) /hpf Urine RBC (Auto) 0-2 (0-2) /hpf U Hyaline Cast (Auto) 0-2 (0-2) /lpf U Epithel Cells (Auto) >20 H (0-2) /hpf Urine Bacteria (Auto) 4+ H (None Seen) Adenovirus (PCR) (NotDetected) B. pertussis DNA (PCR) (NotDetected) B.parapertussis DNA PCR (NotDetected) C. pneumoniae DNA (PCR) (NotDetected) Coronavirus OC43 (PCR) (NotDetected) Coronavirus HKU1 (PCR) (NotDetected) Coronavirus 229E (PCR) (NotDetected) SARS-CoV-2 (PCR) (NotDetected) Coronavirus NL63 (PCR) (NotDetected) Human Metapneumovir PCR (NotDetected) Influenza Type A (PCR) (NotDetected) Influenza Type B (PCR) (NotDetected) M. pneumoniae (PCR) (NotDetected) Parainfluenza 1 (PCR) (NotDetected) Parainfluenza 2 (PCR) (NotDetected) Parainfluenza 3 (PCR) (NotDetected) Parainfluenza 4 (PCR) (NotDetected) RSV (PCR) (NotDetected) Entero/Rhino (PCR) (NotDetected) Imaging Data Attestation: I personally reviewed and interpreted this imaging study as follows: My Impression: Chest x-ray negative. Airway clear. No pneumothorax. No consolidation. No cardiomegaly or cephalization.. No free air under the diaphragm. No fractures of the skeletal structures. Radiologist's Impression: Chest X-Ray 01/10/24 13:50 XR chest 2V PA/lateral HISTORY: 73 years-old Female Dyspnea COMPARISON: 12/30/2023 TECHNIQUE: AP and lateral view of the chest FINDINGS: Cholecystectomy. Cardiomediastinal and hilar silhouettes are within normal limits. Patient is mildly rotated towards the left. No pneumothorax or pleural effusion. Lungs are clear. IMPRESSION: No acute process. ACT 112: Negative or not required by law. The above report was generated using voice recognition software. It may contain grammatical, syntax or spelling errors. Electronically signed by: Mehul Wiggins M.D. 01/10/2024 3:07 PM ECG Data Attestation: I personally reviewed and interpreted this ECG as follows: Interpretation: Sinus tachycardia with a rate of 109. AR 136 QRS [address] elevation or ST depression. [facility] Narrative 1549: The patient was evaluated in room A11. A complete history and physical exam was performed Cardiac monitoring: An order was placed for continuous cardiac monitoring. The monitor shows a rate of 110 with sinus tachycardia rhythm interpreted by me 1724: Vital signs stable. Labs are unremarkable with exception of the patient tested positive for enterovirus rhinovirus. Chest x-ray negative for pneumonia. On reassessment status post steroids and repeat DuoNebs the patient is still wheezing. Patient states she does not feel well and feels like she needs to be admitted for COPD exacerbation. Azithromycin also given to the patient for COPD exacerbation not for bacterial pneumonia. Patient be admitted to the [facility] hospitalist team Dr. David team will be notified. Impression & Plan COPD (chronic obstructive pulmonary disease) Discharge Plan Visit Data Chief Complaint: Illness Stated Complaint: ILLNESS, COUGH, WEAKNESS, SOB ED Provider: Agus Townsend Discharge Problem: COPD (chronic obstructive pulmonary disease) Patient Disposition: Admitted As Inpatient Forms Stand Alone Forms: My [facility] Prescriptions Prescriptions: No Action (DME) OneTouch Verio test strips Strip See Rx Instructions .Route Qty: 400 1RF Rx Instructions: TEST FOUR TIMES DAILY, DX CODE: E11.9 (DME) lancets [Onetouch Delica Safety Lancet] 30 gauge misc See Rx Instructions .Route Qty: 400 1RF Rx Instructions: TEST FOUR TIMES DAILY, DX CODE: E11.9 (DME) blood-glucose meter [OneTouch Verio Flex meter] Mis See Rx Instructions .Route Qty: 1 0RF Rx Instructions: TEST FOUR TIMES DAILY; DX CODE- E11.9 (DME) nebulizers Mis See Rx Instructions .Route Qty: 1 0RF Rx Instructions: as directed (DME) nebulizer accessories Kit See Rx Instructions .Route Qty: 2 12RF Rx Instructions: As directed/ tubing and mouthpiece nitroglycerin 0.4 mg tablet, sublingual 0.4 mg sublingual Q5M PRN (Reason: Chest Pain) Qty: 20 1RF Rx Instructions: filled 539 days ago Take up to 3 doses. Call 911 if pain persists. insulin lispro [Humalog KwikPen Insulin] 100 unit/mL insulin pen 1 sliding scale dose subcut USEASDIRECTD Qty: 15 2RF Rx Instructions: tid with meals and sliding scale albuterol sulfate 2.5 mg /3 mL (0.083 %) solution for nebulization 2.5 mg INH Q4H PRN (Reason: shortness of breath or wheezing) Qty: 180 2RF aspirin 81 mg tablet,delayed release (DR/EC) 81 mg PO QAM Qty: 30 0RF Rx Instructions: unable to verify epinephrine 0.3 mg/0.3 mL auto-injector 0.3 mg IM DIRECTED PRN (Reason: anaphylaxis) Qty: 2 1RF Rx Instructions: inject solution auto injector. Per pt she needs a new script albuterol sulfate [Ventolin HFA] 90 mcg/actuation HFA aerosol inhaler 2 puff INHALATION Q6H PRN (Reason: Shortness Of Breath Or Wheezing) Qty: 8.5 5RF fluticasone propionate [Flonase Allergy Relief] 50 mcg/actuation spray,suspension 2 spray intranasal DAILY ipratropium bromide 0.02 % solution 2.5 ml inhalation Q4H PRN (Reason: shortness of breath or wheezing) Referrals Referrals: Gianna Dempsey DO [Primary Care Provider] - Discharge Problem: COPD (chronic obstructive pulmonary disease) Qualifiers: COPD type: unspecified COPD Qualified Code(s): J44.9 - Chronic obstructive pulmonary disease, unspecified
[2024-01-10] MEDS ORDERED: ONDANSETRON INJ 2 MG/ML 2 ML VIAL IV PRN (21:10)
[2024-01-10] MEDS ORDERED: DEXTROSE 50% 50 ML SYRINGE IV PRN (21:10)
[2024-01-10] MEDS ORDERED: ALBUTEROL HFA 8 GM INHALER INH PRN (21:10)
[2024-01-10] MEDS ORDERED: PHARMACY GLYCEMIC MGMT CONSULT PRN (21:10)
[2024-01-10] MEDS ORDERED: GLUCAGON FOR INJ 1 MG VIAL SQ PRN (21:10)
[2024-01-10] MEDS ORDERED: GLUCOSE 40% GEL 15 GM TUBE PO PRN (21:10)
[2024-01-10] MEDS ORDERED: IPRATROPIUM BROMIDE NEB SOLN 0.02% 0.5MG/2.5ML VIAL INH PRN (21:10)
[2024-01-10] MEDS ORDERED: GLUCOSE 10 TAB/TUBE PO PRN (21:10)
[2024-01-10] MEDS ORDERED: CARBOHYDRATES FOR HYPOGLYCEMIA PO PRN (21:10)
[2024-01-10] MEDS ORDERED: EPINEPHrine INJ 1 MG/ML AMP IM PRN (21:33)
[2024-01-10] MEDS: guaiFENesin 600 MG TABCR PO SCH (22:15)
[2024-01-10] MEDS: INSULIN ASPART PER UNIT CHARGE SC SCH (22:16)
[2024-01-10] MEDS: methylPREDNISolone 40 MG in SYRINGE 0 ML IV SCH (22:16)
[2024-01-10] MEDS: NovoLIN-N (NPH) PER UNIT CHARGE SQ ONE (22:17)
[2024-01-10] MEDS: ENOXAPARIN INJ 40 MG/0.4 ML SYR SQ SCH (22:17)
[2024-01-10] MEDS ORDERED: PNEUMOCOCCAL VACCINE (PCV20) 20-VAL CONJ-DIP CRM/PF 0.5 ML SYR IM ONE (23:15)
[2024-01-10] MEDS: ALBUT/IPRATROP 3MG/0.5MG NEB 3 ML VIAL INH SCH (23:26)
[2024-01-11] MEDS: INSULIN ASPART PER UNIT CHARGE SC ONE (04:18)
[2024-01-11 07:25] LABS: Hematocrit (blood only) 40.8 % (37.0-47.0); Hemoglobin 13.2 g/dl (12.0-16.0); Immature Granulocytes # (auto) 0.03 K/uL (0.01-0.20); Immature Granulocytes % (auto) 0.5 %; Lymphocytes # (auto) 1.11 K/uL (1.20-3.40); Lymphocytes % (auto) 17.4 %; Mean Corpuscular Hemoglobin 27.8 pg (25.0-34.0); Mean Corpuscular Hgb Conc 32.4 g/dL (32.0-36.0); Mean Corpuscular Volume 86.1 fL (80.0-100.0); Mean Platelet Volume 11.8 fL (9.4-12.4); Monocytes # (auto) 0.06 K/uL (0.11-0.59); Monocytes % (auto) 0.9 %; Neutrophils # (auto) 5.18 K/uL (1.40-6.50); Neutrophils % (auto) 81.2 %; Platelet Count 250 K/uL (130-400); RDW Coefficient of Variation 13.9 % (11.5-14.5); RDW Standard Deviation 43.7 fL (36.4-46.3); Red Blood Count 4.74 M/uL (4.20-5.40); White Blood Count 6.38 K/ul (4.8-10.8)
[2024-01-11 07:59] LABS: BUN Creatinine Ratio 21.8 (10-20); Calcium 9.6 mg/dl (8.6-10.3); Creatinine Clr Calc Pharmacy 58.3 ml/min; Est GFR (African American) 88.6 ml/min; Est GFR (Non-African American) 76.5 ml/min; Potassium 4.5 mmol/L (3.5-5.1)
[2024-01-11 08:05] LABS: Estimated Average Glucose 131 mg/dl; Hemoglobin A1C 6.2 % (4.5-5.6)
[2024-01-11] MEDS: ASPIRIN 81 MG ECTAB PO SCH (09:06)
[2024-01-11] MEDS: FLUTICASONE PROPIONATE NA SPR 16 GM BTL SCH (09:07)
[2024-01-11] MEDS: LANTUS PER UNIT CHARGE SC SCH ×2 (11:05→21:26)
--- NOTE | 2024-01-11 12:10 | Pharmacy Report ---
Pharmacy Glycemic Short Note 2 - Date of Service January 11, 2024 - Glycemic Short BSG Results (Last 24 hours): 01/10/24 01/10/24 01/10/24 14:20 15:42 16:02 Glucose Cancelled 92 POC Glucose 82 01/10/24 01/11/24 01/11/24 21:06 04:07 05:39 Glucose 116 H POC Glucose 143 H 113 H 01/11/24 11:22 Glucose POC Glucose 192 H OUTPATIENT ANTIDIABETIC REGIMEN: * Humalog SSI TID w/ meals HbA1c: 6.2% (01/11/24) ASSESSMENT: * RB is a 73 year old female who presented to ED on 01/09 for evaluation of 2-3 days of URI symptoms * Patient started on IV methylprednisolone 40 mg BID * Received 25 units of NPH and 6 units of Novolog last evening * Fasting blood sugar on lab draw of 116 mg/dL, POC BSG not obtained * Of note, AM Lantus ordered, but not given until 1105 * Well-controlled diabetes as an outpatient per most recent HbA1c of 6.2% * Will give SC basal/bolus regimen while inpatient to account for IV steroids * Basal to equal up to ~0.4 unit/kg PLAN FOR INPATIENT GLYCEMIC CONTROL: * Basal insulin * Lantus 15 units SC daily * Lantus 0-5-10 units SC HS (see EHR for details) * Bolus insulin * NovoLog per scale ACHS or Q6hrs while NPO * Goal Range: Low 110 mg/dL - High 140 mg/dL * Correction Factor: 25 mg/dL/unit * Nutritional / Prandial insulin per carb ratio of 1 unit per 8 grams CHO consumed
--- NOTE | 2024-01-11 14:22 | Hospitalist Progress Note ---
Date of Service January 11, 2024 Assessment & Plan (1) Enterovirus infection: Plan: Rhino/Enterovirus (+) on arrival, no pneumonia on chest x-ray Supportive Care Droplet isolation precautions Acetaminophen as needed for pain/fever She is not needing supplemental oxygen-this has been weaned off Albuterol as needed for bronchitis/cough (2) Left-sided chest pain: Plan: Patient endorses 10/10 left-sided chest pain at time of admission and again on 01/10 that is atypical in nature Recent chest CTA in the ED on 12/30/2023 was negative (presenting with similar symptoms of pleuritic CP and chest pain reproducible on exam). She also had what sounds like a very similar admission for such chest pain in October at [facility] in [place]-those discharge summary records were reviewed Troponin WNL at 2.3, and repeat troponins again today both normal Continuous telemetry monitoring-no arrhythmias Seems to be atypical, possibly GI related, could be pleuritic pain but is also reproducible on exam Offered morphine and GI cocktail but she refused GI cocktail She will try Toradol as well and reports she has had this in the past without allergic reaction (3) Acute UTI: Plan: Clinically, patient does endorse burning with urination and suprapubic tenderness/pain History of recurrent UTIs Review of prior urine cultures revealed pansensitive E. 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 She was adamant that it would not get better unless she got morphine. She complains of cough. She is lying flat on her back. She also is asking if I am sending her home from the hospital. She is refusing a GI cocktail. ECG showed no ischemic changes and troponin was negative x 2. She is also requesting to be on supplemental oxygen even though her pulse ox was 96% on room air Telemetry with normal sinus rhythm with rates in the 60s to 90s Physical Exam Constitutional: WD/WN, vitals as above Respiratory: normal respiratory effort, lungs clear to auscultation Cardiovascular: RRR, no murmur, no edema Gastrointestinal (Abdomen): normal bowel sounds, soft, nontender, no hepatosplenomegaly Psychiatric: Orientation: alert and oriented x 3 Results & Data Results & Data Vital Signs (Past 12 Hours) Vital Signs Temp Pulse Pulse Resp BP Pulse Ox O2 Del Method 01/11/24 13:00 93 H 16 96 Room Air 01/11/24 11:28 Room Air, Nasal Cannula 01/11/24 07:57 36.5 C 70 18 105/68 99 Nasal Cannula 01/11/24 07:24 64 01/11/24 07:09 78 18 99 Nasal Cannula 01/11/24 04:05 36.6 C 75 20 122/79 99 Nasal Cannula O2 Flow Rate 01/11/24 13:00 01/11/24 11:28 01/11/24 07:57 2 01/11/24 07:24 01/11/24 07:09 2 01/11/24 04:05 2 Laboratory Results Troponin, CBC, BMP, hemoglobin A1c reviewed ECG Additional Comments: ECG with sinus rhythm, left anterior fascicular block unchanged, no ischemic changes PG Care Time/CCT Total # of Minutes Spent Total Time Spent with Patient: Total time spent is greater than 50% in coordination of care (as documented) at patient's floor/unit and/or counseling patient: Coding Level of Care Code 06136 SUB INP/OBS CARE 235MIN Diagnoses Enterovirus infection B34.1 Left-sided chest pain R07.9 Acute UTI N39.0 Type 2 diabetes mellitus E11.9; Z79.4 Diabetes mellitus complication status: without complication Diabetes mellitus mcc insulin use: with buttermaker use Histrionic personality disorder F60.4 (4) Type 2 diabetes mellitus Diabetes mellitus complication status: without complication Diabetes mellitus mcc insulin use: with mcc use Qualified Code(s): E11.9 - Type 2 diabetes mellitus without complications; Z79.4 - snf (current) use of insulin
[2024-01-11] MEDS: ACETAMINOPHEN 325 MG TAB PO PRN (14:49)
[2024-01-11] MEDS: MoRPHine SULFATE 2 MG/ML CARP IV STA (15:16)
--- NOTE | 2024-01-11 16:18 | Electrocardiogram Report ---
Test Reason : Blood Pressure : / mmHG Vent. Rate : 085 BPM Atrial Rate : 085 BPM P-R Int : 134 ms QRS Dur : 078 ms QT Int : 372 ms P-R-T Axes : 079 -63 065 degrees QTc Int : 442 ms Normal sinus rhythm Left anterior fascicular block Abnormal ECG When compared with ECG of 10-JAN-2024 14:14, No significant change was found Confirmed by Cyrus Cartagena ([id number]) on 01/11/2024 4:18:14 PM Referred By: REFERRED SELF Confirmed By:Cyrus Cartagena
[2024-01-11] MEDS: cefTRIAXone SODIUM 2,000 MG/50 ML BAG IV SCH (18:16)
[2024-01-11] MEDS: KETOROLAC TROMETHAMINE 15 MG/ML VIAL IV ONE (18:16)
[2024-01-11] MEDS ORDERED: DICLOFENAC SOD 1% GEL 100 GM TUBE EXT PRN (19:46)
[2024-01-11] MEDS: MoRPHine SULFATE 2 MG/ML CARP IV PRN (21:27)
[2024-01-12 07:06] LABS: Basophils # (auto) 0.03 K/uL (0.00-0.20); Basophils % (auto) 0.1 %; Hematocrit (blood only) 38.1 % (37.0-47.0); Hemoglobin 12.5 g/dl (12.0-16.0); Immature Granulocytes # (auto) 0.17 K/uL (0.01-0.20); Immature Granulocytes % (auto) 0.8 %; Lymphocytes # (auto) 1.67 K/uL (1.20-3.40); Lymphocytes % (auto) 7.9 %; Mean Corpuscular Hgb Conc 32.8 g/dL (32.0-36.0); Mean Corpuscular Volume 85.2 fL (80.0-100.0); Mean Platelet Volume 11.5 fL (9.4-12.4); Monocytes % (auto) 1.4 %; Neutrophils # (auto) 19.03 K/uL (1.40-6.50); Neutrophils % (auto) 89.8 %; Platelet Count 249 K/uL (130-400); RDW Coefficient of Variation 13.9 % (11.5-14.5); RDW Standard Deviation 43.4 fL (36.4-46.3); Red Blood Count 4.47 M/uL (4.20-5.40)
[2024-01-12 07:26] LABS: BUN Creatinine Ratio 31.3 (10-20); Calcium 9.4 mg/dl (8.6-10.3); Creatinine Clr Calc Pharmacy 54.9 ml/min; Est GFR (African American) 82.2 ml/min; Est GFR (Non-African American) 70.9 ml/min; Potassium 4.8 mmol/L (3.5-5.1)
[2024-01-12] MEDS: LANTUS PER UNIT CHARGE SC SCH (08:58)
--- NOTE | 2024-01-12 10:09 | Electrocardiogram Report ---
Test Reason : Blood Pressure : / mmHG Vent. Rate : 083 BPM Atrial Rate : 083 BPM P-R Int : 128 ms QRS Dur : 082 ms QT Int : 376 ms P-R-T Axes : 079 -41 077 degrees QTc Int : 441 ms Normal sinus rhythm Left axis deviation Abnormal ECG When compared with ECG of 10-JAN-2024 16:03, No significant change was found Confirmed by Cyrus Cartagena ([id number]) on 01/12/2024 10:08:50 AM Referred By: REFERRED SELF Confirmed By:Cyrus Cartagena
[2024-01-12] MEDS: SENNA 8.6 MG TAB PO SCH ×2 (10:42→18:11)
--- NOTE | 2024-01-12 16:31 | Hospitalist Progress Note ---
Date of Service January 12, 2024 Assessment & Plan (1) Enterovirus infection: Plan: Rhino/Enterovirus (+) on arrival, no pneumonia on chest x-ray. No fevers but with cough Continue Supportive Care and Droplet isolation precautions Acetaminophen as needed for pain/fever She is not needing supplemental oxygen-this has been weaned off Albuterol as needed for bronchitis/cough (2) Constipation: Plan: Today pt c/o constipation and lower abd pain. She appears very comfortable and then when examined, screams out in pain but voluntary guarding goes away with distraction Suspect malingering. 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 Pt requesting bisacodyl suppository and senna Will see if abd pain improves with moving bowels more (3) Left-sided chest pain: Plan: Patient endorses 10/10 left-sided chest pain at time of admission and again on 01/10 that is atypical in nature Recent chest CTA in the ED on 12/30/2023 was negative (presenting with similar symptoms of pleuritic CP and chest pain reproducible on exam). She also had what sounds like a very similar admission for such chest pain in October at [facility] in [place]-those discharge summary records were reviewed Troponin normal x 4 Continuous telemetry monitoring-no arrhythmias Seems to be atypical, possibly GI related, could be pleuritic pain but is also reproducible on exam Offered morphine and GI cocktail but she refused GI cocktail She had one dose of Toradol On 01/11, pain now almost gone (4) Dysphagia: Plan: long standing problem, seen by GI, was to have barium swallow tomorrow and requesting to have this done while in hospital-ordered (5) Acute UTI: Plan: Clinically, patient does endorse burning with urination and suprapubic tenderness/pain History of recurrent UTIs Review of prior urine cultures revealed pansensitive E. coli, urine culture mixed colin Continue ceftriaxone 2000 mg IV q24h x 3 days for empiric treatment (6) Type 2 diabetes mellitus: Plan: Last A1c at 5.9% on 08/10/2023 and now hemoglobin A1c 6.2% Continue basal bolus insulin T2DM diet, BSG ACHS Adjust regimen as needed Pharmacy glycemic consult given IV steroid use (7) Histrionic personality disorder: Plan: Noted Plan [facility] Full code VTE PPx: Lovenox 40mg SQ q24h Admission and Anticipated Discharge Date Admission Date: January 10, 2024 Subjective Pt reports 10/10 lower abd pain all across the bottom. She was given senna this AM and had 2-3 small BMs but pt told me she has not moved her bowels in 2-3 days. SYNTHETIC DEPARTMENT SUPERVISOR told me she saw BMs in the toilet nd flushed it. Pt reports ongoing left sided chest pain but is improved from previous. Still has dizziness. Still coughing Tele with NSR, ST rates 80-100 Physical Exam Constitutional: WD/WN, vitals as above Respiratory: normal respiratory effort, lungs clear to auscultation Cardiovascular: RRR, no murmur, no edema Gastrointestinal (Abdomen): Inspection/Auscultation: abdomen normal to inspection and normal bowel sounds; abdomen not distended Percussion/Palpation: + abdomen tender (all across lower abd with voluntary guarding,resolves with distraction) and abdomen soft Psychiatric: Orientation: alert and oriented x 3 Results & Data Results & Data Vital Signs (Past 12 Hours) Vital Signs Temp Pulse Pulse Resp BP Pulse Ox O2 Del Method 01/12/24 16:06 36.6 C 89 18 162/76 H 91 Room Air 01/12/24 14:28 77 01/12/24 13:23 82 16 97 Room Air 01/12/24 11:32 36.5 C 77 18 135/65 94 Room Air 01/12/24 10:58 Nasal Cannula 01/12/24 10:18 62 01/12/24 07:45 36.7 C 84 18 145/81 H 96 Room Air 01/12/24 07:23 84 16 97 Room Air Laboratory Results CBC, BMP, troponin reviewed PG Care Time/CCT Total # of Minutes Spent Total Time Spent with Patient: Total time spent is greater than 50% in coordination of care (as documented) at patient's floor/unit and/or counseling patient: Coding Level of Care Code 69468 SUB INP/OBS CARE 2/35MIN Diagnoses Enterovirus infection B34.1 Constipation K59.00 Left-sided chest pain R07.9 Dysphagia R13.10 Acute UTI N39.0 Type 2 diabetes mellitus E11.9; Z79.4 Diabetes mellitus complication status: without complication Diabetes mellitus residential insulin use: with residential use Histrionic personality disorder F60.4 (6) Type 2 diabetes mellitus Diabetes mellitus complication status: without complication Diabetes mellitus intermediate frame tender insulin use: with intermediate frame tender use Qualified Code(s): E11.9 - Type 2 diabetes mellitus without complications; Z79.4 - keno terminal operator (current) use of insulin
[2024-01-12] MEDS: bisacodyL 10 MG SUPP PR STA (17:25)
[2024-01-13 06:15] LABS: Hematocrit (blood only) 36.1 % (37.0-47.0); Hemoglobin 12.1 g/dl (12.0-16.0); Mean Corpuscular Hemoglobin 28.1 pg (25.0-34.0); Mean Corpuscular Hgb Conc 33.5 g/dL (32.0-36.0); Mean Platelet Volume 11.4 fL (9.4-12.4); Platelet Count 249 K/uL (130-400); RDW Coefficient of Variation 14.3 % (11.5-14.5); RDW Standard Deviation 43.9 fL (36.4-46.3); White Blood Count 16.82 K/ul (4.8-10.8)
[2024-01-13 06:35] LABS: Anion Gap 5 (3-11); BUN Creatinine Ratio 25.7 (10-20); Blood Urea Nitrogen 19 mg/dl (6-23); Calcium 9.2 mg/dl (8.6-10.3); Carbon Dioxide 28 mmol/L (21-32); Chloride 106 mmol/L (98-107); Creatinine Clr Calc Pharmacy 61.4 ml/min; Est GFR (African American) 94.5 ml/min; Est GFR (Non-African American) 81.5 ml/min; Glucose 136 mg/dl (70-99(Fasting)); Sodium 139 mmol/L (136-145)
[2024-01-13 06:45] LABS: Basophils # (auto) 0.01 K/uL (0.00-0.20); Basophils % (auto) 0.1 %; Immature Granulocytes # (auto) 0.15 K/uL (0.01-0.20); Immature Granulocytes % (auto) 0.9 %; Lymphocytes # (auto) 1.13 K/uL (1.20-3.40); Lymphocytes % (auto) 6.7 %; Monocytes % (auto) 1.2 %; Neutrophils # (auto) 15.33 K/uL (1.40-6.50); Neutrophils % (auto) 91.1 %
[2024-01-13] MEDS: LANTUS PER UNIT CHARGE SC SCH (08:54)
[2024-01-13] MEDS: predniSONE 20 MG TAB PO SCH (08:55)
[2024-01-13] MEDS ORDERED: LANTUS PER UNIT CHARGE SC SCH ×2 (09:00→21:00)
--- NOTE | 2024-01-13 10:16 | Pharmacy Report ---
Pharmacy Glycemic Short Note 2 - Date of Service January 13, 2024 - Glycemic Short BSG Results (Last 24 hours): 01/12/24 01/12/24 01/12/24 11:59 17:04 20:28 Glucose POC Glucose 127 H 138 H 149 H 01/13/24 01/13/24 05:45 08:20 Glucose 136 H POC Glucose 115 H OUTPATIENT ANTIDIABETIC REGIMEN: * Humalog SSI TID w/ meals HbA1c: 6.2% (01/11/24) ASSESSMENT: 01/13/24: * Blood sugars well-controlled yesterday, ranging 127-149 mg/dL * Received 31 units of insulin (25 units of which were basal) * Steroids changed today from methylprednisolone 40 mg IV BID to prednisone 40 mg PO daily * NPO for barium swallow this AM, now ordered diet w/ lunch * Will decrease basal today empirically due to NPO and steroid change 01/11/24: * RB is a 73 year old female who presented to ED on 01/09 for evaluation of 2-3 days of URI symptoms * Patient started on IV methylprednisolone 40 mg BID * Received 25 units of NPH and 6 units of Novolog last evening * Fasting blood sugar on lab draw of 116 mg/dL, POC BSG not obtained * Of note, AM Lantus ordered, but not given until 1105 * Well-controlled diabetes as an outpatient per most recent HbA1c of 6.2% * Will give SC basal/bolus regimen while inpatient to account for IV steroids * Basal to equal up to ~0.4 unit/kg PLAN FOR INPATIENT GLYCEMIC CONTROL: * Basal insulin * Lantus 10 units SC daily w/ prednisone * Lantus 0-5-10 units SC HS (see EHR for details) * Bolus insulin * NovoLog per scale ACHS or Q6hrs while NPO * Goal Range: Low 110 mg/dL - High 140 mg/dL * Correction Factor: 25 mg/dL/unit * Nutritional / Prandial insulin per carb ratio of 1 unit per 8 grams CHO consumed
--- NOTE | 2024-01-13 11:11 | Fluoroscopy Report ---
DOUBLE CONTRAST BARIUM ESOPHAGRAM CLINICAL HISTORY: Dysphagia. COMPARISON STUDY: Chest CT dated 12/30/2023. TECHNIQUE: A standard air contrast barium esophagram is performed. Multiple spot images of the esopha emerson are acquired both upright and prone. FINDINGS: The patient swallowed barium without difficulty. The patient declined the barium pill. Ther e is moderate esophageal dysmotility. The mucosal pattern is normal. There is no evidence of intrinsi c or extrinsic mass lesion. No aspiration was seen. The gastroesophageal junction distended normally . No gastroesophageal reflux could be elicited by having the patient perform the Valsalva maneuver. Fluoroscopy time: 39 seconds. Ka,r: 32.7 mGy Fluoroscopic images: 16 spot images and 2 cine loops IMPRESSION: 1. Moderate esophageal dysmotility. 2. Otherwise normal barium esophagram. ACT 112: Negative or not required by law. Electronically signed by: Edgar Rogers M.D. 01/13/2024 11:10 AM
--- NOTE | 2024-01-13 15:46 | Discharge Summary ---
Discharge Summary Date of Service January 13, 2024 Principal Dx & Hospital Course #1 = Principal Diagnosis (1) Enterovirus infection: Rhino/Enterovirus (+) on arrival, no pneumonia on chest x-ray. No fevers but with cough/bronchitis and a h/o COPD Continue Supportive Care and Droplet isolation precautions Acetaminophen as needed for pain/fever She is not needing supplemental oxygen-this has been weaned off Albuterol as needed for bronchitis/cough Finish out 3 more days of prednisone 40mg daily for COPD exacerbation/bronchitis (2) Constipation: pt c/o constipation and lower abd pain despite multiple witnessed episodes of soft formed stool by aides. She appears very comfortable and then when examined, screams out in pain but voluntary guarding goes away with distraction. This resolved and she was nontender on exam with distraction on the day of discharge continue senna daily as needed at home (3) Left-sided chest pain: Patient endorses 10/10 left-sided chest pain at time of admission and again on 01/10 that is atypical in nature-now resolved Recent chest CTA in the ED on 12/30/2023 was negative (presenting with similar symptoms of pleuritic CP and chest pain reproducible on exam). She also had what sounds like a very similar admission for such chest pain in October at [facility] in [place]-those discharge summary records were reviewed Troponin normal x 4 Continuous telemetry monitoring-no arrhythmias Seems to be atypical, possibly GI related, could be pleuritic pain but is also reproducible on exam Offered morphine and GI cocktail but she refused GI cocktail She had one dose of Toradol and pain resolved (4) Dysphagia: long standing problem, seen by GI and was ordered barium swallow-performed while in hospital-showed moderate esophageal dysmotility f/u with GI as outpt (5) Acute UTI: Clinically, patient does endorse burning with urination and suprapubic tenderness/pain History of recurrent UTIs Review of prior urine cultures revealed pansensitive E. coli, urine culture mixed colin Received ceftriaxone 2000 mg IV q24h x 3 days for empiric treatment (6) Type 2 diabetes mellitus: Last A1c at 5.9% on 08/10/2023 and now hemoglobin A1c 6.2% Continue bolus insulin at home but veryr well controlled T2DM diet, BSG ACHS (7) Histrionic personality disorder: Noted Plan Disposition: dc to home with home health Full code VTE PPx: Lovenox 40mg SQ q24h Notes For Next Care Provider None Medication Changes From Visit Prednisone 40mg po daily x 3 more days Admission HPI Per Admitting Provider Gail is a 73-year-old female with PMH of multiple sclerosis, HTN, HLD, MVP, allergic rhinitis, T2DM, orthostatic tremor, recurrent UTI, IBS, COPD, and seizure disorder. She presented for generalized weakness, SOB, and chest pain x 2 days. She endorses both SOB at rest and with exertion; worse when lying flat. She does not use supplemental oxygen at home, or CPAP at night. She did not take any other regular morning medications today, no recent change in medications. She has not been taking any additional medications at home for the chest pain or difficulty breathing. She does endorse 10/10 substernal chest pain at this time with radiation down the left shoulder and neck. No radiation to the back. She attributes it to her coughing fits, which have been ongoing for multiple days. She characterizes it as a sharp, stabbing pain. No PMH of DVT/PE. She is unsure if she has had a fever at home, she does not have a thermometer, but reports that she had a fever around 100 F in the ambulance. She denies smoking, tobacco use, and alcohol use. Patient is mildly hypertensive at 149/79 at time of admission; SpO2 96% on room air. ED course: DuoNeb 3 mL Solu-Medrol 125 mg IV ROS: Patient endorses chills, night-sweats, body aches (in the legs), dizziness/lightheadedness with walking, mild BROOKS, SOB both at rest and with exertion, orthopnea, productive cough (green phlegm), pleuritic CP, transverse upper abdominal pain, burning with urination, dysuria, suprapubic pain, diarrhea, and neuropathy in the feet. Patient denies fever, fainting, hemoptysis, blood in urine/stool, nausea/vomiting, redness/swelling in the legs, or numbness/tingling in arms. Discharge Exam Constitutional WD/WN, vitals as above Respiratory normal respiratory effort, lungs clear to auscultation Cardiovascular RRR, no murmur, no edema Gastrointestinal (Abdomen) normal bowel sounds, soft, nontender, no hepatosplenomegaly Psychiatric Orientation: alert and oriented x 3 Updated Medication List Medication Instructions Recorded Confirmed Type aspirin 81 mg tablet,delayed 81 mg PO QAM #30 tabs 12/06/19 01/10/24 Rx release fluticasone propionate 50 2 spray intranasal DAILY 03/23/23 01/10/24 History mcg/actuation nasal spray,suspension (Flonase Allergy Relief) albuterol sulfate 2.5 mg/3 mL 2.5 mg (3 mL) inhalation Q4H PRN 06/23/23 01/10/24 Rx (0.083 %) solution for nebulization shortness of breath or wheezing #180 mL blood sugar diagnostic (Blueroof 360Touch #400 ea 07/05/23 01/04/24 Rx Verio test strips) lancets 30 gauge (Onetouch Delica #400 ea 07/05/23 01/04/24 Rx Safety Lancet) blood-glucose meter (Blueroof 360Touch #1 ea 07/07/23 01/04/24 Rx Verio Flex Meter) nebulizer accessories #2 ea 08/22/23 01/04/24 Rx nebulizers #1 ea 08/22/23 01/04/24 Rx insulin lispro 100 unit/mL 1 sliding scale dose subcut 09/02/23 01/10/24 Rx subcutaneous pen (Humalog KwikPen USEASDIRECTD #15 mL (U-100) Insulin) nitroglycerin 0.4 mg sublingual 0.4 mg sublingual Q5M PRN Chest 09/19/23 01/10/24 Rx tablet Pain #20 tabs albuterol sulfate 90 mcg/actuation 2 puff inhalation Q6H PRN 12/26/23 01/10/24 Rx aerosol inhaler (Ventolin HFA) Shortness Of Breath Or Wheezing #8.5 grams epinephrine 0.3 mg/0.3 mL 0.3 mg (0.3 mL) IM DIRECTED PRN 12/26/23 01/10/24 Rx injection, auto-injector anaphylaxis #2 ea ipratropium bromide 0.02 % 2.5 ml inhalation Q4H PRN 01/10/24 01/10/24 History solution for inhalation shortness of breath or wheezing prednisone 20 mg tablet 40 mg (2 x 20 mg) PO QAM #6 tabs 01/13/24 Rx Hospital Stay Data Consultations 01/10/24 17:24 ED Decision to Admit Stat Diagnostic Imagining Performed 01/13/24 08:00 FL barium swallow Routine Pending Results Patient Have Any Pending Studies at Discharge: No Discharge Instructions Given to Patient (Per Discharging Provider) Please finish out 3 more days of the prednisone for your bronchitis. You had a chest xray that did NOT show any pneumonia. You were treated for a UTI with an tibiotics and have completed the course-you do NOT need any more antibiotics. You do not need any supplemental oxygen. The chest pain you have was NOT coming from your heart-you had tests for heart a ttack multiple times and these were all normal. Continue taking over the counter laxatives as needed for constipation. 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
== END 2024-01-13 18:11 | disposition home health service (06) | DRG 866 ==
LOC: ED 13:41 → EDINP 13:41 → SUATTDRO 18:18 → 2N 20:51

== ENCOUNTER 2024-01-16 13:27 | Inpatient (IN) ==
--- NOTE | 2024-01-16 13:41 | ED Triage Note ---
Date of Service January 16, 2024 Provider in Triage Author: Missy Ashford History of Present Illness This patient was briefly evaluated while in triage. An abbreviated physical exam was performed. This patient is a 73-year-old Female who presents to the ED for evaluation of 10/10 chest pain, productive coughing with green phlegm. Pt. states chest pain on the left side radiating down the left arm. 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 Also experiencing shortness of breath. Does have history of asthma and COPD. Reports history of 3 WI and 3 TIA. Took Nitro prior to ambulance arrival. States took 3 doses with no relief. Physical Exam VITALS: Vitals are noted on the nurse's note and reviewed by myself. GENERAL: This is a 73 year old female, in no acute distress, nondiaphoretic, well-developed well-nourished. SKIN: No obvious rashes, edema, erythema HEAD: Normocephalic atraumatic. EYES: Conjunctivae without injection, sclerae without icterus. NECK: No JVD. LUNGS: Audible wheezing with retractions and accessory muscle use. MUSCULOSKELETAL: Normal gait. NEURO: Patient was alert and oriented to person place and time. No focal neurological deficits. Initial orders for labs and / or imaging were placed and patient was placed in the waiting area until a bed is available. Please see further documentation for the full ED course.
[2024-01-16] MEDS: SODIUM CHLORIDE 0.9% 500 ML IV STA (15:05)
[2024-01-16 15:25] LABS: Eosinophils % (auto) 1.2 %; Hematocrit (blood only) 41.8 % (37.0-47.0); Hemoglobin 13.7 g/dl (12.0-16.0); Immature Granulocytes # (auto) 0.02 K/uL (0.01-0.20); Immature Granulocytes % (auto) 0.2 %; Lymphocytes # (auto) 2.41 K/uL (1.20-3.40); Lymphocytes % (auto) 29.5 %; Mean Corpuscular Hemoglobin 27.6 pg (25.0-34.0); Mean Corpuscular Hgb Conc 32.8 g/dL (32.0-36.0); Mean Corpuscular Volume 84.1 fL (80.0-100.0); Mean Platelet Volume 11.1 fL (9.4-12.4); Monocytes # (auto) 0.51 K/uL (0.11-0.59); Monocytes % (auto) 6.3 %; Neutrophils # (auto) 5.12 K/uL (1.40-6.50); Neutrophils % (auto) 62.8 %; Platelet Count 269 K/uL (130-400); RDW Coefficient of Variation 14.3 % (11.5-14.5); RDW Standard Deviation 43.6 fL (36.4-46.3); Red Blood Count 4.97 M/uL (4.20-5.40); White Blood Count 8.16 K/ul (4.8-10.8)
[2024-01-16 15:48] LABS: Alanine Aminotransferase 22 U/L (7-52); Albumin Globulin Ratio 1.5 (0.9-2); Alkaline Phosphatase 75 U/L (34-104); Anion Gap 8 (3-11); Aspartate Aminotransferase 16 U/L (13-39); BUN Creatinine Ratio 19.8 (10-20); Bilirubin,Total 0.7 mg/dl (0.2-1.0); Blood Urea Nitrogen 16 mg/dl (6-23); Calcium 9.1 mg/dl (8.6-10.3); Carbon Dioxide 26 mmol/L (21-32); Chloride 106 mmol/L (98-107); Est GFR (African American) 84.7 ml/min; Est GFR (Non-African American) 73.1 ml/min; Globulin 2.7 gm/dl (2.5-4.0); Glucose 115 mg/dl (70-99(Fasting)); Lipase 14 U/L (11-82); Potassium 3.5 mmol/L (3.5-5.1); Sodium 140 mmol/L (136-145); Total Protein 6.7 gm/dl (6.0-8.3)
[2024-01-16 15:53] LABS: Troponin I High Sensitivity 4.7 pg/ml (0-14)
[2024-01-16 15:55] LABS: INR 0.9 (0.9-1.1); Partial Thromboplastin Ratio 0.8; Partial Thromboplastin Time 22 Seconds (21-31); Prothrombin Time 10.3 Seconds (9.0-12.0)
--- NOTE | 2024-01-16 15:56 | XRay Report ---
TWO VIEW CHEST CLINICAL HISTORY: Atypical chest pain. Productive cough. FINDINGS: AP and lateral chest radiographs are compared to study dated 01/10/2024. Correlation is made with chest CT dated 12/30/2023. The cardiomediastinal silhouette is unremarkable. The lungs and pleur al spaces are clear. There is no pneumothorax. The skeletal structures are osteopenic. The bony thora x appears intact. Degenerative change is noted in the thoracic spine. Cholecystectomy clips are noted in the right upper quadrant. IMPRESSION: No active disease in the chest. ACT 112: Negative or not required by law. Electronically signed by: Edgar Rogers M.D. 01/16/2024 3:54 PM
--- NOTE | 2024-01-16 16:09 | Emergency Department Note ---
Impression & Plan Chest pain, Shortness of breath ED Provider Note HISTORY OF PRESENT ILLNESS: Patient is a 73-year-old female presenting with chest pain and shortness of breath. Patient reports that at 10 AM today while she was getting up she developed a crushing and sharp substernal chest pain that radiated into her left shoulder and down her left arm. She states that she took 3 sublingual nitro before calling her doctor who recommended that she call an ambulance. Reports the nitro did not help. She has a history of cardiac stents per the patient. She is on a baby aspirin daily but no other anticoagulation or antiplatelet therapy. She is currently complaining of 10 out of 10 chest pain on my assessment. She denies any nausea or vomiting. Reports feeling short of breath. She also reports she has had a nonproductive cough over the last 2 days. Denies any recent travel or recent sick contact exposure. Denies any DVT or PE history. Patient reports that she also feels dizzy as if she is going to pass out when she stands up from her chest pain. ROS: as above PHYSICAL EXAM: Constitutional: Patient appears in no acute distress. HENT: Head: Normocephalic and atraumatic. Eyes: EOMI, PERRL Mouth/Throat: Mucous membranes moist. Neck: Trachea midline. Neck supple. Cardiovascular: RRR, No murmurs, rubs or gallops. Intact distal pulses. Pulmonary/Chest: No respiratory distress. Breath sounds clear and equal bilaterally. No wheezes or rales. Abdominal: Abdomen soft, no tenderness, rebound or guarding. Musculoskeletal: No edema, tenderness or deformity noted. Skin: Warm and dry. No rash, erythema, pallor or cyanosis Psychiatric: Appropriate mood and affect for situation. Neurological: Alert and keenly responsive. CN II-XII grossly intact, moving all extremities equally and fully. MDM: - Vitals signs showed hypertension - History obtained via patient. History as above. - Chronic conditions affecting care: HTN; HLD; DM-2; nonobstructive atherosclerosis of coronary artery; COPD - Differential diagnoses include, but are not limited to: Acute coronary syndrome; pulmonary embolism; dissection; tension pneumothorax; esophageal rupture; pneumonia - Order placed for continuous cardiac monitoring. At this time, monitor showed rate of 74 bpm with normal sinus rhythm, per my interpretation. - External medical records reviewed. Cardiology visit note dated 08/12/2023 was reviewed. Patient followed in their clinic for atypical chest pain at that time. She had been seen acutely at [facility] in early July for left-sided chest pain that radiated into her left arm. Pain was described as sudden and lasted for several hours. She tried sublingual nitro which did not improve. She had 5 negative troponin levels and CTA was negative for PE. She was given opiates during her stay which resolved her pain. - EKG interpreted by myself showed normal sinus rhythm. Rate 75 bpm. QT 400. No acute ischemic changes. - Laboratory workup interpreted by myself showed normal WBC; normal PT/INR; stable electrolytes; elevated glucose (115); normal troponin; normal BNP; normal lipase - CXR negative for pneumonia, per my interpretation - Discussed results with the patient. She does not feel comfortable with any plan for discharge home, she is still having chest pain. Given 50 mcg of IV fentanyl. - Ordered 60 mg IV solumedrol and duoneb for treatment of likely COPD exacerbation - HEART score 5 (History +1 moderately suspicious; EKG +0; Age +2; Risk factors +2; Initial troponin +0), amounting to a moderate score. - Patient still complaining of significant pain in ER. Will admit for further workup. - Discussion was had with medical case manager about patient's case and need for admission - Hospitalist, Dr. Bland, consulted for admission - Patient admitted to [facility] hospitalist service for further evaluation and management. ASSESSMENT AND PLAN: Diagnosis: chest pain; shortness of breath Plan: admit Past Med/Surg History Problem List (Updated 01/16/24 @ 16:44 by Layla Richard MD) Shortness of breath (Acute) Chest pain (Acute) Enterovirus infection Constipation Abdominal bloating Dysphagia Urinary incontinence Atypical chest pain COPD (chronic obstructive pulmonary disease) (Acute) Vitamin D deficiency Seizure disorder Orthostatic tremor Nonobstructive atherosclerosis of coronary artery Mood disorder Lumbar spinal stenosis Lumbar disc disease Learning disability Irritable bowel syndrome Impulse control disorder Hyperlipidemia Histrionic personality disorder History of recurrent UTI (urinary tract infection) Type 2 diabetes mellitus Cervical radiculopathy Asthma Anxiety and depression Allergic rhinitis MVP (mitral valve prolapse) Hypertension Multiple sclerosis Chronic arthralgias of knees and hips Adjustment disorder with mixed anxiety and depressed mood Osteopenia Degenerative disc disease, cervical Tremor Vitamin B12 deficiency Medical History Neck pain Urgency of micturition Fatigue Tobacco dependence Surgical History Status post cardiac catheterization Status post cholecystectomy Status post dilation and curettage Status post tonsillectomy Status post tubal ligation Family History Father , age 91 an [place]. Myocardial infarction Cerebral aneurysm Coronary heart disease Diabetes Mother , age 68 of lung cancer Lung cancer Brother H/O heart artery stent Denies family history of Ovarian cancer Prostate cancer Breast cancer Colorectal cancer Social History Smoking Status: Former smoker Tobacco Type: Cigarettes Age Started Using Tobacco: 18; Age Quit Using Tobacco: 20; packs per day: 2; Second Hand Exposure: Yes; Do You Dip or Chew Tobacco: No; Hx Alcohol Use: No Hx Substance Use: No Preferred Language: Dutch Communication Ability: Effective Visual Impairment: Limited Hearing Ability: Normal Pump Runner Required: No Beliefs That Will Affect Care: None marital status: Single Current Living Situation: Alone Current Living Situation Comment: Live in apartment current occupational status: disabled 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, 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, 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 How many Children do You have: 2 Feels Safe at Home: Yes Childhood Exposure to Second-Hand Smoke: No Diet: regular caffeine: No during the past year weight has: remained stable Dental Care, Regularly: No Physical Activity Frequency: Does not Exercise Seatbelt Use: always Sunscreen Use: No Assistive Devices: Glasses, Nebulizer and Walker Allergies Allergies Allergy/AdvReac Type Severity Reaction Status Date / Time aspirin Allergy Severe Hives Unverified 01/10/24 17:09 bee venom protein (honey bee) Allergy Severe Anaphylaxis Verified 01/10/24 17:09 ibuprofen Allergy Unknown unknown Verified 01/10/24 17:09 Penicillins Allergy Unknown unknown Verified 01/10/24 17:09 phenytoin Allergy Unknown unknown Verified 01/10/24 17:09 Iodinated Contrast Media AdvReac Mild Vomiting Verified 01/10/24 17:09 [Iodinated Contrast- Oral and IV Dye] fiberglass Allergy Severe Rash and Uncoded 01/10/24 17:09 Difficulty Breathing Home Meds Home Medications Medication Instructions Recorded Confirmed fluticasone propionate 50 2 spray intranasal DAILY 03/23/23 01/16/24 mcg/actuation nasal spray,suspension (Flonase Allergy Relief) ipratropium bromide 0.02 % 2.5 ml inhalation Q4H PRN 01/10/24 01/16/24 solution for inhalation shortness of breath or wheezing montelukast 10 mg tablet 10 mg PO QAM 01/16/24 01/16/24 Previous Rx's Medication Instructions Recorded aspirin 81 mg tablet,delayed 81 mg PO QAM #30 tabs 12/06/19 release albuterol sulfate 2.5 mg/3 mL 2.5 mg (3 mL) inhalation Q4H PRN 06/23/23 (0.083 %) solution for nebulization shortness of breath or wheezing #180 mL blood sugar diagnostic (ArcamedTouch #400 ea 07/05/23 Verio test strips) lancets 30 gauge (Arcamedtouch Delica #400 ea 07/05/23 Safety Lancet) blood-glucose meter (ArcamedTouch #1 ea 07/07/23 Verio Flex Meter) nebulizer accessories #2 ea 08/22/23 nebulizers #1 ea 08/22/23 insulin lispro 100 unit/mL 1 sliding scale dose subcut 09/02/23 subcutaneous pen (Humalog KwikPen USEASDIRECTD #15 mL (U-100) Insulin) nitroglycerin 0.4 mg sublingual 0.4 mg sublingual Q5M PRN Chest 09/19/23 tablet Pain #20 tabs albuterol sulfate 90 mcg/actuation 2 puff inhalation Q6H PRN 12/26/23 aerosol inhaler (Ventolin HFA) Shortness Of Breath Or Wheezing #8.5 grams epinephrine 0.3 mg/0.3 mL 0.3 mg (0.3 mL) IM DIRECTED PRN 12/26/23 injection, auto-injector anaphylaxis #2 ea prednisone 20 mg tablet 40 mg (2 x 20 mg) PO QAM #6 tabs 01/13/24 sennosides 8.6 mg tablet (Senokot) 8.6 mg PO DAILY PRN constipation 01/13/24 #10 tabs Results & Data (ED) Vital Signs Vital Signs - 24 hr 01/16/24 13:38 01/16/24 16:19 01/16/24 16:55 Temperature 36.7 C Temperature Source Temporal Artery Scan Pulse Rate 83 74 Pulse Rate [Left Apical] 91 H Pulse Rhythm Regular Pulse Strength Normal Respiratory Rate 24 20 Respiratory Effort / Characteristics Labored Non-Labored Spontaneous Respiratory Depth Normal Normal Respiratory Pattern Regular Blood Pressure 169/81 H Blood Pressure [Right Arm] Blood Pressure Mean 110 Blood Pressure Mean [Right Arm] Blood Pressure Position Sitting Blood Pressure Position [Right Arm] Pulse Oximetry 98 96 Oxygen Delivery Method Room Air Sepsis Recent Fever Within 48 Hours No Sepsis New/Unexplained Change in Mental Status No Sepsis Action Taken by Nursing No Action Required 01/16/24 17:05 Temperature Temperature Source Pulse Rate Pulse Rate [Left Apical] Pulse Rhythm Pulse Strength Respiratory Rate Respiratory Effort / Characteristics Respiratory Depth Respiratory Pattern Blood Pressure Blood Pressure [Right Arm] 157/88 H Blood Pressure Mean Blood Pressure Mean [Right Arm] 111 Blood Pressure Position Blood Pressure Position [Right Arm] Semi-fowlers Pulse Oximetry Oxygen Delivery Method Sepsis Recent Fever Within 48 Hours Sepsis New/Unexplained Change in Mental Status Sepsis Action Taken by Nursing Laboratory Data 01/16/24 15:01 01/16/24 15:01 Lab Results 01/16/24 01/16/24 Range/Units 15:01 Unknown WBC 8.16 (4.8-10.8) K/ul RBC 4.97 (4.20-5.40) M/uL Hgb 13.7 (12.0-16.0) g/dl Hct 41.8 (37.0-47.0) % MCV 84.1 (80.0-100.0) fL MCH 27.6 (25.0-34.0) pg MCHC 32.8 (32.0-36.0) g/dL RDW Std Deviation 43.6 (36.4-46.3) fL RDW Coeff of Maegan 14.3 (11.5-14.5) % Plt Count 269 (130-400) K/uL MPV 11.1 (9.4-12.4) fL Immature Gran % (Auto) 0.2 % Neut % (Auto) 62.8 % Lymph % (Auto) 29.5 % [place] % (Auto) 6.3 % Eos % (Auto) 1.2 % Baso % (Auto) 0.0 % Neut # (Auto) 5.12 (1.40-6.50) K/uL Lymph # (Auto) 2.41 (1.20-3.40) K/uL [place] # (Auto) 0.51 (0.11-0.59) K/uL Eos # (Auto) 0.10 (0.00-0.50) K/uL Baso # (Auto) 0.00 (0.00-0.20) K/uL Immature Gran # (Auto) 0.02 (0.01-0.20) K/uL PT 10.3 (9.0-12.0) Seconds INR 0.9 (0.9-1.1) APTT 22 (21-31) Seconds PTT Ratio 0.8 Sodium 140 (136-145) mmol/L Potassium 3.5 (3.5-5.1) mmol/L Chloride 106 (98-107) mmol/L Carbon Dioxide 26 (21-32) mmol/L Anion Gap 8 (3-11) BUN 16 (6-23) mg/dl Creatinine 0.81 (0.6-1.2) mg/dl Est Cr Clr Drug Dosing Not Reportable Est GFR ( Amer) 84.7 ml/min Est GFR (Non-Af Amer) 73.1 ml/min BUN/Creatinine Ratio 19.8 (10-20) Glucose 115 H (70-99(Fasting)) mg/dl Calcium 9.1 (8.6-10.3) mg/dl Total Bilirubin 0.7 (0.2-1.0) mg/dl AST 16 (13-39) U/L ALT 22 (7-52) U/L Alkaline Phosphatase 75 (34-104) U/L Troponin I High Sens 4.7 (0-14) pg/ml B-Natriuretic Peptide 42 (0-100) pg/ml Total Protein 6.7 (6.0-8.3) gm/dl Albumin 4.0 (3.4-5.0) gm/dl Globulin 2.7 (2.5-4.0) gm/dl Albumin/Globulin Ratio 1.5 (0.9-2) Lipase 14 (11-82) U/L Urine Color Yellow Urine Appearance Cloudy A (Clear) Urine pH 5.5 (4.5-7.5) Ur Specific [place] 1.023 (1.000-1.030) Urine Protein Negative (Negative) Urine Glucose (UA) Negative (Negative) Urine Ketones 1+ H (Negative) Urine Blood Negative (Negative) Urine Nitrite Negative (Negative) Urine Bilirubin Negative (Negative) Urine Urobilinogen Negative (Negative) Ur Leukocyte Esterase 2+ H (Negative) Administered Medications Discontinued Medications Albuterol (Albut/Ipratrop 3mg/0.5mg Neb 3 Ml Vial) 3 ml NEB NOW STA; Protocol Stop: 01/16/24 16:41 Last Admin: 01/16/24 16:57 Dose: 3 ml Documented By: SHRARI Fentanyl Citrate (Fentanyl Citrate Pf 100 Mcg/2 Ml Vial) 50 mcg IV NOW STA Stop: 01/16/24 16:41 Last Admin: 01/16/24 16:58 Dose: 50 mcg Documented By: SHARRI Sodium Chloride (Nss) 500 mls @ 999 mls/hr IV .Q31M STA Stop: 01/16/24 14:11 Last Admin: 01/16/24 15:05 Dose: 999 mls/hr Documented By: TAMIKA Methylprednisolone (Methylprednisolone 125 Mg/2 Ml Vial) 60 mg IV NOW STA Stop: 01/16/24 16:41 Last Admin: 01/16/24 16:58 Dose: 60 mg Documented By: SHARRI Imaging Data Radiologist's Impression: Chest X-Ray 01/16/24 13:41 TWO VIEW CHEST CLINICAL HISTORY: Atypical chest pain. Productive cough. FINDINGS: AP and lateral chest radiographs are compared to study dated 01/10/2024. Correlation is made with chest CT dated 12/30/2023. The cardiomediastinal silhouette is unremarkable. The lungs and pleural spaces are clear. There is no pneumothorax. The skeletal structures are osteopenic. The bony thorax appears intact. Degenerative change is noted in the thoracic spine. Cholecystectomy clips are noted in the right upper quadrant. IMPRESSION: No active disease in the chest. ACT 112: Negative or not required by law. Electronically signed by: Edgar Rogers M.D. 01/16/2024 3:54 PM Discharge Plan Visit Data Chief Complaint: Chest Pain Stated Complaint: CHEST PAIN ED Provider: Layla Richard Discharge Problem: Chest pain, Shortness of breath Forms Stand Alone Forms: [employer] Prescriptions Prescriptions: No Action (DME) OneTouch Verio test strips Strip See Rx Instructions .Route Qty: 400 1RF Rx Instructions: TEST FOUR TIMES DAILY, DX CODE: E11.9 (DME) lancets [Onetouch Delica Safety Lancet] 30 gauge misc See Rx Instructions .Route Qty: 400 1RF Rx Instructions: TEST FOUR TIMES DAILY, DX CODE: E11.9 (DME) blood-glucose meter [OneTouch Verio Flex meter] Mis See Rx Instructions .Route Qty: 1 0RF Rx Instructions: TEST FOUR TIMES DAILY; DX CODE- E11.9 (DME) nebulizers [facility] See Rx Instructions .Route Qty: 1 0RF Rx Instructions: as directed ([facility]) nebulizer accessories Kit See Rx Instructions .Route Qty: 2 12RF Rx Instructions: As directed/ tubing and mouthpiece nitroglycerin 0.4 mg tablet, sublingual 0.4 mg sublingual Q5M PRN (Reason: Chest Pain) Qty: 20 1RF Rx Instructions: filled 539 days ago Take up to 3 doses. Call 911 if pain persists. insulin lispro [Humalog KwikPen Insulin] 100 unit/mL insulin pen 1 sliding scale dose subcut USEASDIRECTD Qty: 15 2RF Rx Instructions: tid with meals and sliding scale albuterol sulfate 2.5 mg /3 mL (0.083 %) solution for nebulization 2.5 mg INH Q4H PRN (Reason: shortness of breath or wheezing) Qty: 180 2RF aspirin 81 mg tablet,delayed release (DR/EC) 81 mg PO QAM Qty: 30 0RF Rx Instructions: unable to verify epinephrine 0.3 mg/0.3 mL auto-injector 0.3 mg IM DIRECTED PRN (Reason: anaphylaxis) Qty: 2 1RF Rx Instructions: inject solution auto injector. Per pt she needs a new script albuterol sulfate [Ventolin HFA] 90 mcg/actuation HFA aerosol inhaler 2 puff INHALATION Q6H PRN (Reason: Shortness Of Breath Or Wheezing) Qty: 8.5 5RF fluticasone propionate [Flonase Allergy Relief] 50 mcg/actuation spray,suspension 2 spray intranasal DAILY ipratropium bromide 0.02 % solution 2.5 ml inhalation Q4H PRN (Reason: shortness of breath or wheezing) sennosides [Senokot] 8.6 mg Tablet 8.6 mg PO DAILY PRN (Reason: constipation) Qty: 10 0RF Rx Instructions: Over the counter prednisone 20 mg Tablet 40 mg PO QAM Qty: 6 0RF Rx Instructions: last day should be 01/15 montelukast 10 mg tablet 10 mg PO QAM Referrals Referrals: Gianna Dempsey DO [Primary Care Provider] -
[2024-01-16] MEDS: ALBUT/IPRATROP 3MG/0.5MG NEB 3 ML VIAL NEB STA (16:57)
[2024-01-16] MEDS: fentaNYL citrate PF 100 MCG/2 ML VIAL IV STA (16:58)
[2024-01-16] MEDS: methylPREDNISolone 125 MG/2 ML VIAL IV STA (16:58)
[2024-01-16 17:17] LABS: Appearance Urine Cloudy (Clear); Bilirubin Urine Negative (Negative); Blood Urine Negative (Negative); Cast Urine Automated 0-2 /lpf (0-2); Color Urine Yellow; Epithelial Cell Urine Auto >20 /hpf (0-2); Glucose Urine UA Negative (Negative); Ketones Urine 1+ (Negative); Leukocyte Esterase Urine 2+ (Negative); Nitrite Urine Negative (Negative); Protein Urine Negative (Negative); RBC Urine Automated 0-2 /hpf (0-2); Specific Gravity Urine 1.023 (1.000-1.030); Urobilinogen Urine Negative (Negative); WBC Urine Automated >50 /hpf (0-5); pH Urine 5.5 (4.5-7.5)
[2024-01-16 17:33] LABS: Mucus Urine Present (None Prsent); Renal Epithelial Cells Urine Present /lpf (None Presnt)
[2024-01-16 17:34] LABS: Bacteria Urine Automated 2+ (None Seen)
--- NOTE | 2024-01-16 17:41 | History & Physical Report ---
Date of Service January 16, 2024 Assessment & Plan (1) Atypical chest pain: Plan: Admit to med/telemetry on pulse oximetry Currently stable with ongoing left-sided chest pain with radiation to left arm Patient states that symptoms acutely began around 11 AM today and have been constant Cardiac workup thus far has been unremarkable, appears consistent with atypical chest pain from last admission Pain is likely musculoskeletal or GI in nature as some of her pain was reproducible on exam and patient has been on p.o. steroids for recent COPD exacerbation Give a dose of p.o. pantoprazole and famotidine now, continue both the schedule moving forward Patient had a negative CTA of the chest on 12/30/2023, she is without pleuritic chest pain today, has been stable on room air, hemodynamically stable. Low suspicion for PE at this time, will obtain bilateral venous Dopplers to monitor for DVT but will hold off on repeat CTA at this time as she is stable Pain could also be a component of ongoing COPD exacerbation as the patient experiencing cough and wheezing on exam, see SOB Will continue to trend high-sensitivity troponin every 6 hours overnight can likely discontinue tomorrow if still stable Patient may benefit from stress test prior to discharge for further confirmation that her chest pain is noncardiac in origin Will continue with scheduled Tylenol, GI cocktail, guaifenesin/codeine for cough and pending Subcu Lovenox for DVT prophylaxis Heart healthy/DM type II diet A.m. CBC, CMP, mag, PT/INR (2) Shortness of breath: Plan: Patient has been experiencing ongoing productive cough, wheezing, shortness of breath consistent with her recent COPD exacerbation Currently stable on room air, however, she is still having expiratory wheezing throughout and significant cough We will continue treatment for COPD exacerbation with scheduled doxycycline, 60 mg IV Solu-Medrol 3 times daily, 4 times daily DuoNeb treatments, pulmonary hygiene Will start 10 mg p.o. guaifenesin/codeine now, with as needed 5 mg for ongoing cough/pain As needed O2 to keep SpO2 between 89 to 92% Will obtain COVID-19/influenza/RSV screen on admission as patient was recently admitted with rhinovirus earlier this month (3) COPD (chronic obstructive pulmonary disease): Plan: See shortness of breath (4) Type 2 diabetes mellitus: Plan: Monitor BSG ACHS, goal is [id number] Will start 5 units Lantus twice daily, correction factor 50, and carb ratio of 15 ACHS Patient may become hyperglycemic due to IV steroids, however glucose on arrival today was only 115 Pharmacy glycemic consult been placed patient will be on IV steroids during her admission Adjust regimen as needed (5) Histrionic personality disorder: Plan: Suspect a large component of the patient's recurrent symptoms are due to anxiety Will need to continue consistent reassurance started on admission but cardiac workup continues to be unremarkable Patient was initially resistant to starting conservative pain management such as Tylenol and GI cocktail, stressed the importance of using multiple modes of pain treatment moving forward (6) Hypertension: Plan: Currently stable Continue to monitor Plan The patient was discussed with Dr. Bland at the time of the admission History of Present Illness Chief Complaint: Chest pain Primary Care Provider: DO Gail Ordonez is a 73-year-old female with PMH of multiple sclerosis, HTN, HLD, MVP, allergic rhinitis, T2DM, orthostatic tremor, recurrent UTI, IBS, COPD, and, histrionic personality disorder, and seizure disorder Who presented to the [facility] ED via ALS on 01/16/2024 with complaints of left-sided chest pain with radiation down the left upper extremity which began around 11:30 AM today. Patient reportedly took 3 nitroglycerin tabs at home without improvement in symptoms prior to EMS arrival. On arrival to the ED she was noted to be hypertensive at 169/81 but was otherwise stable. Labs including CBC, CMP, 2 high-sensitivity troponin, BNP were unremarkable. UA is noted to have 2+ leukocyte esterase, greater than 50 white blood cells, greater than 20 epithelial cells, 2+ bacteria. Chest x-ray was read as negative for acute findings. EKG showed normal sinus rhythm without acute ST segment or T wave changes. The patient was given an albuterol nebulizer treatment, 50 mcg IV fentanyl, 60 mg IV methylprednisolone, and 500 mL normal saline prior to admission. The patient was recently admitted to [facility] from 01/10/2024 - 01/13/2024 due to rhinovirus infection, constipation, left-sided chest pain, and UTI. Patient remained stable on room air thus she was treated with a course of prednisone and as needed albuterol nebulizers. In regards to her left-sided chest pain she had 4 high-sensitivity troponin levels within normal limits, recent CTA of the chest obtained in the [facility] ED on 12/30/2023 was negative for acute findings. There were no acute telemetry findings and this chest pain was thought to be more GI related however, the patient did refuse a GI cocktail. After a dose of Toradol her pain resolved. She was treated with 3 days of ceftriaxone for UTI. Patient was sitting in bed no acute distress at time of exam, currently stable on room air. States that she started to develop left-sided chest pain with radiation to the left upper extremity around 11 AM this morning. Describes the pain as sharp/stabbing, constant, 10 out of 10. Does not believe that changing positions changes her pain at all. When asked if this pain was similar to the pain she experienced last admission, she confirms that it does. Again she confirms that this pain has been constant since it began around 11 AM today. States that she is still been coughing significantly since last admission still bringing up yellow sputum. Has still been taking prednisone as prescribed at the time of last discharge. Denies recent fever/chills, hemoptysis, pleuritic chest pain, nausea/vomiting, lower extremity swelling and recent fall/trauma. Next, she is experiencing bilateral lower abdominal pain consistent with or recurrent episodes of constipation similar to last admission. When asked, she believes her last bowel movement was approximately 3 days ago. She does feels that she is having recurrent urinary symptoms. She is a full code. Please refer to Dr. Bland's attestation for any changes to the treatment plan Allergies Allergy/AdvReac Type Severity Reaction Status Date / Time aspirin Allergy Severe Hives Unverified 01/10/24 17:09 bee venom protein (honey bee) Allergy Severe Anaphylaxis Verified 01/10/24 17:09 ibuprofen Allergy Unknown unknown Verified 01/10/24 17:09 Penicillins Allergy Unknown unknown Verified 01/10/24 17:09 phenytoin Allergy Unknown unknown Verified 01/10/24 17:09 Iodinated Contrast Media AdvReac Mild Vomiting Verified 01/10/24 17:09 [Iodinated Contrast- Oral and IV Dye] fiberglass Allergy Severe Rash and Uncoded 01/10/24 17:09 Difficulty Breathing Home Medications Medication Instructions Recorded Confirmed Type aspirin 81 mg tablet,delayed 81 mg PO QAM #30 tabs 12/06/19 01/16/24 Rx release fluticasone propionate 50 2 spray intranasal DAILY 03/23/23 01/16/24 History mcg/actuation nasal spray,suspension (Flonase Allergy Relief) albuterol sulfate 2.5 mg/3 mL 2.5 mg (3 mL) inhalation Q4H PRN 06/23/23 01/16/24 Rx (0.083 %) solution for nebulization shortness of breath or wheezing #180 mL blood sugar diagnostic (OneTouch #400 ea 07/05/23 01/16/24 Rx Verio test strips) lancets 30 gauge (Onetouch Delica #400 ea 07/05/23 01/16/24 Rx Safety Lancet) blood-glucose meter (WeGameTouch #1 ea 07/07/23 01/16/24 Rx Verio Flex Meter) nebulizer accessories #2 ea 08/22/23 01/16/24 Rx nebulizers #1 ea 08/22/23 01/16/24 Rx insulin lispro 100 unit/mL 1 sliding scale dose subcut 09/02/23 01/16/24 Rx subcutaneous pen (Humalog KwikPen USEASDIRECTD #15 mL (U-100) Insulin) nitroglycerin 0.4 mg sublingual 0.4 mg sublingual Q5M PRN Chest 09/19/23 01/16/24 Rx tablet Pain #20 tabs albuterol sulfate 90 mcg/actuation 2 puff inhalation Q6H PRN 12/26/23 01/16/24 Rx aerosol inhaler (Ventolin HFA) Shortness Of Breath Or Wheezing #8.5 grams epinephrine 0.3 mg/0.3 mL 0.3 mg (0.3 mL) IM DIRECTED PRN 12/26/23 01/16/24 Rx injection, auto-injector anaphylaxis #2 ea ipratropium bromide 0.02 % 2.5 ml inhalation Q4H PRN 01/10/24 01/16/24 History solution for inhalation shortness of breath or wheezing prednisone 20 mg tablet 40 mg (2 x 20 mg) PO QAM #6 tabs 01/13/24 01/16/24 Rx sennosides 8.6 mg tablet (Senokot) 8.6 mg PO DAILY PRN constipation 01/13/24 01/16/24 Rx #10 tabs montelukast 10 mg tablet 10 mg PO QAM 01/16/24 01/16/24 History Past Med/Surg History Problem List (Updated 01/16/24 @ 16:44 by Layla Richard MD) Shortness of breath (Acute) Chest pain (Acute) Enterovirus infection Constipation Abdominal bloating Dysphagia Urinary incontinence Atypical chest pain COPD (chronic obstructive pulmonary disease) (Acute) Vitamin D deficiency Seizure disorder Orthostatic tremor Nonobstructive atherosclerosis of coronary artery Mood disorder Lumbar spinal stenosis Lumbar disc disease Learning disability Irritable bowel syndrome Impulse control disorder Hyperlipidemia Histrionic personality disorder History of recurrent UTI (urinary tract infection) Type 2 diabetes mellitus Cervical radiculopathy Asthma Anxiety and depression Allergic rhinitis MVP (mitral valve prolapse) Hypertension Multiple sclerosis Chronic arthralgias of knees and hips Adjustment disorder with mixed anxiety and depressed mood Osteopenia Degenerative disc disease, cervical Tremor Vitamin B12 deficiency Medical History Neck pain Urgency of micturition Fatigue Tobacco dependence Surgical History Status post cardiac catheterization Status post cholecystectomy Status post dilation and curettage Status post tonsillectomy Status post tubal ligation Family History Father , age 91 an [place]. Myocardial infarction Cerebral aneurysm Coronary heart disease Diabetes Mother , age 68 of lung cancer Lung cancer Brother H/O heart artery stent Denies family history of Ovarian cancer Prostate cancer Breast cancer Colorectal cancer Social History Smoking Status: Former smoker Tobacco Type: Cigarettes Age Started Using Tobacco: 18; Age Quit Using Tobacco: 20; packs per day: 2; Second Hand Exposure: Yes; Do You Dip or Chew Tobacco: No; Hx Alcohol Use: No Hx Substance Use: No Preferred Language: Nigerien Communication Ability: Effective Visual Impairment: Limited Hearing Ability: Normal Software Administrator Required: No Beliefs That Will Affect Care: None marital status: Single Current Living Situation: Alone Current Living Situation Comment: Live in apartment current occupational status: disabled 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, 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, 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 How many Children do You have: 2 Other Information That Helps Us Care for You: No Feels Safe at Home: Yes Safety Concerns: Feels Safe At This Time Childhood Exposure to Second-Hand Smoke: No Diet: regular caffeine: No during the past year weight has: remained stable Dental Care, Regularly: No Physical Activity Frequency: Does not Exercise Seatbelt Use: always Sunscreen Use: No Assistive Devices: Walker Physical Exam Physical Exam: Physical Exam: General: In no acute distress, stated age, chronically ill appearing but non- toxic HEENT: Normocephalic, atraumatic, no scleral icterus, pupils around round, symmetrical, and reactive to light, moist mucus membranes, trachea midline, no t hyromegaly Chest/Pulm: No respiratory distress, symmetrical chest expansion, scattered expiratory wheezing Cardiac: RRR, no murmurs noted Abdomen: Negative for ascites and bruising, normoactive bowel sounds, soft, mildly tender to palpation in the BL lower abdominal borrego without rebound tenderness Musculoskeletal: Symmetrical and without signs of acute trauma, upper and lower extremities with full ROM, no atrophy, spasticity, or flaccidity >Left chest pain was reproducible on palpation Extremities: Radial, dorsalis pedis, and posterior tibial pulses are intact and symmetrical, no edema noted in the BL LE's Skin: Warm, dry, no rashes , lesions, or scars noted Neuro: Alert and oriented to person, place, month, year, and president, no focal defects, no tremors noted Psych: Anxious but cooperative during the exam Results & Data Results & Data Vital Signs (Past 12 Hours) Vital Signs Temp Pulse Pulse Resp BP BP Pulse Ox 01/16/24 17:05 157/88 H 01/16/24 16:55 91 H 20 96 01/16/24 16:19 74 01/16/24 13:38 36.7 C 83 24 169/81 H 98 O2 Del Method 01/16/24 17:05 01/16/24 16:55 01/16/24 16:19 01/16/24 13:38 Room Air Laboratory Results Abnormal lab results 01/16/24 01/16/24 Range/Units 15:01 Unknown Glucose 115 H (70-99(Fasting)) mg/dl Urine Appearance Cloudy A (Clear) Urine Ketones 1+ H (Negative) Ur Leukocyte Esterase 2+ H (Negative) Urine WBC (Auto) >50 H (0-5) /hpf U Epithel Cells (Auto) >20 H (0-2) /hpf Urine Bacteria (Auto) 2+ H (None Seen) Ur Renal Epithelial Cell Present A (None Presnt) /lpf Urine Mucus Present A (None Prsent) Diagnostic Findings Chest X-Ray 01/16/24 13:41 TWO VIEW CHEST CLINICAL HISTORY: Atypical chest pain. Productive cough. FINDINGS: AP and lateral chest radiographs are compared to study dated 01/10/2024. Correlation is made with chest CT dated 12/30/2023. The cardiomediastinal silhouette is unremarkable. The lungs and pleural spaces are clear. There is no pneumothorax. The skeletal structures are osteopenic. The bony thorax appears intact. Degenerative change is noted in the thoracic spine. Cholecystectomy clips are noted in the right upper quadrant. IMPRESSION: No active disease in the chest. ACT 112: Negative or not required by law. Electronically signed by: Edgar Rogers M.D. 01/16/2024 3:54 PM Code Status & VTE Plan Code Status Full code VTE Prophylaxis Plan VTE Prophylaxis will be ordered: Yes Supervising Physician Co-Signing Physician Notes During face to face encounter, I obtained a history and physical examination, discussed plan of care with patient and answered any questions. I discussed plan of care with DEN Jimenez. I reviewed above note and agree with it except for the following: Symptoms do not appear to be cardiac in nature. Patient with symptoms which may be due to COPD. will monitor overnight PG Care Time/CCT Total # of Minutes Spent Total Time Spent with Patient: Total time spent is greater than 50% in coordination of care (as documented) at patient's floor/unit and/or counseling patient: Coding [place] [address] INT INP/OBS CARE 2/55MIN Patient Type Established Medical Decision Making Moderate Complexity Diagnoses Atypical chest pain R07.89 Shortness of breath R06.02 COPD (chronic obstructive pulmonary disease) J44.9 COPD type: unspecified COPD Type 2 diabetes mellitus E11.9; Z79.4 Diabetes mellitus complication status: without complication Diabetes mellitus tip stitcher insulin use: with care home use Histrionic personality disorder F60.4 Primary hypertension I10 Hypertension type: primary hypertension (3) COPD (chronic obstructive pulmonary disease) COPD type: unspecified COPD Qualified Code(s): J44.9 - Chronic obstructive pulmonary disease, unspecified (4) Type 2 diabetes mellitus Diabetes mellitus complication status: without complication Diabetes mellitus tip stitcher insulin use: with tip stitcher use Qualified Code(s): E11.9 - Type 2 diabetes mellitus without complications; Z79.4 - detention (current) use of insulin (6) Hypertension Hypertension type: primary hypertension Qualified Code(s): I10 - Essential (primary) hypertension
[2024-01-16] MEDS ORDERED: GLUCOSE 40% GEL 15 GM TUBE PO PRN (18:10)
[2024-01-16] MEDS ORDERED: DEXTROSE 50% 50 ML SYRINGE IV PRN (18:10)
[2024-01-16] MEDS ORDERED: GLUCOSE 10 TAB/TUBE PO PRN (18:10)
[2024-01-16] MEDS ORDERED: GLUCAGON FOR INJ 1 MG VIAL SQ PRN (18:10)
[2024-01-16] MEDS ORDERED: PHARMACY GLYCEMIC MGMT CONSULT PRN (18:10)
[2024-01-16] MEDS ORDERED: CARBOHYDRATES FOR HYPOGLYCEMIA PO PRN (18:10)
[2024-01-16] MEDS ORDERED: MoRPHine SULFATE 2 MG/ML CARP IV PRN (18:38)
[2024-01-16] MEDS: cefTRIAXone SODIUM 2,000 MG/50 ML BAG IV STA (18:42)
[2024-01-16] MEDS: PANTOprazole 40 MG TAB PO STA (18:42)
[2024-01-16] MEDS: FAMOTIDINE 20 MG TAB PO ONE (18:42)
[2024-01-16] MEDS: ACETAMINOPHEN 325 MG TAB PO SCH (20:23)
[2024-01-16] MEDS: ALBUT/IPRATROP 3MG/0.5MG NEB 3 ML VIAL NEB SCH (20:28)
[2024-01-16] MEDS: SODIUM CHLOR 7% 4 ML NEB NEB SCH (20:28)
[2024-01-16] MEDS: Patient's HEIGHT &/or WEIGHT Needed STA (20:32)
[2024-01-16] MEDS: DOXYCYCLINE HYCLATE 100 MG in DEXTROSE 5% MINI-B 100 ML IV STA (20:32)
[2024-01-16] MEDS: INSULIN ASPART PER UNIT CHARGE SC SCH (20:56)
[2024-01-16] MEDS: LANTUS PER UNIT CHARGE SQ SCH (20:57)
[2024-01-16] MEDS ORDERED: LANTUS PER UNIT CHARGE SQ SCH (21:00)
[2024-01-16] MEDS: MoRPHine SULFATE 2 MG/ML CARP IV STA (21:05)
[2024-01-16] MEDS: guaiFENesin/CODEINE 100MG/10MG 5ML UDC PO STA (21:24)
[2024-01-16 21:46] LABS: Influenza A virus by PCR Negative (Neg); Influenza B virus by PCR Negative (Neg); RSV by PCR Negative (Neg); SARS CoV2 RNA(COVID-19) Ceph NEGATIVE (Negative)
[2024-01-16] MEDS: FAMOTIDINE 20 MG TAB PO SCH (23:17)
--- NOTE | 2024-01-17 02:15 | Ultrasound Report ---
Exam(s): US VENOUS BILATERAL LOWER EXTREMITIES EXAM: US Duplex Bilateral Lower Extremities Veins CLINICAL HISTORY: Reason for exam: pleuritic chest pain. TECHNIQUE: Real-time duplex ultrasound scan of the bilateral lower extremity veins integrating B-mode two-dimensional vascular structure, Doppler spectral analysis, color flow Doppler imaging and compression. COMPARISON: No relevant prior studies available. FINDINGS: Right deep veins: Unremarkable. No DVT in the right common femoral, femoral, proximal deep femoral or popliteal veins. The veins demonstrate normal color flow, are normally compressible, with normal phasic flow and/or augmentation response. Right superficial veins: Unremarkable. No thrombus in the visualized right great saphenous vein. Left deep veins: Unremarkable. No DVT in the left common femoral, femoral, proximal deep femoral or popliteal veins. The veins demonstrate normal color flow, are normally compressible, with normal phasic flow and/or augmentation response. Left superficial veins: Unremarkable. No thrombus in the visualized left great saphenous vein. Soft tissues: No acute findings. No popliteal cyst. IMPRESSION: Normal bilateral lower extremity duplex venous ultrasound. Electronically signed by: Greg Frausto MD 01/17/24 02:14 AM
[2024-01-17 04:12] LABS: Hematocrit (blood only) 38.7 % (37.0-47.0); Hemoglobin 12.9 g/dl (12.0-16.0); Immature Granulocytes # (auto) 0.03 K/uL (0.01-0.20); Immature Granulocytes % (auto) 0.4 %; Lymphocytes # (auto) 0.93 K/uL (1.20-3.40); Mean Corpuscular Hemoglobin 27.7 pg (25.0-34.0); Mean Corpuscular Hgb Conc 33.3 g/dL (32.0-36.0); Mean Corpuscular Volume 83.2 fL (80.0-100.0); Mean Platelet Volume 11.2 fL (9.4-12.4); Monocytes # (auto) 0.06 K/uL (0.11-0.59); Monocytes % (auto) 0.8 %; Neutrophils # (auto) 6.11 K/uL (1.40-6.50); Neutrophils % (auto) 85.8 %; Platelet Count 250 K/uL (130-400); RDW Standard Deviation 42.2 fL (36.4-46.3); Red Blood Count 4.65 M/uL (4.20-5.40); White Blood Count 7.13 K/ul (4.8-10.8)
[2024-01-17 04:27] LABS: Albumin Globulin Ratio 1.5 (0.9-2); Albumin Level 3.8 gm/dl (3.4-5.0); BUN Creatinine Ratio 23.6 (10-20); Bilirubin,Total 0.4 mg/dl (0.2-1.0); Creatinine Clr Calc Pharmacy 65.7 ml/min; Est GFR (African American) 97.7 ml/min; Est GFR (Non-African American) 84.3 ml/min; Globulin 2.6 gm/dl (2.5-4.0); Magnesium 2.1 mg/dl (1.7-2.4); Potassium 4.4 mmol/L (3.5-5.1); Total Protein 6.4 gm/dl (6.0-8.3)
[2024-01-17 04:33] LABS: Troponin I High Sensitivity 4.3 pg/ml (0-14)
[2024-01-17 04:44] LABS: INR 0.9 (0.9-1.1); Prothrombin Time 10.3 Seconds (9.0-12.0)
[2024-01-17] MEDS: DOXYCYCLINE HYCLATE 100 MG in DEXTROSE 5% MINI-B 100 ML IV SCH (06:09)
--- NOTE | 2024-01-17 07:40 | Pharmacy Report ---
Pharmacy Glycemic Short Note 2 - Date of Service January 17, 2024 - Glycemic Short BSG Results (Last 24 hours): 01/16/24 01/16/24 01/17/24 15:01 20:50 03:58 Glucose 115 H 152 H POC Glucose 216 H OUTPATIENT ANTIDIABETIC REGIMEN: * lispro SSI TIDM ASSESSMENT: * 73 year old admitted with shortness of breath/chest pain. Pharmacy consulted for glycemic management. Patient is type 2 diabetic managed only on SSI at home. Started on solumedrol 60 mg iv q 8 hours, anticipate steroid induced hyperglycemia. * Patient received total of 14 units of insulin yesterday, of which 10 units were basal to cover dose of solumedrol. Plan to continue with Lantus 10 units BID as steroids continued. Continue same CF/CR for now. PLAN FOR INPATIENT GLYCEMIC CONTROL: * Hold outpatient oral diabetes medications * Basal insulin * Lantus 10 units SQ BID * Bolus insulin * NovoLog per scale ACHS or Q6hrs while NPO * Goal Range: Low 110 mg/dL - High 140 mg/dL * Correction Factor: 25 mg/dL/unit * Nutritional / Prandial insulin per carb ratio of 1 unit per 8 grams CHO consumed
[2024-01-17] MEDS: methylPREDNISolone 60 MG in SYRINGE 0 ML IV SCH ×2 (08:35→20:32)
[2024-01-17] MEDS: PANTOprazole 40 MG TAB PO SCH (08:36)
[2024-01-17] MEDS: ENOXAPARIN INJ 40 MG/0.4 ML SYR SQ SCH (08:36)
[2024-01-17] MEDS ORDERED: methylPREDNISolone 125 MG/2 ML VIAL IV SCH (09:00)
--- NOTE | 2024-01-17 10:47 | Electrocardiogram Report ---
Test Reason : Blood Pressure : / mmHG Vent. Rate : 075 BPM Atrial Rate : 075 BPM P-R Int : 124 ms QRS Dur : 082 ms QT Int : 400 ms P-R-T Axes : 081 -55 071 degrees QTc Int : 446 ms Normal sinus rhythm Pulmonary disease pattern Left anterior fascicular block Abnormal ECG When compared with ECG of 11-JAN-2024 14:06, No significant change was found Confirmed by Junaid Medina ([id number]) on 01/17/2024 10:46:30 AM Referred By: Gianna Dempsey Confirmed By:Junaid Medina
--- NOTE | 2024-01-17 13:56 | Hospitalist Progress Note ---
Date of Service January 17, 2024 Assessment & Plan (1) Atypical chest pain: Plan: Admit to med/telemetry on pulse oximetry Currently stable with ongoing left-sided chest pain with radiation to left arm Patient states that symptoms acutely began around 11 AM today and have been constant Cardiac workup thus far has been unremarkable, appears consistent with atypical chest pain from last admission Suspect MSK pain from coughing with COPD exacerbation. Low suspicion for PE. Dopplers are negative Troponins negative. No acute ischemic EKG findings on admission Pain is likely musculoskeletal, suspect cough from COPD exacerbations versus (2) COPD (chronic obstructive pulmonary disease): Plan: Patient has been experiencing ongoing productive cough, wheezing, shortness of breath consistent with her recent COPD exacerbation Currently stable on room air, however, she is still having expiratory wheezing throughout 01/16 Continue scheduled Doxy, steroids methylprednisolone 60 mg 3 times daily, DuoNebs, flutter valve Guaifenesin/codeine started Titrate oxygen to goal 90%. Currently on 2 L of oxygen, but saturating around 96-98%. Do not hyperoxygenate, weaned We will continue treatment for COPD exacerbation with scheduled doxycycline, 60 mg IV Solu-Medrol weaned TID --> BID, 4 times daily DuoNeb treatments, pulmonary hygiene Quad viral screen negative (3) Type 2 diabetes mellitus: Plan: Monitor BSG ACHS, goal is [id number] Pharmacy following, good glycemic control 01/16 Adjust basal bolus regimen as needed (4) Histrionic personality disorder: Plan: Suspect a large component of the patient's recurrent symptoms are due to anxiety Will need to continue consistent reassurance started on admission but cardiac workup continues to be unremarkable Does have evidence of ongoing COPD exacerbation with increased dyspnea, diffuse wheezing on exam, and an oxygen requirement at time of exam 01/16. Discussed that her cardiac workup is negative, and that while she was on oxygen she was also being hyperoxygenated and that her goal should be around 90%. She reports she understands this but continues to feel very tight in the chest and that her COPD is not yet at its baseline. Given this we will continue IV steroids, but wean from 3 times daily now to twice daily and hopefully daily 01/17 (5) Hypertension: Plan: Currently stable Continue to monitor Admission and Anticipated Discharge Date Admission Date: January 16, 2024 Emma Limay seen at the bedside. She is eating breakfast at time of visit. She reports she has left-sided chest pain which goes down her left arm which brought her in yesterday. Denies pain at time of assessment but notes that the pain does seem to come back every once in a while. She endorses shortness of breath and difficulty breathing at baseline, she is wheezing at time of assessment. She feels like her wheezing is similar to prior COPD exacerbations. She is on 2 L of oxygen, reports she does not normally need oxygen at home Physical Exam Physical Exam: General: A&Ox3. NAD. Cooperative. HEENT: Atraumatic, normocephalic. Pulm: Scattered expiratory wheezes bilaterally. Slightly prolonged expiration and some cough at time of assessment. Cardiac: RRR, -mrg. Radial pulses intact and symmetrical. He does have tenderness to palpation to the left chest wall and left lateral ribs Abdominal: Nontender, nondistended, soft. BS present. Results & Data Results & Data Vital Signs (Past 12 Hours) Vital Signs Temp Pulse Pulse Resp BP BP Pulse Ox 01/17/24 12:01 78 16 140/73 98 01/17/24 11:18 88 19 99 01/17/24 09:52 84 01/17/24 09:30 36.9 C 01/17/24 07:43 100 H 24 148/95 H 98 01/17/24 07:35 106 H 20 99 01/17/24 05:00 78 18 136/83 96 01/17/24 04:00 82 18 148/92 H 01/17/24 03:00 80 18 126/67 O2 Del Method O2 Flow Rate 01/17/24 12:01 Nasal Cannula 2 01/17/24 11:18 Nasal Cannula 3 01/17/24 09:52 01/17/24 09:30 01/17/24 07:43 Nasal Cannula 1 01/17/24 07:35 Nasal Cannula 3 01/17/24 05:00 01/17/24 04:00 01/17/24 03:00 PG Care Time/CCT Total # of Minutes Spent Total Time Spent with Patient: Total time spent is greater than 50% in coordination of care (as documented) at patient's floor/unit and/or counseling patient: Coding Level of Care Code 97498 SUB INP/OBS CARE 3/50MIN Diagnoses Atypical chest pain R07.89 COPD (chronic obstructive pulmonary disease) J44.9 COPD type: unspecified COPD Type 2 diabetes mellitus E11.9; Z79.4 Diabetes mellitus complication status: without complication Diabetes mellitus penitentiary insulin use: with penitentiary use Histrionic personality disorder F60.4 Primary hypertension I10 Hypertension type: primary hypertension (2) COPD (chronic obstructive pulmonary disease) COPD type: unspecified COPD Qualified Code(s): J44.9 - Chronic obstructive pulmonary disease, unspecified (3) Type 2 diabetes mellitus Diabetes mellitus complication status: without complication Diabetes mellitus tool design drafter insulin use: with penitentiary use Qualified Code(s): E11.9 - Type 2 diabetes mellitus without complications; Z79.4 - analytics consultant (current) use of insulin (5) Hypertension Hypertension type: primary hypertension Qualified Code(s): I10 - Essential (primary) hypertension
[2024-01-17] MEDS: cefTRIAXone SODIUM 2,000 MG/50 ML BAG IV SCH (18:38)
[2024-01-17] MEDS: LANTUS PER UNIT CHARGE SQ SCH (20:33)
[2024-01-18 07:45] LABS: Basophils # (auto) 0.01 K/uL (0.00-0.20); Basophils % (auto) 0.1 %; Hematocrit (blood only) 36.5 % (37.0-47.0); Hemoglobin 12.3 g/dl (12.0-16.0); Immature Granulocytes # (auto) 0.07 K/uL (0.01-0.20); Immature Granulocytes % (auto) 0.6 %; Mean Corpuscular Hemoglobin 28.3 pg (25.0-34.0); Mean Corpuscular Hgb Conc 33.7 g/dL (32.0-36.0); Mean Corpuscular Volume 84.1 fL (80.0-100.0); Mean Platelet Volume 11.2 fL (9.4-12.4); Monocytes # (auto) 0.19 K/uL (0.11-0.59); Monocytes % (auto) 1.5 %; Neutrophils # (auto) 11.29 K/uL (1.40-6.50); Neutrophils % (auto) 89.8 %; Platelet Count 260 K/uL (130-400); RDW Coefficient of Variation 14.3 % (11.5-14.5); RDW Standard Deviation 43.6 fL (36.4-46.3); Red Blood Count 4.34 M/uL (4.20-5.40); White Blood Count 12.56 K/ul (4.8-10.8)
[2024-01-18 07:56] LABS: Albumin Globulin Ratio 1.4 (0.9-2); Albumin Level 3.6 gm/dl (3.4-5.0); BUN Creatinine Ratio 27.8 (10-20); Bilirubin,Total 0.3 mg/dl (0.2-1.0); Creatinine Clr Calc Pharmacy 62.9 ml/min; Est GFR (African American) 97.7 ml/min; Est GFR (Non-African American) 84.3 ml/min; Globulin 2.6 gm/dl (2.5-4.0); Magnesium 2.1 mg/dl (1.7-2.4); Potassium 4.1 mmol/L (3.5-5.1); Total Protein 6.2 gm/dl (6.0-8.3)
--- NOTE | 2024-01-18 08:04 | Hospitalist Progress Note ---
Date of Service January 18, 2024 Assessment & Plan (1) COPD (chronic obstructive pulmonary disease): Plan: Patient has been experiencing ongoing productive cough, wheezing, shortness of breath consistent with her recent COPD exacerbation 2nd to +entero/rhinovirus testing 01/09 --Reports follows Dr Lemus [facility], trying to get Breztri inhaler as reports trelegy not effective for her RSV/FLU/COVID negative Stable on room air but having expiratory wheezing 01/16. IV solumedrol 60mg TID --> BID for 01/17--> decrease to ONCE DAILY IN AM 01/18, can convert to prednisone daily if stable/improved Doxycycline BID continued for exacerbation/atypical coverage, also on ceftr iaxone for urine coverage (urine cx rec repeat collection) Duonebs QID, hypertonic saline nebs BID Cough syrup available O2 as needed but has been stable on ROOM AIR, avoid over-oxygenation Incentive spirometer, flutter valve added Patient reporting green sputum--> sputum cx ordered (RN asked to provide cup) continues on ceftriaxone/doxy as above however did have recent hospitalization for rhinovirus/enterovirus and WBC elevation suspect 2nd to steroids, has been afebrile but will continue to monitor and f/u sputum cx Can consider sending rx for hypertonic saline nebs to help w/ mucus plugging Possible dc next 24 hours (2) Atypical chest pain: Plan: Admit to med/telemetry on pulse oximetry Currently stable with ongoing left-sided chest pain with radiation to left arm Patient states that symptoms acutely began around 11 AM today and have been constant Cardiac workup thus far has been unremarkable, appears consistent with atypical chest pain from last admission Suspect MSK pain from coughing with COPD exacerbation. Low suspicion for PE. Dopplers are negative Troponins negative. No acute ischemic EKG findings on admission Pain is likely musculoskeletal, suspect cough from COPD exacerbations worsens her issue Also has hx dysphagia and completed barium swallow last admission 01/12 which noted moderate esophageal dysmotility but denies issues w/ swallowing at present. could consider speech eval if needed No issues on telemetry at this time, no CP reported (3) Histrionic personality disorder: Plan: Suspect a large component of the patient's recurrent symptoms are due to anxiety Will need to continue consistent reassurance started on admission but cardiac workup continues to be unremarkable Does have evidence of ongoing COPD exacerbation with increased dyspnea, diffuse wheezing on exam, and an oxygen requirement at time of exam 01/16. Discussed that her cardiac workup is negative, and that while she was on oxygen she was also being hyperoxygenated and that her goal should be around 90%. She reports she understands this but continues to feel very tight in the chest and that her COPD is not yet at its baseline. Given this we will continue IV steroids, but wean from 3 times daily now to twice daily and hopefully daily 01/17 Of note, appears significant anxiety, home med fill noting rx for citalopram 10mg, remeron 15mg (recent increased in November from 7.5mg) and trazodone 50mg. She DENIES taking these medications but then did report that the prescriber is her psychiatrist. Does have pressured speech during encounter, irritable, ?manic Vistaril 10mg x 1 for anxiety, Liaison consult placed, ?manic, does have pressured speech, reported remeron increase made her TOO tired Does not appear was given these medications her last admission either, ?withdrawal . She only reported taking the lower dose remeron 7.5mg and could consider resuming this evening (4) Type 2 diabetes mellitus: Plan: A1c 6.2, sliding scale at home BSG AC/HS, sliding scale insulin while inpatient and monitor BSGs/adjustment as needed (5) Hypertension: Plan: BP 129/79, not on any medications at baseline Plan continued inpatient stay, possible dc next 24 hours Admission and Anticipated Discharge Date Admission Date: January 16, 2024 Supervising Physician Co-Signing Physician Notes The patient was not seen by me. The chart was reviewed. Case discussed with RADHA Lewis. Agree with assessment and plan Subjective Eval this afternoon, sitting up in bed. Reports breathing worse but on room air. Getting breathing treatments, steroids to BID. Initially asked if "kciking me out I'll need to know and find a ride". Provided assurance, will plan to monitor/decrease steroids to once daily for AM. She is fixated on not getting her albuterol HFA, ordered but did discuss on al buterol nebs. Can consider hypertonic saline. She inquiring about new inhaler for at ma. Discussed who is her drop man, Dr Olson in [facility], was to send maybe Iratri but never did. Will see if able to verify/send at dc. Sputum cx to be collected, remains on Ceftriaxone/Doxy. Discussed anxiety/depression, meds. Denies taking any meds listed remeron/celexa/trazodone. On further discussion, did mention providers name who sent rx and she reports that's her psychiatrist but didn't tolerate the increased remeron. Is NOT taking the celexa or the trazodone. Physical Exam Physical Exam: General: 73yo female sitting up at the side of the bed, eating lunch rigorously, NAD but reports breathing worse, on room air Head atraumatic, normocephalic, mmm, trachea midline CHest: reproducible tenderness Resp: able to talk in complete sentences (pressured speech at times), +cough (reports green sputum), prolonged expiratory phase w/ end expiratory wheezing, on room air CV: RRR, no significant m/r/g, no pitting edema GI: +BS, soft/NT no horn Results & Data Results & Data Vital Signs (Past 12 Hours) Vital Signs Temp Pulse Pulse Pulse Resp BP BP 01/18/24 07:39 66 20 01/18/24 07:27 01/18/24 07:16 61 01/18/24 06:21 01/18/24 05:27 76 01/18/24 02:42 36.5 C 72 20 129/69 01/17/24 23:00 01/17/24 22:33 36.3 C L 84 22 01/17/24 21:56 01/17/24 21:06 85 16 01/17/24 20:18 99 H 26 H 01/17/24 20:01 140/87 01/17/24 20:01 140/87 01/17/24 20:01 140/87 BP Pulse Ox O2 Del Method O2 Flow Rate 01/18/24 07:39 96 Room Air 01/18/24 07:27 Room Air 01/18/24 07:16 01/18/24 06:21 94 Room Air 01/18/24 05:27 01/18/24 02:42 98 Nasal Cannula 2 01/17/24 23:00 Nasal Cannula 2 01/17/24 22:33 164/98 H 97 Room Air 01/17/24 21:56 Nasal Cannula 2 01/17/24 21:06 01/17/24 20:18 06/25/24 20:01 01/17/24 20:01 01/17/24 20:01 Laboratory Results 01/18/24 01/18/24 01/18/24 Range/Units 12:12 08:10 07:18 WBC 12.56 H (4.8-10.8) K/ul RBC 4.34 (4.20-5.40) M/uL Hgb 12.3 (12.0-16.0) g/dl Hct 36.5 L (37.0-47.0) % MCV 84.1 (80.0-100.0) fL MCH 28.3 (25.0-34.0) pg MCHC 33.7 (32.0-36.0) g/dL RDW Std Deviation 43.6 (36.4-46.3) fL RDW Coeff of Maegan 14.3 (11.5-14.5) % Plt Count 260 (130-400) K/uL MPV 11.2 (9.4-12.4) fL Immature Gran % (Auto) 0.6 % Neut % (Auto) 89.8 % Lymph % (Auto) 8.0 % [place] % (Auto) 1.5 % Eos % (Auto) 0.0 % Baso % (Auto) 0.1 % Neut # (Auto) 11.29 H (1.40-6.50) K/uL Lymph # (Auto) 1.00 L (1.20-3.40) K/uL [place] # (Auto) 0.19 (0.11-0.59) K/uL Eos # (Auto) 0.00 (0.00-0.50) K/uL Baso # (Auto) 0.01 (0.00-0.20) K/uL Immature Gran # (Auto) 0.07 (0.01-0.20) K/uL PT 10.5 (9.0-12.0) Seconds INR 1.0 (0.9-1.1) Sodium 139 (136-145) mmol/L Potassium 4.1 (3.5-5.1) mmol/L Chloride 108 H (98-107) mmol/L Carbon Dioxide 24 (21-32) mmol/L Anion Gap 7 (3-11) BUN 20 (6-23) mg/dl Creatinine 0.72 (0.6-1.2) mg/dl Est Cr Clr Drug Dosing 62.9 ml/min Est GFR ( Amer) 97.7 ml/min Est GFR (Non-Af Amer) 84.3 ml/min BUN/Creatinine Ratio 27.8 H (10-20) Glucose 158 H (70-99(Fasting)) mg/dl POC Glucose 161 H 134 H (70-99) mg/dl Calcium 9.0 (8.6-10.3) mg/dl Magnesium 2.1 (1.7-2.4) mg/dl Total Bilirubin 0.3 (0.2-1.0) mg/dl AST 15 (13-39) U/L ALT 26 (7-52) U/L Alkaline Phosphatase 68 (34-104) U/L Total Protein 6.2 (6.0-8.3) gm/dl Albumin 3.6 (3.4-5.0) gm/dl Globulin 2.6 (2.5-4.0) gm/dl Albumin/Globulin Ratio 1.4 (0.9-2) 01/17/24 01/17/24 Range/Units 20:17 16:40 WBC (4.8-10.8) K/ul RBC (4.20-5.40) M/uL Hgb (12.0-16.0) g/dl Hct (37.0-47.0) % MCV (80.0-100.0) fL MCH (25.0-34.0) pg MCHC (32.0-36.0) g/dL RDW Std Deviation (36.4-46.3) fL RDW Coeff of Maegan (11.5-14.5) % Plt Count (130-400) K/uL MPV (9.4-12.4) fL Immature Gran % (Auto) % Neut % (Auto) % Lymph % (Auto) % [place] % (Auto) % Eos % (Auto) % Baso % (Auto) % Neut # (Auto) (1.40-6.50) K/uL Lymph # (Auto) (1.20-3.40) K/uL [place] # (Auto) (0.11-0.59) K/uL Eos # (Auto) (0.00-0.50) K/uL Baso # (Auto) (0.00-0.20) K/uL Immature Gran # (Auto) (0.01-0.20) K/uL PT (9.0-12.0) Seconds INR (0.9-1.1) Sodium (136-145) mmol/L Potassium (3.5-5.1) mmol/L Chloride (98-107) mmol/L Carbon Dioxide (21-32) mmol/L Anion Gap (3-11) BUN (6-23) mg/dl Creatinine (0.6-1.2) mg/dl Est Cr Clr Drug Dosing ml/min Est GFR ( Amer) ml/min Est GFR (Non-Af Amer) ml/min BUN/Creatinine Ratio (10-20) Glucose (70-99(Fasting)) mg/dl POC Glucose 145 H 133 H (70-99) mg/dl Calcium (8.6-10.3) mg/dl Magnesium (1.7-2.4) mg/dl Total Bilirubin (0.2-1.0) mg/dl AST (13-39) U/L ALT (7-52) U/L Alkaline Phosphatase (34-104) U/L Total Protein (6.0-8.3) gm/dl Albumin (3.4-5.0) gm/dl Globulin (2.5-4.0) gm/dl Albumin/Globulin Ratio (0.9-2) PG Care Time/CCT Total # of Minutes Spent Total Time Spent with Patient: Total time spent is greater than 50% in coordination of care (as documented) at patient's floor/unit and/or counseling patient: Coding Level of Care Code 52928 SUB INP/OBS CARE 3/50MIN Diagnoses COPD (chronic obstructive pulmonary disease) J44.9 COPD type: unspecified COPD Atypical chest pain R07.89 Histrionic personality disorder F60.4 Type 2 diabetes mellitus E11.9; Z79.4 Diabetes mellitus complication status: without complication Diabetes mellitus assisted insulin use: with assisted use Primary hypertension I10 Hypertension type: primary hypertension (1) COPD (chronic obstructive pulmonary disease) COPD type: unspecified COPD Qualified Code(s): J44.9 - Chronic obstructive pulmonary disease, unspecified (4) Type 2 diabetes mellitus Diabetes mellitus complication status: without complication Diabetes mellitus assisted insulin use: with emt intermediate use Qualified Code(s): E11.9 - Type 2 diabetes mellitus without complications; Z79.4 - emt intermediate (current) use of insulin (5) Hypertension Hypertension type: primary hypertension Qualified Code(s): I10 - Essential (primary) hypertension
[2024-01-18 08:10] LABS: Prothrombin Time 10.5 Seconds (9.0-12.0)
[2024-01-18] MEDS: hydrOXYzine HCl 10 MG TAB PO ONE (13:14)
[2024-01-18] MEDS: guaiFENesin/CODEINE 100MG/10MG 5ML UDC PO PRN (21:56)
[2024-01-19] MEDS: ALBUTEROL HFA 8 GM INHALER INH PRN (06:16)
[2024-01-19] MEDS: methylPREDNISolone 60 MG in SYRINGE 0 ML IV SCH (07:59)
--- NOTE | 2024-01-19 08:06 | Hospitalist Progress Note ---
Date of Service January 19, 2024 Assessment & Plan (1) COPD (chronic obstructive pulmonary disease): Plan: Patient has been experiencing ongoing productive cough, wheezing, shortness of breath consistent with her recent COPD exacerbation 2nd to +entero/rhinovirus testing 01/09 --Reports follows Dr Lemus [facility], trying to get Breztri inhaler as reports trelegy not effective for her RSV/FLU/COVID negative Stable on room air but having expiratory wheezing 01/16. IV solumedrol 60mg TID --> BID for 01/17--> decrease to ONCE DAILY IN AM 01/18, can convert to prednisone daily if stable/improved Doxycycline BID continued for exacerbation/atypical coverage, also on ceftr iaxone for urine coverage (urine cx rec repeat collection) Duonebs QID, hypertonic saline nebs BID Cough syrup available O2 as needed but has been stable on ROOM AIR, avoid over-oxygenation Incentive spirometer, flutter valve added Patient reporting green sputum--> sputum cx ordered (RN asked to provide cup) continues on ceftriaxone/doxy as above however did have recent hospitalization for rhinovirus/enterovirus and WBC elevation suspect 2nd to steroids, has been afebrile but will continue to monitor and f/u sputum cx Can consider sending rx for hypertonic saline nebs to help w/ mucus plugging Possible dc next 24 hours 01/18 ?budesonide nebs (2) Atypical chest pain: Plan: Admit to med/telemetry on pulse oximetry Currently stable with ongoing left-sided chest pain with radiation to left arm Patient states that symptoms acutely began around 11 AM today and have been constant Cardiac workup thus far has been unremarkable, appears consistent with atypical chest pain from last admission Suspect MSK pain from coughing with COPD exacerbation. Low suspicion for PE. Dopplers are negative Troponins negative. No acute ischemic EKG findings on admission Pain is likely musculoskeletal, suspect cough from COPD exacerbations worsens her issue Also has hx dysphagia and completed barium swallow last admission 01/12 which noted moderate esophageal dysmotility but denies issues w/ swallowing at present. could consider speech eval if needed No issues on telemetry at this time, no CP reported (3) Histrionic personality disorder: Plan: Suspect a large component of the patient's recurrent symptoms are due to anxiety Will need to continue consistent reassurance started on admission but cardiac workup continues to be unremarkable Does have evidence of ongoing COPD exacerbation with increased dyspnea, diffuse wheezing on exam, and an oxygen requirement at time of exam 01/16. Discussed that her cardiac workup is negative, and that while she was on oxygen she was also being hyperoxygenated and that her goal should be around 90%. She reports she understands this but continues to feel very tight in the chest and that her COPD is not yet at its baseline. Given this we will continue IV steroids, but wean from 3 times daily now to twice daily and hopefully daily 01/17 Of note, appears significant anxiety, home med fill noting rx for citalopram 10mg, remeron 15mg (recent increased in November from 7.5mg) and trazodone 50mg. She DENIES taking these medications but then did report that the prescriber is her psychiatrist. Does have pressured speech during encounter, irritable, ?manic Vistaril 10mg x 1 for anxiety, Liaison consult placed, ?manic, does have pressured speech, reported remeron increase made her TOO tired Does not appear was given these medications her last admission either, ?withdrawal . She only reported taking the lower dose remeron 7.5mg and could consider resuming this evening (4) Type 2 diabetes mellitus: Plan: A1c 6.2, sliding scale at home BSG AC/HS, sliding scale insulin while inpatient and monitor BSGs/adjustment as needed (5) Hypertension: Plan: BP 129/79, not on any medications at baseline Plan continued inpatient stay, possible dc next 24 hours Admission and Anticipated Discharge Date Admission Date: January 16, 2024 Subjective Eval this morning, resting in bed. Feels ready for discharge. Increased sputum clearance but not able to give sample. Will continue empiric treatment, hypertonic saline, attempt rx for breztri. Encourage compliance w/ follow up care. Continue pulm toilet and prednisone taper at dc. Will get 2 step to ensure no needs. Results & Data Results & Data Vital Signs (Past 12 Hours) Vital Signs Temp Pulse Pulse Resp BP BP Pulse Ox 01/19/24 07:22 70 16 98 01/19/24 07:18 01/19/24 07:04 69 01/19/24 03:46 36.6 C 56 L 14 136/84 98 01/18/24 23:40 01/18/24 22:40 01/18/24 22:00 36.7 C 84 16 108/63 91 Pulse Ox O2 Del Method O2 Del Method O2 Flow Rate 01/19/24 07:22 Room Air 01/19/24 07:18 Room Air 01/19/24 07:04 01/19/24 03:46 Room Air 01/18/24 23:40 91 Room Air 01/18/24 22:40 Room Air 01/18/24 22:00 Nasal Cannula 2 Laboratory Results 01/18/24 01/18/24 01/18/24 Range/Units 20:25 16:55 12:12 PT (9.0-12.0) Seconds INR (0.9-1.1) POC Glucose 213 H 127 H 161 H (70-99) mg/dl 01/18/24 01/18/24 Range/Units 08:10 07:18 PT 10.5 (9.0-12.0) Seconds INR 1.0 (0.9-1.1) POC Glucose 134 H (70-99) mg/dl PG Care Time/CCT Total # of Minutes Spent Total Time Spent with Patient: Total time spent is greater than 50% in coordination of care (as documented) at patient's floor/unit and/or counseling patient: Coding Diagnoses COPD (chronic obstructive pulmonary disease) J44.9 COPD type: unspecified COPD Atypical chest pain R07.89 Histrionic personality disorder F60.4 Type 2 diabetes mellitus E11.9; Z79.4 Diabetes mellitus complication status: without complication Diabetes mellitus jail insulin use: with manager bar use Primary hypertension I10 Hypertension type: primary hypertension (1) COPD (chronic obstructive pulmonary disease) COPD type: unspecified COPD Qualified Code(s): J44.9 - Chronic obstructive pulmonary disease, unspecified (4) Type 2 diabetes mellitus Diabetes mellitus complication status: without complication Diabetes mellitus manager bar insulin use: with manager bar use Qualified Code(s): E11.9 - Type 2 diabetes mellitus without complications; Z79.4 - long-term (current) use of insulin (5) Hypertension Hypertension type: primary hypertension Qualified Code(s): I10 - Essential (primary) hypertension
[2024-01-19] MEDS ORDERED: methylPREDNISolone 1000 MG/16 ML IV SCH (09:00)
[2024-01-19 09:07] LABS: Basophils # (auto) 0.01 K/uL (0.00-0.20); Basophils % (auto) 0.1 %; Hemoglobin 12.5 g/dl (12.0-16.0); Immature Granulocytes # (auto) 0.35 K/uL (0.01-0.20); Immature Granulocytes % (auto) 2.7 %; Lymphocytes # (auto) 0.63 K/uL (1.20-3.40); Lymphocytes % (auto) 4.9 %; Mean Corpuscular Hemoglobin 27.7 pg (25.0-34.0); Mean Corpuscular Hgb Conc 32.9 g/dL (32.0-36.0); Mean Corpuscular Volume 84.3 fL (80.0-100.0); Mean Platelet Volume 11.4 fL (9.4-12.4); Monocytes % (auto) 2.3 %; Neutrophils # (auto) 11.61 K/uL (1.40-6.50); Platelet Count 232 K/uL (130-400); RDW Coefficient of Variation 14.5 % (11.5-14.5); RDW Standard Deviation 44.6 fL (36.4-46.3); Red Blood Count 4.51 M/uL (4.20-5.40)
[2024-01-19 09:23] LABS: Albumin Globulin Ratio 1.4 (0.9-2); Albumin Level 3.7 gm/dl (3.4-5.0); BUN Creatinine Ratio 30.6 (10-20); Bilirubin,Total 0.4 mg/dl (0.2-1.0); Calcium 9.1 mg/dl (8.6-10.3); Creatinine Clr Calc Pharmacy 62.9 ml/min; Est GFR (African American) 97.7 ml/min; Est GFR (Non-African American) 84.3 ml/min; Globulin 2.6 gm/dl (2.5-4.0); Magnesium 1.9 mg/dl (1.7-2.4); Potassium 3.5 mmol/L (3.5-5.1); Total Protein 6.3 gm/dl (6.0-8.3)
[2024-01-19 09:32] LABS: Prothrombin Time 10.4 Seconds (9.0-12.0)
--- NOTE | 2024-01-19 10:19 | Discharge Summary ---
Date of Service January 19, 2024 Admission HPI Per Admitting Provider Gail is a 73-year-old female with PMH of multiple sclerosis, HTN, HLD, MVP, allergic rhinitis, T2DM, orthostatic tremor, recurrent UTI, IBS, COPD, and, histrionic personality disorder, and seizure disorder Who presented to the [facility] ED via ALS on 01/16/2024 with complaints of left-sided chest pain with radiation down the left upper extremity which began around 11:30 AM today. Patient reportedly took 3 nitroglycerin tabs at home without improvement in symptoms prior to EMS arrival. On arrival to the ED she was noted to be hypertensive at 169/81 but was otherwise stable. Labs including CBC, CMP, 2 high-sensitivity troponin, BNP were unremarkable. UA is noted to have 2+ leukocyte esterase, greater than 50 white blood cells, greater than 20 epithelial cells, 2+ bacteria. Chest x-ray was read as negative for acute findings. EKG showed normal sinus rhythm without acute ST segment or T wave changes. The patient was given an albuterol nebulizer treatment, 50 mcg IV fentanyl, 60 mg IV methylprednisolone, and 500 mL normal saline prior to admission. The patient was recently admitted to [facility] from 01/10/2024 - 01/13/2024 due to rhinovirus infection, constipation, left-sided chest pain, and UTI. Patient remained stable on room air thus she was treated with a course of prednisone and as needed albuterol nebulizers. In regards to her left-sided chest pain she had 4 high-sensitivity troponin levels within normal limits, recent CTA of the chest obtained in the [facility] ED on 12/30/2023 was negative for acute findings. There were no acute telemetry findings and this chest pain was thought to be more GI related however, the patient did refuse a GI cocktail. After a dose of Toradol her pain resolved. She was treated with 3 days of ceftriaxone for UTI. Patient was sitting in bed no acute distress at time of exam, currently stable on room air. States that she started to develop left-sided chest pain with radiation to the left upper extremity around 11 AM this morning. Describes the pain as sharp/stabbing, constant, 10 out of 10. Does not believe that changing positions changes her pain at all. When asked if this pain was similar to the pain she experienced last admission, she confirms that it does. Again she confirms that this pain has been constant since it began around 11 AM today. States that she is still been coughing significantly since last admission still bringing up yellow sputum. Has still been taking prednisone as prescribed at the time of last discharge. Denies recent fever/chills, hemoptysis, pleuritic chest pain, nausea/vomiting, lower extremity swelling and recent fall/trauma. Next, she is experiencing bilateral lower abdominal pain consistent with or recurrent episodes of constipation similar to last admission. When asked, she believes her last bowel movement was approximately 3 days ago. She does feels that she is having recurrent urinary symptoms. She is a full code. Please refer to Dr. Bland's attestation for any changes to the treatment plan Principal Diagnosis COPD exacerbation, atypical chest pain Discharge Exam General: 73yo female sitting up at the side of the bed, eating lunch rigorously, NAD but reports breathing worse, on room air Head atraumatic, normocephalic, mmm, trachea midline CHest: reproducible tenderness Resp: able to talk in complete sentences (pressured speech at times), +cough (reports green sputum), prolonged expiratory phase w/ end expiratory wheezing, on room air CV: RRR, no significant m/r/g, no pitting edema GI: +BS, soft/NT no horn Discharge Data Allergies Allergy/AdvReac Type Severity Reaction Status Date / Time aspirin Allergy Severe Hives Unverified 01/10/24 17:09 bee venom protein (honey bee) Allergy Severe Anaphylaxis Verified 01/10/24 17:09 ibuprofen Allergy Unknown unknown Verified 01/10/24 17:09 Penicillins Allergy Unknown unknown Verified 01/10/24 17:09 phenytoin Allergy Unknown unknown Verified 01/10/24 17:09 Iodinated Contrast Media AdvReac Mild Vomiting Verified 01/10/24 17:09 [Iodinated Contrast- Oral and IV Dye] fiberglass Allergy Severe Rash and Uncoded 01/10/24 17:09 Difficulty Breathing Consultations 01/16/24 17:24 ED Decision to Admit Stat 01/18/24 12:46 Consult Psychiatry Routine Ordered Studies Chest X-Ray 01/16/24 13:41 TWO VIEW CHEST CLINICAL HISTORY: Atypical chest pain. Productive cough. FINDINGS: AP and lateral chest radiographs are compared to study dated 01/10/2024. Correlation is made with chest CT dated 12/30/2023. The cardiomediastinal silhouette is unremarkable. The lungs and pleural spaces are clear. There is no pneumothorax. The skeletal structures are osteopenic. The bony thorax appears intact. Degenerative change is noted in the thoracic spine. Cholecystectomy clips are noted in the right upper quadrant. IMPRESSION: No active disease in the chest. ACT 112: Negative or not required by law. Electronically signed by: Edgar Rogers M.D. 01/16/2024 3:54 PM Venous Doppler Study 01/16/24 18:12 Exam(s): US VENOUS BILATERAL LOWER EXTREMITIES EXAM: US Duplex Bilateral Lower Extremities Veins CLINICAL HISTORY: Reason for exam: pleuritic chest pain. TECHNIQUE: Real-time duplex ultrasound scan of the bilateral lower extremity veins integrating B-mode two-dimensional vascular structure, Doppler spectral analysis, color flow Doppler imaging and compression. COMPARISON: No relevant prior studies available. FINDINGS: Right deep veins: Unremarkable. No DVT in the right common femoral, femoral, proximal deep femoral or popliteal veins. The veins demonstrate normal color flow, are normally compressible, with normal phasic flow and/or augmentation response. Right superficial veins: Unremarkable. No thrombus in the visualized right great saphenous vein. Left deep veins: Unremarkable. No DVT in the left common femoral, femoral, proximal deep femoral or popliteal veins. The veins demonstrate normal color flow, are normally compressible, with normal phasic flow and/or augmentation response. Left superficial veins: Unremarkable. No thrombus in the visualized left great saphenous vein. Soft tissues: No acute findings. No popliteal cyst. IMPRESSION: Normal bilateral lower extremity duplex venous ultrasound. Electronically signed by: Greg Frasuto MD 01/17/24 02:14 AM Hospital Course (1) COPD (chronic obstructive pulmonary disease): Patient has been experiencing ongoing productive cough, wheezing, shortness of breath consistent with her recent COPD exacerbation 2nd to +entero/rhinovirus testing 01/09 --Reports follows Dr Lemus [facility], trying to get Breztri inhaler as reports trelegy not effective for her RSV/FLU/COVID negative Stable on room air but having expiratory wheezing 01/16. IV solumedrol 60mg TID --> BID for 01/17 --> decrease to ONCE DAILY IN AM 01/18 and converted to prednisone taper 40mg x 2 days, 30mg x 2 days, 20mg x2 days then 10mg x 2 days to complete course Doxy PO BID x 5 days, Ceftriaxone utilized while inpatient for possible urinary coverage but urine cx w/ repeat collection and given improvement/possible bacterial PNA however CXR negative, decision to continue augmentin for coverage for possible PNA. Continued pulmonary toilet and hypertonic saline nebs at discharge. Instructed patient to f/u her usual shot dropper about consideration for lexitri given her reports trelegy not helpful before Patient on room air, decreased wheezing and wanting to go home AM 01/18 and reporting appt tomorrow. Ordered 2step prior to dc and can be arranged if needed . PT messaged to see prior to dc given want for HHPT and prior recs last admission and CM notified to send referral. Encouraged patient to f/u psychiatry outpatient, resume remeron 7.5mg HS. Declined inpatient eval, follows w/ [facility]rice Blackman outpt (2) Atypical chest pain: L sided pain w/ radiation to arm, on/off. Multiple admission for such. Trop negative. No ischemic findings on EKG and likely MSK from coughing from recent viral infection and bronchitis likely. Dopplers negative, low susp for PE Also has hx dysphagia and completed barium swallow last admission 01/12 which noted moderate esophageal dysmotility but denies issues w/ swallowing at present --> rec discussion about possible ref to GI outpt, continued PPI BID and famotidine at dc while on steroid as well NSR on telemetry, no arrythmia, occ PAC. outpt f/u (3) Histrionic personality disorder: Suspect a large component of the patient's recurrent symptoms are due to anxiety Will need to continue consistent reassurance started on admission but cardiac workup continues to be unremarkable Does have evidence of ongoing COPD exacerbation with increased dyspnea, diffuse wheezing on exam, and an oxygen requirement at time of exam 01/16. Discussed that her cardiac workup is negative, and that while she was on oxygen she was also being hyperoxygenated and that her goal should be around 90%. She reports she understands this but continues to feel very tight in the chest and that her COPD is not yet at its baseline. Given this we will continue IV steroids, but wean from 3 times daily now to twice daily and hopefully daily 01/17 Of note, appears significant anxiety, home med fill noting rx for citalopram 10mg, remeron 15mg (recent increased in November from 7.5mg) and trazodone 50mg. She DENIES taking these medications but then did report that the prescriber is her psychiatrist. Vistaril 10mg x 1 for anxiety provided Declined eval w/ psych inpatient, seen by liamarine. Encouraged resumption lower dose remeron at dc and psych outpt f/u (4) Type 2 diabetes mellitus: A1c 6.2, sliding scale at home and can continue while on steroid taper (5) Hypertension: BP 129/79, not on any medications at baseline but w/ anxiety and hospital setting rec f/u outpatient and consider JERE/ARB given hx DM (6) Vitamin D deficiency: noted hx but not on supp, checked/low, supp started and continued at dc. poss benefit w/ her underlying COPD as well Plan discharge home this afternoon w/ HHPT , 2step to be done prior to dc and will arrange O2 if needed. Outpt f/u pulm Total Time Total Time Spent Total Time Spent (In Minutes): 45 Discharge Plan Discharge Items Patient Disposition: Home - Home Health Services Reason For Visit: CHEST PAIN, UTI Discharge Diagnosis: COPD exacerbation Goals: You have been hospitalized for an acute medical problem. During your stay at [facility], we have made an effort to correct the problem that brought you to the hospital while keeping you as comfortable as possible. Medications were used to bring your condition under control and your discharge instructions will include directions for any medications you should take after leaving the hospital. Please make sure you see your Primary Care Provider as part of your follow up plan.You have been hospitalized for an acute medical problem. During your stay at [facility], we have made an effort to correct the problem that brought you to the hospital while keeping you as comfortable as possible. Medications were used to bring your condition under control and your discharge instructions will include directions for any medications you should take after leaving the hospital. Please make sure you see your Primary Care Provider as part of your follow up plan. Activity: As commented below Non-emergency contact: Primary Care Provider and Epic Kaleidoscope Analyst Call non-emergency contact if: you have any medication questions, your symptoms worsen and your pain is not controlled Follow-up/Referrals: Gianna Dempsey, [Primary Care Provider] - 01/24/24 9:40 am (Dr. Fuchs, ZACHARY) Son Lemus M.D. [Outside Practitioners] - 02/14/24 10:45 am Beatrice Blackman PA-C [Outside Practitioners] - 01/25/24 11:15 am Diet: Carb Consistent or DM2 and Heart Healthy Addtl Attending Provider Instructions: You have been hospitalized for chest pain and cardiac testing has all been negative and telemetry without issue. It is suspected a large component is from COPD exacerbation in setting of recent viral illness. You have been treated with antibiotics and could have underlying pneumonia from viral process but imaging has been negative and you have been improved on treatment with steroids as well. You will be sent home on course of Augmentin and doxycycline to complete the course. You will be sent with prednisone taper. Please take as directed. You have also been continued on protonix (pantoprazole) while on steroids for possible underlying reflux contributing to your chest discomfort and these have been continued while on steroids. Please discuss ongoing use with primary care. You also have been sent nebulizer treatment with hypertonic saline to use twice daily to help with mucus plugging/congestion. Your vitamin D was also low and we started supplements and have continued these at discharge once daily as well. Please follow up with primary care in the next week to monitor your status as well as psychiatry and pulmonology for ongoing management of your chronic medical conditions. Please return to the ER with any fevers, worsening breathing or for any other symptoms concerning for you. Take care! Pending Studies at Discharge: No Stand-Alone Forms: [facility], Smoking Cessation Medications and DC Order Prescriptions: New sodium chloride 7 % Solution For Nebulization 4 ml NEB BIDR Qty: 120 0RF famotidine 20 mg Tablet 20 mg PO BID Qty: 30 0RF pantoprazole 40 mg Tablet,Delayed Release (Dr/Ec) 40 mg PO DAILY Qty: 30 0RF cholecalciferol (vitamin D3) 125 mcg (5,000 unit) Tablet 125 mcg PO QAM Qty: 30 0RF doxycycline hyclate 100 mg tablet 100 mg PO BID 2 Days Qty: 4 0RF amoxicillin-pot clavulanate 875-125 mg tablet 1 tab PO BID 5 Days Qty: 9 0RF prednisone 20 mg tablet See Rx Instructions .ROUTE .COMPLEX Qty: 10 0RF Rx Instructions: 40mg by mouth x 2 days, then 30mg x 2 days, then 20mg x 2 days, then 10mg x 2 days to complete taper Continued (DME) OneTouch Verio test strips Strip See Rx Instructions .Route Qty: 400 1RF Rx Instructions: TEST FOUR TIMES DAILY, DX CODE: E11.9 (DME) lancets [Onetouch Delica Safety Lancet] 30 gauge [facility] See Rx Instructions .Route Qty: 400 1RF Rx Instructions: TEST FOUR TIMES DAILY, DX CODE: E11.9 (DME) blood-glucose meter [OneTouch Verio Flex meter] [facility] See Rx Instructions .Route Qty: 1 0RF Rx Instructions: TEST FOUR TIMES DAILY; DX CODE- E11.9 (DME) nebulizers [facility] See Rx Instructions .Route Qty: 1 0RF Rx Instructions: as directed (DME) nebulizer accessories Kit See Rx Instructions .Route Qty: 2 12RF Rx Instructions: As directed/ tubing and mouthpiece nitroglycerin 0.4 mg tablet, sublingual 0.4 mg sublingual Q5M PRN (Reason: Chest Pain) Qty: 20 1RF Rx Instructions: filled 539 days ago Take up to 3 doses. Call 911 if pain persists. insulin lispro [Humalog KwikPen Insulin] 100 unit/mL insulin pen 1 sliding scale dose subcut USEASDIRECTD Qty: 15 2RF Rx Instructions: tid with meals and sliding scale albuterol sulfate 2.5 mg /3 mL (0.083 %) solution for nebulization 2.5 mg INH Q4H PRN (Reason: shortness of breath or wheezing) Qty: 180 2RF aspirin 81 mg tablet,delayed release (DR/EC) 81 mg PO QAM Qty: 30 0RF Rx Instructions: unable to verify epinephrine 0.3 mg/0.3 mL auto-injector 0.3 mg IM DIRECTED PRN (Reason: anaphylaxis) Qty: 2 1RF Rx Instructions: inject solution auto injector. Per pt she needs a new script albuterol sulfate [Ventolin HFA] 90 mcg/actuation HFA aerosol inhaler 2 puff INHALATION Q6H PRN (Reason: Shortness Of Breath Or Wheezing) Qty: 8.5 5RF fluticasone propionate [Flonase Allergy Relief] 50 mcg/actuation spray,suspension 2 spray intranasal DAILY ipratropium bromide 0.02 % solution 2.5 ml inhalation Q4H PRN (Reason: shortness of breath or wheezing) sennosides [Senokot] 8.6 mg Tablet 8.6 mg PO DAILY PRN (Reason: constipation) Qty: 10 0RF Rx Instructions: Over the counter prednisone 20 mg Tablet 40 mg PO QAM Qty: 6 0RF Rx Instructions: last day should be 01/15 montelukast 10 mg tablet 10 mg PO QAM quetiapine [Seroquel] 25 mg tablet 25 mg PO HS citalopram [Celexa] 10 mg tablet 10 mg PO DAILY Changed mirtazapine [Remeron] 15 mg tablet 7.5 mg PO HS Qty: 0 0RF Discontinued trazodone 50 mg tablet 50 mg PO HS Discharge Orders: Discharge Order (Routine); Ordered 01/19/24 Ordered By: Virgie Buckley Admission Data Admit Date/Time: 01/16/24 17:54 Attending Provider: Daniel Carrero Admit Provider: Beck Bland Primary Care Provider: Gianna Dempsey Other Providers: Beck Bland; [facility],Home Healthcare; Bere Donovan; Solomon Rodriguez; Shivam Rios Jr; Carmen García; Jocelyn Lorenzana; Harley Andrews Other Interventions: Discharge Summary Assessment (RN) Last Done: 01/19/24 10:43 Supervising Physician Co-Signing Physician Notes The patient was not seen by me. The chart was reviewed. Case discussed with RADHA Lewis. 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
[2024-01-19] MEDS: CHOLECALCIFEROL 125 MCG (5,000 UNITS) TAB PO SCH (10:39)
--- NOTE | 2024-01-19 11:37 | Psychiatric Consultation ---
Date of Consultation January 19, 2024 Impression / Recommendations Impression Diagnostically no current signs for elevated mood/hypomania/bee. Suspect previous symptoms may have been due to steroid use. No evidence of any current major mood symptoms, she is future-oriented and motivated to return home. Has been non-adherent with her outpatient psychiatric medications due to side effects of fatigue but seems to have stable mood even without these. She is interested in possibly restarting mirtazapine which would be reasonable to help with sleep, which she identifies the mirtazapine as often helpful for. No safety concerns, she desires discharge and does not meet 302 criteria. She is agreeable to seeing [facility] for outpatient psych followup. Overall, I spent a total of 45 minutes with this case including review of chart records, review of labwork, review of EKG QTc, direct evaluation of the patient at bedside, counseling the patient, discussion of the patient with the hospitalist provider, discussion with the psychiatric liason during clinical rounds and documentation in the electronic health record. (1) Histrionic personality disorder: (2) Atypical chest pain: Plan -No safety concerns from psychiatric standpoint -Agree with option to resume mirtazapine 7.5mg or 15mg HS Psych History Identifying Data 73 yo woman with history of multiple sclerosis, HTN, HLD, MVP, allergic rhinitis, T2DM, orthostatic tremor, recurrent UTI, IBS, COPD, and, histrionic personality disorder, and seizure disorder admitted medically for atypical chest pain. Psychiatry consulted for history of histrionic PD, question for possible symptoms of bee. Chief Complaint "I already to talked to one of you". History of Present Illness Gail is being treated for atypical chest pain. She is fully oriented, focused on goal of discharge as her chest pain has improved. She is hopeful to attend urology appointment tomorrow. She is not interested in restarting any psychiatric medication except maybe taking mirtazapine at a low dose after dis charge. She denies any symptoms of bee, psychosis, anxiety nor depression. Further information per psych liason note from 01/18/2024: "Met with patient for psych consult/initial psych liaison assessment. Patient is A&Ox3, sitting up at edge of bed, finishing her dinner meal. She is able to answer most questions, often unable to provide details or timelines/dates. She appears low energy and reports feeling physically ill. History was gathered from EMR/previous admissions, as well as the patient. She lives alone in an apartment, her daughter also lives in the same building. Historically, has poor family dynamics. Patient prefers to use daughter's samia (Fortino) as her emergency/medical contact. Patient follows with [facility] for psychiatric services (med management and talk therapy); she has a case management associate through [facility] insurance (cannot recall their name). She has a history of depression and anxiety as well as childhood trauma. She has underlying irritabi lity. Patient denies recent change in baseline mood/anxiety ect. Denies SI or thoughts of , "actually I'm afraid to ". She is clearly non-compliant with medications, unable to recall when she last took her psych meds or if she had taken them consistently for a period of time. She is certain she had not taken them as of the last 2 weeks d/t "they make me way too tired". At this time, she will not commit to taking/restarting any of her psych meds, but will consider Remeron. She does not have a follow-up appointment for psych provider; she missed her recent therapy appointment. Patient signed [facility] for [facility] to arrange for follow-up. Patient denies any acute psychiatric needs at this time. She reports ongoing issue with obtaining home health aid. She feels she needs assistance with ADLs/housework. "I'm not able to get my leg up over the tub"; she reports bathing recently, "I called someone to help me" (friend/neighbor). Patient drives when feeling well, otherwise [facility] assists with transport. Per external med rec patient is prescribed the following psychotropics: Citalopram 10mg daily, mirtazapine 15mg HS, Trazodone 50mg HS, and quetiapine 25mg ( 1-2 tabs) HS. All medications were filled middle of November and would be due for refills, if taken appropriately. Home med list updated. " Allergies Allergy/AdvReac Type Severity Reaction Status Date / Time aspirin Allergy Severe Hives Unverified 01/10/24 17:09 bee venom protein (honey bee) Allergy Severe Anaphylaxis Verified 01/10/24 17:09 ibuprofen Allergy Unknown unknown Verified 01/10/24 17:09 Penicillins Allergy Unknown unknown Verified 01/10/24 17:09 phenytoin Allergy Unknown unknown Verified 01/10/24 17:09 Iodinated Contrast Media AdvReac Mild Vomiting Verified 01/10/24 17:09 [Iodinated Contrast- Oral and IV Dye] fiberglass Allergy Severe Rash and Uncoded 01/10/24 17:09 Difficulty Breathing Home Medications Medication Instructions Recorded Confirmed Type aspirin 81 mg tablet,delayed 81 mg PO QAM #30 tabs 12/06/19 01/16/24 Rx release fluticasone propionate 50 2 spray intranasal DAILY 03/23/23 01/16/24 History mcg/actuation nasal spray,suspension (Flonase Allergy Relief) albuterol sulfate 2.5 mg/3 mL 2.5 mg (3 mL) inhalation Q4H PRN 06/23/23 01/16/24 Rx (0.083 %) solution for nebulization shortness of breath or wheezing #180 mL blood sugar diagnostic ([employer] #400 ea 07/05/23 01/16/24 Rx Verio test strips) lancets 30 gauge (Onetouch Delica #400 ea 07/05/23 01/16/24 Rx Safety Lancet) blood-glucose meter ([employer] #1 ea 07/07/23 01/16/24 Rx Verio Flex Meter) nebulizer accessories #2 ea 08/22/23 01/16/24 Rx nebulizers #1 ea 08/22/23 01/16/24 Rx insulin lispro 100 unit/mL 1 sliding scale dose subcut 09/02/23 01/16/24 Rx subcutaneous pen (Humalog KwikPen USEASDIRECTD #15 mL (U-100) Insulin) nitroglycerin 0.4 mg sublingual 0.4 mg sublingual Q5M PRN Chest 09/19/23 01/16/24 Rx tablet Pain #20 tabs albuterol sulfate 90 mcg/actuation 2 puff inhalation Q6H PRN 12/26/23 01/16/24 Rx aerosol inhaler (Ventolin HFA) Shortness Of Breath Or Wheezing #8.5 grams epinephrine 0.3 mg/0.3 mL 0.3 mg (0.3 mL) IM DIRECTED PRN 12/26/23 01/16/24 Rx injection, auto-injector anaphylaxis #2 ea ipratropium bromide 0.02 % 2.5 ml inhalation Q4H PRN 01/10/24 01/16/24 History solution for inhalation shortness of breath or wheezing prednisone 20 mg tablet 40 mg (2 x 20 mg) PO QAM #6 tabs 01/13/24 01/16/24 Rx sennosides 8.6 mg tablet (Senokot) 8.6 mg PO DAILY PRN constipation 01/13/24 01/16/24 Rx #10 tabs montelukast 10 mg tablet 10 mg PO QAM 01/16/24 01/16/24 History citalopram 10 mg tablet (Celexa) 10 mg PO DAILY 01/18/24 01/18/24 History quetiapine 25 mg tablet (Seroquel) 25 mg PO HS 01/18/24 01/18/24 History trazodone 50 mg tablet 50 mg PO HS 01/18/24 01/18/24 History amoxicillin 875 mg-potassium 1 tab PO BID 5 days #9 tabs 01/19/24 Rx clavulanate 125 mg tablet cholecalciferol (vitamin D3) 125 125 mcg PO QAM #30 tabs 01/19/24 Rx mcg (5,000 unit) tablet doxycycline hyclate 100 mg tablet 100 mg PO BID 2 days #4 tabs 01/19/24 Rx famotidine 20 mg tablet 20 mg PO BID #30 tabs 01/19/24 Rx mirtazapine 15 mg tablet (Remeron) 7.5 mg (1/2 x 15 mg) PO HS #30 tabs 01/19/24 Rx pantoprazole 40 mg tablet,delayed 40 mg PO DAILY #30 tabs 01/19/24 Rx release prednisone 20 mg tablet See Rx Instructions .Route 01/19/24 Rx .COMPLEX #10 tabs sodium chloride 7 % for 4 ml NEB BIDR #120 mL 01/19/24 Rx nebulization Patient History Medical History Neck pain Urgency of micturition Fatigue Tobacco dependence Surgical History Status post cardiac catheterization Status post cholecystectomy Status post dilation and curettage Status post tonsillectomy Status post tubal ligation Family History Father , age 91 an MD. Myocardial infarction Cerebral aneurysm Coronary heart disease Diabetes Mother , age 68 of lung cancer Lung cancer Brother H/O heart artery stent Denies family history of Ovarian cancer Prostate cancer Breast cancer Colorectal cancer Social History Smoking Status: Former smoker Tobacco Type: Cigarettes Age Started Using Tobacco: 18; Age Quit Using Tobacco: 20; packs per day: 2; Second Hand Exposure: Yes; Do You Dip or Chew Tobacco: No; Hx Alcohol Use: No Hx Substance Use: No Preferred Language: Azeri Communication Ability: Effective Visual Impairment: Limited Hearing Ability: Normal Latex Foam Worker Required: No Beliefs That Will Affect Care: None marital status: Single Current Living Situation: Alone Current Living Situation Comment: Live in apartment current occupational status: disabled 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, 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, 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 How many Children do You have: 2 Feels Safe at Home: Yes Childhood Exposure to Second-Hand Smoke: No Diet: regular caffeine: No during the past year weight has: remained stable Dental Care, Regularly: No Physical Activity Frequency: Does not Exercise Seatbelt Use: always Sunscreen Use: No Assistive Devices: Cane and Walker Physical Exam Psychiatric: Orientation: alert and oriented x 3 Apperance: appropriately dressed and appropriately groomed Eye Contact: good eye contact Motor Behavior: no abnormal motor movements Speech: normal rate/rhythm/volume of speech Affect: + constricted affect Mood: no depressed mood and no anxious mood Thought Process: linear/logical thought process and + concrete thought process Thought Content: reality based without delusions Suicidal Thoughts: denies suicidal thoughts Homicidal Thoughts: denies homicidal thoughts Hallucinations: no auditory hallucinations and no visual hallucinations Cognition: recent memory grossly intact, remote memory grossly intact, attention grossly intact and language grossly intact Estimated Intelligence: consistent with education level Insight: + limited insight Judgment: + limited judgement Vital Signs (Past 24 Hours): Last Vital Signs Temp 36.3 C L 01/19/24 10:43 Pulse 86 01/19/24 11:00 Resp 16 01/19/24 11:00 BP 161/74 H 01/19/24 10:43 Pulse Ox 98 01/19/24 11:00 O2 Del Method Room Air 01/19/24 10:59 O2 Flow Rate 2 01/18/24 22:00 Results & Data (PSY) Medications Administered Acetaminophen (Acetaminophen 325 Mg Tab) 650 mg PO Q6H RASHID Stop: 02/15/24 19:59 Last Admin: 01/19/24 07:58 Dose: 650 mg Documented By: Admin: 01/19/24 02:05 Dose: Not Given Documented By: Admin: 01/18/24 21:55 Dose: 650 mg Documented By: Admin: 01/18/24 13:14 Dose: 650 mg Documented By: Admin: 01/18/24 08:48 Dose: 650 mg Documented By: Admin: 01/18/24 02:05 Dose: Not Given Documented By: [id number] Admin: 01/17/24 19:22 Dose: 650 mg Documented By: Admin: 01/17/24 15:11 Dose: 650 mg Documented By: Admin: 01/17/24 08:36 Dose: 650 mg Documented By: Admin: 01/17/24 02:47 Dose: Not Given Documented By: Admin: 01/16/24 20:23 Dose: 650 mg Documented By: BENOIT Albuterol (Albut/Ipratrop 3mg/0.5mg Neb 3 Ml Vial) 3 ml NEB QIDR RASHID; Protocol Stop: 02/15/24 18:59 Last Admin: 01/19/24 10:59 Dose: 3 ml Documented By: Admin: 01/19/24 07:22 Dose: 3 ml Documented By: Admin: 01/18/24 20:28 Dose: Not Given Documented By: Admin: 01/18/24 15:17 Dose: 3 ml Documented By: [id number] Admin: 01/18/24 10:56 Dose: 3 ml Documented By: [id number] Admin: 01/18/24 07:38 Dose: 3 ml Documented By: [id number] Admin: 01/17/24 19:40 Dose: 3 ml Documented By: Admin: 01/17/24 15:11 Dose: 3 ml Documented By: Admin: 01/17/24 11:16 Dose: 3 ml Documented By: Admin: 01/17/24 07:34 Dose: 3 ml Documented By: Admin: 01/16/24 20:28 Dose: 3 ml Documented By: DAVONTE Albuterol (Albuterol Hfa 8 Gm Inhaler) 2 puffs INH Q4H PRN PRN Reason: shortness of breath or wheezing Stop: 02/17/24 12:44 Last Admin: 01/19/24 06:16 Dose: 2 puffs Documented By: MCS Enoxaparin Sodium (Enoxaparin Inj 40 Mg/0.4 Ml Syr) 40 mg SQ Q24H RASHID Stop: 02/16/24 08:59 Last Admin: 01/19/24 08:04 Dose: Not Given Documented By: Admin: 01/18/24 08:55 Dose: Not Given Documented By: Admin: 01/17/24 08:36 Dose: 40 mg Documented By: CO Famotidine (Famotidine 20 Mg Tab) 20 mg PO BID [facility] Stop: 02/15/24 22:13 Last Admin: 01/19/24 07:55 Dose: 20 mg Documented By: Admin: 01/18/24 21:56 Dose: 20 mg Documented By: Admin: 01/18/24 08:46 Dose: 20 mg Documented By: Admin: 01/17/24 20:32 Dose: 20 mg Documented By: Admin: 01/17/24 08:35 Dose: 20 mg Documented By: Admin: 01/16/24 23:17 Dose: 20 mg Documented By: SHAGGY Ceftriaxone Sodium (Rocephin) 2,000 mg in 50 mls @ 100 mls/hr IV Q24H [facility] Stop: 01/22/24 17:59 Last Infusion: 01/18/24 17:39 Dose: Infused Documented By: Admin: 01/18/24 17:06 Dose: 100 mls/hr Documented By: Infusion: 01/17/24 19:30 Dose: Infused Documented By: Admin: 01/17/24 18:38 Dose: 100 mls/hr Documented By: RAMOS Doxycycline Hyclate 100 mg/ (Dextrose) 100 mls @ 50 mls/hr IV Q12H RASHID Stop: 01/24/24 05:59 Last Infusion: 01/19/24 08:00 Dose: Infused Documented By: Admin: 01/19/24 05:37 Dose: 50 mls/hr Documented By: Infusion: 01/19/24 05:36 Dose: Infused Documented By: Infusion: 01/18/24 18:26 Dose: 0 mls/hr Documented By: Admin: 01/18/24 17:36 Dose: 50 mls/hr Documented By: Infusion: 01/18/24 08:42 Dose: Infused Documented By: Admin: 01/18/24 06:36 Dose: 50 mls/hr Documented By: [id number] Infusion: 01/17/24 23:12 Dose: Infused Documented By: Renato Admin: 01/17/24 19:22 Dose: 50 mls/hr Documented By: Infusion: 01/17/24 08:10 Dose: Infused Documented By: Admin: 01/17/24 06:09 Dose: 50 mls/hr Documented By: HB Methylprednisolone 60 mg/ (Syringe) 0.96 mls @ 1.5 mls/min IV DAILY RASHID Stop: 02/18/24 08:59 Last Admin: 01/19/24 07:59 Dose: 1.5 mls/min Documented By: ROSMERY Insulin Aspart (Insulin Aspart Per Unit Charge) 0 units SC ACHS RASHID Stop: 02/15/24 20:59 Last Admin: 01/19/24 08:58 Dose: 9 units Documented By: ROSMERY Co-signed By: JACQUELIN Admin: 01/18/24 22:00 Dose: 3 units Documented By: OLGA Co-signed By: Renato Admin: 01/18/24 17:51 Dose: 5 units Documented By: ROSMERY Co-signed By: KEISHA Admin: 01/18/24 12:42 Dose: 5 units Documented By: ROSMERY Co-signed By: COREY Admin: 01/18/24 08:46 Dose: 3 units Documented By: ROSMERY Co-signed By: COREY Admin: 01/17/24 20:26 Dose: Not Given Documented By: Admin: 01/17/24 18:38 Dose: 2 units Documented By: RAMOS Co-signed By: TARA Admin: 01/17/24 12:48 Dose: 2 units Documented By: RAMOS Co-signed By: AXEL Admin: 01/17/24 08:37 Dose: 6 units Documented By: GEMA Co-signed By: AXEL Admin: 01/16/24 20:56 Dose: 4 units Documented By: JASON Co-signed By: GARY Insulin Glargine (Lantus Per Unit Charge) 0 units SQ BID RASHID; Protocol Stop: 02/16/24 20:59 Last Admin: 01/19/24 08:58 Dose: 5 units Documented By: ROSMERY Co-signed By: JACQUELIN Admin: 01/18/24 21:59 Dose: 8 units Documented By: MCS Co-signed By: [id number] Admin: 01/18/24 08:45 Dose: 5 units Documented By: ROSMERY Co-signed By: COREY Admin: 01/17/24 20:33 Dose: 5 units Documented By: BENOIT Co-signed By: CECELIA Pantoprazole Sodium (Pantoprazole 40 Mg Tab) 40 mg PO DAILY [facility] Stop: 02/16/24 08:59 Last Admin: 01/19/24 07:55 Dose: 40 mg Documented By: Admin: 01/18/24 08:46 Dose: 40 mg Documented By: Admin: 01/17/24 08:36 Dose: 40 mg Documented By: GEMA Sodium Chloride (Sodium Chlor 7% 4 Ml Neb) 4 ml NEB BIDR [facility] Stop: 02/15/24 18:59 Last Admin: 01/19/24 07:22 Dose: 4 ml Documented By: Admin: 01/18/24 20:28 Dose: Not Given Documented By: Admin: 01/18/24 07:38 Dose: 4 ml Documented By: [id number] Admin: 01/17/24 19:40 Dose: 4 ml Documented By: Admin: 01/17/24 07:34 Dose: 4 ml Documented By: Admin: 01/16/24 20:28 Dose: 4 ml Documented By: TMP Vitamin D (Cholecalciferol 125 Mcg (5,000 Units) Tab) 125 mcg PO QAM [facility] Stop: 02/18/24 10:14 Last Admin: 01/19/24 10:39 Dose: 125 mcg Documented By: ROSMERY Coding Level of Care Code 64820 IN/OBS CONSULT LVL 3,45M Diagnoses Histrionic personality disorder F60.4 Atypical chest pain R07.89
== END 2024-01-19 18:34 | disposition home health service (06) | DRG 191 ==
LOC: ED 13:27 → EDINP 17:54 → SUATTDRO 17:54 → 2W 01-17 21:56

== ENCOUNTER 2024-05-17 15:53 | Observation (INO) ==
[2024-05-17 16:25] LABS: Basophils # (auto) 0.04 K/uL (0.00-0.20); Basophils % (auto) 0.7 %; Eosinophils # (auto) 0.06 K/uL (0.00-0.50); Hemoglobin 12.3 g/dl (12.0-16.0); Immature Granulocytes # (auto) 0.02 K/uL (0.01-0.20); Immature Granulocytes % (auto) 0.3 %; Lymphocytes # (auto) 2.25 K/uL (1.20-3.40); Lymphocytes % (auto) 37.3 %; Mean Corpuscular Hemoglobin 28.1 pg (25.0-34.0); Mean Corpuscular Hgb Conc 33.2 g/dL (32.0-36.0); Mean Corpuscular Volume 84.7 fL (80.0-100.0); Mean Platelet Volume 10.8 fL (9.4-12.4); Monocytes # (auto) 0.43 K/uL (0.11-0.59); Monocytes % (auto) 7.1 %; Neutrophils # (auto) 3.24 K/uL (1.40-6.50); Neutrophils % (auto) 53.6 %; Platelet Count 273 K/uL (130-400); RDW Coefficient of Variation 13.1 % (11.5-14.5); RDW Standard Deviation 40.5 fL (36.4-46.3); Red Blood Count 4.37 M/uL (4.20-5.40); White Blood Count 6.04 K/ul (4.8-10.8)
[2024-05-17 16:42] LABS: Albumin Globulin Ratio 1.4 (0.9-2); Albumin Level 3.9 gm/dl (3.4-5.0); BUN Creatinine Ratio 18.8 (10-20); Bilirubin,Total 0.2 mg/dl (0.2-1.0); Calcium 9.3 mg/dl (8.6-10.3); Creatinine Clr Calc Pharmacy 69.3 ml/min; Globulin 2.7 gm/dl (2.5-4.0); Total Protein 6.6 gm/dl (6.0-8.3)
[2024-05-17 16:48] LABS: Troponin I High Sensitivity 5.2 pg/ml (0-14)
--- NOTE | 2024-05-17 17:07 | XRay Report ---
XR chest 1V portable CLINICAL HISTORY: Chest pain, nonspecific TECHNIQUE: Single frontal radiograph of the chest was obtained. Comparison: None available at the time of this dictation. FINDINGS: No lines and tubes are seen. The cardiomediastinal silhouette is normal. The lungs are clear. No evid ence of pleural effusion or pneumothorax. IMPRESSION: No acute chest disease. ACT 112: Negative or not required by law. Electronically signed by: Clemente Domínguez M.D. 05/17/2024 5:06 PM
[2024-05-17] MEDS: fentaNYL citrate PF 100 MCG/2 ML VIAL IV STA (17:21)
--- NOTE | 2024-05-17 18:00 | Emergency Department Note ---
Impression & Plan Chest pain ED Provider Note NAME: MIKEL DORMAN AGE: 74 SEX: F : 1950 ARRIVES VIA: Ambulance INFORMANT: Patient, ED PROVIDER(S): Marcela Patiño MD CHIEF COMPLAINT: Chest pain HPI: This 74-year-old female presenting for chest pain. Patient states about 20 minutes prior to arrival she began having sudden onset left-sided chest pain rating into the left arm. She states physical pressure/requesting sensation. She notes feels similar to her previous heart attacks. She mention she was diaphoretic. EMS gave her 324 aspirin and 2 nitro without relief of symptoms. She has no pleurisy, pain in her back. She notes no nausea or vomiting at this time. ROS: See above HPI for pertinent positives & negatives. A total of 10 systems reviewed and were otherwise negative. PHYSICAL EXAMINATION: General: Moderate distress due to pain Head: Normocephalic and atraumatic Eyes: Normal inspection, extraocular muscles intact Ear, nose, throat: Normal external exam Neck: Normal range of motion Respiratory: lungs clear to auscultation bilaterally Cardiovascular: Regular rate/rhythm, no murmur GI: soft, nontender, no guarding or rebound Extremities: nontender, moves all extremities Neuro: The patient awake and alert, appropriately conversive, no focal deficits, symmetric faces Skin: Warm, dry, and intact MEDICAL decision making This is a 74 year-old female presenting for chest pain. -ECG independently interpreted by me with normal sinus rhythm, rate of 80, normal axis, normal ND, normal QRS, normal QTc, no ST segment elevations consistent with STEMI criteria -Second ECG independently interpreted by me with normal sinus rhythm, rate of 77, normal axis, normal ND, normal QRS, normal QTc, no ST segment elevations consistent with STEMI criteria Upon reevaluation patient still notes 10/10 pain in her chest. She does request pain medication at this time. Troponin is initially negative. Otherwise bloodwork is reviewed showing no significant leukocytosis, anemia, electrolyte or creatinine abnormality Due to patient's current pain, will admit for further ACS rule out under Dr. Gates Differential diagnosis: ACS, PE, dissection Past Med/Surg History Problem List (Updated 05/17/24 @ 20:23 by Marcela Patiño MD) Chest pain (Acute) Constipation Shortness of breath (Acute) Chest pain (Acute) 01/16/24 Enterovirus infection 01/10/24 Dysphagia Urinary incontinence Vitamin B12 deficiency Tremor Degenerative disc disease, cervical Osteopenia Adjustment disorder with mixed anxiety and depressed mood Chronic arthralgias of knees and hips Multiple sclerosis Hypertension MVP (mitral valve prolapse) Allergic rhinitis Anxiety and depression Asthma Cervical radiculopathy Type 2 diabetes mellitus History of recurrent UTI (urinary tract infection) Histrionic personality disorder Hyperlipidemia Impulse control disorder Irritable bowel syndrome Learning disability Lumbar disc disease Lumbar spinal stenosis Mood disorder Nonobstructive atherosclerosis of coronary artery Orthostatic tremor Seizure disorder Vitamin D deficiency COPD (chronic obstructive pulmonary disease) (Acute) Medical History Adjustment disorder with mixed anxiety and depressed mood Poor historian Chronic arthralgias of knees and hips Multiple sclerosis MVP (mitral valve prolapse) Hypertension Cervical radiculopathy Type 2 diabetes mellitus Histrionic personality disorder Hyperlipidemia Impulse control disorder IBS (irritable bowel syndrome) Learning disability Lumbar spinal stenosis Mood disorder Tremor Seizure disorder Urinary incontinence Dysphagia COPD with emphysema SOB (shortness of breath) Neck pain Urgency of micturition Fatigue Tobacco dependence Surgical History Status post cardiac catheterization Status post cholecystectomy Status post dilation and curettage Status post tonsillectomy Status post tubal ligation Family History Father Myocardial infarction Cerebral aneurysm Coronary heart disease Diabetes Mother Lung cancer Brother H/O heart artery stent Denies family history of Ovarian cancer Prostate cancer Breast cancer Colorectal cancer Social History Smoking Status: Former smoker Tobacco Type: Cigarettes Age Started Using Tobacco: 18; Age Quit Using Tobacco: 20; packs per day: 2; Second Hand Exposure: No; Do You Dip or Chew Tobacco: No; Hx Alcohol Use: No Hx Substance Use: No Preferred Language: Mongolian Communication Ability: Effective Visual Impairment: Limited Hearing Ability: Normal Women Specialist Required: No Beliefs That Will Affect Care: None marital status: Single Current Living Situation: Significant Other Current Living Situation Comment: Live in apartment current occupational status: disabled 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, 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, 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 How many Children do You have: 2 Feels Safe at Home: Yes Childhood Exposure to Second-Hand Smoke: No Diet: regular caffeine: No during the past year weight has: remained stable Dental Care, Regularly: No Physical Activity Frequency: Does not Exercise Seatbelt Use: always Sunscreen Use: No Assistive Devices: Denture - Upper, Denture - Lower and Glasses Allergies Allergies Allergy/AdvReac Type Severity Reaction Status Date / Time aspirin Allergy Severe Hives Verified 02/20/24 14:47 bee venom protein (honey bee) Allergy Severe Anaphylaxis Verified 02/20/24 14:47 ibuprofen Allergy Unknown unknown Verified 02/20/24 14:47 Penicillins Allergy Unknown unknown Verified 02/20/24 14:47 phenytoin Allergy Unknown unknown Verified 02/20/24 14:47 Iodinated Contrast Media AdvReac Mild Vomiting Verified 02/20/24 14:47 [Iodinated Contrast- Oral and IV Dye] fiberglass Allergy Severe Rash and Uncoded 02/20/24 14:47 Difficulty Breathing Home Meds Home Medications Medication Instructions Recorded Confirmed ipratropium bromide 0.02 % 2.5 ml inhalation Q4H PRN 01/10/24 04/03/24 solution for inhalation shortness of breath or wheezing montelukast 10 mg tablet 10 mg PO QAM 01/16/24 04/03/24 Previous Rx's Medication Instructions Recorded aspirin 81 mg tablet,delayed 81 mg PO QAM #30 tabs 12/06/19 release albuterol sulfate 2.5 mg/3 mL 2.5 mg (3 mL) inhalation Q4H PRN 06/23/23 (0.083 %) solution for nebulization shortness of breath or wheezing #180 mL blood sugar diagnostic (OneTouch #400 ea 07/05/23 Verio test strips) lancets 30 gauge (Onetouch Delica #400 ea 07/05/23 Safety Lancet) blood-glucose meter (OneTouch #1 ea 07/07/23 Verio Flex Meter) nebulizer accessories #2 ea 08/22/23 nebulizers #1 ea 08/22/23 insulin lispro 100 unit/mL 1 sliding scale dose subcut 09/02/23 subcutaneous pen (Humalog KwikPen USEASDIRECTD #15 mL (U-100) Insulin) nitroglycerin 0.4 mg sublingual 0.4 mg sublingual Q5M PRN Chest 09/19/23 tablet Pain #20 tabs albuterol sulfate 90 mcg/actuation 2 puff inhalation Q6H PRN 12/26/23 aerosol inhaler (Ventolin HFA) Shortness Of Breath Or Wheezing #8.5 grams epinephrine 0.3 mg/0.3 mL 0.3 mg (0.3 mL) IM DIRECTED PRN 12/26/23 injection, auto-injector anaphylaxis #2 ea cholecalciferol (vitamin D3) 125 125 mcg PO QAM #30 tabs 01/19/24 mcg (5,000 unit) tablet famotidine 20 mg tablet 20 mg PO BID #30 tabs 01/19/24 mirtazapine 15 mg tablet (Remeron) 7.5 mg (1/2 x 15 mg) PO HS #30 tabs 01/19/24 sodium chloride 7 % for 4 ml NEB BIDR #120 mL 01/19/24 nebulization budesonide 160 mcg-glycopyr 9 2 inh inhalation BID #10.7 grams 01/24/24 mcg-formot 4.8 mcg/actuation HFA inhaler (Breztri Aerosphere) pantoprazole 40 mg tablet,delayed 40 mg PO DAILY #30 tabs 01/25/24 release baclofen 20 mg tablet 20 mg PO BID pain #60 tabs 04/03/24 Results & Data (ED) Vital Signs Vital Signs - 24 hr 05/17/24 15:52 05/17/24 15:58 05/17/24 15:59 Temperature 36.8 C Temperature Source Oral Pulse Rate 90 86 Pulse Rate [Apical] Pulse Rate from SpO2 Sensor Pulse Rhythm Regular Pulse Rhythm [Apical] Pulse Strength Normal Pulse Strength [Apical] Respiratory Rate 18 Respiratory Effort / Characteristics Non-Labored Spontaneous Respiratory Depth Normal Respiratory Pattern Regular Blood Pressure 174/94 H Blood Pressure [Left Arm] Blood Pressure Mean 120 Blood Pressure Mean [Left Arm] Blood Pressure Position Lying Blood Pressure Position [Left Arm] Pulse Oximetry 98 98 Oxygen Delivery Method Room Air Room Air Oxygen Flow Rate Sepsis Recent Fever Within 48 Hours No Sepsis New/Unexplained Change in Mental Status No Sepsis Action Taken by Nursing No Action Required 05/17/24 16:09 05/17/24 16:14 05/17/24 16:17 Temperature 36.8 C Temperature Source Oral Pulse Rate 78 Pulse Rate [Apical] 86 Pulse Rate from SpO2 Sensor 77 Pulse Rhythm Pulse Rhythm [Apical] Regular Pulse Strength Pulse Strength [Apical] Normal Respiratory Rate 18 18 Respiratory Effort / Characteristics Non-Labored Spontaneous Respiratory Depth Normal Respiratory Pattern Regular Blood Pressure Blood Pressure [Left Arm] 174/94 H Blood Pressure Mean Blood Pressure Mean [Left Arm] 120 Blood Pressure Position Blood Pressure Position [Left Arm] Lying Pulse Oximetry 96 98 Oxygen Delivery Method Room Air Room Air Room Air Oxygen Flow Rate Sepsis Recent Fever Within 48 Hours Sepsis New/Unexplained Change in Mental Status Sepsis Action Taken by Nursing 05/17/24 16:17 05/17/24 17:00 05/17/24 17:12 Temperature Temperature Source Pulse Rate 86 78 Pulse Rate [Apical] Pulse Rate from SpO2 Sensor Pulse Rhythm Regular Pulse Rhythm [Apical] Pulse Strength Pulse Strength [Apical] Respiratory Rate 18 24 Respiratory Effort / Characteristics Respiratory Depth Respiratory Pattern Blood Pressure 118/77 Blood Pressure [Left Arm] Blood Pressure Mean 89 Blood Pressure Mean [Left Arm] Blood Pressure Position Blood Pressure Position [Left Arm] Pulse Oximetry 98 Oxygen Delivery Method Room Air Oxygen Flow Rate Sepsis Recent Fever Within 48 Hours Sepsis New/Unexplained Change in Mental Status Sepsis Action Taken by Nursing 05/17/24 17:21 05/17/24 17:30 05/17/24 18:00 Temperature Temperature Source Pulse Rate 78 78 Pulse Rate [Apical] Pulse Rate from SpO2 Sensor 78 Pulse Rhythm Pulse Rhythm [Apical] Pulse Strength Pulse Strength [Apical] Respiratory Rate 22 16 Respiratory Effort / Characteristics Respiratory Depth Respiratory Pattern Blood Pressure 154/78 H 153/108 H Blood Pressure [Left Arm] Blood Pressure Mean 85 123 Blood Pressure Mean [Left Arm] Blood Pressure Position Blood Pressure Position [Left Arm] Pulse Oximetry 97 Oxygen Delivery Method Nasal Cannula Oxygen Flow Rate 1 Sepsis Recent Fever Within 48 Hours Sepsis New/Unexplained Change in Mental Status Sepsis Action Taken by Nursing 05/17/24 19:42 Temperature Temperature Source Pulse Rate 75 Pulse Rate [Apical] Pulse Rate from SpO2 Sensor Pulse Rhythm Pulse Rhythm [Apical] Pulse Strength Pulse Strength [Apical] Respiratory Rate Respiratory Effort / Characteristics Respiratory Depth Respiratory Pattern Blood Pressure Blood Pressure [Left Arm] Blood Pressure Mean Blood Pressure Mean [Left Arm] Blood Pressure Position Blood Pressure Position [Left Arm] Pulse Oximetry Oxygen Delivery Method Oxygen Flow Rate Sepsis Recent Fever Within 48 Hours Sepsis New/Unexplained Change in Mental Status Sepsis Action Taken by Nursing Laboratory Data 05/17/24 16:09 05/17/24 16:09 Lab Results 05/17/24 05/17/24 Range/Units 16:09 18:50 WBC 6.04 (4.8-10.8) K/ul RBC 4.37 (4.20-5.40) M/uL Hgb 12.3 (12.0-16.0) g/dl Hct 37.0 (37.0-47.0) % MCV 84.7 (80.0-100.0) fL MCH 28.1 (25.0-34.0) pg MCHC 33.2 (32.0-36.0) g/dL RDW Std Deviation 40.5 (36.4-46.3) fL RDW Coeff of Maegan 13.1 (11.5-14.5) % Plt Count 273 (130-400) K/uL MPV 10.8 (9.4-12.4) fL Immature Gran % (Auto) 0.3 % Neut % (Auto) 53.6 % Lymph % (Auto) 37.3 % Amelia % (Auto) 7.1 % Eos % (Auto) 1.0 % Baso % (Auto) 0.7 % Neut # (Auto) 3.24 (1.40-6.50) K/uL Lymph # (Auto) 2.25 (1.20-3.40) K/uL Amelia # (Auto) 0.43 (0.11-0.59) K/uL Eos # (Auto) 0.06 (0.00-0.50) K/uL Baso # (Auto) 0.04 (0.00-0.20) K/uL Immature Gran # (Auto) 0.02 (0.01-0.20) K/uL Sodium 137 (136-145) mmol/L Potassium 4.0 (3.5-5.1) mmol/L Chloride 104 (98-107) mmol/L Carbon Dioxide 27 (21-32) mmol/L Anion Gap 6 (3-11) BUN 13 (6-23) mg/dl Creatinine 0.69 (0.6-1.2) mg/dl Est Cr Clr Drug Dosing 69.3 ml/min eGFR 92.15 BUN/Creatinine Ratio 18.8 (10-20) Glucose 92 (70-99(Fasting)) mg/dl POC Glucose 87 (70-99) mg/dl Calcium 9.3 (8.6-10.3) mg/dl Total Bilirubin 0.2 (0.2-1.0) mg/dl AST 19 (13-39) U/L ALT 19 (7-52) U/L Alkaline Phosphatase 95 (34-104) U/L Troponin I High Sens 5.2 (0-14) pg/ml Total Protein 6.6 (6.0-8.3) gm/dl Albumin 3.9 (3.4-5.0) gm/dl Globulin 2.7 (2.5-4.0) gm/dl Albumin/Globulin Ratio 1.4 (0.9-2) Lipase 22 (11-82) U/L Administered Medications Discontinued Medications Fentanyl Citrate (Fentanyl Citrate Pf 100 Mcg/2 Ml Vial) 50 mcg IV NOW STA Stop: 05/17/24 16:39 Last Admin: 05/17/24 17:21 Dose: 50 mcg Documented By: ARS Imaging Data Radiologist's Impression: Chest X-Ray 05/17/24 16:14 XR chest 1V portable CLINICAL HISTORY: Chest pain, nonspecific TECHNIQUE: Single frontal radiograph of the chest was obtained. Comparison: None available at the time of this dictation. FINDINGS: No lines and tubes are seen. The cardiomediastinal silhouette is normal. The lungs are clear. No evidence of pleural effusion or pneumothorax. IMPRESSION: No acute chest disease. ACT 112: Negative or not required by law. Electronically signed by: Clemente Domínguez M.D. 05/17/2024 5:06 PM Discharge Plan Visit Data Chief Complaint: Chest Pain ED Provider: Marcela Patiño Discharge Problem: Chest pain Forms Stand Alone Forms: My [facility] [place] [facility] Prescriptions Prescriptions: No Action (DME) OneTouch Verio test strips Strip See Rx Instructions .Route Qty: 400 1RF Rx Instructions: TEST FOUR TIMES DAILY, DX CODE: E11.9 (DME) lancets [Onetouch Delica Safety Lancet] 30 gauge misc See Rx Instructions .Route Qty: 400 1RF Rx Instructions: TEST FOUR TIMES DAILY, DX CODE: E11.9 (DME) blood-glucose meter [OneTouch Verio Flex meter] Misc See Rx Instructions .Route Qty: 1 0RF Rx Instructions: TEST FOUR TIMES DAILY; DX CODE- E11.9 (DME) nebulizers [facility] [place] See Rx Instructions .Route Qty: 1 0RF Rx Instructions: as directed (DME) nebulizer accessories Kit See Rx Instructions .Route Qty: 2 12RF Rx Instructions: As directed/ tubing and mouthpiece nitroglycerin 0.4 mg tablet, sublingual 0.4 mg sublingual Q5M PRN (Reason: Chest Pain) Qty: 20 1RF Rx Instructions: filled 539 days ago Take up to 3 doses. Call 911 if pain persists. insulin lispro [Humalog KwikPen Insulin] 100 unit/mL insulin pen 1 sliding scale dose subcut USEASDIRECTD Qty: 15 2RF Patient Comments: only taking as needed Rx Instructions: tid with meals and sliding scale albuterol sulfate 2.5 mg /3 mL (0.083 %) solution for nebulization 2.5 mg INH Q4H PRN (Reason: shortness of breath or wheezing) Qty: 180 2RF aspirin 81 mg tablet,delayed release (DR/EC) 81 mg PO QAM Qty: 30 0RF Rx Instructions: unable to verify epinephrine 0.3 mg/0.3 mL auto-injector 0.3 mg IM DIRECTED PRN (Reason: anaphylaxis) Qty: 2 1RF Rx Instructions: inject solution auto injector. Per pt she needs a new script albuterol sulfate [Ventolin HFA] 90 mcg/actuation HFA aerosol inhaler 2 puff INHALATION Q6H PRN (Reason: Shortness Of Breath Or Wheezing) Qty: 8.5 5RF Breztri Aerosphere 160-9-4.8 mcg/actuation HFA aerosol inhaler 2 inh inhalation BID Qty: 10.7 2RF baclofen 20 mg tablet 20 mg PO BID Qty: 60 6RF pantoprazole 40 mg tablet,delayed release (DR/EC) 40 mg PO DAILY Qty: 30 5RF ipratropium bromide 0.02 % solution 2.5 ml inhalation Q4H PRN (Reason: shortness of breath or wheezing) montelukast 10 mg tablet 10 mg PO QAM sodium chloride 7 % Solution For Nebulization 4 ml NEB BIDR Qty: 120 0RF famotidine 20 mg Tablet 20 mg PO BID Qty: 30 0RF cholecalciferol (vitamin D3) 125 mcg (5,000 unit) Tablet 125 mcg PO QAM Qty: 30 0RF mirtazapine [Remeron] 15 mg tablet 7.5 mg PO HS Qty: 30 0RF Referrals Referrals: Gianna Dempsey DO [Primary Care Provider] -
--- NOTE | 2024-05-17 19:31 | History & Physical Report ---
Date of Service May 17, 2024 Assessment & Plan (1) Chest pain: Plan: Chest pain EKG on admission normal sinus rhythm with no acute ischemic changes. Left anterior fascicular block redemonstrated and present on prior EKGs. High- sensitivity troponin 5.2. Repeat troponin ordered. Patient initially endorses sweating/diaphoresis, and clarifies this was only on her palms. Did have some associated shortness of breath which has resolved -Patient reports history of heart attacks, on review has had a history of nonobstructive CAD. Aspirin continued. Rosuvastatin continued DSE 01/05/2023 negative for ischemia, normal LV function at baseline Patient with a significant anxiety component to prior episodes of pain, and has also had a history of dysphagia with prior barium swallow which showed some esophageal dysmotility but had not had clinical swallowing issues DDx includes esophageal spasm, and especially as she did improve with nitro. Clinically improving but not resolved and patient does not feel comfortable returning home mild ongoing pain and severity of her onset Troponin, follow overnight. She is to be started which may also help with esophageal etiology. GI cocktail ordered (2) COPD (chronic obstructive pulmonary disease): Plan: Continue home medications (3) Type 2 diabetes mellitus: Plan: Goal BSG [id number] Type II DM diet Continue ssi History of Present Illness Primary Care Provider: DO Gail Ordonez is a 74-year-old female with past medical history of MS, hypertension, hyperlipidemia, type II DM, COPD, histrionic personality disorder, and multiple episodes of atypical left-sided chest pain presents to the ER with an episode of left-sided chest pain radiating into her left arm with a pressure like sensation similar in quality to prior heart attacks in which was associated with diaphoresis. She received a full dose aspirin and 2 nitro without relief in symptoms. She is seen at the bedside. She reports frustration at being diabetic and being very hungry and not being able to eat since this morning. Redirected several times to history. She reports that she was in the van coming back from having her oil changed when she had chest pain in the center/left upper chest which went into her left shoulder. This was 12/10 and felt excruciating at the time, and then receded down to a tolerable 4/10 and is no longer present in her shoulder and she is nearly completely gone in her chest. Had some sweating on her palms during the episode. Has some chronic shortness of breath with anxiety and asthma, but did not feel like anxiety. At time of assessment pain has improved from a 12/10 to almost gone and no longerin her L arm. REports no history of heart stents. Does have a history of strokes with some residual LEFT sided weakness, no recent change. ENdorses intermittent palpitations in the past, none currently or in the last few days. Food does not affect her pain. 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 No fevers or chills. Palms sweaty as noted NO nausea or vomiting No diarrhea or contstipation NO cough Medical History: Reviewed Medications: Reviewed Surgical History: Reviewed Family history: Reviewed Allergies: Reviewed. Allergic to PCB, phytoin, and contrast. No food allergies. Social History: Former somker in remission x50 years Code Status: Full Allergies Allergy/AdvReac Type Severity Reaction Status Date / Time aspirin Allergy Severe Hives Verified 02/20/24 14:47 bee venom protein (honey bee) Allergy Severe Anaphylaxis Verified 02/20/24 14:47 ibuprofen Allergy Unknown unknown Verified 02/20/24 14:47 Penicillins Allergy Unknown unknown Verified 02/20/24 14:47 phenytoin Allergy Unknown unknown Verified 02/20/24 14:47 Iodinated Contrast Media AdvReac Mild Vomiting Verified 02/20/24 14:47 [Iodinated Contrast- Oral and IV Dye] fiberglass Allergy Severe Rash and Uncoded 02/20/24 14:47 Difficulty Breathing Home Medications Medication Instructions Recorded Confirmed Type aspirin 81 mg tablet,delayed 81 mg PO QAM #30 tabs 12/06/19 04/03/24 Rx release albuterol sulfate 2.5 mg/3 mL 2.5 mg (3 mL) inhalation Q4H PRN 06/23/23 04/03/24 Rx (0.083 %) solution for nebulization shortness of breath or wheezing #180 mL blood sugar diagnostic (Nexx [place]Touch #400 ea 07/05/23 04/03/24 Rx Verio test strips) lancets 30 gauge (Onetouch Delica #400 ea 07/05/23 04/03/24 Rx Safety Lancet) blood-glucose meter (OneTouch #1 ea 07/07/23 04/03/24 Rx Verio Flex Meter) nebulizer accessories #2 ea 08/22/23 04/03/24 Rx nebulizers #1 ea 08/22/23 04/03/24 Rx insulin lispro 100 unit/mL 1 sliding scale dose subcut 09/02/23 04/03/24 Rx subcutaneous pen (Humalog KwikPen USEASDIRECTD #15 mL (U-100) Insulin) nitroglycerin 0.4 mg sublingual 0.4 mg sublingual Q5M PRN Chest 09/19/23 04/03/24 Rx tablet Pain #20 tabs albuterol sulfate 90 mcg/actuation 2 puff inhalation Q6H PRN 12/26/23 04/03/24 Rx aerosol inhaler (Ventolin HFA) Shortness Of Breath Or Wheezing #8.5 grams epinephrine 0.3 mg/0.3 mL 0.3 mg (0.3 mL) IM DIRECTED PRN 12/26/23 04/03/24 Rx injection, auto-injector anaphylaxis #2 ea ipratropium bromide 0.02 % 2.5 ml inhalation Q4H PRN 01/10/24 04/03/24 History solution for inhalation shortness of breath or wheezing montelukast 10 mg tablet 10 mg PO QAM 01/16/24 04/03/24 History cholecalciferol (vitamin D3) 125 125 mcg PO QAM #30 tabs 01/19/24 04/03/24 Rx mcg (5,000 unit) tablet famotidine 20 mg tablet 20 mg PO BID #30 tabs 01/19/24 04/03/24 Rx mirtazapine 15 mg tablet (Remeron) 7.5 mg (1/2 x 15 mg) PO HS #30 tabs 01/19/24 04/03/24 Rx sodium chloride 7 % for 4 ml NEB BIDR #120 mL 01/19/24 04/03/24 Rx nebulization budesonide 160 mcg-glycopyr 9 2 inh inhalation BID #10.7 grams 01/24/24 04/03/24 Rx mcg-formot 4.8 mcg/actuation HFA inhaler (Breztri Aerosphere) pantoprazole 40 mg tablet,delayed 40 mg PO DAILY #30 tabs 01/25/24 04/03/24 Rx release baclofen 20 mg tablet 20 mg PO BID pain #60 tabs 04/03/24 04/03/24 Rx Past Med/Surg History Problem List (Updated 05/17/24 @ 20:23 by Marcela Patiño MD) Chest pain (Acute) Constipation Shortness of breath (Acute) Chest pain (Acute) 01/16/24 Enterovirus infection 01/10/24 Dysphagia Urinary incontinence Vitamin B12 deficiency Tremor Degenerative disc disease, cervical Osteopenia Adjustment disorder with mixed anxiety and depressed mood Chronic arthralgias of knees and hips Multiple sclerosis Hypertension MVP (mitral valve prolapse) Allergic rhinitis Anxiety and depression Asthma Cervical radiculopathy Type 2 diabetes mellitus History of recurrent UTI (urinary tract infection) Histrionic personality disorder Hyperlipidemia Impulse control disorder Irritable bowel syndrome Learning disability Lumbar disc disease Lumbar spinal stenosis Mood disorder Nonobstructive atherosclerosis of coronary artery Orthostatic tremor Seizure disorder Vitamin D deficiency COPD (chronic obstructive pulmonary disease) (Acute) Medical History Adjustment disorder with mixed anxiety and depressed mood Poor historian Chronic arthralgias of knees and hips Multiple sclerosis MVP (mitral valve prolapse) Hypertension Cervical radiculopathy Type 2 diabetes mellitus Histrionic personality disorder Hyperlipidemia Impulse control disorder IBS (irritable bowel syndrome) Learning disability Lumbar spinal stenosis Mood disorder Tremor Seizure disorder Urinary incontinence Dysphagia COPD with emphysema SOB (shortness of breath) Neck pain Urgency of micturition Fatigue Tobacco dependence Surgical History Status post cardiac catheterization Status post cholecystectomy Status post dilation and curettage Status post tonsillectomy Status post tubal ligation Family History Father Myocardial infarction Cerebral aneurysm Coronary heart disease Diabetes Mother Lung cancer Brother H/O heart artery stent Denies family history of Ovarian cancer Prostate cancer Breast cancer Colorectal cancer Social History Smoking Status: Former smoker Tobacco Type: Cigarettes Age Started Using Tobacco: 18; Age Quit Using Tobacco: 20; packs per day: 2; Second Hand Exposure: No; Do You Dip or Chew Tobacco: No; Hx Alcohol Use: No Hx Substance Use: No Preferred Language: Wolof Communication Ability: Effective Visual Impairment: Limited Hearing Ability: Normal Nurse Technician Required: No Beliefs That Will Affect Care: None marital status: Single Current Living Situation: Significant Other Current Living Situation Comment: Live in apartment current occupational status: disabled 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 NAD. Cooperative. HEENT: Atraumatic, normocephalic. Pulm: Diminished, grossly clear without overt wheezing on admission. Symmetrical chest rise. No increased work of breathing. No respiratory distress. Cardiac: Mild left-sided chest wall tenderness although patient reports this is different pain than that which brought her into the hospital. RRR, -mrg. Radial pulses intact and symmetrical. Abdominal: Nontender, nondistended, soft. BS present. Results & Data Results & Data Vital Signs (Past 12 Hours) Vital Signs Temp Pulse Pulse Resp BP BP Pulse Ox 05/17/24 18:00 78 16 153/108 H 97 05/17/24 17:30 154/78 H 05/17/24 17:21 78 22 05/17/24 17:12 78 24 05/17/24 17:00 118/77 05/17/24 16:17 86 18 98 05/17/24 16:17 36.8 C 86 18 174/94 H 98 05/17/24 16:14 05/17/24 16:09 78 18 96 05/17/24 15:59 36.8 C 86 18 174/94 H 98 05/17/24 15:58 98 05/17/24 15:52 90 O2 Del Method O2 Flow Rate 05/17/24 18:00 Nasal Cannula 1 05/17/24 17:30 05/17/24 17:21 05/17/24 17:12 05/17/24 17:00 05/17/24 16:17 Room Air 05/17/24 16:17 Room Air 05/17/24 16:14 Room Air 05/17/24 16:09 Room Air 05/17/24 15:59 Room Air 05/17/24 15:58 Room Air 05/17/24 15:52 PG Care Time/CCT Total # of Minutes Spent Total Time Spent with Patient: Total time spent is greater than 50% in coordination of care (as documented) at patient's floor/unit and/or counseling patient: Coding Level of Care Code 00445 INT INP/OBS CARE 2/55MIN Diagnoses Chest pain R07.9 COPD (chronic obstructive pulmonary disease) J44.9 COPD type: unspecified COPD Type 2 diabetes mellitus E11.9; Z79.4 Diabetes mellitus complication status: without complication Diabetes mellitus manager intermediate insulin use: with manager intermediate use (2) COPD (chronic obstructive pulmonary disease) COPD type: unspecified COPD Qualified Code(s): J44.9 - Chronic obstructive pulmonary disease, unspecified (3) Type 2 diabetes mellitus Diabetes mellitus complication status: without complication Diabetes mellitus manager intermediate insulin use: with senior living use Qualified Code(s): E11.9 - Type 2 diabetes mellitus without complications; Z79.4 - [facility] (current) use of insulin
[2024-05-17] MEDS ORDERED: CARBOHYDRATES FOR HYPOGLYCEMIA PO PRN (19:55)
[2024-05-17] MEDS ORDERED: GLUCAGON FOR INJ 1 MG VIAL SQ PRN (19:55)
[2024-05-17] MEDS ORDERED: GLUCOSE 40% GEL 15 GM TUBE PO PRN (19:55)
[2024-05-17] MEDS ORDERED: DEXTROSE 50% 50 ML SYRINGE IV PRN (19:55)
[2024-05-17] MEDS ORDERED: GLUCOSE 10 TAB/TUBE PO PRN (19:55)
[2024-05-17] MEDS: INSULIN ASPART PER UNIT CHARGE SC SCH (21:29)
[2024-05-17] MEDS: amLODIPine BESYLATE 5 MG TAB PO SCH (21:43)
[2024-05-17] MEDS ORDERED: NON-FORMULARY MEDICATION (Budesonide-Glycopyr-Formoterol [Breztri Aerosphere] 160-9-4.8 mc INH SCH (22:10)
[2024-05-17] MEDS ORDERED: IPRATROPIUM BROMIDE NEB SOLN 0.02% 0.5MG/2.5ML VIAL INH PRN (22:10)
[2024-05-17] MEDS ORDERED: ALBUTEROL HFA 8 GM INHALER INH PRN (22:10)
[2024-05-17] MEDS: FAMOTIDINE 20 MG TAB PO SCH (23:27)
[2024-05-17] MEDS: BACLOFEN 20 MG TAB PO SCH (23:27)
[2024-05-17] MEDS: MIRTAZAPINE TAB 15 MG TAB PO SCH (23:27)
[2024-05-18] MEDS: ALBUTEROL 0.083% NEBU SOLN 3 ML VIAL INH PRN (02:13)
--- NOTE | 2024-05-18 05:38 | Electrocardiogram Report ---
Test Reason : Blood Pressure : */* mmHG Vent. Rate : 80 BPM Atrial Rate : 80 BPM P-R Int : 132 ms QRS Dur : 80 ms QT Int : 384 ms P-R-T Axes : 73 -52 74 degrees QTcB Int : 442 ms Normal sinus rhythm Low voltage QRS Left anterior fascicular block Poor R wave progression, consider anterior IL vs. lead placement vs. LVH Abnormal ECG When compared with ECG of 16-Jan-2024 14:02, No significant change was found Confirmed by Heber Sanders ([id number]) on 05/18/2024 5:38:33 AM Referred By: Confirmed By: Heber Sanders
[2024-05-18] MEDS: ASPIRIN 81 MG ECTAB PO SCH (08:47)
[2024-05-18] MEDS: CHOLECALCIFEROL 125 MCG (5,000 UNITS) TAB PO SCH (08:48)
[2024-05-18] MEDS: MONTELUKAST SODIUM 10 MG TABLET PO SCH (08:48)
[2024-05-18] MEDS: PANTOprazole 40 MG TAB PO SCH (08:48)
[2024-05-18] MEDS: UMECLIDINIUM/VILANTEROL 62.5/25MCG 7 PUFFS/INHALER INH SCH (08:49)
[2024-05-18] MEDS: FLUTICASONE FUROATE 200MCG 14 PUFFS/INHALER INH SCH (08:49)
[2024-05-18 09:18] LABS: Basophils # (auto) 0.04 K/uL (0.00-0.20); Basophils % (auto) 0.7 %; Eosinophils # (auto) 0.09 K/uL (0.00-0.50); Eosinophils % (auto) 1.7 %; Hematocrit (blood only) 36.7 % (37.0-47.0); Hemoglobin 12.1 g/dl (12.0-16.0); Immature Granulocytes # (auto) 0.01 K/uL (0.01-0.20); Immature Granulocytes % (auto) 0.2 %; Lymphocytes # (auto) 1.94 K/uL (1.20-3.40); Lymphocytes % (auto) 36.1 %; Mean Corpuscular Hemoglobin 28.1 pg (25.0-34.0); Mean Corpuscular Volume 85.3 fL (80.0-100.0); Monocytes # (auto) 0.39 K/uL (0.11-0.59); Monocytes % (auto) 7.2 %; Neutrophils # (auto) 2.91 K/uL (1.40-6.50); Neutrophils % (auto) 54.1 %; Platelet Count 260 K/uL (130-400); RDW Coefficient of Variation 13.2 % (11.5-14.5); RDW Standard Deviation 40.4 fL (36.4-46.3); White Blood Count 5.38 K/ul (4.8-10.8)
[2024-05-18 09:30] LABS: Anion Gap 4 (3-11); BUN Creatinine Ratio 20.3 (10-20); Blood Urea Nitrogen 14 mg/dl (6-23); Calcium 8.7 mg/dl (8.6-10.3); Carbon Dioxide 27 mmol/L (21-32); Chloride 108 mmol/L (98-107); Creatinine Clr Calc Pharmacy 65.3 ml/min; Glucose 86 mg/dl (70-99(Fasting)); Potassium 4.1 mmol/L (3.5-5.1); Sodium 139 mmol/L (136-145)
[2024-05-18] MEDS: ALUMINUM/MAGNESIUM SUSP 30 ML UDC PO STA (12:36)
[2024-05-18 14:35] LABS: C Reactive Protein < 0.50 mg/dl (0-0.5)
[2024-05-18 14:42] LABS: Troponin I High Sensitivity 2.7 pg/ml (0-14)
[2024-05-18 15:07] VITALS: BP 137/75; RESP 18; TEMP 98.2; O2SAT 99
[2024-05-18] MEDS: ACETAMINOPHEN 500 MG TAB PO ONE (15:19)
[2024-05-18 16:06] VITALS: PULSE 76
[2024-05-18] MEDS ORDERED: methylPREDNISolone 10 mg/mL (For Ped Dose < 7mg) IV ONE (16:16)
[2024-05-18] MEDS: methylPREDNISolone 40 MG in SYRINGE 0 ML IV ONE (17:24)
--- NOTE | 2024-05-18 18:39 | Discharge Summary ---
Discharge Summary Date of Service May 18, 2024 Principal Dx & Hospital Course #1 = Principal Diagnosis (1) Chest pain: Presented with complaints of chest pain in the center/left upper chest radiating to her left shoulder, shortness of breath, and sweaty palms. - EKG on admission showed normal sinus rhythm with no acute ischemic changes. Left anterior fascicular block redemonstrated and present on prior EKGs. - Troponin of 5.2 on admission, with repeats downtrending - Review of prior records shows multiple hospitalizations with the same complaints but negative cardiac workup - Patient reports history of heart attacks, on review has had a history of nonobstructive CAD. Aspirin continued. Rosuvastatin continued - Dobutamine stress echo 01/05/2023 negative for ischemia, normal LV function at baseline - Patient with a significant anxiety component to prior episodes of pain, and has also had a history of dysphagia with prior barium swallow which showed some esophageal dysmotility but had not had clinical swallowing issues - Admitted for overnight observation as she was too nervous to return home from ED - She continued to endorse 9/10 chest pain, though was resting comfortably in bed eating lunch without tachycardia, tachypnea, diaphoresis, or any events on telemetry - Suspect chest pain is due to musculoskeletal and/or GI cause (esophageal spasm) > Ordered GI cocktail, however patient refused. She stated "I only want fentanyl. Nothing else helps my pain." - Further complaints of left shoulder pain --> x-ray obtained per patient's request. Formal read pending, however, per my review and MD review, osteoarthritis without acute abnormalities noted - Solu-Medrol 40 mg x 1 given prior to discharge - Discharged with prednisone taper x 5 days - Recommend PCP and cardiology follow-ups. Last cath in 2013 however, I could not find the report of this to review. Given multiple negative cardiac workups, very low suspicion for cardiac component to this recurrent chest pain, but perhaps can have further workup for this or hearing that it is noncardiac directly from a retread technician will relieve her anxiety. (2) COPD (chronic obstructive pulmonary disease): Continue home medications (3) Type 2 diabetes mellitus: Goal BSG [id number] Type II DM diet Plan CODE STATUS: Full code Notes For Next Care Provider Presented with chest pain, negative cardiac workup. Suspect musculoskeletal and/or GI component to chest pain. Patient refused GI cocktail, stating "I only want fentanyl." She was given 1 dose of Solu-Medrol and discharged with prednisone taper x 5 days. Medication Changes From Visit Prednisone taper x 5 days Admission HPI Per Admitting Provider Gail is a 74-year-old female with past medical history of MS, hypertension, hyperlipidemia, type II DM, COPD, histrionic personality disorder, and multiple episodes of atypical left-sided chest pain presents to the ER with an episode of left-sided chest pain radiating into her left arm with a pressure like sensation similar in quality to prior heart attacks in which was associated with diaphoresis. She received a full dose aspirin and 2 nitro without relief in symptoms. She is seen at the bedside. She reports frustration at being diabetic and being very hungry and not being able to eat since this morning. Redirected several times to history. She reports that she was in the van coming back from having her oil changed when she had chest pain in the center/left upper chest which went into her left shoulder. This was 12/10 and felt excruciating at the time, and then receded down to a tolerable 4/10 and is no longer present in her shoulder and she is nearly completely gone in her chest. Had some sweating on her palms during the episode. Has some chronic shortness of breath with anxiety and asthma, but did not feel like anxiety. At time of assessment pain has improved from a 12/10 to almost gone and no longerin her L arm. REports no history of heart stents. Does have a history of strokes with some residual LEFT sided weakness, no recent change. ENdorses intermittent palpitations in the past, none currently or in the last few days. Food does not affect her pain. 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 No fevers or chills. Palms sweaty as noted NO nausea or vomiting No diarrhea or contstipation NO cough Medical History: Reviewed Medications: Reviewed Surgical History: Reviewed Family history: Reviewed Allergies: Reviewed. Allergic to PCB, phytoin, and contrast. No food allergies. Social History: Former somker in remission x50 years Code Status: Full Admission Exam Per Admitting Provider General: A&Ox3. NAD. Cooperative. HEENT: Atraumatic, normocephalic. Pulm: Diminished, grossly clear without overt wheezing on admission. Symmetrical chest rise. No increased work of breathing. No respiratory distress. Cardiac: Mild left-sided chest wall tenderness although patient reports this is different pain than that which brought her into the hospital. RRR, -mrg. Radial pulses intact and symmetrical. Abdominal: Nontender, nondistended, soft. BS present. Discharge Exam General: No acute distress, nondiaphoretic, well-developed, well-nourished. Skin: The skin was without rashes, erythema, edema, or bruising. Cardiac: Regular rate and rhythm without murmurs gallops or rubs. Tender to palpation of sternum. Pulm: Clear to auscultation bilaterally without wheezes, rales or rhonchi. No respiratory distress. Abdominal: Soft, nontender, nondistended. Bowel sounds present. Neuro: A&O x3. No focal neurological deficits. Extremities: Left shoulder tenderness to internal and external rotation as well as abduction and adduction. Discharge Plan Discharge Items Patient Disposition: Home - Self-Care Reason For Visit: CHEST PAIN Discharge Diagnosis: Noncardiac chest pain Activity: Resume your previous activity Non-emergency contact: Primary Care Provider Call non-emergency contact if: you have any medication questions and your symptoms worsen Follow-up/Referrals: Ervin Umana PA-C [Physician Assistant Professor In Family Studies] - 06/01/24 11:45 am (Follow-up appointment scheduled for 06/01/2024 at 11:45 AM in the [place] office.) Gianna Dempsey DO [Primary Care Provider] - 06/04/24 9:20 am (Follow-up in 2 weeks) Diet: Carb Consistent or DM2 and Heart Healthy Addtl Attending Provider Instructions: Timo Reynodls were admitted to the hospital for observation due to chest pain. Your cardiac workup was negative. The chest pain you experienced is NOT from your heart. I suspect that it is due to either musculoskeletal or GI cause. You we re given one dose of IV steroids prior to leaving the hospital, and are being discharged with a 5 day steroid taper which you can begin tomorrow (05/19). [facility] [place] For your steroid taper: Take 50 mg (5 pills) x 1 day, then 40 mg (4 pills) x 1 day, then 30 mg (3 pills) x 1 day, then 20 mg (2 pills) x 1 day, then finally 10 mg (1 pill) x 1 day. You did have a repeat x-ray of your left shoulder, which revealed some osteoarthritis but no acute fractures, dislocations, or other abnormalities. I recommend following up with your PCP. Your PCP appointment is scheduled for 06/04/24 at 9:20 AM. Additionally, an outpatient cardiology follow-up appointment has been scheduled for 06/01/2024 at 11:45 AM in the [place] office with Ervin Umana for further evaluation. It was a pleasure taking care of you while you were in the hospital, Haydee Morales PA-C Pending Studies at Discharge: No Stand-Alone Forms: My [facility] Sensorin, Smoking Cessation Medications and DC Order Prescriptions: New prednisone 10 mg tablet 10 mg PO DIRECTED Qty: 15 0RF Rx Instructions: see taper instructions 50 mg x 1 day, then 40 mg x 1 day, then 30 mg x 1 day, then 20 mg x 1 day, then 10 mg x 1 day Continued (DME) OneTouch Verio test strips Strip See Rx Instructions .Route Qty: 400 1RF Rx Instructions: TEST FOUR TIMES DAILY, DX CODE: E11.9 (DME) lancets [Onetouch Delica Safety Lancet] 30 gauge [facility] [place] Rx Instructions .Route Qty: 400 1RF Rx Instructions: TEST FOUR TIMES DAILY, DX CODE: E11.9 (DME) blood-glucose meter [OneTouch Verio Flex meter] [facility] [place] Rx Instructions .Route Qty: 1 0RF Rx Instructions: TEST FOUR TIMES DAILY; DX CODE- E11.9 (DME) nebulizers [facility] [place] See Rx Instructions .Route Qty: 1 0RF Rx Instructions: as directed (DME) nebulizer accessories Kit See Rx Instructions .Route Qty: 2 12RF Rx Instructions: As directed/ tubing and mouthpiece nitroglycerin 0.4 mg tablet, sublingual 0.4 mg sublingual Q5M PRN (Reason: Chest Pain) Qty: 20 1RF Rx Instructions: filled 539 days ago Take up to 3 doses. Call 911 if pain persists. insulin lispro [Humalog KwikPen Insulin] 100 unit/mL insulin pen 1 sliding scale dose subcut USEASDIRECTD Qty: 15 2RF Patient Comments: only taking as needed Rx Instructions: tid with meals and sliding scale albuterol sulfate 2.5 mg /3 mL (0.083 %) solution for nebulization 2.5 mg INH Q4H PRN (Reason: shortness of breath or wheezing) Qty: 180 2RF aspirin 81 mg tablet,delayed release (DR/EC) 81 mg PO QAM Qty: 30 0RF Rx Instructions: unable to verify epinephrine 0.3 mg/0.3 mL auto-injector 0.3 mg IM DIRECTED PRN (Reason: anaphylaxis) Qty: 2 1RF Rx Instructions: inject solution auto injector. Per pt she needs a new script albuterol sulfate [Ventolin HFA] 90 mcg/actuation HFA aerosol inhaler 2 puff INHALATION Q6H PRN (Reason: Shortness Of Breath Or Wheezing) Qty: 8.5 5RF Breztri Aerosphere 160-9-4.8 mcg/actuation HFA aerosol inhaler 2 inh inhalation BID Qty: 10.7 2RF baclofen 20 mg tablet 20 mg PO BID Qty: 60 6RF pantoprazole 40 mg tablet,delayed release (DR/EC) 40 mg PO DAILY Qty: 30 5RF ipratropium bromide 0.02 % solution 2.5 ml inhalation Q4H PRN (Reason: shortness of breath or wheezing) montelukast 10 mg tablet 10 mg PO QAM sodium chloride 7 % Solution For Nebulization 4 ml NEB BIDR Qty: 120 0RF famotidine 20 mg Tablet 20 mg PO BID Qty: 30 0RF cholecalciferol (vitamin D3) 125 mcg (5,000 unit) Tablet 125 mcg PO QAM Qty: 30 0RF mirtazapine [Remeron] 15 mg tablet 7.5 mg PO HS Qty: 30 0RF Discharge Orders: Discharge Order (Routine); Ordered 05/18/24 Ordered By: Haydee Morales Admission Data Admit Date/Time: 05/17/24 19:55 Attending Provider: Aaron Whitten Admit Provider: Jake Gates Primary Care Provider: Gianna Dempsey Other Providers: Jake Gates Other Interventions: Discharge Summary Assessment (RN) Last Done: 05/18/24 16:05 Hospital Stay Data Consultations 05/17/24 19:08 ED Decision to Admit Stat Diagnostic Imagining Performed Chest X-Ray 05/17/24 16:14 XR chest 1V portable CLINICAL HISTORY: Chest pain, nonspecific TECHNIQUE: Single frontal radiograph of the chest was obtained. Comparison: None available at the time of this dictation. FINDINGS: No lines and tubes are seen. The cardiomediastinal silhouette is normal. The lungs are clear. No evidence of pleural effusion or pneumothorax. IMPRESSION: No acute chest disease. ACT 112: Negative or not required by law. Electronically signed by: Clemente Domínguez M.D. 05/17/2024 5:06 PM Pending Results Patient Have Any Pending Studies at Discharge: No Discharge Instructions Given to Patient (Per Discharging Provider) Gail, You were admitted to the hospital for observation due to chest pain. Your cardiac workup was negative. The chest pain you experienced is NOT from your heart. I suspect that it is due to either musculoskeletal or GI cause. You were given one dose of IV steroids prior to leaving the hospital, and are being discharged with a 5 day steroid taper which you can begin tomorrow (05/19). [facility] [place]. For your steroid taper: Take 50 mg (5 pills) x 1 day, then 40 mg (4 pills) x 1 day, then 30 mg (3 pills) x 1 day, then 20 mg (2 pills) x 1 day, then finally 10 mg (1 pill) x 1 day. You did have a repeat x-ray of your left shoulder, which revealed some osteoarthritis but no acute fractures, dislocations, or other abnormalities. I recommend following up with your PCP. Your PCP appointment is scheduled for 06/04/24 at 9:20 AM. Additionally, an outpatient cardiology follow-up appointment has been scheduled for 06/01/2024 at 11:45 AM in the [place] office with Ervin Umana for further evaluation. It was a pleasure taking care of you while you were in the hospital, Haydee Morales PA-C Total Time Total Time Spent Total Time Spent (In Minutes): Greater than 30 minutes spent completing this discharge process including direct patient care, medication reconciliation, documentation, review of labs and images, and coordination of care. Coding Level of Care Code 68919 INP/OBS DISCH >30 MIN Diagnoses Chest pain R07.9 COPD (chronic obstructive pulmonary disease) J44.9 COPD type: unspecified COPD Type 2 diabetes mellitus E11.9; Z79.4 Diabetes mellitus complication status: without complication Diabetes mellitus intermediate frame tender insulin use: with correction use
--- NOTE | 2024-05-18 19:17 | XRay Report ---
LEFT SHOULDER 3 VIEWS CLINICAL HISTORY: Left shoulder pain. FINDINGS: 3 views of the left shoulder are compared to study dated 12/08/2020. The skeletal structures are osteopenic. There is no radiographic evidence of fracture or dislocation. Mild osteoarthritic ch markie is seen at the glenohumeral articulation with bony overgrowth/spurring along the inferior aspect of the humeral head. The acromioclavicular joint is maintained. The overlying soft tissues are withi n normal limits. The visualized left lung parenchyma appears clear. IMPRESSION: No acute bony abnormality is identified. Electronically signed by: Edgar Rogers M.D. 05/18/2024 7:15 PM
--- NOTE | 2024-05-21 12:43 | Electrocardiogram Report ---
Test Reason : Blood Pressure : */* mmHG Vent. Rate : 77 BPM Atrial Rate : 77 BPM P-R Int : 136 ms QRS Dur : 80 ms QT Int : 388 ms P-R-T Axes : 73 -52 63 degrees QTcB Int : 439 ms Normal sinus rhythm Low voltage QRS Left anterior fascicular block Incomplete right bundle branch block Abnormal ECG When compared with ECG of 17-May-2024 15:56, No significant change was found Confirmed by Thong Chau ([id number]) on 05/21/2024 12:43:32 PM Referred By: REFERRED SELF Confirmed By: Thong Chau
== END 2024-05-18 18:33 | disposition home or self-care (01) ==
LOC: EDSEX → 2N 15:53 → ED 15:53 → SUATTDRO 19:55 → 2N 21:40